=== PATIENT | female | born 1955 | race Caucasian/White ===

== ENCOUNTER → 2017-10-29 11:00 | Outpatient (CLI) | payer MEDICARE, SELFPAY ==
--- NOTE | 2017-10-29 11:03 | HPBI_ITS ---
MAMMOGRAPHY - BILATERAL SCREENING REASON FOR EXAM: Female, 61 years old. Routine annual screening examination. PERTINENT HISTORY: Non-contributory. Six-month history of left lateral breast tenderness. TECHNIQUE: Digital bilateral breast nury (3D mammographic acquisition) in the CC and MLO projections. 2-D mediolateral oblique (MLO) and craniocaudad (CC) views of both breasts were obtained. CAD: Full Field Digital Mammography with Computer Added Detection was performed. COMPARISON: None. Baseline examination. FINDINGS: Breast Composition: There are scattered areas of fibroglandular density. There are no dominant masses or suspicious calcifications. No other significant abnormalities are identified. HPBI/SCREENING MAMM (CAD), BILAT IMPRESSION: Negative screening mammogram. Yearly followup mammogram recommended. (A) ASSESSMENT CATEGORY: BIRADS Category 1: Negative. A letter regarding these results will be sent to the patient by the facility within 30 days. Approximately 10% of breast cancers are not detected by mammography. A normal mammogram should not delay biopsy of a clinically suspicious abnormality. [id number] Electronically Signed: Rory Wright MD at 13:39 EST Tel [phone], Service support ,
--- NOTE | 2017-10-29 11:04 | HPBD_ITS ---
STUDY: DUAL ENERGY X-RAY ABSORPTIOMETRY / DXA REASON FOR EXAM: Female, 61 years old. The patient is postmenopausal. Loss of height. TECHNIQUE: Bone Mineral Density (BMD) measurements of lumbar spine and bilateral hips were obtained. COMPARISON: None. FINDINGS: Lumbar Spine (L1-L4): g/cm2 (1.312) / T-score (1.2) / Z-score (2.4) Findings are suggestive of normal bone density with a low fracture risk. Left Femur Total: g/cm2 (0.998) / T-score (-0.1) / Z-score (0.8) Left Femoral Neck: g/cm2 (0.807) / T-score (-1.7) / Z-score (-0.4) Right Femur Total: g/cm2 (0.913) / T-score (-0.8) / Z-score (0.2) Right Femoral Neck: g/cm2 (0.728) / T-score (-2.2) / Z-score (-1.0) HPBD/Dexa Bone Density Study (HP) IMPRESSION: The patient is considered osteopenic as outlined below according to World Bjorn Organization (WHO) criteria with a moderate fracture risk. Reference Information: The T-score is the number of standard deviations above or below the standard which is normal for young adults at their peak bone mineral density. The World Health Organization (WHO) interprets the T-scores as follows: Above -1 Normal bone density Between -1 and -2.5 Osteopenia Equal to / or below -2.5 Osteoporosis As a practical clinical guideline, osteopenia may be graded as follows: Mild -1 through -1.5 Moderate -1.6 through -2.0 Severe -2.1 through -2.4 The Z-score is the number of standard deviations above or below age-matched controls. A Z-score of less than -1.5 would be considered abnormal. References: 1. NIH Osteoporosis and Related Bone Diseases http://www.osteo.org 2. International Society for Clinical Densitometry http://www.iscd.org 3. National Osteoporosis Foundation http://www.nof.org Electronically Signed: Rory Wright MD at 14:19 EST Tel [phone], Service support ,
== END ==
PROVIDERS: Family Provider Family Medicine; PCP Family Medicine; Visit Provider Nurse Practitioner Adult Health
DX: Z12.31 Encounter for screening mammogram for malignant neoplasm of breast (principal); Z78.0 Asymptomatic menopausal state; M85.80 Other specified disorders of bone density and structure, unspecified site
CPT/HCPCS: 77063; 77067; 77080

== ENCOUNTER → 2018-01-12 10:22 | Outpatient (CLI) | payer MEDICARE, SELFPAY ==
[2018-01-12 11:14] LABS: Amphetamine Urine VISTA NEGATIVE (<1000 ng/mL); Barbiturate Urine VISTA NEGATIVE (< 200 ng/mL); Benzodiazepine Urine VISTA NEGATIVE (< 200 ng/mL); Cocaine Urine VISTA NEGATIVE (< 300 ng/mL); Ecstacy Urine VISTA NEGATIVE (< 500 ng/mL); Methadone Urine VISTA NEGATIVE (< 300 ng/mL); PCP Urine VISTA NEGATIVE (< 25 ng/mL); THC Urine VISTA NEGATIVE (< 50 ng/mL); Vista UDS pH Range 6
== END ==
PROVIDERS: Family Provider Family Medicine; PCP Family Medicine; Visit Provider Anesthesiology Pain Medicine
DX: F11.20 Opioid dependence, uncomplicated (principal)
CPT/HCPCS: 80307

== ENCOUNTER → 2018-07-27 10:21 | Outpatient (CLI) | payer MEDICARE, SELFPAY ==
--- NOTE | 2018-07-27 10:25 | RAD_ITS ---
STUDY: X-RAY - RIGHT KNEE REASON FOR EXAM: Female, 62 years old. Knee pain. TECHNIQUE: 2 view(s) of the knee. COMPARISON: None. FINDINGS: Normal visualized distal femur. Normal visualized proximal tibia and fibula. Normal proximal tibiofibular articulation. There is mild degenerative arthrosis of the medial femorotibial compartment. Normal lateral femorotibial compartment. Normal patellofemoral articulation. The soft tissue structures are unremarkable. RAD/Knee 1 or 2 Views IMPRESSION: Degenerative arthrosis. Electronically Signed: Rory Wright MD at 8:56 EDT Tel [phone], Service support ,
--- NOTE | 2018-07-27 10:30 | RAD_ITS ---
STUDY: X-RAY - LEFT KNEE REASON FOR EXAM: Pain. TECHNIQUE: 2 view(s) of the knee. COMPARISON: None. FINDINGS: Normal visualized distal femur. Normal visualized proximal tibia and fibula. Normal proximal tibiofibular articulation. There is mild joint space narrowing of the medial femorotibial compartment. Normal lateral femorotibial compartment. Normal patellofemoral articulation. The soft tissue structures are unremarkable. RAD/Knee 1 or 2 Views IMPRESSION: Mild arthrosis of the medial femorotibial compartment. Electronically Signed: Nura Smalls MD at 11:45 EDT Tel , Service support ,
== END ==
PROVIDERS: Family Provider Family Medicine; PCP Family Medicine; Referring Provider Anesthesiology Pain Medicine; Visit Provider Anesthesiology Pain Medicine
DX: M25.561 Pain in right knee (principal); M25.562 Pain in left knee
CPT/HCPCS: 73560

== ENCOUNTER → 2018-08-24 09:04 | Outpatient (CLI) | payer MEDICARE, SELFPAY ==
--- NOTE | 2018-08-24 09:11 | RAD_ITS ---
HISTORY: back pain COMPARISON: Lumbar spine MRI 11/26/2016 FINDINGS: Lumbar spine with lateral flexion-extension views for total 4 views. Clothing artifact. Lumbar laminectomy with L3-4 and L4-5 posterior fusion utilizing pedicle screws and connecting rods. The surgical hardware appears intact. Lumbar vertebra are normal in height. No fracture or acute disease. Above the fusion, marked L2-3 disc space narrowing accompanied by endplate spurring and reactive endplate sclerosis. Grade 1 anterolisthesis of L2 on L3 and spondylolisthesis is stable with flexion and extension views. No instability seen. L5-S1 mild disc space narrowing. Bilateral tubal ligation clips. RAD/L/S Spine Min 4 Views IMPRESSION: 1. Lumbar laminectomy with L3-4-5 surgical fusion. 2. Above the fusion, L2-3 advanced degenerative disc disease and spondylosis together with grade 1 spondylolisthesis of this level. 3. With flexion-extension, no instability or abnormal motion. at 0501 Reported and signed by: Trevon Hernadez MD Electronically Signed: Trevon Hernadez, at 4:59 EST Tel , Service support ,
--- OUTSIDE RECORDS SUMMARY | 2018-10-05 22:15 | XMS RPT_ITS ---
:1955 Author Organization OHIP Care Team Providers Name Role Phone Jael Arreguin Attending Unavailable Chi Pulliam Primary Care Unavailable Wilfredo Burgos Attending Unavailable Wilfredo Burgos Referring Unavailable Chi Pulliam Primary Care Unavailable Wilfredo Burgos Attending Unavailable BasalWilfredo garcia Referring Unavailable Pulliam, Chi Primary Care Unavailable Sosa Cummins Attending Unavailable Heraclio Chi Referring Unavailable Sosa Cummins Attending Unavailable oSsa Cummins Referring Unavailable Pulliam, Chi Primary Care Unavailable Sosa Cummins Attending Unavailable Sosa Cummins Referring Unavailable Pulliam, Chi Primary Care Unavailable PROBLEMS PROBLEMS DATE TYPE CONDITION / CODE ATTENDING STATUS SOURCE 09/03/2018 Unknown M54.9 - Maria G Oswald Elizabeth Active [facility] unspecified / Community M54.9(ICD-10) Hospital Repository 09/03/2018 Unknown M76.31 - Sosa Cummins Active [facility] Iliotibial band Community syndrome, right Hospital leg / Repository M76.31(ICD-10) 09/03/2018 Unknown Z98.1 - Sosa Cummins Active Dheeraj Arthrodesis status Community / Z98.1(ICD-10) Hospital Repository 08/24/2018 Unknown M54.16 - Sosa Cummins Active Dheeraj Radiculopathy, [facility] lumbar region / Hospital M54.16(ICD-10) Repository 10/29/2017 Unknown Z12.31 - Encounter Kallie, Active [place] for screening [facility] mammogram for Hospital malignant neoplasm Repository of breast / Z12.31(ICD-10) 10/29/2017 Unknown Z78.0 - [place], Active [place] Asymptomatic [facility] menopausal state / Hospital Z78.0(ICD-10) Repository PROCEDURES PROCEDURES No Procedure Records FoundRESULTS RESULTS ORTHOPEDIC VISIT Observed: 09/03/2018 Status: F Source: DHEERAJ REPORT 11:43 PM [facility] REPOSITORY [facility] [address] [place] [address] OFFICE VISIT Date of Service: 08/24/18 MR#: [id number] Acct: [id number] Name: RONALDO ELLIOTT Rep #: [id number] : 1955 Provider: Sosa Cummins MD Age/Sex: 62/F Location: [facility] [place] Status: Signed Intake Intake Visit Reasons: LOW BACK PAIN Allergies No Known Allergies Allergy (Verified 12/02/15 17:48) [facility] Social History Smoking Status: Never smoker HPI LOW BACK PAIN: Details: RONALDO ELLIOTT is a 62 year old RHD F here today for lumbar pain 70% and 30% bilateral leg fatigue with standing and walking and improved with sitting as well as right buttock, lateral hip, lateral thigh and calf pain that is worse with sitting and improved with laying. She has had back pain since the 1980s. She complains of start up pain. She has history of lumbar surgery x3, one with Dr Buenrsotro that required a redo due to the disc breaking apart. She had a discectomy and states 6 weeks postop, she had a reherniation that required additional surgery. She denies complications or improvement. She had a fusion with Dr Odell Pulliam in 2009 of L3/4/5, that helped minimally her right leg pain. She denies postoperative complications. She did have pain relief with that surgery but it took months. She states she has chronic right leg numbness since her surgeries. She has had a right foot fracture in 07/2017 and developed left lateral leg paresthesias. She had physical therapy many years ago. She had no aqua therapy. She does swim. She was an [employer] for over twenty years and did a lot of heavy lifting. Her last injection was in june by Dr. Burgos, which was repeat of TFE SNRB right side L4-5 and L5-S1. The same injections were in 03/2018, 11/2017 and 06/2017. She states the injections helped her back, not her leg. She has had bilateral SI joint injecitons 09/2017 and right facet injections 10/2016 of the lumbar spine. Her pain is constant but she does get relief from the oxycontine 20 BID and anti inflammatory, celebrex and baclofen, and gabapentin. She trialed lyrica but her pain increased. She has been on opioids for about 10 years. She denies bowel or bladder issues. She denies gait aids. She has HTN and DM. She is unemployed. She denies nicotine use or alcohol use. Ortho Exam Spine Neuro: Yes Clonus (none bilaterally), De La Vega's (negative bilaterally), Babinski (withdrawal bilaterally), Straight Leg Raise (negative bilaterally) and Spurling's (negative bilaterally) General: alert, oriented x3 Skin: Yes healed (midline lumbar incision) Capillary Refill <2sec: Yes Palpable Pulses: 1+ dp/pt pulses bilaterally Gait: normal gait, other (able to heel and toe walk) Motor: strength 5/5 throughout DTR's: Rt Triceps: 2+, Lt Triceps: 2+, Rt Biceps: 2+, Lt Biceps: 2+, Rt Brachioradialis: 2+, Lt Brachioradialis: 2+, Rt Patellar: 2+, Lt Patellar: 2+, Rt Ankle: 2+, Lt Ankle: 2+ Plantar Reflexes: Withdrawal: bilateral Coordination: tandem gait normal, Romberg test normal SPINE TESTING CERVICAL THORACIC LUMBAR SLR: Negative, Right, Le Iliac Compression: Positive, Right, Le Musculoskeletal General: Yes normal gait Cervical Spine: cervical muscular tenderness, pain with cervical ROM, cervical spinal tenderness Thoracic/Lumbar Spine: thoraco-lumbar ROM limited, pain with thoraco-lumbar ROM (worse with lumbar extension than flexion), paraspinal tenderness, surgical scar(s) present, straight leg raise negative bilaterally Sacroiliac joints: bilateral (tenderness) Strength 0=absent - 5=normal Deltoid R (C5): 5, Deltoid L (C5): 5, R Bicep (C5-6): 5, L Bicep (C5-6): 5, R Wrist Extensor (C6): 5, L Wrist Extensor (C6): 5, R Tricep (C7): 5, L Tricep (C7): 5, R Finger Flexors (C8): 5, L Finger Flexors (C8): 5, R First Dorsal Interossei (C8): 5, L First Dorsal Interossei (C8): 5, R Hip Flexor (L1-3): 5, L Hip Flexor (L1-3): 5, R Quadriceps (L2-4): 5, L Quadriceps (L2-4): 5, R Anterior Tibialis (L4-5): 5, L Anterior Tibialis (L4- 5): 5, R Hamstrings (L5-S1): 5, L Hamstrings (L5-S1): 5, GS (S1): 5, L GS (S1): 5, R Peroneals (S1): 5, L Peroneals (S1): 5 Details: decreased sensation in the bialteral lateral thigh, calf and right dorsal foot. tenderness over the right greater trochanteric region. 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 Diffuse spondylosis. L2-3 anterolisthesis. no significant central stenosis MRI cervical spine 11/26/2016 reveals diffuse spondylosis without severe central stneosis DEXA 10/29/2017 reveals left hip T score -0.1, -1.7, right hip T score -0.8, -2.2 I/R/P: 1. back pain 2. right trochanteric bursitis 3. bilateral leg fatigue 4. chronic right leg paresthesias and pain 5. history of 3 prior lumbar surgeries, elsewhere 6. chronic right foot pain 7. chronic opioid use Ms. Elliott presents with back pain and bilateral leg pain. The natural history and course of the symptomatology of lumbar spondylosis with spondylolisthesis was discussed in detail with the patient. I answered all questions regarding the mode of onset, pathophysiology, symptoms, imaging findings, treatment options regarding her diagnosis. She has failed physical therapy, injections and medications. Recommend an updated MRI lumbar spine with and without contrast given her last MRI was over 1 year ago. Recommend reinitiation of physical therapy for right greater trochanteric bursitis. Follow up after MRi or sooner if issues arise. Plan of care discussed. All questions answered. The patient verbalized understanding of the disease process and agreed to the treatment plan formulated for this visit. 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 [place] [address] Fax REHABILITATION SERVICES INITIAL EVALUATION MR#: [id number] Acct: [id number] Name: RONALDO ELLIOTT Rep #: [id number] : 1955 62 From: Darryl Bass PT, Cert. MDT, OCS Referring DrAshok: Sosa Cummins MD Status: REG RCR Insurance: O MEDICARE SELF PAY INSURANCE Patient's Visit Information RONALDO ELLIOTT is a 62 year old F referred to Physical Therapy by Sosa Cummins with a diagnosis of BACK PAIN,L3-5 FUSION 2009,RIGHT IT TENDONIS. Date of Evaluation: 08/25/18 Physical Therapist: Darryl Bass, PT, - Visit Plan Frequency: 2x /Week Duration: 4 Weeks Plan: Aquatic PT for DLS,POSTURAL EX'S,LE STRENGTHENING,LE FLEAXABLITY - Subjective Findings: This 62 y/o female presents to physical therapy with lumbar pain . Patient has had 3 back surgery's most recent L3-5 FUSION 2009. The other surgery's where lumbar discectomies. Patient since surgery pain weakness right leg. patient symptoms affects ability to work and ability to perform job demands. Patient fx ankle from unable to feel foot. Symptoms located lumbar spine ,right leg and cervical spine. Symptoms worse with lifting, bending,sitting driving. Symptoms some better with walking.Pain affects sleeping. Coughing/sneezing -.Bowel/bladder good. Patient has had prior epidural injections prior PT.Patient has parathesia legs. Patient seees pain managenent. Patient seen Dr Behzad trinidad for [facility]. Patient had MRI oredered. Patient symptoms affects QOL and ability to work and ADLS'. SOCAIL: . VOCATION: unemployed - Pain Bilateral Back Pain Intensity (Out of 10): 4 Pain Intensity Range: 10 Right Lower Extremity Pain Intensity (Out of 10): 3 Pain Intensity Range: 10 - Objective POSTURE: mild foward posture. GAIT: normal spring. NEURO: c/o parathesia/tingling right leg,reflexes L3-4,L4-5,L5-S1,1/3. SYMMTRIES: align. PALAPTION: tender L-S region. MMT: quads/hams/hip 4-/5,ankle 4/5. LUMBAR ROM: flexion mod loss,extension mod loss,side glides mods. FLEXABLITY: hams - Special Tests L/S Slump test left side: Negative L/S Slump test right side: Negative L/S Left Straight Leg Raise: Negative L/S Right Straight Leg Raise: Negative - Goals Goal 1:: Independant with Aquatic PT Goal Time Frame: 4-6 Weeks Goal 2:: Patient decrease lumbar pain by 50 % to improve function with ADL'S Goal Time Frame: 4-6 Weeks Goal 3:: Patient to improve posture for ADL'S Goal Time Frame: 4-6 Weeks Goal 4:: Patient to increase strength BLE 4/5 to improve function with ADL'S Goal Time Frame: 4-6 Weeks Goal 5:: Patient to improbe JEFFREY back score by 5 points Goal Time Frame: 4-6 Weeks - Rehabilitation Potential Physical Therapy Diagnosis: This patient has h/o lumbar fusion 2010 with pain ,weakness ,decrease lumbar ROM ,thus impairs ADL'S and housework tasks thus benifit from skilled PT Rehabilitation Potential: Good - Anticipated Interventions Patient/Client Instruction: Educate patient on: Condition, Plan of Care For the Purpose of:: To decrease pain, To increase ROM, To improve muscle performance and motor function, To improve ability to perform ADL's, To increase tolerance to activity/condition/position, To improve ability of physical actions for home/community/work/leisure, To increase flexibility/ROM, To improve endurance, To improve ability to perform tasks related to life management Therapeutic Exercise to Include: Strength training, Postural training, Flexibilty training, In an aquatic setting, Dynamic Lumbar Stabilization Comment: BLE For the Purpose of:: To decrease pain, To increase ROM, To improve muscle performance and motor function, To increase tolerance to activity/condition/position, To improve performance and independence with ADL's, To improve ability of physical actions for home/community/work/leisure, To increase flexibility/ROM, To improve ability to perform tasks related to life management Thank you for the opportunity to evaluate your patient. For Medicare and Medicare HMO plans, please review the plan of care and approve it. It will need to be FAXED BACK to us at [phone] for Medicare purposes. For Medicare only, by signing this I certify the plan of care. Please let me know if there are questions or concerns regarding this plan of care. Physician Signature: Date: <Electronically signed by Darryl Bass PT, Cert. T, OCS> 08/25/18 1208 CC: Sosa Cummins MD; Chi Pulliam MD JLA Signed L/S SPINE MIN 4 Observed: 08/24/2018 Status: F Source: DHEERAJ VIEWS 9:09 AM [facility] REPOSITORY [facility] Imaging Services [address] [place] [address] L/S Spine Min 4 Views MR#: [id number] Acct: [id number] Name: RONALDO ELLIOTT Rep #: [id number] : 1955 F 62 From: Trevon Hernadez MD PCP: Chi Pulliam MD Status: REG CLI Study: L/S Spine Min 4 Views Date of Exam: 08/24/18 Exam# [id number] Ordering Dr: Sosa Cummins MD HISTORY: back pain COMPARISON: Lumbar spine MRI 11/26/2016 FINDINGS: Lumbar spine with lateral flexion-extension views for total 4 views. Clothing artifact. Lumbar laminectomy with L3-4 and L4-5 posterior fusion utilizing pedicle screws and connecting rods. The surgical hardware appears intact. Lumbar vertebra are normal in height. No fracture or acute disease. Above the fusion, marked L2-3 disc space narrowing accompanied by endplate spurring and reactive endplate sclerosis. Grade 1 anterolisthesis of L2 on L3 and spondylolisthesis is stable with flexion and extension views. No instability seen. L5-S1 mild disc space narrowing. Bilateral tubal ligation clips. RAD/L/S Spine Min 4 Views IMPRESSION: 1. Lumbar laminectomy with L3-4-5 surgical fusion. 2. Above the fusion, L2-3 advanced degenerative disc disease and spondylosis together with grade 1 spondylolisthesis of this level. 3. With flexion-extension, no instability or abnormal motion. at 0501 Reported and signed by: Trevon Hernadez MD Electronically Signed: Trevon Hernadez, at 4:59 EST Tel , Service support , CC: Sosa Cummins MD; Chi Pulliam MD Washer Engineer Helper: Signed KNEE 1 OR 2 VIEWS Observed: 07/27/2018 Status: F Source: DHEERAJ 10:25 AM [facility] REPOSITORY [facility] Imaging Services [address] [place] [address] Knee 1 or 2 Views MR#: [id number] Acct: [id number] Name: RONALDO ELLIOTT Rep #: [id number] : 1955 F 62 From: Rory Wright MD PCP: Chi Pulliam MD Status: REG CLI Study: Knee 1 or 2 Views Date of Exam: 07/27/18 Exam# [id number] Ordering Dr: Wilfredo Burgos MD STUDY: X-RAY - RIGHT KNEE REASON FOR EXAM: Female, 62 years old. Knee pain. TECHNIQUE: 2 view(s) of the knee. COMPARISON: None. FINDINGS: Normal visualized distal femur. Normal visualized proximal tibia and fibula. Normal proximal tibiofibular articulation. There is mild degenerative arthrosis of the medial femorotibial compartment. Normal lateral femorotibial compartment. Normal patellofemoral articulation. The soft tissue structures are unremarkable. RAD/Knee 1 or 2 Views IMPRESSION: Degenerative arthrosis. Electronically Signed: Rory Wright MD at 8:56 EDT Tel [phone], Service support , CC: Wilfredo Burgos MD; Chi Pulliam MD Washer Engineer Helper: Signed KNEE 1 OR 2 VIEWS Observed: 07/27/2018 Status: F Source: DHEERAJ 10:25 AM [facility] REPOSITORY [facility] Imaging Services [address] [place] [address] Knee 1 or 2 Views MR#: [id number] Acct: [id number] Name: RONALDO ELLIOTT Rep #: [id number] : 1955 F 62 From: Nura Smalls MD PCP: Chi Pulliam MD Status: REG CLI Study: Knee 1 or 2 Views Date of Exam: 07/27/18 Exam# [id number] Ordering Dr: Wilfredo Burgos MD STUDY: X-RAY - LEFT KNEE REASON FOR EXAM: Pain. TECHNIQUE: 2 view(s) of the knee. COMPARISON: None. FINDINGS: Normal visualized distal femur. Normal visualized proximal tibia and fibula. Normal proximal tibiofibular articulation. There is mild joint space narrowing of the medial femorotibial compartment. Normal lateral femorotibial compartment. Normal patellofemoral articulation. The soft tissue structures are unremarkable. RAD/Knee 1 or 2 Views IMPRESSION: Mild arthrosis of the medial femorotibial compartment. Electronically Signed: Nura Smalls MD at 11:45 EDT Tel , Service support , CC: Wilfredo Burgos MD; Chi Pulliam MD Washer Engineer Helper: Signed URINE DRUG SCREEN Collected: 01/12/2018 Status: F Source: DHEERAJ (VISTA) 10:32 AM [facility] REPOSITORY Order Comment: Comments: RUN LOWEST TEST List of Drugs Taken or Suspected? UNK TYPE CODE TESTS RESULT OUT OF RANGE REFERENCE UNITS LAB L505.0075 TO BE Normal CONFIRMED Result Comment: CONFIRMATORY TESTING FOR ALL POSITIVE URINE DRUG SCREEN RESULTS WILL ONLY BE SENT OUT UPON PHYSICIAN ORDER. VISTA Urine Drug Screen methods provide only preliminary analytical test results. A more specific alternate chemical method must be used in order to obtain a confirmed analytical result. Gas chromatography/mass spectrometery (GC/MS) is the preferred confirmatory method. Clinical consideration and professional judgement should be applied to any drug of abuse test result, particularly when preliminary positive results are used. URINE TCA TESTING MUST BE ORDERED SEPARATELY. USE TEST MNEMONIC: [facility] LAB L505.5005 VISTA UDS PH 6 Normal LAB L505.5015 <1000 ng/mL AMPHETAMINES Normal NEGATIVE LAB L505.5025 < 200 ng/mL BARBITIURATES Normal NEGATIVE LAB L505.5035 < 200 ng/mL BENZODIAZIPINE Normal NEGATIVE LAB L505.5045 < 300 ng/mL COCAINE Normal NEGATIVE LAB L505.5055 < 500 ng/mL ECSTACY Normal NEGATIVE LAB L505.5065 < 300 ng/mL METHADONE Normal NEGATIVE LAB L505.5075 < 300 High ng/mL OPIATES POSITIVE LAB L505.5085 < 25 ng/mL PCP Normal NEGATIVE LAB L505.5095 < 50 ng/mL THC Normal NEGATIVE Performed By: #### L505.5000 #### [facility] [address] [place], [address] MISCELLANEOUS LAB Collected: 01/12/2018 Status: F Source: DHEERAJ PROCEDURE 10:32 AM [facility] REPOSITORY Order Comment: Comments: RUN LOWEST TEST Test(s) Ordered: [id number] TYPE CODE TESTS RESULT OUT OF RANGE REFERENCE UNITS LAB L801.1541 Normal [facility] TEST Result Comment: TEST RESULT UNITS REF INTERVAL [id number] 6+Oxycodone-Bund Amphetamines, Urine Negative ng/mL Mriwjz=3654 Amphetamine test includes Amphetamine and Methamphetamine. Barbiturate Negative ng/mL Boamdj=189 Benzodiazepines Negative ng/mL Hripti=528 Cannabinoids Negative ng/mL Cutoff=20 Cocaine (Metabolite) Negative ng/mL Mrycct=039 Opiates Negative ng/mL Jsujfz=615 Opiate test includes Codeine, Morphine, Hydromorphone, Hydrocodone. Please Note: Confirmation performed by Mass Spectrometry Oxycodone/Oxymorph Positive Ekjktl=722 Test includes Oxycodone and Oxymorphone Oxycodone Positive Oxycodone (GC/MS) 1800 ng/mL Scjico=105 Oxymorphone Positive Oxymorphone (GC/MS) 984 ng/mL Ibhess=337 TESTING PERFORMED AT [facility]. ORIGINAL REPORT ON FILE IN LAB CONTAINS ADDITIONAL TEST SITE INFORMATION. Performed By: #### L801.1541 #### [facility] [address] [place], [address] DEXA BONE DENSITY Observed: 10/29/2017 Status: F Source: [place] STUDY () 11:06 AM [facility] REPOSITORY [facility] Imaging Services [address] [place] [address] Dexa Bone Density Study () MR#: [id number] Acct: [id number] Name: RONALDO ELLIOTT Rep #: [id number] : 1955 F 61 From: Rory Wirght MD PCP: Chi Pulliam MD Status: REG CLI Study: Dexa Bone Density Study () Date of Exam: 10/29/17 Exam# [id number] Ordering Dr: Jael Arreguin STUDY: DUAL ENERGY X-RAY ABSORPTIOMETRY / DXA REASON FOR EXAM: Female, 61 years old. The patient is postmenopausal. Loss of height. TECHNIQUE: Bone Mineral Density (BMD) measurements of lumbar spine and bilateral hips were obtained. COMPARISON: None. FINDINGS: Lumbar Spine (L1-L4): g/cm2 (1.312) / T-score (1.2) / Z-score (2.4) Findings are suggestive of normal bone density with a low fracture risk. Left Femur Total: g/cm2 (0.998) / T-score (-0.1) / Z- score (0.8) Left Femoral Neck: g/cm2 (0.807) / T-score (-1.7) / Z- score (-0.4) Right Femur Total: g/cm2 (0.913) / T-score (-0.8) / Z- score (0.2) Right Femoral Neck: g/cm2 (0.728) / T-score (-2.2) / Z-score (-1.0) HPBD/Dexa Bone Density Study (HP) IMPRESSION: The patient is considered osteopenic as outlined below according to World Bjorn Organization (WHO) criteria with a moderate fracture risk. Reference Information: The T-score is the number of standard deviations above or below the standard which is normal for young adults at their peak bone mineral density. The World Health Organization (WHO) interprets the T-scores as follows: Above -1 Normal bone density Between -1 and -2.5 Osteopenia Equal to / or below -2.5 Osteoporosis As a practical clinical guideline, osteopenia may be graded as follows: Mild -1 through -1.5 Moderate -1.6 through -2.0 Severe -2.1 through -2.4 The Z-score is the number of standard deviations above or below age-matched controls. A Z-score of less than -1.5 would be considered abnormal. References: 1. NIH Osteoporosis and Related Bone Diseases http://www.osteo.org 2. International Society for Clinical Densitometry http://www.iscd.org 3. National Osteoporosis Foundation http://www.nof.org Electronically Signed: Rory Wright MD at 14:19 EST Tel [phone], Service support , CC: Jael Arreguin; Chi Pulliam MD Washer Engineer Helper: Signed SCREENING MAMM (CAD), Observed: 10/29/2017 Status: F Source: DHEERAJ CYDNEY 11:04 AM [facility] REPOSITORY [facility] Imaging Services [address] [place] [address] SCREENING MAMM (CAD), BILHORACE MR#: [id number] Acct: [id number] Name: RONALDO ELLIOTT Rep #: [id number] : 1955 F 61 From: Rory Wright MD PCP: Chi Pulliam MD Status: REG CLI Study: SCREENING MAMM (CAD), BILAT Date of Exam: 10/29/17 Exam# [id number] Ordering Dr: Jael Arreguin MAMMOGRAPHY - BILATERAL SCREENING REASON FOR EXAM: Female, 61 years old. Routine annual screening examination. PERTINENT HISTORY: Non-contributory. Six-month history of left lateral breast tenderness. TECHNIQUE: Digital bilateral breast nury (3D mammographic acquisition) in the CC and MLO projections. 2-D mediolateral oblique (MLO) and craniocaudad (CC) views of both breasts were obtained. CAD: Full Field Digital Mammography with Computer Added Detection was performed. COMPARISON: None. Baseline examination. FINDINGS: Breast Composition: There are scattered areas of fibroglandular density. There are no dominant masses or suspicious calcifications. No other significant abnormalities are identified. HPBI/SCREENING MAMM (CAD), BILAT IMPRESSION: Negative screening mammogram. Yearly followup mammogram recommended. (A) ASSESSMENT CATEGORY: BIRADS Category 1: Negative. A letter regarding these results will be sent to the patient by the facility within 30 days. Approximately 10% of breast cancers are not detected by mammography. A normal mammogram should not delay biopsy of a clinically suspicious abnormality. [id number] Electronically Signed: Rory Wright MD at 13:39 EST Tel [phone], Service support , CC: Jael Arreguin; Chi Pulliam MD Washer Engineer Helper: Signed ALLERGIES ALLERGIES DATE TYPE / CODE NAME / CODE REACTION SEVERITY SOURCE 12/02/2015 Drug No Known Unknown [place] [facility] Allergy/4160 Allergies/F00 [facility] 99580(SNOMED [id number](RXNOR Repository CT) M) ENCOUNTERS ENCOUNTERS ADMIT/DISCHARGE ACCOUNT ADMITTING ENCOUNTER LOCATION SOURCE NUMBER CLASS 09/03/2018 [id number] Ambulatory [facility]aj [place] 2 [facility] ing:PT Repository 08/24/2018 [id number] Ambulatory [place] [facility] ing:HPRAD Repository 08/24/2018/ [id number] Ambulatory BMSBuilding:B [place] 8 1 [facility] Repository 07/27/2018 [id number] Ambulatory Dheeraj Dheeraj 1 [facility] ing:RAD Repository 01/12/2018 [id number] Ambulatory [place] Dheeraj 0 [facility] ing:LAB Repository 10/29/2017 [id number] Ambulatory [place] 0 [facility] ing:BD Repository PAYERS PAYERS ENCOUNTER GUARANTOR PAYER SUBSCRIBER SOURCE 09/03/2018 JOSE Watson Primary Insurance:MMO RONALDO J Dheeraj [id number] VINCENT MEDICAREPolicy RUDYDOB: [place], [place] Number: [id number] Hospital [address]Bkv: [id number] [id number] Repository [phone] () Date:4200-18-98EG [address] [address]IN: 09/03/2018 Secondary NOT GIVENUNK Dheeraj Insurance:SELF PAY [facility] Number: Effective Repository Date:2018-08-24 08/24/2018 JOSE Watson Primary Insurance:MMO RONALDO J [place] [id number] VINCENT MEDICAREPolicy RUDYDOB: [place], [place] Number: [id number] Hospital [address]Nxe: [phone] [id number] Repository [phone] () Date:[id number] [address]AE: 08/24/2018 Secondary NOT GIVENUNK Dheeraj Insurance:SELF PAY [facility] Number: Effective Repository Date:2018-08-24 08/24/2018 JOSE Watson Primary Insurance:MMO RONALDO J Dheeraj [id number] VINCENT MEDICAREPolicy RUDYDOB: [facility] [place] Number: [id number] Hospital [address]Lnc: [phone] [id number] Repository [phone] (HP) Date:3509-87-15RH [address] [place] [address]CC: 08/24/2018 Secondary NOT GIVENUNK Dheeraj Insurance:SELF [facility] Effective Repository Date:2018-08-24 07/27/2018 JOSE Watson Primary Insurance:MMO RONALDO J [place] [id number] VINCENT MEDICAREPolicy RUDYDOB: [facility] [place] Number: [id number] Hospital [address]Mrh: [phone] [id number] Repository [phone] (HP) Date:9975-21-46JG [address] [address]QN: 07/27/2018 Secondary NOT GIVENUNK Dheeraj Insurance:SELF PAY [facility] Number: Effective Repository Date:2018-07-27 01/12/2018 JOSE Watson Primary Insurance:MMO RONALDO J Dheeraj [id number] VINCENT MEDICAREPolicy RUDYDOB: [place], [place] Number: [id number] Hospital [address]Urk: [phone] [id number] Repository [phone] () Date:9725-24-80TA [address] [address]VS: 01/12/2018 Secondary NOT GIVENUNK [place] Insurance:SELF PAY [facility] Number: Effective Repository Date:2018-01-12 10/29/2017 JOSE Watson Primary Insurance:MMO RONALDO J [place] [id number] VINCENT MEDICAREPolicy RUDYDOB: [place] Number: [id number] Hospital [address]Jdf: [phone] [id number] Repository [phone] () Date:5527-97-02CI [address] [address]OT: 10/29/2017 Secondary NOT GIVENUNK Dheeraj Insurance:SELF PAY [facility] Number: Effective Repository Date:2017-09-01
== END ==
PROVIDERS: Family Provider Family Medicine; PCP Family Medicine; Referring Provider Orthopaedic Surgery; Visit Provider Orthopaedic Surgery
DX: M54.16 Radiculopathy, lumbar region (principal)
CPT/HCPCS: 72110

== ENCOUNTER 2018-09-03 15:30 | Outpatient (RCR) | payer MEDICARE, SELFPAY ==
--- NOTE | 2018-08-25 10:24 | HP.PTEVAL ---
Patient's Visit Information RONALDO SOLORIO is a 62 year old F referred to Physical Therapy by Sosa Cummins with a diagnosis of BACK PAIN,L3-5 FUSION 2009,RIGHT IT TENDONIS. Date of Evaluation: 08/25/18 Physical Therapist: Darryl Bass, PT, - Visit Plan Frequency: 2x /Week Duration: 4 Weeks Plan: Aquatic PT for DLS,POSTURAL EX'S,LE STRENGTHENING,LE FLEAXABLITY - Subjective Findings: This 62 y/o female presents to physical therapy with lumbar pain . Patient has had 3 back surgery's most recent L3-5 FUSION 2009. The other surgery's where lumbar discectomies. Patient since surgery pain weakness right leg. patient symptoms affects ability to work and ability to perform job demands. Patient fx ankle from unable to feel foot. Symptoms located lumbar spine ,right leg and cervical spine. Symptoms worse with lifting, bending,sitting driving. Symptoms some better with walking.Pain affects sleeping. Coughing/sneezing -.Bowel/bladder good. Patient has had prior epidural injections prior PT.Patient has parathesia legs. Patient seees pain managenent. Patient seen Dr Behzad trinidad for surgey. Patient had MRI oredered. Patient symptoms affects QOL and ability to work and ADLS'. SOCAIL: . VOCATION: unemployed - Pain Bilateral Back Pain Intensity (Out of 10): 4 Pain Intensity Range: 10 Right Lower Extremity Pain Intensity (Out of 10): 3 Pain Intensity Range: 10 - Objective POSTURE: mild foward posture. GAIT: normal spring. NEURO: c/o parathesia/tingling right leg,reflexes L3-4,L4-5,L5-S1,1/3. SYMMTRIES: align. PALAPTION: tender L-S region. MMT: quads/hams/hip 4-/5,ankle 4/5. LUMBAR ROM: flexion mod loss,extension mod loss,side glides mods. FLEXABLITY: hams - Special Tests L/S Slump test left side: Negative L/S Slump test right side: Negative L/S Left Straight Leg Raise: Negative L/S Right Straight Leg Raise: Negative - Goals Goal 1:: Independant with Aquatic PT Goal Time Frame: 4-6 Weeks Goal 2:: Patient decrease lumbar pain by 50 % to improve function with ADL'S Goal Time Frame: 4-6 Weeks Goal 3:: Patient to improve posture for ADL'S Goal Time Frame: 4-6 Weeks Goal 4:: Patient to increase strength BLE 4/5 to improve function with ADL'S Goal Time Frame: 4-6 Weeks Goal 5:: Patient to improbe JEFFREY back score by 5 points Goal Time Frame: 4-6 Weeks - Rehabilitation Potential Physical Therapy Diagnosis: This patient has h/o lumbar fusion 2010 with pain ,weakness ,decrease lumbar ROM ,thus impairs ADL'S and housework tasks thus benifit from skilled PT Rehabilitation Potential: Good - Anticipated Interventions Patient/Client Instruction: Educate patient on: Condition, Plan of Care For the Purpose of:: To decrease pain, To increase ROM, To improve muscle performance and motor function, To improve ability to perform ADL's, To increase tolerance to activity/condition/position, To improve ability of physical actions for home/community/work/leisure, To increase flexibility/ROM, To improve endurance, To improve ability to perform tasks related to life management Therapeutic Exercise to Include: Strength training, Postural training, Flexibilty training, In an aquatic setting, Dynamic Lumbar Stabilization Comment: BLE For the Purpose of:: To decrease pain, To increase ROM, To improve muscle performance and motor function, To increase tolerance to activity/condition/position, To improve performance and independence with ADL's, To improve ability of physical actions for home/community/work/leisure, To increase flexibility/ROM, To improve ability to perform tasks related to life management Thank you for the opportunity to evaluate your patient. For Medicare and Medicare HMO plans, please review the plan of care and approve it. It will need to be FAXED BACK to us at [phone] for Medicare purposes. For Medicare only, by signing this I certify the plan of care. Please let me know if there are questions or concerns regarding this plan of care. Physician Signature: Date:
--- NOTE | 2018-09-27 15:53 | HP.PTDCNRP_ITS ---
HP - Discharge Summary (1) - Patient Information RONALDO SOLORIO was seen in my office for initial evaluation on 08/25/18. The following Plan of Care was established for this patient: Initial Frequency: 2x /Week Initial Duration: 4 Weeks - Anticipated Interventions Patient/Client Instruction: Educate patient on: Condition, Plan of Care For the Purpose of:: To decrease pain, To increase ROM, To improve muscle perfor car[place] and motor function, To improve ability to perform ADL's, To increase tolerance to activity/condition/position, To improve ability of physical actions for home/community/work/leisure, To increase flexibility/ROM, To improve endurance, To improve ability to perform tasks related to life management Therapeutic Exercise to Include: Strength training, Postural training, F lexibilty training, In an aquatic setting, Dynamic Lumbar Stabilization For the Purpose of:: To decrease pain, To increase ROM, To improve muscle performance and motor function, To increase tolerance to activity/condition/position, To improve performance and independence with ADL's, To improve ability of physical actions for home/community/work/leisure, To increase flexibility/ROM, To improve ability to perform tasks related to life management This patient was last seen in our office 09/03/18. Pertinent comments regarding their Physical therapy will appear below: Patient seen for PT for lumbar fusion in Aquatic PT for 2 visits focusing on DLS,LE strengthening but is d/c from PT. At this point I will be discontinuing this patient from physical therapy. I would be happy to see this patient again in the future if found appropriate by the physician. Thank you! Darryl Bass, PT, Cert MDT, OCS
--- OUTSIDE RECORDS SUMMARY | 2018-10-20 14:52 | XMS RPT_ITS ---
[...] Chi Referring Unavailable Sosa Cummins Attending Unavailable Sosa Cummins Referring Unavailable Pulliam, Chi Primary Care Unavailable Sosa Cummins Attending Unavailable Sosa Cummins Referring Unavailable Pulliam, Chi Primary Care Unavailable PROBLEMS PROBLEMS DATE TYPE CONDITION / CODE ATTENDING STATUS SOURCE 09/03/2018 Unknown M54.9 - Maria G Oswald Elizabeth Active Dheeraj unspecified / Community M54.9(ICD-10) Hospital Repository 09/03/2018 Unknown M76.31 - Sosa Cummins Active Dheeraj Iliotibial band Community syndrome, right Hospital leg / Repository M76.31(ICD-10) 09/03/2018 Unknown Z98.1 - Sosa Cummins Active Dheeraj Arthrodesis status Community / Z98.1(ICD-10) Hospital Repository 08/24/2018 Unknown M54.16 - Sosa Cummins Active Dheeraj Radiculopathy, [facility] lumbar region / Hospital M54.16(ICD-10) Repository 10/29/2017 Unknown Z12.31 - Encounter Kallie, Active [place] for screening [facility] mammogram for Hospital malignant neoplasm Repository of breast / Z12.31(ICD-10) 10/29/2017 Unknown Z78.0 - [place], Active [place] Asymptomatic [facility] menopausal state / Hospital Z78.0(ICD-10) Repository PROCEDURES PROCEDURES No Procedure Records FoundRESULTS RESULTS ORTHOPEDIC VISIT Observed: 09/03/2018 Status: F Source: DHEERAJ REPORT 11:43 PM [facility] REPOSITORY [facility] [address] [place] [address] OFFICE VISIT Date of Service: 08/24/18 MR#: [id number] Acct: [id number] Name: RONALDO ELLIOTT Rep #: [id number] : 1955 Provider: Sosa Cummins MD Age/Sex: 62/F [place] [facility]: Signed Intake Intake Visit Reasons: LOW BACK PAIN Allergies No Known Allergies Allergy (Verified 12/02/15 17:48) [facility] Social History Smoking Status: Never smoker HPI [...] of lumbar surgery x3, one with Dr Buenrostro that required a redo due to the [...] therapy. She does swim. 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 [place] [address] Fax REHABILITATION SERVICES INITIAL EVALUATION MR#: [id number] Acct: [id number] Name: RONALDO ELLIOTT Rep #: [id number] : 1955 62 From: Darryl Bass PT, [...] managenent. [facility]. Patient had MRI oredered. Patient symptoms [...] 4-6 Weeks Goal 5:: Patient to improbe JEFFERY back score by 5 points Goal Time [...] to be FAXED BACK to us at [phone] for Medicare purposes. For Medicare only, by [...] Status: F Source: DHEERAJ VIEWS 9:09 AM [facility] REPOSITORY [facility] Imaging Services [address] [place] [address] L/S Spine Min 4 Views MR#: [id number] Acct: [id number] Name: RONALDO ELLIOTT Rep #: [id number] : 1955 F 62 From: Trevon Hernadez MD PCP: Chi Pulliam MD Status: REG CLI Study: L/S Spine Min 4 Views Date of Exam: 08/24/18 Exam# [id number] Ordering Dr: Sosa Cummins MD HISTORY: back [...] CC: Sosa Cummins MD; Chi Pulliam MD Audio Director: Signed KNEE 1 OR 2 VIEWS Observed: 07/27/2018 Status: F Source: DHEERAJ 10:25 AM [facility] REPOSITORY [facility] Imaging Services [address] [place] [address] Knee 1 or 2 Views MR#: [id number] Acct: [id number] Name: RONALDO ELLIOTT Rep #: [id number] : 1955 F 62 From: Rory Wright MD PCP: Chi Pulliam MD Status: REG CLI Study: Knee 1 or 2 Views Date of Exam: 07/27/18 Exam# [id number] Ordering Dr: Wilfredo Burgos MD STUDY: X-RAY [...] Rory Wright MD at 8:56 EDT Tel [phone], Service support , CC: Wilfredo Burgos MD; Chi Pulliam MD Audio Director: Signed KNEE 1 OR 2 VIEWS Observed: 07/27/2018 Status: F Source: DHEERAJ 10:25 AM [facility] REPOSITORY [facility] Imaging Services [address] [place] [address] Knee 1 or 2 Views MR#: [id number] Acct: [id number] Name: RONALDO ELLIOTT Rep #: [id number] : 1955 F 62 From: Nura Smalls MD PCP: Chi Pulliam MD Status: REG CLI Study: Knee 1 or 2 Views Date of Exam: 07/27/18 Exam# [id number] Ordering Dr: Wilfredo Burgos MD STUDY: X-RAY [...] CC: Wilfredo Burgos MD; Chi Pulliam MD Audio Director: Signed URINE DRUG SCREEN Collected: 01/12/2018 Status: F Source: DHEERAJ (VISTA) 10:32 AM [facility] REPOSITORY Order Comment: Comments: RUN LOWEST TEST [...] Normal NEGATIVE Performed By: #### L505.5000 #### [facility] [address] [place], [address] MISCELLANEOUS LAB Collected: 01/12/2018 Status: F Source: DHEERAJ PROCEDURE 10:32 AM [facility] REPOSITORY Order Comment: Comments: RUN LOWEST TEST Test(s) Ordered: [id number] TYPE CODE TESTS RESULT OUT OF RANGE REFERENCE UNITS LAB L801.1541 Normal [facility] LAB TEST Result Comment: TEST RESULT UNITS REF INTERVAL [id number] 6+Oxycodone-Bund Amphetamines, Urine Negative ng/mL Bnllwa=4635 Amphetamine test includes Amphetamine and Methamphetamine. Barbiturate Negative ng/mL Uunrxx=233 Benzodiazepines Negative ng/mL Jnebfr=307 Cannabinoids Negative ng/mL Cutoff=20 Cocaine (Metabolite) Negative ng/mL Flemtg=120 Opiates Negative ng/mL Xxsyms=905 Opiate test includes Codeine, Morphine, Hydromorphone, Hydrocodone. Please Note: Confirmation performed by Mass Spectrometry Oxycodone/Oxymorph Positive Gavvtx=124 Test includes Oxycodone and Oxymorphone Oxycodone Positive Oxycodone (GC/MS) 1800 ng/mL Amkuvk=453 Oxymorphone Positive Oxymorphone (GC/MS) 984 ng/mL Pghgrs=312 TESTING PERFORMED AT [facility]. ORIGINAL REPORT ON FILE IN LAB CONTAINS ADDITIONAL TEST SITE INFORMATION. Performed By: #### L801.1541 #### [facility] [address] [place], [address] DEXA BONE DENSITY Observed: 10/29/2017 Status: F Source: SULPHUR BLUFF STUDY () 11:06 AM [facility] REPOSITORY [facility] Imaging Services [address] [place] [address] Dexa Bone Density Study () MR#: [id number] Acct: [id number] Name: RONALDO ELLIOTT Rep #: [id number] : 1955 F 61 From: Rory Wright MD PCP: Chi Pulliam MD Status: REG CLI Study: Dexa Bone Density Study () Date of Exam: 10/29/17 Exam# [id number] Ordering Dr: Jael Arreguin STUDY: DUAL ENERGY [...] Rory Wright MD at 14:19 EST Tel [phone], Service support , CC: Jael Arreguin; Chi Pulliam MD Audio Director: Signed SCREENING MAMM (CAD), Observed: 10/29/2017 Status: F Source: DHEERAJ CYDNEY 11:04 AM [facility] REPOSITORY [facility] Imaging Services [address] [place] [address] SCREENING MAMM (CAD), BILHORACE MR#: [id number] Acct: [id number] Name: RONALDO ELLIOTT Rep #: [id number] : 1955 F 61 From: Rory Wright MD PCP: Chi Pulliam MD Status: REG CLI Study: SCREENING MAMM (CAD), BILAT Date of Exam: 10/29/17 Exam# [id number] Ordering Dr: Jael Arreguin MAMMOGRAPHY - BILATERAL [...] delay biopsy of a clinically suspicious abnormality. [id number] Electronically Signed: Rory Wright MD at 13:39 EST Tel [phone], Service support , CC: Jael Arreguin; Chi Pulliam MD Audio Director: Signed ALLERGIES ALLERGIES DATE TYPE / CODE NAME / CODE REACTION SEVERITY SOURCE 12/02/2015 Drug No Known Unknown [place] [facility] Allergy/4160 [facility] [address](SNOMED 2048414(RXNOR Repository CT) M) ENCOUNTERS ENCOUNTERS ADMIT/DISCHARGE ACCOUNT ADMITTING ENCOUNTER LOCATION SOURCE NUMBER CLASS 09/03/2018 [id number] Ambulatory Dheeraj [place] 2 [facility] ing:PT Repository 08/24/2018 [id number] Ambulatory [place] 8 [facility] ing:HPRAD Repository 08/24/2018/ [id number] Ambulatory BMSBuilding:B [place] 8 1 [facility] Repository 07/27/2018 [id number] Ambulatory Dheeraj Dheeraj 1 [facility] ing:RAD Repository 01/12/2018 [id number] Ambulatory [place] Dheeraj 0 [facility] ing:LAB Repository 10/29/2017 [id number] Ambulatory [place] 0 [facility] ing:BD Repository PAYERS PAYERS ENCOUNTER GUARANTOR PAYER SUBSCRIBER SOURCE 09/03/2018 JOSE Watson Primary Insurance:MMO RONALDO J Dhereaj [id number] VINCENT MEDICAREPolicy RUDYDOB: [place], [place] Number: [id number] Hospital [address]Rwc: [phone] [id number] Repository [phone] () Date:5750-40-72MM [address] [address]ZY: 09/03/2018 Secondary NOT GIVENUNK Dheeraj Insurance:SELF PAY [facility] Number: Effective Repository Date:2018-08-24 08/24/2018 JOSE [place] Primary Insurance:MMO RONALDO J [place] [id number] VINCENT MEDICAREPolicy RUDYDOB: [place], [place] Number: [id number] Hospital [address]Edd: ([phone]) [id number] Repository [phone] () Date:3120-41-35LA[address] [address]PT: 08/24/2018 Secondary NOT GIVENUNK Dheeraj Insurance:SELF PAY [facility] Number: Effective Repository Date:2018-08-24 08/24/2018 JOSE Watson Primary Insurance:MMO RONALDO J Dheeraj [id number] VINCENT MEDICAREPolicy RUDYDOB: [facility], [place] Number: [id number] Hospital [address]The: [phone] [id number] Repository [phone] (HP) Date:9424-62-79VD [address] [place] [address]VR: 08/24/2018 Secondary NOT GIVENUNK Dheeraj Insurance:SELF PAY [facility] Number: Effective Repository Date:2018-08-24 07/27/2018 JOSE Watson Primary Insurance:MMO RONALDO J [place] [id number] VINCENT MEDICAREPolicy RUDYDOB: [facility], [place] Number: [id number] Hospital [address]Qrs: [phone] [id number] Repository [phone] (HP) Date:3937-02-36BA [address] [address]QR: 07/27/2018 Secondary NOT GIVENUNK Dheeraj Insurance:SELF PAY [facility] Number: Effective Repository Date:2018-07-27 01/12/2018 JOSE Watson Primary Insurance:MMO RONALDO J Dheeraj [id number] VINCENT MEDICAREPolicy RUDYDOB: [place], [place] Number: [id number] Hospital [address]Acw: [phone] [id number] Repository [phone] () Date:0033-06-16IR [address] [address]IV: 01/12/2018 Secondary NOT GIVENUNK [place] Insurance:SELF PAY [facility] Number: Effective Repository Date:2018-01-12 10/29/2017 JOSE Watson Primary Insurance:MMO RONALDO J [place] [id number] VINCENT MEDICAREPolicy RUDYDOB: [place], [place] Number: [id number] Hospital [address]Wrk: [phone] [id number] Repository [phone] () Date:6706-90-29CF [address] [address]HJ: 10/29/2017 Secondary NOT GIVENUNK Dheeraj Insurance:SELF PAY [facility] Number: Effective Repository Date:2017-09-01
== END 2018-09-03 19:00 | disposition home or self-care (01) ==
LOC: PT 15:30
PROVIDERS: Family Provider Family Medicine; PCP Family Medicine; Referring Provider Orthopaedic Surgery; Visit Provider Orthopaedic Surgery
DX: M54.9 Dorsalgia, unspecified (principal); M76.31 Iliotibial band syndrome, right leg; Z98.1 Arthrodesis status
CPT/HCPCS: 97113; 97162

== ENCOUNTER → 2018-10-19 11:29 | Outpatient (CLI) | payer MEDICARE, SELFPAY ==
[2018-10-19 14:19] LABS: Anion Gap 6 (5-15); BUN 17 mg/dL (7-18); BUN/Creat Ratio 17.6 RATIO (10-20); Calcium,Total 9.1 mg/dL (8.5-10.1); Chloride 107 mmol/L (98-107); Cholesterol 180 mg/dL (200); Creatinine, Serum 0.96 mg/dL (0.55-1.02); EST Glomerular Filtration Rate 63 mL/min (>60); Est Glom Filt Rate - Afr Amer 76 mL/min (>60); Glucose 94 mg/dL (74-106); Hemoglobin A1c 6.1 % (4.2-6.3); High Density Lipoprotein 53 mg/dL; Potassium 3.9 mmol/L (3.5-5.1); Sodium Level 141 mmol/L (136-145); Triglycerides 99 mg/dL; Very Low Density Lipoprotein 20 mg/dL (5-40)
--- OUTSIDE RECORDS SUMMARY | 2018-12-21 15:19 | XMS RPT_ITS ---
:1955 Author Organization OHIP Care Team Providers Name Role Phone Chi Pulliam Attending Unavailable Chi Pulliam Referring Unavailable Chi Pulliam Primary Care Unavailable Jael Arreguin Attending Unavailable Chi Pulliam Primary Care Unavailable Wilfredo Burgos Attending Unavailable Wilfredo Burgos Referring Unavailable Chi Pulliam Primary Care Unavailable Wilfredo Burgos Attending Unavailable Wilfredo Burgos Referring Unavailable Chi Pulliam Primary Care Unavailable Sosa Cummins Attending Unavailable Chi Pulliam Referring Unavailable Sosa Cummins Attending Unavailable Sosa Cummins Referring Unavailable Chi Pulliam Primary Care Unavailable Sosa Cummins Attending Unavailable Sosa Cummins Referring Unavailable Chi Pulliam Primary Care Unavailable PROBLEMS PROBLEMS DATE TYPE CONDITION / CODE ATTENDING STATUS SOURCE 09/29/2018 Unknown M54.9 - Dorsalgia, Kalani CumminsSosa Active [facility] unspecified / Community M54.9(ICD-10) Hospital Repository 09/29/2018 Unknown M76.31 - Kalani CumminsSosa Active [facility] Iliotibial band Community syndrome, right Hospital leg / Repository M76.31(ICD-10) 09/29/2018 Unknown Z98.1 - Kalani CumminsSosa Active [facility] Arthrodesis status Community / Z98.1(ICD-10) Hospital Repository 08/24/2018 Unknown M54.16 - Kalani CumminsSosa Active [facility] Radiculopathy, [facility] lumbar region / Hospital M54.16(ICD-10) Repository 10/29/2017 Unknown Z12.31 - Encounter Ticktruman, Active Dheeraj for screening [facility] mammogram for Hospital malignant neoplasm Repository of breast / Z12.31(ICD-10) 10/29/2017 Unknown Z78.0 - [place], Active Dheeraj Asymptomatic [facility] menopausal state / Hospital Z78.0(ICD-10) Repository PROCEDURES PROCEDURES No Procedure Records FoundRESULTS RESULTS BASIC METABOLIC Collected: 10/19/2018 Status: F Source: [place] PROFILE (BMP) 11:34 AM [facility] HOSPITAL REPOSITORY TYPE CODE TESTS RESULT OUT OF RANGE REFERENCE UNITS LAB L501.0100 74-106 mg/dL Normal GLU 94 Result Comment: Please note revised GLUCOSE reference range effective 2017. LAB L501.1000 7-18 mg/dL Normal BUN 17 LAB L501.1100 0.55-1.02 mg/dL Normal CREAT,SERUM 0.96 Result Comment: The validity of the calculated GFR AND GFRAA in patients over 70 years has not been determined. Clinical correlation is essential. LAB L501.1110 >60 mL/min Normal EST GFR 63 Result Comment: Non- GFR Calc LAB L501.1115 >60 mL/min Normal EST GFR - AA 76 Result Comment: GFR Calc LAB L501.1300 10-20 RATIO Normal BUN/CRE 17.6 LAB L501.2200 8.5-10.1 mg/dL CA Normal 9.1 LAB L501.5300 136-145 mmol/L NA Normal 141 LAB L501.5600 3.5-5.1 mmol/L K Normal 3.9 LAB L501.5900 98-107 mmol/L CL Normal 107 LAB L501.6100 21.0-32.0 mmol/L Normal CO2 28.0 LAB L501.6200 5-15 Normal GAP 6 Performed By: #### L500.2500, L500.4100, L501.9985 #### [facility] [address] [place], [place], [address] LIPID PROFILE Collected: 10/19/2018 Status: F Source: [place] 11:34 AM [facility] REPOSITORY TYPE CODE TESTS RESULT OUT OF RANGE REFERENCE UNITS LAB L501.4900 200 mg/dL Normal CHOL 180 Result Comment: <200 mg/dL Desirable 200-240 mg/dL Borderline >240 mg/dL High Risk LAB L501.5000 mg/dL Normal TRIG 99 Result Comment: The drugs N-Acetylcysteine and Metamizole may falsely depress this assay. Serum Triglycerides Reference Interval Normal <150 mg/dL Borderline high 150 - 199 mg/dL High 200 - 499 mg/dL Very High > or = 500 mg/dL LAB L501.6400 mg/dL Normal HDL 53 Result Comment: The drugs N-Acetylcysteine and Metamizole may falsely depress this assay. Reference Range HDL <40 mg/dL Low HDL Cholesterol HDL >or= 60 mg/dL High HDL Cholesterol LAB L501.6500 0-130 mg/dL Normal LDL 107 LAB L501.6600 5-40 mg/dL Normal VLDL 20 Performed By: #### L500.2500, L500.4100, L501.9985 #### [facility] [address] [place], [place], [address] HEMOGLOBIN A1C Collected: 10/19/2018 Status: F Source: [place] 11:34 [facility] [place] [place] REPOSITORY TYPE CODE TESTS RESULT OUT OF RANGE REFERENCE UNITS LAB L501.9985 4.2-6.3 % Normal HGB A1C 6.1 Performed By: #### L500.2500, L500.4100, L501.9985 #### [facility] [place], [address] ORTHOPEDIC VISIT Observed: 09/03/2018 Status: F Source: [place] REPORT 11:43 PM [facility] REPOSITORY [facility] [address] [facility] [address] [place] [address] OFFICE VISIT Date of Service: 08/24/18 MR#: [id number] Acct: [id number] Name: RONALDO SOLORIO Rep #: [id number] : 1955 Provider: Sosa Cummins MD Age/Sex: 62/F Location: [facility] Status: Signed Intake Intake Visit Reasons: LOW BACK PAIN Allergies No Known Allergies Allergy (Verified 12/02/15 17:48) PFSH Social History Smoking Status: Never smoker HPI LOW BACK PAIN: Details: RONALDO SOLORIO is a 62 year old RHD F here today for lumbar pain 70% and 30% bilateral leg fatigue with standing and walking and improved with sitting as well as right buttock, lateral hip, lateral thigh and calf pain that is worse with sitting and improved with laying. She has had back pain since the . She complains of start up pain. She [...] therapy. She does swim. 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 chronic opioid use Ms. Solorio presents with back pain and bilateral leg [...] EVALUATION (1) Observed: 08/25/2018 Status: F Source: SAUGUS - PT 12:08 PM [facility] REPOSITORY [facility] [address] [place] [address]. [address] [place], [place] [id number] Fax REHABILITATION SERVICES INITIAL EVALUATION MR#: [id number] Acct: [id number] Name: RONALDO SOLORIO Rep #: [id number] : 1955 62 From: Darryl Bass PT, Cert. MDT, OCS Referring Dr.: Sosa Cummins MD Status: REG R Insurance[place] [facility] [place]F [place] INSUR[place] Patient's Visit Information RONALDO SOLORIO is a 62 year old F referred to Physical Therapy by Sosa Cummins with a diagnosis of BACK PAIN,L3-5 FUSION 2009,RIGHT IT TENDONIS. Date of Evaluation: 08/25/18 Physical Therapist: Darryl Bass PT, - Visit Plan Frequency: 2x /Week [...] managenent. Patient seen Dr Behzad trinidad for surgey. Patient had MRI oredered. Patient symptoms affects [...] to be FAXED BACK to us at [phone] for Medicare purposes. For Medicare only, by signing this I certify the plan of care. Please let me know if there are questions or concerns regarding this plan of care. Physician Signature: Date: <Electronically signed by Darryl Bass PT, Cert. T, OCS> 08/25/18 1200 CC: Sosa Cummins MD; Chi Pulliam MD JLA Signed L/S SPINE MIN 4 Observed: 08/24/2018 Status: F Source: [place] VIEWS 9:09 AM [facility] REPOSITORY [facility] Services [address] [place] [address] L/S Spine Min 4 Views MR#: [id number] Acct: [id number] Name: RONALDO SOLORIO Rep #: [id number] : 1955 F 62 From: Trevon Hernadez MD PCP: Chi Pulliam MD Status: REG CLI Study: L/S Spine Min 4 Views Date of Exam: 08/24/18 Exam# [id number] Ordering Dr: Sosa Cummins MD HISTORY: back [...] CC: Sosa Cummins MD; Chi Pulliam MD Legal Recruiter: Signed KNEE 1 OR 2 VIEWS Observed: 07/27/2018 Status: F Source: SAUGUS 10:25 AM [facility] REPOSITORY [facility] Imaging Services [address] [place] [address] Knee 1 or 2 Views MR#: [id number] Acct: [id number] Name: RONALDO SOLORIO Rep #: [id number] : 1955 F 62 From: Rory Wright MD PCP: Chi Pulliam MD Status: REG CLI Study: Knee 1 or 2 Views Date of Exam: 07/27/18 Exam# [id number] Ordering Dr: Wilfredo Burgos MD STUDY: X-RAY [...] Rory Wright MD at 8:56 EDT Tel [phone], Service support , CC: Wilfredo Burgos MD; Chi Pulliam MD Legal Recruiter: Signed KNEE 1 OR 2 VIEWS Observed: 07/27/2018 Status: F Source: [place] 10:25 AM [facility] REPOSITORY [facility] Imaging Services [address] [place] [address] Knee 1 or 2 Views MR#: [id number] Acct: [id number] Name: RONALDO SOLORIO Rep #: [id number] : 1955 F 62 From: Nura Smalls MD PCP: Chi Pulliam MD Status: REG CLI Study: Knee 1 or 2 Views Date of Exam: 07/27/18 Exam# [id number] Ordering Dr: Wilfredo Burgos MD STUDY: X-RAY [...] CC: Wilfredo Burgos MD; Chi Pulliam MD Legal Recruiter: Signed URINE DRUG SCREEN Collected: 01/12/2018 Status: F Source: [place]UGUS (VISTA) 10:32 AM [facility] REPOSITORY Order Comment: Comments: RUN LOWEST [...] Normal NEGATIVE Performed By: #### L505.5000 #### [facility] [address] [place], [address] MISCELLANEOUS LAB Collected: 01/12/2018 Status: F Source: [place] PROCEDURE 10:32 AM [facility] REPOSITORY Order Comment: Comments: RUN LOWEST TEST Test(s) Ordered: [id number] TYPE CODE TESTS RESULT OUT OF RANGE REFERENCE UNITS LAB L801.1541 Normal [facility] LAB TEST Result Comment: TEST RESULT UNITS REF INTERVAL [id number] 6+Oxycodone-Bund Amphetamines, Urine Negative ng/mL Lknhin=5104 Amphetamine test includes Amphetamine and Methamphetamine. Barbiturate Negative ng/mL Hzehki=873 Benzodiazepines Negative ng/mL Zahthk=163 Cannabinoids Negative ng/mL Cutoff=20 Cocaine (Metabolite) Negative ng/mL Yefllv=735 Opiates Negative ng/mL Bpkztu=994 Opiate test includes Codeine, Morphine, Hydromorphone, Hydrocodone. Please Note: Confirmation performed by Mass Spectrometry Oxycodone/Oxymorph Positive Heajnt=137 Test includes Oxycodone and Oxymorphone Oxycodone Positive Oxycodone (GC/MS) 1800 ng/mL Etmlph=840 Oxymorphone Positive Oxymorphone (GC/MS) 984 ng/mL Xwqorq=271 TESTING PERFORMED AT [facility]. ORIGINAL REPORT ON FILE IN LAB CONTAINS ADDITIONAL TEST SITE INFORMATION. Performed By: #### L801.1541 #### [facility] [address] [place], [address] DEXA BONE DENSITY Observed: 10/29/2017 Status: F Source: [place] STUDY () 11:06 AM [facility] REPOSITORY [facility] Imaging Services [address] [place] [address] Dexa Bone Density Study () MR#: [id number] Acct: [id number] Name: RONALDO SOLORIO Rep #: [id number] : 1955 F 61 From: Rory Wright MD PCP: Chi Pulliam MD Status: REG CLI Study: Dexa Bone Density Study (HP) Date of Exam: 10/29/17 Exam# [id number] Ordering Dr: Jael Arreguin STUDY: DUAL ENERGY [...] Rory Wright MD at 14:19 EST Tel [phone], Service support , CC: Jael Arreguin; Chi Pulliam MD Legal Recruiter: Signed SCREENING MAMM (CAD), Observed: 10/29/2017 Status: F Source: [place] BIL 11:04 AM [facility] REPOSITORY [facility] Imaging Services [address] [place] [address] SCREENING MAMM (CAD), BILAT MR#: [id number] Acct: [id number] Name: RONALDO SOLORIO Rep #: [id number] : 1955 F 61 From: Rroy Wright MD PCP: Chi Pulliam MD Status: REG CLI Study: SCREENING MAMM (CAD), BILAT Date of Exam: 10/29/17 Exam# [id number] Ordering Dr: Jael Arreguin MAMMOGRAPHY - BILATERAL SCREENING REASON FOR EXAM: Female, 61 years old. Routine annual screening examination. PERTINENT HISTORY: Non-contributory. Six-month history of left lateral breast tenderness. TECHNIQUE: Digital bilateral breast nruy (3D mammographic acquisition) in the CC and [...] delay biopsy of a clinically suspicious abnormality. [id number] Electronically Signed: Rory Wright MD at 13:39 EST Tel [phone], Service support , CC: Jael Arreguin; Chi Pulliam MD Legal Recruiter: Signed ALLERGIES ALLERGIES DATE TYPE / CODE NAME / CODE REACTION SEVERITY SOURCE 12/02/2015 Drug No Known Unknown Dheeraj [facility] Allergy/4160 Allergies/F00 Hospital 35034(SNOMED 3207579(RXNOR Repository CT) M) ENCOUNTERS ENCOUNTERS ADMIT/DISCHARGE ACCOUNT ADMITTING ENCOUNTER LOCATION SOURCE NUMBER CLASS 10/19/2018 [id number] Ambulatory [facility] Dheeraj 5 [facility] ing:MTLAB Repository 09/03/2018/ [id number] Ambulatory [facility] 8 2 [facility] ing:PT Repository 08/24/2018 [id number] Ambulatory [facility] Dheeraj 8 [facility] ing:HPRAD Repository 08/24/2018/ [id number] Ambulatory BMSBuilding:B Dheeraj 8 1 [facility] Repository 07/27/2018 [id number] Ambulatory Dheeraj Dheeraj 1 [facility] ing:RAD Repository 01/12/2018 [id number] Ambulatory Dheeraj [facility] 0 [facility] ing:LAB Repository 10/29/2017 [id number] Ambulatory [facility] 0 [facility] ing:BD Repository PAYERS PAYERS ENCOUNTER GUARANTOR PAYER SUBSCRIBER SOURCE 10/19/2018 JOSE Watson Primary Insurance:MMO RONALDO J Dheeraj [id number] VINCENT MEDICAREPolicy RUDYDOB: [place], [place] Number: [id number] Hospital 14[address]Hwv: [phone] [id number] Repository [phone] () Date:3073-40-26MC [address] [address]FJ: 10/19/2018 Secondary NOT GIVENUNK Dheeraj Insurance:SELF PAY [facility] Number: Effective Repository Date:2018-10-19 09/03/2018 JOSE Watson Primary Insurance:MMO RONALDO J [facility] [id number] VINCENT MEDICAREPolicy RUDYDOB: [place], [place] Number: [id number] Hospital [address]Efu: [phone] [id number] Repository [phone] () Date:6897-08-03IC [address] [place] [address]ZP: 09/03/2018 Secondary NOT GIVENUNK Dheeraj Insurance:SELF PAY [facility] Number: Effective Repository Date:2018-08-24 08/24/2018 JOSE Watson Primary Insurance:MMO RONALDO J [facility] [id number] VINCENT MEDICAREPolicy RUDYDOB: [place], [place] Number: [id number] Hospital [address]Kve: [phone] [id number] Repository [phone] () Date:7995-72-60NP [address] [place] [address]LI: 08/24/2018 Secondary NOT GIVENUNK Dheeraj Insurance:SELF PAY [facility] Number: Effective Repository Date:2018-08-24 08/24/2018 JOSE Watson Primary Insurance:MMO RONALDO J [facility] [id number] VINCENT MEDICAREPolicy RUDYDOB: [place], [place] Number: [id number] Hospital [address]Zxr: [phone] [id number] Repository [phone] (HP) Date:0283-47-80CE [address] [address]LK: 08/24/2018 Secondary NOT GIVENUNK [facility] Insurance:SELF PAY [facility] Effective Repository Date:2018-08-24 07/27/2018 JOSE Watson Primary Insurance:MMO RONALDO J [facility] [id number] VINCENT MEDICAREPolicy RUDYDOB: [place] Number: [id number] Hospital [address]Nhz: [phone] [id number] Repository [phone] (HP) Date:8434-94-19EN [address] [address]TM: 07/27/2018 Secondary NOT GIVENUNK Dheeraj Insurance:SELF PAY [facility] Number: Effective Repository Date:2018-07-27 01/12/2018 JOSE Watson Primary Insurance:MMO RONALDO J Dheeraj [id number] VINCENT MEDICAREPolicy RUDYDOB: [facility], [place] Number: [id number] Hospital [address]Nmz: [phone] [id number] Repository [phone] () Date:6186-11-38LY [address] [address]NG: 01/12/2018 Secondary NOT GIVENUNK [facility] Insurance:SELF PAY [facility] Hospital Number: Effective Repository Date:2018-01-12 10/29/2017 JOSE Watson Primary Insurance:MMO RONALDO J Dheeraj [id number] VINCENT MEDICAREPolicy RUDYDOB: [facility], [place] Number: [id number] Hospital [address]Bve: [phone] [id number] Repository [phone] (HP) Date:0650-18-51RC [address] [address]JP: 10/29/2017 Secondary NOT GIVENUNK Dheeraj Insurance:SELF PAY [facility] Number: Effective Repository Date:2017-09-01
== END ==
PROVIDERS: Family Provider Family Medicine; PCP Family Medicine; Referring Provider Family Medicine; Visit Provider Family Medicine
DX: I10 Essential (primary) hypertension (principal); E78.00 Pure hypercholesterolemia, unspecified; R73.03 Prediabetes
CPT/HCPCS: 36415; 80048; 80061; 83036

== ENCOUNTER 2019-02-17 14:36 | Observation (INO) | payer MEDICARE, SELFPAY ==
[2019-02-17] VITALS (12 sets, daily range): BP systolic 128–158; BP diastolic 72–85; PULSE 62–80; RESP 12–18; TEMP 36.6–36.7; O2SAT 95–100; BMI 28.5; BMI 28.6; BMI 32.2
--- NOTE | 2019-02-17 15:06 | RAD_ITS ---
STUDY: X-RAY CHEST REASON FOR EXAM: Female, 63 years old. Chest pain and tightness. TECHNIQUE: Single AP portable view of the chest. COMPARISON: Comparison is made with prior study dated December 02, 2015. FINDINGS: EKG electrodes are seen. The lungs are clear and expanded. Scattered calcified granulomas. There is no demonstrated pleural abnormality. Normal size heart. Stable calcified azygos lymph node. Normal visualized pulmonary arteries. Normal visualized aortic arch and descending thoracic aorta. There are diffuse degenerative changes of the visualized thoracic spine. Normal visualized ribs, clavicles, and shoulders. There is no demonstrated abnormality of the visualized soft tissue structures of the upper abdomen. RAD/Chest 1 View (Portable) IMPRESSION: No acute adenopathy is seen. Electronically Signed: Rory Wright, at 15:38 EDT , Service support ,
--- NOTE | 2019-02-17 15:06 | EKG12_ITS ---
Test Reason : PALPS Blood Pressure : / mmHG Vent. Rate : 075 BPM Atrial Rate : 075 BPM P-R Int : 136 ms QRS Dur : 084 ms QT Int : 398 ms P-R-T Axes : 019 016 048 degrees QTc Int : 444 ms Normal sinus rhythm Normal ECG Confirmed by PEG LOO ([id number]), photograph editor JOSSELYN VENEGAS ([id number]) on 02/24/2019 8:51:18 AM Referred By: Twila Rodriguez Confirmed By:PEG LOO
[2019-02-17 15:15] LABS: Absolute Lymphocyte Count 1.62 X10^3/ul (0.83-4.51); Absolute Neutrophil Count 5.8 X10^3/uL (2.0-7.7); Basophil# 0.03 X10^3/uL; Basophil% 0.4 % (0-1); Hemoglobin 12.5 g/dl (12.0-15.0); Lymphocyte # 1.62 X10^3/ul (4.0); Lymphocyte % 20.2 % (19-41); Mean Corp Hgb Conc 32.9 g/gl (32-36); Mean Corpuscular Hgb 30.4 pg (27.0-32.0); Mean Corpuscular Volume 92.5 fL (81-99); Mean Platelet Vol. 10.3 fl (6.2-12.0); Monocyte# 0.52 X10^3/uL; Monocyte% 6.5 % (0-10); Neutrophil # 5.82 X10^3/uL (2.7-7.7); Neutrophil % 72.7 % (47-70); Platelet Count 276 K/mm3 (150-450); RBC Distribution Width CV 13.4 % (11.6-14.6); RBC Distribution Width SD 44.4 fl (35.1-43.9); Red Blood Count 4.11 M/mm3 (4.2-5.4)
--- NOTE | 2019-02-17 15:16 | ED.VISSUMM ---
- ER Visit Summary Date of Service: 02/17/19 Chief Complaint: Palpitations, jaw pain History of Present Illness: The patient is a 63 F presenting with palpitations and left-sided jaw pain. Patient states she has had intermittent left-sided jaw pain today. She has mild midsternal chest pain as well. Pain occasionally radiates to her left arm. She took 2 aspirin at home. She denies shortness of breath, nausea, diaphoresis, lightheadedness. She has a history of hypertension and hypercholesterolemia. She denies PE/DVT risk factors. She is not a smoker. Physical Examination: Vitals are stable. Patient is afebrile. Alert no acute distress. HEENT exam is unremarkable. Neck is supple. Lungs are clear and equal bilaterally. Heart is regular rate and rhythm. Abdomen is soft nontender nondistended. Extremities are unremarkable. Skin is warm and dry. No focal neurologic deficit. Remainder of exam is unremarkable. Emergency Department Course and Treatment: Patient was given aspirin on arrival. EKG is sinus rate of 75 with no acute ischemic changes. CBC, chemistries unremarkable. Troponin is negative. Patient is resting comfortably on reevaluation. Discussed with the hospitalist for observation. Disposition: Observation Impression: Chest pain, jaw pain This note was generated with Employee Benefit Plans dictation software. It may contain incorrect words, spelling, and punctuation that were not noted in review of the chart prior to signing ED Disposition - Plan for ED Patient: Referrals: Chi Pulliam MD [Primary Care Provider] -
[2019-02-17 15:18] LABS: POSITIVE COUNT NO; POSITIVE DIFFERENTIAL NO; POSITIVE MORPHOLOGY NO
[2019-02-17 15:34] LABS: Anion Gap 4 (5-15); BUN 11 mg/dL (7-18); BUN/Creat Ratio 10.8 RATIO (10-20); Chloride 108 mmol/L (98-107); Creatinine, Serum 1.02 mg/dL (0.55-1.02); EST Glomerular Filtration Rate 59 mL/min (>60); Est Glom Filt Rate - Afr Amer 71 mL/min (>60); Estimated Creatinine Clearance 45.81 ml/min; Glucose 87 mg/dL (74-106); Potassium 3.7 mmol/L (3.5-5.1); Sodium Level 139 mmol/L (136-145)
--- NOTE | 2019-02-17 16:10 | PCM.HP.STD ---
History of Present Illness Date of Admission: 02/17/19 Chief Complaint: Chest pain The patient is a 63 year old F [] Past Medical History Allergies No Known Allergies Allergy (Verified 02/17/19 14:39) Home Medications: Ambulatory Orders Medication Instructions Recorded Aspirin E.C. [Ecotrin] 650 mg PO DAILY PRN PRN 02/17/19 Atorvastatin Calcium 20 mg PO DAILY 02/17/19 Baclofen 20 mg PO TID 02/17/19 Celecoxib 200 mg PO DAILY 02/17/19 Duloxetine HCl 30 mg PO DAILY 02/17/19 Gabapentin [Neurontin] 400 mg PO TID 02/17/19 Ibuprofen/Diphenhydramine Cit 2 tab PO QHS 02/17/19 [Advil Pm Caplet] Lactobacillus Acidophilus 1 cap PO DAILY 02/17/19 [Probiotic] Metformin HCl 500 mg PO DAILY 02/17/19 Multivit with Calcium,Iron,Min 1 tab PO DAILY 02/17/19 [Multiple Vitamins For Women] Oxycodone HCl [Oxycodone HCl ER] 20 mg PO BID 02/17/19 Oxycodone Myristate [Xtampza ER] 18 mg PO BID 02/17/19 Ramipril 5 mg PO DAILY 02/17/19 Senna [Senokot] 2 - 3 tablet PO QHS 02/17/19 Smoking Status: Never smoker Tobacco Use: Secondhand Review of Systems Constitutional: Denies: Chills, Fever, Weight Change HEENT: Denies: Head Aches, Sinus Congestion, Sinus Drainage Cardiovascular: Denies: Chest Pain, Palpitations Respiratory: Denies: Cough, Shortness of breath at rest, Sputum production Gastrointestinal: Denies: Abdominal Pain, Nausea, Vomiting Genitourinary: Denies: Dysuria Musculoskeletal: Denies: Joint Pain, Joint Tenderness Skin: Denies: Rash, Wounds Neurological: Denies: Numbness, Tingling, Focal weakness Psychiatric: Denies: Anxiety, Depression, Homicidal Ideations, Suicidal Ideations Hematologic/ Lymphatic: Denies: Easy Bruising, Easy Bleeding VTE Information - Inpt Only VTE Present on Admission: No VTE Pharm Prophylaxis ordered?: Yes - Physical Exam General: Alert, Oriented x3, Cooperative HEENT: Atraumatic, PERRLA, EOMI, Normocephalic Neck: Supple, No JVD, Negative Carotid Bruits Lungs: Clear to auscultation, Normal air movement Cardiovascular: Regular rate, No murmurs Abdomen: Bowel Sounds Present, Soft, Non Tender Extremities: No edema, Capillary Refill Less than 3 Seconds Skin: No rashes, No breakdown Musculoskeletal: No Tenderness to Palpation of Joints or Extremities Neurological: Cranial nerves II-XII grossly intact Psych/Mental Status: Normal Affect, Appropriate Vital Signs Temp Pulse Resp BP Pulse Ox 98 F 78 14 129/85 H 97 02/17/19 14:37 02/17/19 16:08 02/17/19 16:08 02/17/19 16:08 02/17/19 16:08 Oxygen Delivery Method Room Air Weight: 70.9 kg Body Mass Index (BMI) 28.5 Laboratory Tests Past 24 Hrs 02/17/19 02/17/19 15:04 15:04 WBC 8.0 RBC 4.11 L Hgb 12.5 Hct 38.0 MCV 92.5 MCH 30.4 MCHC 32.9 RDW 13.4 RDW Differential 44.4 H Plt Count 276 MPV 10.3 Immature Gran % (Auto) 0.200 Neut % (Auto) 72.7 H Lymph % (Auto) 20.2 Sanborn % (Auto) 6.5 Eos % (Auto) 0.0 Baso % (Auto) 0.4 Absolute Neuts (auto) 5.8 Absolute Lymphs (auto) 1.62 Total Counted Not Reportable Sodium 139 Potassium 3.7 Chloride 108 H Carbon Dioxide 27.0 Anion Gap 4 L BUN 11 Creatinine 1.02 Estim Creat Clear Calc 45.81 Est GFR (MDRD) Af Amer 71 Est GFR (MDRD) Non-Af 59 L BUN/Creatinine Ratio 10.8 Glucose 87 Calcium 9.0 Troponin I < 0.015 Code Visit OBSV E&M: 22435 Initial observation care L3
--- NOTE | 2019-02-17 16:16 | CASEMGMT ---
RN CM Assessment Introduced role of RN CM to patient and patient Vinay at bedside.? Patient is alert, oriented and able?to participate in RN CM Assessment. ?Care providers, pharmacy, and demographics verified. Presentation: Palpatations, Lt side jaw pain Admit Dx: CP Re-Admit: No Barriers/Issues: None PCP: Chi Pulliam Specialists: Pain- Dr Burgos, Derm- Dr Salgado Preferred Pharmacy: [facility] Insurance: [facility] Rx Benefit:?Yes LNOK: Vinay Elliott LW/HPOA: Yes both, aware not on file at [facility], OA- Vinay Elliott Living Arrangements:?Lives with in a SS home with 2 steps to enter ADL?s: Independent with ambulation and ADL's Transportation: Patient drives, to transport on DC DME: None HHC: None SNF: None Goal: Home, does not think will have any needs. DC PLAN: Home with no anticipated needs identified at this time. Momo Conde RNCM
--- NOTE | 2019-02-17 17:15 | HP.PCM_ITS ---
<Ny Alvarado - Last Filed: 02/17/19 17:24> Problem List (1) HLD (hyperlipidemia) Status: Chronic (2) HTN (hypertension) Status: Chronic (3) Depression Status: Chronic (4) Type 2 diabetes mellitus Status: Chronic History of Present Illness Date of Admission: 02/17/19 Chief Complaint: Jaw pain. The patient is a 63 year old F who presents the emergency room due to jaw pain which began around 930 this morning. She states she has had similar symptoms in the past however has not lasted as long as this episode. She reports her jaw pain initially began on the left side and is now bilaterally, sore in nature. Denies numbness, tingling. Denies vision changes. Denies unilateral weakness or focal deficits. She reports upon coming to the emergency room she had a brief episode of chest discomfort which she describes as dull in nature. She feels this may have been associated with anxiety. She also reports intermittent palpitations over the past 2 days. She has a past medical history of hypertension, hyperlipidemia, depression, type 2 diabetes mellitus, lumbar and cervical spine degenerative disc disease. Past Medical History Past Medical History (Chronic Problems): Chronic Problems HLD (hyperlipidemia) (Chronic) HTN (hypertension) (Chronic) Depression (Chronic) Type 2 diabetes mellitus (Chronic) Allergies No Known Allergies Allergy (Verified 02/17/19 14:39) Home Medications: Ambulatory Orders Medication Instructions Recorded Aspirin E.C. [Ecotrin] 650 mg PO DAILY PRN PRN 02/17/19 Atorvastatin Calcium 20 mg PO DAILY 02/17/19 Baclofen 20 mg PO TID 02/17/19 Celecoxib 200 mg PO DAILY 02/17/19 Duloxetine HCl 30 mg PO DAILY 02/17/19 Gabapentin [Neurontin] 400 mg PO TID 02/17/19 Ibuprofen/Diphenhydramine Cit 2 tab PO QHS 02/17/19 [Advil Pm Caplet] Lactobacillus Acidophilus 1 cap PO DAILY 02/17/19 [Probiotic] Metformin HCl 500 mg PO DAILY 02/17/19 Multivit with Calcium,Iron,Min 1 tab PO DAILY 02/17/19 [Multiple Vitamins For Women] Oxycodone HCl [Oxycodone HCl ER] 20 mg PO BID 02/17/19 Oxycodone Myristate [Xtampza ER] 18 mg PO BID 02/17/19 Ramipril 5 mg PO DAILY 02/17/19 Senna [Senokot] 2 - 3 tablet PO QHS 02/17/19 Surgical History: - - Lumbar back surgery x2, hysterectomy. Psychiatric History: Anxiety, Depression [employer] History: No pertinent [employer] history Lives: Spouse/ Significant Other Smoking Status: Never smoker Tobacco Use: Secondhand Alcohol: None Drugs: None - *Family History Maternal History Items: - - Rheumatoid arthritis, denies known maternal cardiac history. Paternal History Items: - - secondary to alcohol poisoning. Review of Systems Constitutional: Denies: Chills, Fever, Weight Change HEENT: Denies: Head Aches, Sinus Congestion, Sinus Drainage Cardiovascular: Denies: Chest Pain, Edema, Palpitations Respiratory: Denies: Cough, Shortness of breath at rest, Sputum production Gastrointestinal: Denies: Abdominal Pain, Nausea, Vomiting Genitourinary: Denies: Dysuria Musculoskeletal: Reports: - - Left jaw pain, chronic neck and back pain.. Denies: Joint Pain, Joint Tenderness Skin: Denies: Rash, Wounds Neurological: Denies: Numbness, Tingling, Focal weakness Psychiatric: Denies: Anxiety, Depression, Homicidal Ideations, Suicidal Ideations Hematologic/ Lymphatic: Denies: Easy Bruising, Easy Bleeding VTE Information - Inpt Only VTE Present on Admission: No VTE Mechan Device Prophylaxis: None VTE Pharm Prophylaxis ordered?: Yes - Physical Exam General: Alert, Oriented x3, Cooperative HEENT: Atraumatic, PERRLA, EOMI, Normocephalic Neck: Supple, No JVD, Negative Carotid Bruits Lungs: Clear to auscultation, Normal air movement Cardiovascular: Regular rate, Regular Rhythm, Normal S1, Normal S2, No murmurs Abdomen: Bowel Sounds Present, Soft, Non Tender, Non-Distended Extremities: No clubbing, No cyanosis, No edema, Capillary Refill Less than 3 Seconds Skin: No rashes, No breakdown Musculoskeletal: No Tenderness to Palpation of Joints or Extremities Neurological: Cranial nerves II-XII grossly intact, Neuro grossly intact Psych/Mental Status: Normal Affect, Appropriate Vital Signs Temp Pulse Resp BP Pulse Ox 98 F 69 16 139/72 H 100 02/17/19 14:37 02/17/19 17:00 02/17/19 17:00 02/17/19 17:00 02/17/19 17:00 Oxygen Delivery Method Room Air Weight: 156 lb 4.924 oz Body Mass Index (BMI) 28.5 Laboratory Tests Past 24 Hrs 02/17/19 02/17/19 15:04 15:04 WBC 8.0 RBC 4.11 L Hgb 12.5 Hct 38.0 MCV 92.5 MCH 30.4 MCHC 32.9 RDW 13.4 RDW Differential 44.4 H Plt Count 276 MPV 10.3 Immature Gran % (Auto) 0.200 Neut % (Auto) 72.7 H Lymph % (Auto) 20.2 [place] % (Auto) 6.5 Eos % (Auto) 0.0 Baso % (Auto) 0.4 Absolute Neuts (auto) 5.8 Absolute Lymphs (auto) 1.62 Total Counted Not Reportable Sodium 139 Potassium 3.7 Chloride 108 H Carbon Dioxide 27.0 Anion Gap 4 L BUN 11 Creatinine 1.02 Estim Creat Clear Calc 45.81 Est GFR (MDRD) Af Amer 71 Est GFR (MDRD) Non-Af 59 L BUN/Creatinine Ratio 10.8 Glucose 87 Calcium 9.0 Troponin I < 0.015 Assessment/Plan 1. Left jaw pain, atypical for cardiac etiology-rule out ACS. Trend enzymes. Repeat EKG in a.m. Monitor telemetry. Stress test in a.m. 2. Hypertension-stable, continue home ramipril regimen. 3. Hyperlipidemia-continue statin. 4. Type 2 diabetes mellitus-hold metformin regimen. Accu-Cheks ACHS with sliding scale insulin. 5. Depression/Anxiety-continue home fluoxetine regimen. 6. Lumbar and cervical spine degenerative disc disease-prior lumbar surgery x2. Following with pain management, Dr. Mcintyre. Continue gabapentin, Celebrex, scheduled oxycodone regimen. Previously evaluated by Dr. Lea for surgical intervention and patient opted for medical management at this time. DVT prophylaxis- Lovenox sc This patient was seen by LEAH Lopez under the supervision of Dr. Rodriguez. <Twila Rodriguez - Last Filed: 02/17/19 18:14> History of Present Illness The patient is a 63 year old F [] Past Medical History Allergies No Known Allergies Allergy (Verified 02/17/19 14:39) - Physical Exam Vital Signs Temp Pulse Resp BP Pulse Ox 98.1 F 62 16 145/76 H 96 02/17/19 17:22 02/17/19 17:24 02/17/19 17:22 02/17/19 17:22 02/17/19 17:22 Oxygen Delivery Method Room Air Weight: 79.379 kg Body Mass Index (BMI) 32.2 Intake and Output for Last 24 Hours 02/15/19 02/16/19 02/17/19 23:59 23:59 23:59 Intake Total 240 / 240 Balance 240 / 240 Laboratory Tests Past 24 Hrs 02/17/19 02/17/19 15:04 15:04 WBC 8.0 RBC 4.11 L Hgb 12.5 Hct 38.0 MCV 92.5 MCH 30.4 MCHC 32.9 RDW 13.4 RDW Differential 44.4 H Plt Count 276 MPV 10.3 Immature Gran % (Auto) 0.200 Neut % (Auto) 72.7 H Lymph % (Auto) 20.2 [place] % (Auto) 6.5 Eos % (Auto) 0.0 Baso % (Auto) 0.4 Absolute Neuts (auto) 5.8 Absolute Lymphs (auto) 1.62 Total Counted Not Reportable Sodium 139 Potassium 3.7 Chloride 108 H Carbon Dioxide 27.0 Anion Gap 4 L BUN 11 Creatinine 1.02 Estim Creat Clear Calc 45.81 Est GFR (MDRD) Af Amer 71 Est GFR (MDRD) Non-Af 59 L BUN/Creatinine Ratio 10.8 Glucose 87 Calcium 9.0 Troponin I < 0.015 Assessment/Plan This patient was seen in conjunction with Ny Alvarado NP. I have independently interviewed and examined the patient and reviewed pertinent historical, laboratory, and other data. Please refer to her note for patient's presentation, findings, and recommendations. CC: Chest pain HPI: 63 y/o female with PMHx of Type 2 DM, hypertension, Hyperlipidemia, history of multilevel degenerative disc disease in the cervical and lumbar regions who comes in with complaints of left jaw pain that radiates to the right side of the jaw, involved both jaws since 9 AM today. Patient denies any weakness in any of her extremities, had a very brief dull chest discomfort that lasted for a few seconds with palpitations. Denied any nausea or vomiting or dizziness or orthopnea or PND. She denies any history of heart disease PMHx: As stated above in the HPI PSHx: status post lumbar back surgery x2, status post hysterectomy FHX: Positive for rheumatoid arthritis in the mother, father at 37yrs from alcohol poisoning SHX: Denies any smoking or use of alcohol ROS: 10 point review of systems was negative Physical Exam: Vitals were reviewed -stable Gen: Appears comfortable, not ill, not pale, not jaundiced, alert oriented x3 CVS:HS I +II, regular, no murmurs RESP: Clinically clear to auscultation GI: BS present and normal, nontender, no palpable organs EXT:No edema PERSONNEL RECORDS CLERK:CN II-XII intact, power is 5/5 in all extremities, normal tone, Labs reviewed ASSESSMENT: 1. Chest pain, atypical 2. Bilateral jaw pain, likely secondary to cervical degenerative disc disease 3. Type II DM 4. Hypertension 5. Hyperlipidemia 6. Degenerative disc disease Plan: Admit to PCU, trend troponins, stress test in a.m. Hold metformin, continue with Accu-Chek with insulin sliding scale Hold celecoxib, ibuprofen/diphenhydramine Continue with pain control Code Visit OBSV E&M: [id number] Initial observation care L3
--- NOTE | 2019-02-17 17:25 | ECHOD_ITS ---
Reason For Study: CHEST PAIN Procedure This was a 2D Doppler, Color Flow transthoracic echocardiogram. Exam performed portable in patient room. Left Ventricle Normal LV size. Left ventricular systolic function is normal. The estimated ejection fraction is 55 %. Stage 1 diastolic dysfunction. No regional wall motion abnormalities noted. Right Ventricle Normal RV size. Normal systolic function. Atria Normal left atrium. Normal right atrium. Mitral Valve Normal mitral valve. Tricuspid Valve Normal tricuspid valve. Aortic Valve Trisinus/trileaflet aortic valve. Pulmonic Valve Normal pulmonic valve. Great Vessels Normal aortic root. The pulmonary artery is normal size. Normal inferior vena cava. Pericardium/Pleural No pericardial effusion. MMode/2D Measurements & Calculations LVIDd: 3.3 cm IVSd: 0.99 cm Ao root diam: 3.0 cm LVIDs: 2.2 cm LVPWd: 1.0 cm RVDd: 3.0 cm FS: 31.5 % LAV(MOD-bp): 27.7 ml LVAd ap4: 23.6 cm2 SV(MOD-sp4): 36.7 ml LAV(MOD-bp) Indexed: 15.5 ml/m2 EDV(MOD-sp4): 64.7 ml LAV(MOD-sp2): 32.1 ml EDV(sp4-el): 67.6 ml LAV(MOD-sp4): 23.6 ml LVAs ap4: 14.5 cm2 ESV(MOD-sp4): 28.0 ml ESV(sp4-el): 28.1 ml EF(MOD-sp4): 56.7 % EF(sp4-el): 58.5 % SV(sp4-el): 39.6 ml LA A4 area: 11.3 cm2 LA dimension(2D): 3.4 cm RA A4 area: 10.1 cm2 Time Measurements MV dec time: 0.29 sec Doppler Measurements & Calculations MV E max sunday: 76.7 cm/sec Lat Peak E' Sunday: 10.3 cm/sec Med Peak E' Sunday: 8.8 cm/sec MV A max sunday: 82.1 cm/sec E/E' lat: 7.4 E/E' med: 8.7 MV E/A: 0.93 Ao V2 max: 141.0 cm/sec LV V1 max: 126.1 cm/sec PA V2 max: 81.9 cm/sec Ao max P.0 mmHg LV V1 max P.4 mmHg Interpretation Summary Normal LV size. Left ventricular systolic function is normal. The estimated ejection fraction is 55 %. Stage 1 diastolic dysfunction. Structurally normal valves. Ordering Physician: Twila Rodriguez Referring Physician: RUBY RAMIREZ Performed By: Brittney, Lizz, RDCS
--- NOTE | 2019-02-17 17:25 | EKG12_ITS ---
Test Reason : Blood Pressure : / mmHG Vent. Rate : 063 BPM Atrial Rate : 063 BPM P-R Int : 146 ms QRS Dur : 090 ms QT Int : 438 ms P-R-T Axes : 029 021 053 degrees QTc Int : 448 ms Normal sinus rhythm Normal ECG When compared with ECG of 02-DEC-2015 17:47, No significant change was found Confirmed by JENNIFER MEADOWS, WILLIE ([id number]), editor farm journal JESSICA RAMIREZ ([id number]) on 02/23/2019 12:09:04 PM Referred By: Twila Rodriguez Confirmed By:WILLIE RODRIGUEZ MD
[2019-02-17] MEDS: Gabapentin 400 MG Capsule PO (22:05)
[2019-02-17] MEDS: Zolpidem Tartrate 5 MG Tablet PO (22:05)
[2019-02-17] MEDS: Atorvastatin Calcium 20 MG Tablet PO (22:05)
[2019-02-17] MEDS: Baclofen 10 MG Tablet 20 MG PO (22:05)
[2019-02-17] MEDS: Senna Tablet 2 TABLET PO (22:05)
[2019-02-17 22:26] LABS: Bedside Glucose 93 mg/dL (70-110)
[2019-02-18 02:58] VITALS: PULSE 66
[2019-02-18 04:00] VITALS: BP 100/57; PULSE 83; RESP 16; TEMP 36.9; O2SAT 93
--- NOTE | 2019-02-18 05:55 | EKG12_ITS ---
Test Reason : AM EKG Blood Pressure : / mmHG Vent. Rate : 072 BPM Atrial Rate : 072 BPM P-R Int : 146 ms QRS Dur : 086 ms QT Int : 418 ms P-R-T Axes : 031 026 063 degrees QTc Int : 457 ms Normal sinus rhythm Normal ECG When compared with ECG of 17-FEB-2019 17:25, MANUAL COMPARISON REQUIRED, DATA IS UNCONFIRMED Confirmed by JENNIFER MEADOWS, WILLIE ([id number]), videotape editor JESSICA RAMIREZ ([id number]) on 02/23/2019 12:06:45 PM Referred By: Twila Rodriguez Confirmed By:WILLIE RODRIGUEZ MD
[2019-02-18 06:01] VITALS: BP 140/79; PULSE 78; RESP 18; TEMP 36.7; O2SAT 94
[2019-02-18] MEDS: Aspirin 81 MG TAB.CHEW PO (06:05)
[2019-02-18 06:11] LABS: Bedside Glucose 91 mg/dL (70-110)
[2019-02-18 06:19] LABS: International Normalized Ratio 1.1; Prothrombin Time (Protime)PT. 13.6 SECONDS (11.7-14.9)
[2019-02-18 06:20] LABS: Hematocrit 37.7 % (37-47); Hemoglobin 12.4 g/dl (12.0-15.0); Mean Corp Hgb Conc 32.9 g/gl (32-36); Mean Corpuscular Hgb 30.5 pg (27.0-32.0); Mean Corpuscular Volume 92.6 fL (81-99); Mean Platelet Vol. 10.5 fl (6.2-12.0); Partial Thromboplast Time 30.9 Seconds (24.1-36.2); Platelet Count 273 K/mm3 (150-450); RBC Distribution Width CV 13.5 % (11.6-14.6); RBC Distribution Width SD 44.8 fl (35.1-43.9); Red Blood Count 4.07 M/mm3 (4.2-5.4); Scan Indicated on CBC? Y/N NO; White Blood Count 6.3 K/mm3 (4.4-11.0)
[2019-02-18 06:41] LABS: ALB/GLOB Ratio 0.9 RATIO (0.9-2.4); AST(SGOT) 21 U/L (15-37); Alanine Aminotransfer ALT/SGPT 24 U/L (13-56); Albumin, Serum 3.2 g/dL (3.2-5.0); Alkaline Phosphatase 86 U/L (45-117); Anion Gap 8 (5-15); BUN 15 mg/dL (7-18); BUN/Creat Ratio 15.7 RATIO (10-20); Calcium,Total 8.6 mg/dL (8.5-10.1); Chloride 109 mmol/L (98-107); Creatinine, Serum 0.96 mg/dL (0.55-1.02); EST Glomerular Filtration Rate 63 mL/min (>60); Est Glom Filt Rate - Afr Amer 76 mL/min (>60); Estimated Creatinine Clearance 46.44 ml/min; Globulin 3.6 g/dL (2.2-4.2); Glucose 81 mg/dL (74-106); Potassium 3.7 mmol/L (3.5-5.1); Protein, Total 6.8 g/dL (6.4-8.2); Sodium Level 140 mmol/L (136-145)
[2019-02-18] MEDS: Baclofen 10 MG Tablet 20 MG PO ×2 (08:28→12:05)
[2019-02-18] MEDS: Gabapentin 400 MG Capsule PO ×2 (08:28→12:05)
[2019-02-18 08:30] VITALS: PULSE 85
--- NOTE | 2019-02-18 08:51 | STRESSREP ---
Stress Test Report Date: 02-18-19 Procedure: Exercise tolerance test/imaging study Indications: Chest pain Consent: Per the patient Procedure: The patient exercised on a Tahir protocol for 5 minutes completing Stage I and 2 minutes of Stage II achieving a peak heart rate of 153 bpm (96 % predicted maximal heart rate) with a peak blood pressure 162/62 mmHg and a peak MET capacity of 7 METs. The baseline ECG demonstrated normal sinus rhythm. The peak exercise ECG demonstrated no obvious ECG changes. There were no cardiac dysrhythmias pretest, during exercise, or recovery. The functional capacity was considered average. There was no complaint of chest discomfort during exercise or recovery. The examination was discontinued secondary to shortness of breath and leg discomfort. Impression: 1. Technically adequate (percent predicted maximal heart rate greater than 85%) exercise tolerance test 2. Peak exercise ECG with no obvious ECG changes 3. There were no cardiac dysrhythmias pretest, during exercise, or recovery 4. Nuclear images pending Myocardial perfusion imaging study: Technique: The patient was injected with 11.9 mCi of technetium 99m Cardiolite and subsequently rest SPECT Cardiolite nuclear imaging was obtained in the horizontal long, vertical long, and short axis views. The patient exercised on a Tahir protocol for 5 minutes completing Stage I and 2 minutes of Stage II achieving a peak heart rate of 153 bpm (96 % predicted maximal heart rate) with a peak blood pressure 162/62 mmHg and a peak MET capacity of 7 METs. The patient was injected with 33.5 mCi of technetium 99m Cardiolite and subsequently stress SPECT Cardiolite nuclear imaging was obtained in the horizontal long, vertical long, and short axis views. A gated Cardiolite study at peak stress was obtained. Interpretation: Rest and stress SPECT Cardiolite nuclear imaging status post realignment, normalization, and attenuation correction, demonstrates the appearance of relative uniform tracer uptake and myocardial perfusion appearing within normal limits. There is end systolic thickening and brightening. The gated Cardiolite study demonstrates myocardial thickening and inward wall motion. The reported LVEF is 94 %. Impression: 1. Rest and stress SPECT Cardiolite nuclear imaging demonstrate relative uniform tracer uptake and myocardial perfusion appearing within normal limits. 2. The gated Cardiolite study reports an LVEF of 94 %. This note was generated with Glaxstar[employer] software. It may contain incorrect words, spelling, and punctuation that were not noted in checking the note before signing.
[2019-02-18] MEDS: Ramipril 5 MG Capsule PO (09:07)
[2019-02-18] MEDS: Multivitamins,Ther W-Minerals Tablet 1 TABLET PO (09:07)
[2019-02-18] MEDS: DULoxetine Hcl 30 MG Capsule PO (09:08)
[2019-02-18] MEDS: Celecoxib 200 MG Capsule PO (09:08)
--- NOTE | 2019-02-18 10:01 | CASEMGMT ---
Patient has a Healthcare Power of Computerized [employer] and a Healthcare Living Will. She is aware they are not on file at [facility]. Tamara JOHN
--- NOTE | 2019-02-18 10:32 | DCINST_ITS ---
- Discharge Diagnoses Current Active Problems: Current Active and Chronic Problems HLD (hyperlipidemia) (Chronic) HTN (hypertension) (Chronic) Depression (Chronic) Type 2 diabetes mellitus (Chronic) You will use the following diet at home:: Calorie/Carbohydrate Controlled (specify 1200, 1400, etc) Discharge Activity: Return to Normal Activity Call your doctor if you observe: Shortness of breath, Dizziness, Fainting spells, Chest pain Allergies/Adverse Reactions: Allergies No Known Allergies Allergy (Verified 02/17/19 14:39) Medications to take at Discharge Aspirin E.C. [Ecotrin] 650 mg PO DAILY PRN PRN 02/17/19 Atorvastatin Calcium 20 mg PO DAILY 02/17/19 Baclofen 20 mg PO TID 02/17/19 Celecoxib 200 mg PO DAILY 02/17/19 Duloxetine HCl 30 mg PO DAILY 02/17/19 Gabapentin [Neurontin] 400 mg PO 4X/DAY 02/17/19 Ibuprofen/Diphenhydramine Cit [Advil Pm Caplet] 2 tab PO QHS 02/17/19 Lactobacillus Acidophilus [Probiotic] 1 cap PO DAILY 02/17/19 Metformin HCl 500 mg PO DAILY 02/17/19 Multivit with Calcium,Iron,Min [Multiple Vitamins For Women] 1 tab PO DAILY 02/17/19 Oxycodone HCl [Oxycodone HCl ER] 20 mg PO BID 02/17/19 Oxycodone Myristate [Xtampza ER] 18 mg PO BID 02/17/19 Ramipril 5 mg PO DAILY 02/17/19 Senna [Senokot] 2 - 3 tablet PO QHS 02/17/19 Primary Care Physician: Chi Pulliam MD [Primary Care Provider] - Please follow up with your Primary Care Physician in: 1 Week Test Results: Test results from this visit will be discussed in further detail at your follow- up appointment, if applicable. Please Follow Up With: Sosa Cummins MD When: 1 Week Please Follow Up With: Wilfredo Burgos MD When: As scheduled Proposed Discharge Date: 02/18/19
--- NOTE | 2019-02-18 10:37 | DS.PCM_ITS ---
<Ny Alvarado - Last Filed: 02/18/19 10:38> Discharge Date and Diagnosis Date of Admission: 02/17/19 Date of Discharge: 02/18/19 - Primary Discharge Diagnosis 1. Atypical chest pain, ACS ruled out 2. Hypertension 3. Hyperlipidemia 4. Type 2 diabetes mellitus 5. Depression/Anxiety 6. Lumbar and cervical spine degenerative disc disease 7. Jaw pain, secondary to #7 - Secondary Discharge Diagnosis Chronic Problems HLD (hyperlipidemia) (Chronic) HTN (hypertension) (Chronic) Depression (Chronic) Type 2 diabetes mellitus (Chronic) Hospital Course and Treatment Imaging Results: Diagnostic Data Chest X-Ray 02/17/19 15:06 IMPRESSION: No acute adenopathy is seen. Electronically Signed: Rory Amandabarron, at 15:38 EDT , Service support , Operations: None Procedures: 2-D Echocardiogram, Stress test Summary of Care Provided: The patient is a 63 year old F admitted 02/17/2019 due to jaw pain. 1. Left jaw pain, atypical for cardiac etiology-ACS ruled out. Enzymes negative. EKG without ST-T changes. Patient underwent stress test which was negative for ischemia. Suspect jaw pain secondary to cervical spine degenerative disc disease. Recommend follow-up with Dr. Cummins who patient has fo rmerly established with. Follow-up with primary care provider in 1 week. 2. Hypertension-stable, continue home ramipril regimen. 3. Hyperlipidemia-continue statin. 4. Type 2 diabetes mellitus-continue home metformin regimen. 5. Depression/Anxiety-continue home fluoxetine regimen. 6. Lumbar and cervical spine degenerative disc disease-prior lumbar surgery x2. Following with pain management, Dr. Mcintyre. Continue gabapentin, Celebrex, scheduled oxycodone regimen. Previously evaluated by Dr. Cummins for surgical intervention and patient opted for medical management at this time. Recommend further outpatient follow-up. General: Alert, Oriented x3, Cooperative HEENT: Atraumatic, PERRLA, EOMI, Normocephalic Neck: Supple, No JVD, Negative Carotid Bruits Lungs: Clear to auscultation, Normal air movement Cardiovascular: Regular rate, Regular Rhythm, Normal S1, Normal S2, No murmurs Abdomen: Bowel Sounds Present, Soft, Non Tender, Non-Distended Extremities: No clubbing, No cyanosis, No edema, Capillary Refill Less than 3 Seconds Skin: No rashes, No breakdown Musculoskeletal: No Tenderness to Palpation of Joints or Extremities Neurological: Cranial nerves II-XII grossly intact, Neuro grossly intact Psych/Mental Status: Normal Affect, Appropriate Patient seen and examined prior to discharge. Physical assessment as noted above. Patient is stable for discharge with follow up recommendations as noted above. This patient was seen by LEAH Lopez under the supervision of Dr. Sanders. - Physical Exam Vital Signs Temp Pulse Resp BP Pulse Ox 98.1 F 85 18 140/79 H 94 02/18/19 06:01 02/18/19 08:30 02/18/19 06:01 02/18/19 06:01 02/18/19 06:01 Oxygen Delivery Method Room Air Weight: 175 lb Body Mass Index (BMI) 32.2 Intake and Output for Last 24 Hours 02/16/19 02/17/19 02/18/19 23:59 23:59 23:59 Intake Total 240 / 240 360 / 360 Balance 240 / 240 360 / 360 Laboratory Tests Past 24 Hrs 02/17/19 02/17/19 02/17/19 15:04 15:04 18:12 WBC 8.0 RBC 4.11 L Hgb 12.5 Hct 38.0 MCV 92.5 MCH 30.4 MCHC 32.9 RDW 13.4 RDW Differential 44.4 H Plt Count 276 MPV 10.3 Immature Gran % (Auto) 0.200 Neut % (Auto) 72.7 H Lymph % (Auto) 20.2 Throckmorton % (Auto) 6.5 Eos % (Auto) 0.0 Baso % (Auto) 0.4 Absolute Neuts (auto) 5.8 Absolute Lymphs (auto) 1.62 Total Counted Not Reportable PT INR APTT Sodium 139 Potassium 3.7 Chloride 108 H Carbon Dioxide 27.0 Anion Gap 4 L BUN 11 Creatinine 1.02 Estim Creat Clear Calc 45.81 Est GFR (MDRD) Af Amer 71 Est GFR (MDRD) Non-Af 59 L BUN/Creatinine Ratio 10.8 Glucose 87 Calcium 9.0 Total Bilirubin AST ALT Alkaline Phosphatase Troponin I < 0.015 < 0.015 Total Protein Albumin Globulin Albumin/Globulin Ratio 02/17/19 02/18/1902/18/19 21:00 05:44 05:44 WBC 6.3 RBC 4.07 L Hgb 12.4 Hct 37.7 MCV 92.6 MCH 30.5 MCHC 32.9 RDW 13.5 RDW Differential 44.8 H Plt Count 273 MPV 10.5 Immature Gran % (Auto) Neut % (Auto) Lymph % (Auto) Throckmorton % (Auto) Eos % (Auto) Baso % (Auto) Absolute Neuts (auto) Absolute Lymphs (auto) Total Counted PT INR APTT Sodium 140 Potassium 3.7 Chloride 109 H Carbon Dioxide 23.0 Anion Gap 8 BUN 15 Creatinine 0.96 Estim Creat Clear Calc 46.44 Est GFR (MDRD) Af Amer 76 Est GFR (MDRD) Non-Af 63 BUN/Creatinine Ratio 15.7 Glucose 81 Calcium 8.6 Total Bilirubin 0.40 AST 21 ALT 24 Alkaline Phosphatase 86 Troponin I < 0.015 Total Protein 6.8 Albumin 3.2 Globulin 3.6 Albumin/Globulin Ratio 0.9 02/18/19 05:44 WBC RBC Hgb Hct MCV MCH MCHC RDW RDW Differential Plt Count MPV Immature Gran % (Auto) Neut % (Auto) Lymph % (Auto) Throckmorton % (Auto) Eos % (Auto) Baso % (Auto) Absolute Neuts (auto) Absolute Lymphs (auto) Total Counted PT 13.6 INR 1.1 APTT 30.9 Sodium Potassium Chloride Carbon Dioxide Anion Gap BUN Creatinine Estim Creat Clear Calc Est GFR (MDRD) Af Amer Est GFR (MDRD) Non-Af BUN/Creatinine Ratio Glucose Calcium Total Bilirubin AST ALT Alkaline Phosphatase Troponin I Total Protein Albumin Globulin Albumin/Globulin Ratio POC Glucose 02/18/19 02/17/19 06:04 22:04 POC Glucose 91 93 Discharge Diet: Low fat/ Low Cholesterol, Carb Control Diet Discharge Activity: Return to Normal Activity Call your doctor if you observe: Shortness of breath, Dizziness, Fainting spells, Chest pain Home Medications: Medications to take at Discharge Aspirin E.C. [Ecotrin] 650 mg PO DAILY PRN PRN 02/17/19 Atorvastatin Calcium 20 mg PO DAILY 02/17/19 Baclofen 20 mg PO TID 02/17/19 Celecoxib 200 mg PO DAILY 02/17/19 Duloxetine HCl 30 mg PO DAILY 02/17/19 Gabapentin [Neurontin] 400 mg PO 4X/DAY 02/17/19 Ibuprofen/Diphenhydramine Cit [Advil Pm Caplet] 2 tab PO QHS 02/17/19 Lactobacillus Acidophilus [Probiotic] 1 cap PO DAILY 02/17/19 Metformin HCl 500 mg PO DAILY 02/17/19 Multivit with Calcium,Iron,Min [Multiple Vitamins For Women] 1 tab PO DAILY 02/17/19 Oxycodone HCl [Oxycodone HCl ER] 20 mg PO BID 02/17/19 Oxycodone Myristate [Xtampza ER] 18 mg PO BID 02/17/19 Ramipril 5 mg PO DAILY 02/17/19 Senna [Senokot] 2 - 3 tablet PO QHS 02/17/19 Primary Care Physician: Chi Pulliam MD [Primary Care Provider] - Please follow up with your Primary Care Physician in: 1 Week Please Follow Up With: Sosa Cummins MD When: 1 Week Please Follow Up With: Wilfredo Burgos MD When: As scheduled Disposition: Home Minutes spent on discharge:: 35 Patient Condition:: Stable Medical Necessity - Tobacco Use Smoking Status: Never smoker Tobacco Use: Secondhand Meaningful Use Info Meaningful Use Diagnoses (Choose all that apply): None applicable <Tayla Sanders - Last Filed: 02/18/19 14:47> Discharge Date and Diagnosis - Secondary Discharge Diagnosis Chronic Problems HLD (hyperlipidemia) (Chronic) HTN (hypertension) (Chronic) Depression (Chronic) Type 2 diabetes mellitus (Chronic) Hospital Course and Treatment Imaging Results: 02/18/19 05:55 Nuclear Stress Test - Treadmil [NM] Routine Summary of Care Provided: Patient seen by Ny LYNN under my supervision. The patient is a 63 year old F admitted with a complaint of left jaw pain. She had a stress test which was negative. Jaw pain is suspected be due to cervical spine degenerative disc disease which she has had for a while but I deferred surgery for it on account of having had previous back surgeries. Patient seen and examined prior to discharge. Jaw pain had resolved and she didnt have any chest pain. Review of systems was otherwise negative. Labs and vitals reviewed. Home medications reviewed and reconciled. o/e: Vital Signs Height 5 ft 1.81 in Weight: 175 lb Weight in Pounds 175.0 lbs Pulse Ox 94 Temperature 98.5 F Pulse Rate 77 Respiratory Rate 18 Blood Pressure 96/45 Blood Pressure Position Semi-Fowlers [] General: Alert, Oriented x3, Cooperative HEENT: Atraumatic, PERRLA, EOMI, Normocephalic Neck: Supple, No JVD, Negative Carotid Bruits Lungs: Clear to auscultation, Normal air movement Cardiovascular: Regular rate, Regular Rhythm, Normal S1, Normal S2, No murmurs Abdomen: Bowel Sounds Present, Soft, Non Tender, Non-Distended Extremities: No clubbing, No cyanosis, No edema, Capillary Refill Less than 3 Seconds Skin: No rashes, No breakdown Musculoskeletal: No Tenderness to Palpation of Joints or Extremities Neurological: Cranial nerves II-XII grossly intact, Neuro grossly intact Psych/Mental Status: Normal Affect, Appropriate Patient to follow-up with her spine surgeon Dr. Cummins upon discharge. Rest of management as per LEAH Lopez's note which I reviewed and endorsed. - Physical Exam Vital Signs Temp Pulse Resp BP Pulse Ox 98.5 F 77 18 96/45 L 94 02/18/19 10:45 02/18/19 10:59 02/18/19 10:45 02/18/19 10:45 02/18/19 10:45 Oxygen Delivery Method Room Air Weight: 175 lb Body Mass Index (BMI) 32.2 Intake and Output for Last 24 Hours 02/16/19 02/17/19 02/18/19 23:59 23:59 23:59 Intake Total 240 / 240 560 / 560 Balance 240 / 240 560 / 560 Laboratory Tests Past 24 Hrs 02/17/19 02/17/19 02/17/19 15:04 15:04 18:12 WBC 8.0 RBC 4.11 L Hgb 12.5 Hct 38.0 MCV 92.5 MCH 30.4 MCHC 32.9 RDW 13.4 RDW Differential 44.4 H Plt Count 276 MPV 10.3 Immature Gran % (Auto) 0.200 Neut % (Auto) 72.7 H Lymph % (Auto) 20.2 Throckmorton % (Auto) 6.5 Eos % (Auto) 0.0 Baso % (Auto) 0.4 Absolute Neuts (auto) 5.8 Absolute Lymphs (auto) 1.62 Total Counted Not Reportable PT INR APTT Sodium 139 Potassium 3.7 Chloride 108 H Carbon Dioxide 27.0 Anion Gap 4 L BUN 11 Creatinine 1.02 Estim Creat Clear Calc 45.81 Est GFR (MDRD) Af Amer 71 Est GFR (MDRD) Non-Af 59 L BUN/Creatinine Ratio 10.8 Glucose 87 Calcium 9.0 Total Bilirubin AST ALT Alkaline Phosphatase Troponin I < 0.015 < 0.015 Total Protein Albumin Globulin Albumin/Globulin Ratio 02/17/19 02/18/19 02/18/19 21:00 05:44 05:44 WBC 6.3 RBC 4.07 L Hgb 12.4 Hct 37.7 MCV 92.6 MCH 30.5 MCHC 32.9 RDW 13.5 RDW Differential 44.8 H Plt Count 273 MPV 10.5 Immature Gran % (Auto) Neut % (Auto) Lymph % (Auto) Throckmorton % (Auto) Eos % (Auto) Baso % (Auto) Absolute Neuts (auto) Absolute Lymphs (auto) Total Counted PT INR APTT Sodium 140 Potassium 3.7 Chloride 109 H Carbon Dioxide 23.0 Anion Gap 8 BUN 15 Creatinine 0.96 Estim Creat Clear Calc 46.44 Est GFR (MDRD) Af Amer 76 Est GFR (MDRD) Non-Af 63 BUN/Creatinine Ratio 15.7 Glucose 81 Calcium 8.6 Total Bilirubin 0.40 AST 21 ALT 24 Alkaline Phosphatase 86 Troponin I < 0.015 Total Protein 6.8 Albumin 3.2 Globulin 3.6 Albumin/Globulin Ratio 0.9 02/18/19 05:44 WBC RBC Hgb Hct MCV MCH MCHC RDW RDW Differential Plt Count MPV Immature Gran % (Auto) Neut % (Auto) Lymph % (Auto) Throckmorton % (Auto) Eos % (Auto) Baso % (Auto) Absolute Neuts (auto) Absolute Lymphs (auto) Total Counted PT 13.6 INR 1.1 APTT 30.9 Sodium Potassium Chloride Carbon Dioxide Anion Gap BUN Creatinine Estim Creat Clear Calc Est GFR (MDRD) Af Amer Est GFR (MDRD) Non-Af BUN/Creatinine Ratio Glucose Calcium Total Bilirubin AST ALT Alkaline Phosphatase Troponin I Total Protein Albumin Globulin Albumin/Globulin Ratio POC Glucose 02/18/19 02/18/19 02/17/19 12:03 06:04 22:04 POC Glucose 99 91 93 Code Visit Inpatient E&M: 22802 Disch Hosp
[2019-02-18 10:45] VITALS: BP 96/45; PULSE 78; RESP 18; TEMP 36.9; O2SAT 94
[2019-02-18 10:59] VITALS: PULSE 77
[2019-02-18 12:10] LABS: Bedside Glucose 99 mg/dL (70-110)
== END 2019-02-18 10:31 | disposition home or self-care (01) ==
LOC: ED 15:23 → PCU 16:28
PROVIDERS: Admitting Provider Internal Medicine; Emergency Provider Emergency Medicine; Family Provider Family Medicine; PCP Family Medicine; Referring Provider Internal Medicine; Visit Provider Student in an Organized Health Care Education/Training Program
DX: R07.89 Other chest pain (principal); I10 Essential (primary) hypertension; E78.5 Hyperlipidemia, unspecified; E11.9 Type 2 diabetes mellitus without complications; F41.9 Anxiety disorder, unspecified; F32.9 Major depressive disorder, single episode, unspecified; M51.36 Other intervertebral disc degeneration, lumbar region; M50.30 Other cervical disc degeneration, unspecified cervical region; R68.84 Jaw pain; Z79.899 Other long term (current) drug therapy; Z79.84 Long term (current) use of oral hypoglycemic drugs; Z79.82 Long term (current) use of aspirin
CPT/HCPCS: 36415; 71045; 78452; 80048; 80053; 82962; 84484; 85025; 85027; 85610; 85730; 93005; 93017; 93306; 99218; 99285; A9500; A4216; G0378; J2785

== ENCOUNTER → 2019-03-16 10:48 | Outpatient (CLI) | payer MEDICARE, SELFPAY ==
[2019-02-17 17:20] VITALS: BMI 32.2
--- NOTE | 2019-03-16 10:51 | RAD_ITS ---
STUDY: X-RAY - RIGHT KNEE REASON FOR EXAM: Female, 63 years old. Chronic pain TECHNIQUE: 2 view(s) of the knee. COMPARISON: 07/27/2018 FINDINGS: Normal visualized distal femur. Normal visualized proximal tibia and fibula. Normal proximal tibiofibular articulation. Progressing medial compartment osteoarthritis. Normal lateral femorotibial compartment. Normal patellofemoral articulation. The soft tissue structures are unremarkable. RAD/Knee 1 or 2 Views IMPRESSION: Progressing medial compartment osteoarthritis. Electronically Signed: Sanchez Arellano MD at 8:23 EDT Tel , Service support ,
== END ==
PROVIDERS: Family Provider Family Medicine; PCP Family Medicine; Referring Provider Anesthesiology Pain Medicine; Visit Provider Anesthesiology Pain Medicine
DX: M25.561 Pain in right knee (principal); G89.29 Other chronic pain
CPT/HCPCS: 73560

== ENCOUNTER → 2020-02-17 12:38 | Outpatient (CLI) | payer MEDICARE, SELFPAY ==
[2019-02-17 17:20] VITALS: BMI 32.2
[2020-02-17 15:57] LABS: ALB/GLOB Ratio 0.9 RATIO (0.9-2.4); AST(SGOT) 20 U/L (15-37); Alanine Aminotransfer ALT/SGPT 31 U/L (13-56); Albumin, Serum 3.7 g/dL (3.2-5.0); Alkaline Phosphatase 106 U/L (45-117); Anion Gap 6 (5-15); BUN 16 mg/dL (7-18); BUN/Creat Ratio 18.8 RATIO (10-20); Calcium,Total 9.3 mg/dL (8.5-10.1); Chloride 104 mmol/L (98-107); Cholesterol 193 mg/dL (200); Creatinine, Serum 0.85 mg/dL (0.55-1.02); EST Glomerular Filtration Rate 72 mL/min (>60); Est Glom Filt Rate - Afr Amer 87 mL/min (>60); Glucose 91 mg/dL (74-106); High Density Lipoprotein 48 mg/dL; Potassium 4.1 mmol/L (3.5-5.1); Protein, Total 7.7 g/dL (6.4-8.2); Sodium Level 139 mmol/L (136-145); Triglycerides 117 mg/dL; Very Low Density Lipoprotein 23 mg/dL (5-40)
== END ==
PROVIDERS: PCP Family Medicine; Referring Provider Family Medicine; Visit Provider Family Medicine
DX: I10 Essential (primary) hypertension (principal); R73.03 Prediabetes
CPT/HCPCS: 36415; 80053; 80061; 83036

== ENCOUNTER → 2020-03-05 | Outpatient (CLI) | payer MEDICARE, SELFPAY ==
[2019-02-17 17:20] VITALS: BMI 32.2
--- NOTE | 2020-03-05 10:04 | VDUE_ITS ---
Reason For Study: Swelling Right Proximal Right jugular vein is spontaneous, widely patent, phasic, with no intraluminal echogenicity noted. Right subclavian vein is spontaneous, widely patent, phasic, with no intraluminal echogenicity noted. Right Lower Arm Right radial vein is compressible. Right ulnar vein is compressible. Right Arm Right axillary vein is spontaneous, patent, phasic, competent, compressible and demonstrates augmentation. Right brachial vein is compressible. Right cephalic vein is compressible. Right basilic vein is compressible. Patient Safety Prelim to Gabriela. Interpretation Summary Deep veins of the right upper extremity are patent and compressible segmentally. There is no evidence of deep vein thrombosis. The superficial veins of the right upper extremity, the basilic and cephalic veins, are patent and compressible. There is no evidence of right upper extremity superficial thrombophlebitis involving the veins imaged. Ordering Physician: Chi Ochoa Referring Physician: Chi Ochoa Performed By: Winsome Ernandez RVT ?
== END | disposition home or self-care (01) ==
LOC: CVS 09:59
PROVIDERS: PCP Family Medicine; Referring Provider Family Medicine; Visit Provider Family Medicine
DX: M79.89 Other specified soft tissue disorders (principal)
CPT/HCPCS: 93971

== ENCOUNTER → 2020-04-13 12:58 | Outpatient (CLI) | payer MEDICARE, SELFPAY ==
[2019-02-17 17:20] VITALS: BMI 32.2
[2020-04-13 15:21] LABS: Albumin, Serum 3.7 g/dL (3.2-5.0)
== END ==
PROVIDERS: PCP Family Medicine; Referring Provider Specialist; Visit Provider Specialist
DX: Z01.812 Encounter for preprocedural laboratory examination (principal)
CPT/HCPCS: 36415; 82040

== ENCOUNTER → 2020-07-27 14:19 | Outpatient (CLI) | payer MEDICARE, SELFPAY ==
[2019-02-17 17:20] VITALS: BMI 32.2
--- NOTE | 2020-07-27 14:25 | RAD_ITS ---
STUDY: X-RAY - LEFT FOOT CLINICAL: Female, 64 years old. SWELLING TO ANTERIOR FOOT AT SITE OF OLD FRACTURE (1977) OVER LAST FEW MONTHS, NO RECENT INJURY TECHNIQUE: 3 view(s) of the foot. COMPARISON: None. FINDINGS: There is a plantar calcaneal spur. Normal visualized subtalar, talonavicular, calcaneocuboid, tarsal and tarsometatarsal articulations. Normal metatarsi. Normal metatarsophalangeal joint of the great toe. Normal tibial and fibular sesamoid bones. Normal interphalangeal joint of the great toe. Normal phalanges of the great toe. Normal second through fifth metatarsophalangeal joints. Normal interphalangeal joints and phalanges of the lesser toes. Mild soft tissue swelling of the forefoot. RAD/Foot min 3 Views IMPRESSION: No acute, unhealed fracture or erosive process. Mild forefoot soft tissue swelling. Electronically Signed: Varghese Sims MD (Brooks) at 12:55 EDT , Service support ,
== END ==
PROVIDERS: PCP Family Medicine; Referring Provider Family Medicine; Visit Provider Family Medicine
DX: M79.89 Other specified soft tissue disorders (principal)
CPT/HCPCS: 73630

== ENCOUNTER → 2020-11-07 12:56 | Outpatient (CLI) | payer MEDICARE, SELFPAY ==
[2019-02-17 17:20] VITALS: BMI 32.2
--- NOTE | 2020-11-07 13:03 | MRI_ITS ---
STUDY: MRI BRAIN WITH AND WITHOUT CONTRAST REASON FOR EXAM: Female, 64 years old. ricardo''s, forgetfulness TECHNIQUE: Standardized multiplanar fat and water weighted pulse sequences were obtained. dotarem 13ml iv was administered for the contrast portion of the examination. COMPARISON: MRI brain 07/21/2012 FINDINGS: Normal size of the ventricles and extra-axial spaces for the patient''s age. There are a limited number of small white matter hyperintensities, distributed throughout the deep white matter tracts of the cerebral hemispheres, consistent with mild chronic white matter ischemic changes. Normal bilateral basal ganglia. Normal thalami. There is no extra-axial fluid accumulation. Normal flow voids within the major intracranial circulation suggesting patency by spin echo criteria. Normal venous enhancement. There is no enhancing intra-axial or extra-axial abnormality. Normal sella turcica, pituitary gland, infundibular stalk, optic chiasm and hypothalamus. Normal tectal plate and pineal gland. Normal midbrain, gael and medulla. Normal cerebellum. Normal basal cisterns. Normal bilateral temporal bones. Normal bilateral internal auditory canals. No demonstrated orbital abnormality, within the constraints of a routine brain study. Normal visualized paranasal sinuses. Normal calvarium and skull base. Normal visualized soft tissue structures. Normal visualized upper cervical spine. MRI/Brain W/WO Contrast IMPRESSION: Mild nonspecific white matter disease. No acute disease. Electronically Signed: Adam Dawn MD at 16:13 EST , Service support ,
[2020-11-07 13:26] LABS: EGFR FINGERSTICK > 60.0000 mL/min (>60)
== END ==
PROVIDERS: PCP Family Medicine; Referring Provider Family Medicine; Visit Provider Family Medicine
DX: Z01.812 Encounter for preprocedural laboratory examination (principal); R51.9 Headache, unspecified
CPT/HCPCS: 70553; A9575

== ENCOUNTER → 2020-12-12 08:01 | Outpatient (CLI) | payer MEDICARE, SELFPAY ==
[2020-12-05 14:57] VITALS: BMI 33.8
--- NOTE | 2020-12-12 08:03 | BI_ITS ---
MAMMOGRAPHY - BILATERAL SCREENING REASON FOR EXAM: Female, 65 years old. Routine annual screening examination. PERTINENT HISTORY: Non-contributory. TECHNIQUE: Digital bilateral breast dimitrios (3D mammographic acquisition) in the CC and MLO projections. 2-D mediolateral oblique (MLO) and craniocaudad (CC) views of both breasts were obtained. CAD: Full Field Digital Mammography with Computer Added Detection was performed. COMPARISON: Comparison is made with prior examination dated 10/29/2017. FINDINGS: Breast Composition: There are scattered areas of fibroglandular density. There are no dominant masses or suspicious calcifications. Stable benign-appearing bilateral axillary lymph nodes. No other significant abnormalities are identified. There has been no significant change since the prior study. BI/SCRN MAMM (CAD)W/DIMITRIOS BILAT IMPRESSION: Stable bilateral screening mammogram. Yearly follow-up mammogram recommended. (A) ASSESSMENT CATEGORY: BIRADS Category 2: Benign. A letter regarding these results will be sent to the patient by the facility within 30 days. Approximately 10% of breast cancers are not detected by mammography. A normal mammogram should not delay biopsy of a clinically suspicious abnormality. [id number] Electronically Signed: Rory Wright MD at 9:04 EDT , Service support ,
== END ==
PROVIDERS: PCP Family Medicine; Referring Provider Obstetrics & Gynecology; Visit Provider Obstetrics & Gynecology
DX: Z12.31 Encounter for screening mammogram for malignant neoplasm of breast (principal)
CPT/HCPCS: 77063; 77067

== ENCOUNTER 2021-12-04 13:17 | Outpatient (CLI) | payer MEDICARE, SELFPAY ==
--- NOTE | 2021-12-04 13:22 | BI_ITS ---
MAMMOGRAPHY - BILATERAL SCREENING REASON FOR EXAM: Female, 66 years old. Routine annual screening examination. PERTINENT HISTORY: Non-contributory. TECHNIQUE: Digital bilateral breast dimitrios (3D mammographic acquisition) in the CC and MLO projections. 2-D mediolateral oblique (MLO) and craniocaudad (CC) views of both breasts were obtained. CAD: Full Field Digital Mammography with Computer Added Detection was performed. COMPARISON: Comparison is made with prior study dated 12/12/2020 and 10/29/2017. FINDINGS: Breast Composition: There are scattered areas of fibroglandular density. There are no dominant masses or suspicious calcifications. Stable small benign-appearing bilateral axillary lymph nodes. No other significant abnormalities are identified. There has been no significant change since the prior study. BI/SCRN MAMM (CAD)W/DIMITRIOS BILAT IMPRESSION: Stable bilateral screening mammogram. Yearly follow-up mammogram recommended. (A) ASSESSMENT CATEGORY: BIRADS Category 2: Benign. A letter regarding these results will be sent to the patient by the facility within 30 days. Approximately 10% of breast cancers are not detected by mammography. A normal mammogram should not delay biopsy of a clinically suspicious abnormality. [id number] Electronically Signed: Rory Wright MD at 14:22 EST ,
--- NOTE | 2021-12-04 13:25 | BD_ITS ---
STUDY: DUAL ENERGY X-RAY ABSORPTIOMETRY / DXA REASON FOR EXAM: Female, 66 years old. [id number]. The patient is postmenopausal. TECHNIQUE: Bone Mineral Density (BMD) measurements of lumbar spine and bilateral hips were obtained. COMPARISON: Comparison is made with prior examination dated 10/29/2017. FINDINGS: Lumbar Spine (L1-L4): g/cm2 (1.093) / T-score (1.0) / Z-score (2.6) Findings are suggestive of normal bone density with a low fracture risk. Left Femur Total: g/cm2 (0.876) / T-score (-0.5) / Z-score (0.6) Left Femoral Neck: g/cm2 (0.576) / T-score (-2.5) / Z-score (-1.0) Right Femur Total: g/cm2 (0.824) / T-score (-1.0) / Z-score (0.2) Right Femoral Neck: g/cm2 (0.540) / T-score (-2.8) / Z-score (-1.3) The T-Scores on the most recent prior examination were: Lumbar Spine (L1-L4): There has been improvement of bone density since the previous examination. Left Femur Total: which represents a worsening of 6.1. Right Femur Total: which represents a worsening of 3%. BD/Dexa Bone Density Study IMPRESSION: The patient is considered osteoporotic as outlined below according to World Bjorn Organization (WHO) criteria with a high fracture risk. There has been worsening of bone density since the previous examination. Reference Information: The T-score is the number of standard deviations above or below the standard which is normal for young adults at their peak bone mineral density. The World Health Organization (WHO) interprets the T-scores as follows: Above -1 Normal bone density Between -1 and -2.5 Osteopenia Equal to / or below -2.5 Osteoporosis As a practical clinical guideline, osteopenia may be graded as follows: Mild -1 through -1.5 Moderate -1.6 through -2.0 Severe -2.1 through -2.4 The Z-score is the number of standard deviations above or below age-matched controls. A Z-score of less than -1.5 would be considered abnormal. References: 1. NIH Osteoporosis and Related Bone Diseases www osteo.org 2. International Society for Clinical Densitometry www iscd.org 3. National Osteoporosis Foundation www nof.org Electronically Signed: Rory Wright MD at 13:34 EST ,
== END 2021-12-04 23:59 | disposition home or self-care (01) ==
PROVIDERS: PCP Family Medicine; Referring Provider Family Medicine; Visit Provider Family Medicine
DX: Z00.00 Encounter for general adult medical examination without abnormal findings (principal); Z12.31 Encounter for screening mammogram for malignant neoplasm of breast; Z78.0 Asymptomatic menopausal state
CPT/HCPCS: 77063; 77067; 77080

== ENCOUNTER → 2022-06-16 | Outpatient (CLI) | payer MEDICARE, SELFPAY ==
--- NOTE | 2022-06-16 09:33 | BI_ITS ---
MAMMOGRAPHY - UNILATERAL DIAGNOSTIC: LEFT BREAST REASON FOR EXAM: Female, 66 years old. LUMP LT BREAST PERTINENT HISTORY: Non-contributory. TECHNIQUE: Digital examination. Mediolateral oblique (MLO) and craniocaudad (CC) views of the breast were obtained. CAD: CAD was performed on this study. COMPARISON: 12/04/2021 FINDINGS: Breast Composition: There are scattered areas of fibroglandular density. There are no dominant masses or suspicious calcifications. No other significant abnormalities are identified. BI/DIAG MAMM W/CAD, UNILAT IMPRESSION: Stable unilateral diagnostic mammogram. Ultrasound of the palpable abnormality in the upper outer quadrant of the left breast will be obtained. ASSESSMENT CATEGORY: BIRADS Category 0: Incomplete. Need additional imaging evaluation. A letter regarding these results will be sent to the patient by the facility within 30 days. FOLLOW-UP RECOMMENDATION: Ultrasound recommended. (I) Approximately 10% of breast cancers are not detected by mammography. A normal mammogram should not delay biopsy of a clinically suspicious abnormality. Electronically Signed: Joaquim Mullen MD at 10:26 EDT ,
--- NOTE | 2022-06-16 09:33 | US_ITS ---
STUDY: ULTRASOUND BREAST - LEFT REASON FOR EXAM: Female, 66 years old. Palpable mass TECHNIQUE: Axial and longitudinal images of the LEFT breast were performed with a high resolution ultrasound transducer. # OF IMAGES: 22 COMPARISON: Diagnostic mammogram earlier today FINDINGS: LEFT Breast: Homogeneous fatty background architecture. Multiple longitudinal and transverse ultrasound images of the upper outer quadrant of the left breast failed to demonstrate a discrete solid or cystic mass.: US/Breast Limited Unilateral IMPRESSION: Normal diagnostic mammogram and left breast ultrasound. However, biopsy of any palpable abnormality should be performed if clinically indicated. ASSESSMENT CATEGORY: BIRADS Category 1: Negative. A letter regarding these results will be sent to the patient by the facility within 30 days. Electronically Signed: Joaquim Mullen MD at 11:07 EDT ,
== END | disposition home or self-care (01) ==
PROVIDERS: PCP Family Medicine; Referring Provider Obstetrics & Gynecology; Visit Provider Obstetrics & Gynecology
DX: N63.21 Unspecified lump in the left breast, upper outer quadrant (principal)
CPT/HCPCS: 76642; 77061; 77065; G0279

== ENCOUNTER → 2022-10-29 | Outpatient (CLI) | payer MEDICARE, SELFPAY ==
[2022-10-29 10:50] LABS: Anion Gap 5 (5-15); BUN 20 mg/dL (7-18); BUN/Creat Ratio 22.9 RATIO (10-20); Calcium,Total 9.2 mg/dL (8.5-10.1); Chloride 105 mmol/L (98-107); Cholesterol 186 mg/dL (200); Creatinine, Serum 0.87 mg/dL (0.55-1.02); EST Glomerular Filtration Rate 69 mL/min (>60); Est Glom Filt Rate - Afr Amer 84 mL/min (>60); Glucose 100 mg/dL (74-106); High Density Lipoprotein 47 mg/dL; Potassium 4.2 mmol/L (3.5-5.1); Sodium Level 141 mmol/L (136-145); Triglycerides 157 mg/dL; Very Low Density Lipoprotein 31 mg/dL (5-40)
[2022-10-29 10:51] LABS: Vitamin D,25 Hydroxy 27.6 ng/mL
== END | disposition home or self-care (01) ==
PROVIDERS: PCP Family Medicine; Referring Provider Family Medicine; Visit Provider Family Medicine
DX: Z00.00 Encounter for general adult medical examination without abnormal findings (principal); E78.00 Pure hypercholesterolemia, unspecified; E55.9 Vitamin D deficiency, unspecified
CPT/HCPCS: 36415; 80048; 80061; 82306

== ENCOUNTER → 2022-12-05 | Outpatient (CLI) | payer MEDICARE, SELFPAY ==
--- NOTE | 2022-12-05 12:29 | BI_ITS ---
MAMMOGRAPHY - BILATERAL SCREENING REASON FOR EXAM: Female, 67 years old. Routine annual screening examination. PERTINENT HISTORY: Non-contributory. TECHNIQUE: Digital bilateral breast dimitrios (3D mammographic acquisition) in the CC and MLO projections. 2-D mediolateral oblique (MLO) and craniocaudad (CC) views of both breasts were obtained. CAD: Full Field Digital Mammography with Computer Added Detection was performed. COMPARISON: Comparison is made with prior study dated December 12, 2020 and December 04, 2021. FINDINGS: Breast Composition: There are scattered areas of fibroglandular density. There are no dominant masses or suspicious calcifications. Stable small benign appearing bilateral axillary lymph nodes. No other significant abnormalities are identified. There has been no significant change since the prior study. BI/SCRN MAMM (CAD)W/DIMITRIOS BILAT IMPRESSION: Stable bilateral screening mammogram. Yearly follow-up mammogram recommended. (A) ASSESSMENT CATEGORY: BIRADS Category 2: Benign. A letter regarding these results will be sent to the patient by the facility within 30 days. Approximately 10% of breast cancers are not detected by mammography. A normal mammogram should not delay biopsy of a clinically suspicious abnormality. [id number] Electronically Signed: Rory Wright MD at 13:32 EST ,
== END | disposition home or self-care (01) ==
PROVIDERS: PCP Family Medicine; Referring Provider Obstetrics & Gynecology; Visit Provider Obstetrics & Gynecology
DX: Z12.31 Encounter for screening mammogram for malignant neoplasm of breast (principal)
CPT/HCPCS: 77063; 77067

== ENCOUNTER → 2023-06-09 | Outpatient (CLI) | payer MEDICARE, SELFPAY ==
--- NOTE | 2023-06-09 14:51 | RAD_ITS ---
STUDY: X-RAY - LUMBAR SPINE REASON FOR EXAM: Female, 67 years old. PAIN TECHNIQUE: 5 view(s) of the lumbar spine were obtained. COMPARISON: 08/24/2018 FINDINGS: Stable appearance of bilateral pedicular screws and posterior rods between L3-L5, with fusions of the intervertebral discs. Lucency surrounding the screws of L3 suggests loosening, but are stable since prior exam. Stable 8 mm anterolisthesis of L2 on L3, otherwise normal alignment. Stable multilevel degenerative changes. RAD/L/S Spine Min 4 Views IMPRESSION: No definite or significant change since 2018. Electronically Signed: Ruperto Salas MD at 17:00 EDT ,
--- NOTE | 2023-06-09 14:51 | RAD_ITS ---
STUDY: X-RAY - CERVICAL SPINE REASON FOR EXAM: Female, 67 years old. PAIN TECHNIQUE: 5 view(s) of the cervical spine were obtained. COMPARISON: None FINDINGS: Normal anterior atlantoaxial articulation. Normal odontoid process. There is straightening of the normal cervical lordosis. There is multi-level endplate spondylosis. There is multi-level degenerative disc disease with multilevel disc space narrowing. There is multi-level osseous foraminal stenosis, worse on the left. The soft tissue structures are unremarkable. There is no demonstrated fracture of the cervical spine. RAD/Cerv Spine 4 or 5 Views IMPRESSION: No acute abnormality. Extensive degenerative changes. Electronically Signed: Ruperto Salas MD at 16:37 EDT ,
== END | disposition home or self-care (01) ==
LOC: MTRAD 14:50
PROVIDERS: PCP Family Medicine; Visit Provider Anesthesiology Pain Medicine
DX: M51.37 Other intervertebral disc degeneration, lumbosacral region (principal); M50.30 Other cervical disc degeneration, unspecified cervical region
CPT/HCPCS: 72050; 72110

== ENCOUNTER → 2023-11-11 | Outpatient (CLI) | payer MEDICARE, SELFPAY ==
--- NOTE | 2023-11-11 08:19 | MRI_ITS ---
STUDY: MRI CERVICAL SPINE WITHOUT CONTRAST REASON FOR EXAM: Female, 67 years old. neck pain,shoulder pain, numbness/tingling in hands and fingers TECHNIQUE: Standardized fat and water weighted pulse sequences were obtained in the sagittal and axial planes. Motion artifact on the axial sequences limits evaluation COMPARISON: MRI of the cervical spine dated November 26, 2016 FINDINGS: Normal foramen magnum and brainstem-cervical cord junction. Normal craniovertebral junction. Normal anterior atlantoaxial articulation. Normal odontoid process. There is reversal of the normal cervical lordosis. C2-3: Normal endplates. Diffuse disc desiccation. Normal disc height and morphology. Normal central canal and intervertebral neural foramina. C3-4: Moderate disc space narrowing with a diffuse disc bulge contributing to mild mass effect on anterior aspect of the cord and mild central canal stenosis. Moderate right foraminal stenosis with nerve root compression. Normal left neural foramen.. C4-5: Severe disc space narrowing with a diffuse disc bulge causing mild compression anterior aspect of the cord and mild central canal stenosis. Moderate left foraminal stenosis with nerve root compression due to uncovertebral hypertrophy. Unremarkable right neural foramen. C5-6: Severe disc space narrowing with a diffuse disc bulge/spur complex causing compression anterior aspect of the cord and mild to moderate central canal stenosis. Moderate to severe bilateral foraminal stenosis with nerve root compression due to uncovertebral hypertrophy. C6-7: Severe disc space narrowing with a diffuse disc bulge/spur complex causing mild mass effect on the anterior aspect of the cord and mild central canal stenosis. Moderate left foraminal stenosis with nerve root compression due to uncovertebral hypertrophy. Unremarkable right neural foramen. C7-T1: Normal endplates. Mild disc desiccation. Normal disc height and morphology. Normal central canal and intervertebral neural foramina. Normal cervical cord. There is no demonstrated cervical cord syrinx cavity. Normal visualized soft tissue structures. MRI/Spine Cervical (Routine) IMPRESSION: 1. Multilevel degenerative changes, as described above. 2. Mild to moderate central canal stenosis with mild mass effect or compression on anterior aspect of the cord due to disc bulges/disc spur complexes from C3-C4 down to C6-C7 3. Multilevel foraminal stenosis with nerve root compression Electronically Signed: Reagan Jimenez MD at 11:54 EST ,
--- OUTSIDE RECORDS SUMMARY | 2023-11-11 08:48 | XMS RPT_ITS | CCD ---
Author Name Unknown Address [id number] [place] [address] Organization [facility] Care Team Providers Care Sales Marketing Coordinator Name Role Phone LEYDA MEADOWS, DR LEANNE [place] Primary Care Physician DANIEL PATRICK, DR JANI Adame Consulting Pete Reaves MD, DR LEANNE [place] Primary Care Jamilah SOLO, MILA Attending Pete Reaves MD, DR LEANNE [place] Primary Care Ayde HALLMAN DO, DR JANI Adame Consulting Pete Loera, NENA Bal Attending Salbador CRABTREE MD, DR LEANNE [place] Primary Care Lois RESENDIZ, NENA Bal Attending Salbador HALLMAN DO, DR JANI Adame Attending Pete Reaves MD, DR LEANNE [place] Primary Care Jamilah SOLO, MILA Attending Pete Reaves MD, DR LEANNE [place] Primary Care Ayde CRABTREE MD, DR LEANNE oMntenegro Primary Care Lois RESENDIZ, NENA Bal Attending Salbador CRABTREE MD, DR LEANNE [place] Primary Care Lois RESENDIZ, NENA Bal Attending Salbador HALLMAN DO, DR JANI Adame Consulting Pete Reaves MD, DR LEANNE [place] Primary Care Lois RESENDIZ, NENA Bal Attending Salbador SOLO, MILA Attending Pete Ortiz DO, DR JANI Adame Consulting Pete Reaves MD, DR LEANNE [place] Primary Care Ayde dumont Medications Current Medications Medication Drug Class(es) Dates Sig (Normalized) Sig (Original) Advil PM Liqui-Gels 25 mg-200 mg oral capsule (4 sources) Start: 08-27-2022 take 2 capsules by mouth once daily at bedtime as needed Advil PM Liqui-Gels 25 mg-200 mg oral capsule See Instructions, PRN for insomnia, 2 cap(s) Oral qHS, 0 Refill(s) Start Date: 08/27/22 Status: Ordered alendronic acid 70 mg oral tablet (2 sources) Bisphosphonate Start: 01-05-2023 take 1 tablet by mouth every week alendronate 70 mg oral tablet Take 1 tablet by mouth weekly Start Date: 01/05/23 Status: Ordered atorvastatin 20 mg oral tablet (11 sources) HMG-CoA Reductase Inhibitor Start: 07-06-2014 atorvastatin 20 mg oral tablet Dose : 20 mg = 1 tab(s), Oral, Daily, 0 Refill(s) Start Date: 07/06/14 Status: Ordered baclofen 20 mg oral tablet (11 sources) gamma-Aminobutyric Acid-ergic Agonist Start: 07-07-2019 baclofen 20 mg oral tablet Dose : 20 mg = 1 tab(s), Oral, TID, # 270 tab(s), 0 Refill(s) Start Date: 07/07/19 Status: Ordered celecoxib 200 mg oral capsule (11 sources) Nonsteroidal Anti-inflammatory Drug Start: 07-06-2014 CeleBREX 200 mg oral capsule Dose : 200 mg = 1 cap(s), Oral, Daily, 0 Refill(s) Start Date: 07/06/14 Status: Ordered Cholecalciferol (11 sources) Vitamin D Start: 03-29-2020 Vitamin D (3) 45 units oral capsule qDay, 0 Refill(s) Start Date: 03/29/20 Status: Ordered diphenhydrAMINE hydrochloride 25 mg oral tablet (2 sources) Histamine-1 Receptor Antagonist Start: 01-22-2023 Unisom 25mg oral tablet Dose : 25 mg = 1 tab(s), Oral, qHS, PRN PRN as needed for insomnia, # 30 tab(s), 0 Refill(s) Start Date: 01/22/23 Status: Ordered DULoxetine 30 mg delayed release oral capsule (6 sources) Serotonin and Norepinephrine Reuptake Inhibitor Start: 04-09-2022 DULoxetine 30 mg oral delayed release capsule See Instructions, 2 cap(s) Oral, 0 Refill(s) Start Date: 04/09/22 Status: Ordered Completed/Discontinued Medications Medication Drug Class(es) Dates Sig (Normalized) Sig (Original) doxycycline monohydrate 100 mg oral capsule (11 sources) Tetracycline-clas s Drug Start: 02-23-2020 doxycycline monohydrate 100 mg oral capsule Dose : 100 mg = 1 cap(s), Oral, qDay, PRN Allergic reaction, 0 Refill(s), 80.1 Start Date: 02/23/20 Status: Ordered Problems Active Problems Problem Classification Problem Date Documented Date Episodic/Chronic Diabetes mellitus without complication (9 sources) Diabetes mellitus 04-17-2020 Chronic Disorders of lipid metabolism (11 sources) Hypercholesterolemia 07-27-2014 Chronic Essential hypertension (11 sources) Hypertensive disorder 04-17-2020 Chronic Osteoarthritis (20 sources) Osteoarthritis; Translations: [Osteoarthritis of right knee joint] 04-26-2015 Chronic Other connective tissue disease (5 sources) Muscle pain; Translations: [Myalgia, other site] Onset: 1 Episodic Other inflammatory condition of skin (11 sources) Rosacea 06-21-2015 Chronic Other nervous system disorders (20 sources) 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 Other nervous system disorders (1 source) Disorder of nerve root and/or plexus; Translations: [Nerve root and plexus disorder, unspecified] Onset: 2 Chronic Other non-traumatic joint disorders (11 sources) Knee pain 04-17-2020 Episodic Spondylosis; intervertebral disc disorders; other back problems (17 sources) Degeneration of cervical intervertebral disc; Translations: [Other cervical disc degeneration, unspecified cervical region] Onset: 1 08-01-2020 Chronic Spondylosis; intervertebral disc disorders; other back problems (20 sources) Myofascial pain syndrome of neck; Translations: [Neck pain] Onset: 1 08-06-2021 Episodic Past or Other Problems Problem Classification Problem Date Documented Da te Episodic/Chronic Nonmalignant breast conditions (5 sources) Breast lump Onset: 04-29-2022 06-23-2022 Episodic Vital Signs Date Time Vital Sign Value Performing Clinician Facility 03-30-2023 09:01-0400 Blood Pressure Cuff Size NENA RESENDIZ [facility] 03-30-2023 09:01-0400 Blood Pressure Location NENA RESENDIZ [facility] 03-30-2023 09:01-0400 Blood Pressure Method NENA PERDOMO APRN-COMPUTER INSTALLATION ENGINEER [facility] 03-30-2023 09:01-0400 Diastolic Blood Pressure Non-Invasive 60 1 NENA PERDOMO APRN-COMPUTER INSTALLATION ENGINEER [facility] 03-30-2023 09:01-0400 Heart rate 82 /min NENA PERDOMO CRIME LABORATORY ANALYST-COMPUTER INSTALLATION ENGINEER [facility] 03-30-2023 09:01-0400 Respiratory rate 9 /min NENA PERDOMO CRIME LABORATORY ANALYST-COMPUTER INSTALLATION ENGINEER [facility] 03-30-2023 09:01-0400 Systolic Blood Pressure Non-Invasive 117 1 NENA PERDOMO APRN-COMPUTER INSTALLATION ENGINEER [facility] 03-30-2023 08:53-0400 Blood Pressure Cuff Size NENA PERDOMO APRN-COMPUTER INSTALLATION ENGINEER [facility] 03-30-2023 08:53-0400 Blood Pressure Location NENA PERDOMO APRN-COMPUTER INSTALLATION ENGINEER [facility] 03-30-2023 08:53-0400 Blood Pressure Method NENA PERDOMO APRN-COMPUTER INSTALLATION ENGINEER [facility] 03-30-2023 08:53-0400 Diastolic Blood Pressure Non-Invasive 69 1 NENA PERDOMO APRN-COMPUTER INSTALLATION ENGINEER [facility] 03-30-2023 08:53-0400 Heart rate 81 /min NENA PERDOMO CRIME LABORATORY ANALYST-COMPUTER INSTALLATION ENGINEER [facility] 03-30-2023 08:53-0400 Respiratory rate 10 /min NENA PERDOMO CRIME LABORATORY ANALYST-COMPUTER INSTALLATION ENGINEER [facility] 03-30-2023 08:53-0400 Systolic Blood Pressure Non-Invasive 121 1 NENA PERDOMO APRN-COMPUTER INSTALLATION ENGINEER [facility] 03-30-2023 08:45-0400 Diastolic Blood Pressure Non-Invasive 70 1 NENA PERDOMO APRN-COMPUTER INSTALLATION ENGINEER [facility] 03-30-2023 08:45-0400 Heart rate 85 /min NENA PERDOMO APRN-COMPUTER INSTALLATION ENGINEER [facility] 03-30-2023 08:45-0400 Respiratory rate 11 /min NENA PERDOMO APRN-COMPUTER INSTALLATION ENGINEER [facility] 03-30-2023 08:45-0400 Systolic Blood Pressure Non-Invasive 110 1 NENA PERDOMO APRN-COMPUTER INSTALLATION ENGINEER [facility] 03-30-2023 08:39-0400 Blood Pressure Cuff Size NENA PERDOMO APRN-COMPUTER INSTALLATION ENGINEER [facility] 03-30-2023 08:39-0400 Blood Pressure Location NENA PERDOMO APRN-COMPUTER INSTALLATION ENGINEER [facility] 03-30-2023 08:39-0400 Blood Pressure Method NENA PERDOMO APRN-COMPUTER INSTALLATION ENGINEER [facility] 03-30-2023 08:39-0400 Heart rate 88 /min NENA PERDOMO APRN-COMPUTER INSTALLATION ENGINEER [facility] 03-30-2023 08:03-0400 Body height 157 cm NENA PERDOMO APRN-COMPUTER INSTALLATION ENGINEER [facility] 03-30-2023 08:03-0400 Body weight 85 kg NENA PERDOMO APRN-COMPUTER INSTALLATION ENGINEER [facility] 03-30-2023 08:03-0400 Body weight 34.48 kg/m2 NENA PERDOMO APRN-COMPUTER INSTALLATION ENGINEER [facility] 01-22-2023 08:01-0400 Diastolic Blood Pressure Non-Invasive 74 1 NENA PERDOMO CRIME LABORATORY ANALYST-COMPUTER INSTALLATION ENGINEER [facility] 01-22-2023 08:01-0400 Heart rate 81 /min NENA PERDOMO CRIME LABORATORY ANALYST-COMPUTER INSTALLATION ENGINEER [facility] 01-22-2023 08:01-0400 Respiratory rate 12 /min NENA PERDOMO CRIME LABORATORY ANALYST-COMPUTER INSTALLATION ENGINEER [facility] 01-22-2023 08:01-0400 Systolic Blood Pressure Non-Invasive 106 1 NENA PERDOMO CRIME LABORATORY ANALYST-COMPUTER INSTALLATION ENGINEER [facility] 01-22-2023 07:44-0400 Diastolic Blood Pressure Non-Invasive 70 1 NENA PERDOMO CRIME LABORATORY ANALYST-COMPUTER INSTALLATION ENGINEER [facility] 01-22-2023 07:44-0400 Heart rate 74 /min NENA PERDOMO CRIME LABORATORY ANALYST-COMPUTER INSTALLATION ENGINEER [facility] 01-22-2023 07:44-0400 Respiratory rate 11 /min NENA PERDOMO CRIME LABORATORY ANALYST-COMPUTER INSTALLATION ENGINEER [facility] 01-22-2023 07:44-0400 Systolic Blood Pressure Non-Invasive 136 1 NENA PERDOMO CRIME LABORATORY ANALYST-COMPUTER INSTALLATION ENGINEER [facility] 01-22-2023 07:37-0400 Diastolic Blood Pressure Non-Invasive 78 1 NENA PERDOMO CRIME LABORATORY ANALYST-COMPUTER INSTALLATION ENGINEER [facility] 01-22-2023 07:37-0400 Heart rate 76 /min NENA PERDOMO CRIME LABORATORY ANALYST-COMPUTER INSTALLATION ENGINEER [facility] 01-22-2023 07:37-0400 Respiratory rate 12 /min NENA PERDOMO CRIME LABORATORY ANALYST-COMPUTER INSTALLATION ENGINEER [facility] 01-22-2023 07:37-0400 Systolic Blood Pressure Non-Invasive 120 1 NENA PERDOMO CRIME LABORATORY ANALYST-COMPUTER INSTALLATION ENGINEER [facility] 01-22-2023 [id number] Body height 157.5 cm NENA PERDOMO CRIME LABORATORY ANALYST-COMPUTER INSTALLATION ENGINEER [facility] 01-22-2023 [id number] Body weight 85.6 kg NENA PERDOMO CRIME LABORATORY ANALYST-COMPUTER INSTALLATION ENGINEER [facility] 01-22-2023 [id number]:[id number] Body weight 34.51 kg/m2 NENA PERDOMO CRIME LABORATORY ANALYST-COMPUTER INSTALLATION ENGINEER [facility] 01-22-2023 07:11-0400 Heart rate 80 /min NENA PERDOMO CRIME LABORATORY ANALYST-COMPUTER INSTALLATION ENGINEER [facility] 08-27-2022 13:15-0500 Blood Pressure Cuff Size MILA KING CRIME LABORATORY ANALYST-FOOD SALES CLERK [facility] 08-27-2022 13:15-0500 Blood Pressure Location MILA KING CRIME LABORATORY ANALYST-FOOD SALES CLERK [facility] 08-27-2022 13:15-0500 Blood Pressure Method MILA KING CRIME LABORATORY ANALYST-FOOD SALES CLERK [facility] 08-27-2022 13:15-0500 Diastolic Blood Pressure Non-Invasive 72 1 MILA KING CRIME LABORATORY ANALYST-FOOD SALES CLERK [facility] 08-27-2022 13:15-0500 Heart rate 80 /min MILA KING CRIME LABORATORY ANALYST-FOOD SALES CLERK [facility] 08-27-2022 13:15-0500 Respiratory rate 13 /min MILA KING CRIME LABORATORY ANALYST-FOOD SALES CLERK [facility] 08-27-2022 13:15-0500 Systolic Blood Pressure Non-Invasive 143 1 MILA KING CRIME LABORATORY ANALYST-FOOD SALES CLERK [facility] 08-27-2022 13:02-0500 Blood Pressure Cuff Size MILA KING APRN-FOOD SALES CLERK [facility] 08-27-2022 13:02-0500 Blood Pressure Location MILA KING CRIME LABORATORY ANALYST-FOOD SALES CLERK [facility] 08-27-2022 13:02-0500 Blood Pressure Method MILA KING CRIME LABORATORY ANALYST-FOOD SALES CLERK [facility] 08-27-2022 13:02-0500 Diastolic Blood Pressure Non-Invasive 53 1 MILA KING CRIME LABORATORY ANALYST-FOOD SALES CLERK [facility] 08-27-2022 13:02-0500 Heart rate 71 /min MILA KING CRIME LABORATORY ANALYST-FOOD SALES CLERK [facility] 08-27-2022 13:02-0500 Reason For Taking VItal Signs MILA KING CRIME LABORATORY ANALYST-FOOD SALES CLERK [facility] 08-27-2022 13:02-0500 Respiratory rate 13 /min MILA KING CRIME LABORATORY ANALYST-FOOD SALES CLERK [facility] 08-27-2022 13:02-0500 Systolic Blood Pressure Non-Invasive 146 1 MILA KING CRIME LABORATORY ANALYST-FOOD SALES CLERK [facility] 08-27-2022 12:51-0500 Diastolic Blood Pressure Non-Invasive 74 1 MILA KING CRIME LABORATORY ANALYST-FOOD SALES CLERK [facility] 08-27-2022 12:51-0500 Heart rate 78 /min MILA KING CRIME LABORATORY ANALYST-FOOD SALES CLERK [facility] 08-27-2022 12:51-0500 Respiratory rate 12 /min MILA KING CRIME LABORATORY ANALYST-FOOD SALES CLERK [facility] 08-27-2022 12:51-0500 Systolic Blood Pressure Non-Invasive 134 1 MLIA KING CRIME LABORATORY ANALYST-FOOD SALES CLERK [facility] 08-27-2022 12:46-0500 Heart rate 78 /min MILA KING CRIME LABORATORY ANALYST-FOOD SALES CLERK [facility] 08-27-2022 12:09-0500 Blood Pressure Location MILA KING CRIME LABORATORY ANALYST-FOOD SALES CLERK [facility] 08-27-2022 12:09-0500 Blood Pressure Method MILA KING CRIME LABORATORY ANALYST-FOOD SALES CLERK [facility] 08-27-2022 12:09-0500 Body height 157.5 cm MILA KING CRIME LABORATORY ANALYST-FOOD SALES CLERK [facility] 08-27-2022 12:09-0500 Body weight 83.4 kg MILA KING CRIME LABORATORY ANALYST-FOOD SALES CLERK [facility] 08-27-2022 12:09-0500 Body weight 33.62 kg/m2 MILA KING CRIME LABORATORY ANALYST-FOOD SALES CLERK [facility] 08-27-2022 12:09-0500 Heart rate 88 /min MILA KING CRIME LABORATORY ANALYST-FOOD SALES CLERK [facility] 04-09-2022 09:39-0400 Diastolic blood pressure 75 mm[Hg] MILA KING CRIME LABORATORY ANALYST-FOOD SALES CLERK [facility] 04-09-2022 09:39-0400 Heart rate 76 /min MILA KING CRIME LABORATORY ANALYST-FOOD SALES CLERK [facility] 04-09-2022 09:39-0400 Respiratory rate 10 /min MILA KING CRIME LABORATORY ANALYST-FOOD SALES CLERK [facility] 04-09-2022 09:39-0400 Systolic blood pressure 122 mm[Hg] MILA KING CRIME LABORATORY ANALYST-FOOD SALES CLERK [facility] 04-09-2022 09:19-0400 Diastolic blood pressure 77 mm[Hg] MILA KING CRIME LABORATORY ANALYST-FOOD SALES CLERK [facility] 04-09-2022 09:19-0400 Heart rate 73 /min MILA KING CRIME LABORATORY ANALYST-FOOD SALES CLERK [facility] 04-09-2022 09:19-0400 Mean blood pressure 92 mm[Hg] MILA KING CRIME LABORATORY ANALYST-FOOD SALES CLERK [facility] 04-09-2022 09:19-0400 Respiratory rate 12 /min MILA KING CRIME LABORATORY ANALYST-FOOD SALES CLERK [facility] 04-09-2022 09:19-0400 Systolic blood pressure 121 mm[Hg] MILA KING CRIME LABORATORY ANALYST-FOOD SALES CLERK [facility] 04-09-2022 09:11-0400 Diastolic Blood Pressure NBP 72 1 MILA KING CRIME LABORATORY ANALYST-FOOD SALES CLERK [facility] 04-09-2022 09:11-0400 Heart rate 77 /min MILA KING CRIME LABORATORY ANALYST-FOOD SALES CLERK [facility] 04-09-2022 09:11-0400 Respiratory rate 10 /min MILA KING CRIME LABORATORY ANALYST-FOOD SALES CLERK [facility] 04-09-2022 09:11-0400 Systolic Blood Pressure NBP 118 1 MILA KING CRIME LABORATORY ANALYST-FOOD SALES CLERK [facility] 04-09-2022 09:06-0400 Diastolic Blood Pressure NBP 67 1 MILA KING CRIME LABORATORY ANALYST-FOOD SALES CLERK [facility] 04-09-2022 09:06-0400 Heart rate 79 /min MILA KING CRIME LABORATORY ANALYST-FOOD SALES CLERK [facility] 04-09-2022 09:06-0400 Systolic Blood Pressure NBP 123 1 MILA KING CRIME LABORATORY ANALYST-FOOD SALES CLERK [facility] 04-09-2022 08:45-0400 Body height 157 cm MILA KING CRIME LABORATORY ANALYST-FOOD SALES CLERK [facility] 04-09-2022 08:45-0400 Body weight 82.5 kg MILA KING CRIME LABORATORY ANALYST-FOOD SALES CLERK [facility] 04-09-2022 08:45-0400 Body weight 33.47 kg/m2 MILA FERNANDO CRIME LABORATORY ANALYST-FOOD SALES CLERK [facility] 04-09-2022 08:45-0400 diastolic 72 mm[Hg] MILA KING CRIME LABORATORY ANALYST-FOOD SALES CLERK [facility] 04-09-2022 08:45-0400 Heart rate 75 /min MILA FERNANDO CRIME LABORATORY ANALYST-FOOD SALES CLERK [facility] 04-09-2022 08:45-0400 systolic 151 mm[Hg] MILA FERNANDO CRIME LABORATORY ANALYST-FOOD SALES CLERK [facility] 08-30-2021 08:36-0500 Diastolic Blood Pressure NBP [address] JANI HALLMAN DO [facility] 08-30-2021 08:36-0500 Heart rate 91 /min DR JANI HALLMAN DO [facility] 08-30-2021 08:36-0500 Respiratory rate 16 /min DR JANI HALLMAN DO [facility] 08-30-2021 08:36-0500 Systolic Blood Pressure NBP [address] JANI HALLMAN DO [facility] 08-30-2021 08:21-0500 Diastolic Blood Pressure NBP [address] JANI HALLMAN DO [facility] 08-30-2021 08:21-0500 Heart rate 96 /min DR JANI HALLMAN DO [facility] 08-30-2021 08:21-0500 Respiratory rate 11 /min DR JANI HALLMAN DO [facility] 08-30-2021 08:21-0500 Systolic Blood Pressure NBP [address] JANI HALLMAN DO [facility] 08-30-2021 08:01-0500 Body height 157.[address] JANI HALLMAN DO [facility] 08-30-2021 08:01-0500 Body weight 83.[address] JANI HALLMAN DO [facility] 08-30-2021 08:01-0500 Body weight 33.5 kg/m2 DR JANI HALLMAN DO [facility] 08-30-2021 08:01-0500 diastolic 95 mm[Hg] DR JANI HALLMAN DO [facility] 08-30-2021 08:01-0500 Heart rate 99 /min DR JANI HALLMAN DO [facility] 08-30-2021 08:01-0500 Respiratory rate 16 /min DR JANI HALLMAN DO [facility] 08-30-2021 08:01-0500 systolic 133 mm[Hg] DR JANI HALLMAN DO [facility] Encounters Encounter Date Encounter Type Care Provider Facility Start: 03-30-2023 End: 03-30-[address] JANI HALLMAN DO Facility:A Start: 03-30-2023 End: 03-30-2023 Minor Procedure NENA Mally CONOR CRIME LABORATORY ANALYST-COMPUTER INSTALLATION ENGINEER [facility] Start: 03-20-2023 End: 03-21-[address] LEANNE CRABTREE MD Facility:A Start: 01-22-2023 End: 01-22-[address] LEANNE CRABTREE MD Facility:A Start: 01-22-2023 End: 01-22-2023 Minor Procedure NENA Mally CONOR CRIME LABORATORY ANALYST-COMPUTER INSTALLATION ENGINEER [facility] Start: 01-05-2023 End: 01-06-[address] LEANNE CRABTREE MD Facility:A Start: 11-05-2022 End: 11-06-[address] LEANNE CRABTREE MD Facility:A Start: 11-05-2022 End: 11-05-2022 Patient encounter procedure NENA Mally CONOR CRIME LABORATORY ANALYST-COMPUTER INSTALLATION ENGINEER [facility] Start: 08-27-2022 End: 08-27-[address] JANI HALLMAN DO Facility:A Start: 08-27-2022 End: 08-27-2022 Minor Procedure MILA KING CRIME LABORATORY ANALYST-FOOD SALES CLERK [facility] Start: 08-19-2022 End: 08-20-2022 ambulatory MILA KING CRIME LABORATORY ANALYST-FOOD SALES CLERK Facility:A Start: 08-19-2022 End: 08-19-2022 Patient encounter procedure MILA KING CRIME LABORATORY ANALYST-FOOD SALES CLERK [facility] Start: 06-23-2022 End: 06-24-[address] JANI HALLMAN DO Facility:A Start: 04-09-2022 End: 04-09-2022 ambulatory MILA KING CRIME LABORATORY ANALYST-FOOD SALES CLERK Facility:A Start: 04-09-2022 End: 04-09-2022 Minor Procedure MILA KING CRIME LABORATORY ANALYST-FOOD SALES CLERK [facility] Start: 03-25-2022 End: 03-25-2022 Patient encounter procedure MILA KING CRIME LABORATORY ANALYST-FOOD SALES CLERK [facility] Start: 01-07-2022 End: 01-07-[address] JANI HALLMAN DO [facility] Start: 10-29-2021 End: 10-29-[address] JANI HALLMAN DO [facility] Start: 08-30-2021 End: 08-30-[address] JANI HALLMAN DO [facility] Start: 08-06-2021 End: 08-06-[address] JANI HALLMAN DO [facility] Procedures Date Procedure Procedure Detail Performing Clinician Start: 03-30-2023 PM Inj Spine C/T [facility] SN 1 NENA PERDOMO CRIME LABORATORY ANALYST-COMPUTER INSTALLATION ENGINEER Payers Date Payer Category Payer Unknown [id number] 1955 Unknown [id number] [id number] [id number] 1955 Unknown [id number] 2.16.8 [id number] 1957 Unknown [id number] 2.16.8 [id number] 1957 Unknown [id number] 2.16.8 [id number] 1957 Unknown [id number] 2.16.8 [id number] 1957 Unknown [id number] 2.16.8 [id number] 1957 Unknown [id number] 2.16.8 [id number] 1957 Unknown [id number] 2.16.8 [id number] 1957 Unknown [id number] 2.16.8 [id number] Social History Date Type Detail Facility Start: 07-07-2019 Never smoked t chris (finding) [facility] Sex Assigned At Female [facility] Functional Status Date Assessment Result Facility 03-30-2023 Functional Status Maintained, Less than 8 hours [facility] 01-22-2023 Functional Status Maintained [facility] 08-27-2022 Functional Status ID band on, Bed in low position, Wheels locked, Upper/Half-Length side-rails up, Safety level maintained [facility] 04-09-2022 Functional Status Maintained, More than 8 hours [facility] Mental Status Date Assessment Result Facility 03-30-2023 Mental Status Orientation Oriented x 4 [facility] 01-22-2023 Mental Status Oriented x 4 [facility] 08-27-2022 Mental Status Oriented x 4 [facility] 04-09-2022 Mental Status Oriented x 4 [facility] Clinical Notes 08-30-2021 to 03-30-2023 Note Date & Type Note Facility 03-30-2023 Hospital Discharge instructions Patient Education 03/30/2023 08:21:26 PM Discharge Instructions no lines- post-procedure ([id number]) [facility] Discharge Instructions POST PROCEDURE INSTRUCTIONS - Please follow all of the below: There are no general limitations to your activities. May resume driving a car in ___6____ hours. Resume regular activity. Resume your regular diet. Keep bandaid dry and remove in 24 hours. Call in 2 weeks to report progress on today's injection Continue ice 20 minutes on 20 minutes off for 2 hours to reduce any bruising sensation Remain active. Avoid bedrest. Continue healthy eating habits Continue range of motion exercises for neck and shoulder 5-6 times a day, every day Continue Xtampza ER 18 mg twice daily, sent to preferred pharmacy fill date 04/20/2023 Continue gabapentin 800 mg 3 times daily 3-month supply was already sent to preferred pharmacy Follow-up with Dr. Crawford at [facility] pain management for continuity of care after Dr Hallman's care home April 01, 2023 [facility] 03-30-2023 Summary of episode note Discharge Instructions Thank you for allowing [facility] to assist you with your healthcare needs. The following is important discharge information regarding your hospital visit. Your Care Team LEANNE CRABTREE MD Your Diagnosis Radiculopathy affecting upper extremity Degenerative disc disease, cervical, Degeneration of intervertebral disc of cervical region Myofascial pain syndrome, cervical Radiculopathy Allergies NKA Medications Please ask your primary doctor or pharmacist before taking any other medication not listed, including over the counter drugs, herbal medications, vitamins and or supplements as they may interact with your home medications. What How Much When Why Instructions Last Dose Changed oxyCODONE (Xtampza ER 18 mg oral capsule, extended release) 1 cap by mouth Every 12 hours Degeneration of intervertebral disc of cervical region Radiculopathy Duration: 30 Days Fill date 2022 Pickup at [email or web address] Unchanged alendronate (alendronate 70 mg oral tablet) Take 1 tablet by mouth weekly Unchanged atorvastatin (atorvastatin 20 mg oral tablet) 1 tab(s) by mouth Every day Unchanged baclofen (baclofen 20 mg oral tablet) 1 tab(s) by mouth Three (3) times a day Unchanged celecoxib (CeleBREX 200 mg oral capsule) 1 cap by mouth Every day Unchanged cholecalciferol (Vitamin D (3) 45 units oral capsule) Once a day Unchanged diphenhydrAMINE (Unisom 25mg oral tablet) 1 tab(s) by mouth Daily at bedtime as needed for as needed for insomnia Unchanged diphenhydramine-ibuprofen (Advil PM Liqui-Gels 25 mg-200 mg oral capsule) See instructions 2 cap(s) Oral qHS Unchanged doxycycline (doxycycline monohydrate 100 mg oral capsule) 1 cap by mouth Once a day as needed for Allergic reaction Unchanged DULoxetine (DULoxetine 30 mg oral delayed release capsule) See instructions 2 cap(s) Oral Unchanged gabapentin (gabapentin 800 mg oral tablet) 1 tab(s) by mouth Three (3) times a day Radiculopathy Degenerative disc disease, cervical Duration: 90 Days fill 2022. Unchanged multivitamin (Multivitamin) 1 tab(s) by mouth Every day Unchanged ramipril (ramipril 5 mg oral capsule) 1 cap by mouth Once a day Unchanged senna (senna 8.6 mg oral tablet) 2 tab(s) by mouth Daily at bedtime Pharmacy Information [email or web address]: [address], [place] [phone] Please take this list to your next doctor s visit. Bring all medications you take, including over the counter medications, herbals and other supplements with you to your doctor s visit. Patients and families are reminded to discard old lists and to update any records with all medication providers or retail pharmacies. [facility] Discharge Instructions POST PROCEDURE INSTRUCTIONS - Please follow all of the below: There are no general limitations to your activities. May resume driving a car in ___6____ hours. Resume regular activity. Resume your regular diet. Keep bandaid dry and remove in 24 hours. Call in 2 weeks to report progress on today's injection Continue ice 20 minutes on 20 minutes off for 2 hours to reduce any bruising sensation Remain active. Avoid bedrest. Continue healthy eating habits Continue range of motion exercises for neck and shoulder 5-6 times a day, every day Continue Xtampza ER 18 mg twice daily, sent to preferred pharmacy fill date 04/20/2023 Continue gabapentin 800 mg 3 times daily 3-month supply was already sent to [facility] pharmacy Follow-up with Dr. Crawford at [facility] for pain management for continuity of care after Dr Hallman's care home April 01, 2023 Additional Information VACCINATE! IT SAVES LIVES! Members of the community who have not yet received the COVID-19 vaccine and would like to receive it can visit one of [facility] vaccine clinics. There are many vaccine clinic locations within the [facility]. For locations and available times, please visit [email or web address] It is important to note that some COVID mobile vaccine clinics are held outdoors and may be canceled in rainy or stormy conditions. To learn more about pediatric vaccinations (ages 5-11), we invite you to visit the [facility] webpage. [email or web address]/p [email or web address] To learn more about the COVID-19 vaccine, we invite you to visit the CDC website for a list of frequently asked questions.https://www.cdc.gov/co ronavirus/2019-ncov/vaccines/faq .html [facility] Patient Portal Access Instructions: Stay connected with your healthcare team and access your personal medical information anytime with the [facility] Patient Portal. Please follow the directions below to create your [facility] account: 1.Access the email account you provided upon registration to the hospital/physician office.2.Look for an invitation email from [facility].3.Open the email and access the invitation link: Accept Invitation to [facility].4.Fill in the required erickson to create your account. To access your account, visit [email or web address]. Click the blue button labeled Access Patient Portal and then log in with the username and password that you created in the steps above. You will be able to view your test results, lab results, a summary of your visits, upcoming appointments and more. There is also a convenient messaging option where you can send secure messages to your provider. In addition, you will have the ability to download any documents or summaries to your computer and/or send the information securely to a physician. Remember that your healthcare information is confidential, so carefully consider who you will allow to register on the [facility] Patient Portal for access to your information. You can also access the [facility] Patient Portal on the [facility] rosa. Simply click on Patient Portal and then log into your account. If you would like to receive a full copy of your medical records, please contact the [facility] Medical Records Department by calling [phone], Thursday through Thursday between 8 a.m. and 4:30 p.m. HOW TO SAFELY DISPOSE OF PRESCRIPTION MEDICATIONS Please use one of the following methods to safely dispose of your unused medications. 1.Use a drug disposal kit: the drug disposal pouch allows you to safely discard your old and unused drugs. Ask your nurse to give you one when you are discharged.2.Visit a local take-back location: Many local pharmacies and police departments have programs that collect old and unwanted prescription drugs. Call your local pharmacy or go to [email or web address]/[email or web address] to find one close to you.3.Make use of household items: Use cat litter or old coffee grounds to dispose medications if other options are not available. Mix your drugs with these household products, seal them in an airtight container and throw it into the garbage. Call [facility]: [phone] to be sure your drugs can be disposed of in this way. Some medicines may require a different approach.4.Never flush your medications down the toilet. IF YOU HAVE BEEN PRESCRIBED AN OPIOID FOR PAIN If you have been prescribed an opioid (such as hydrocodone, oxycodone or morphine), it is critical to understand the possible side effects and risks of opioid pain medications. Even when taken as directed, opioids can have several side effects including: Tolerance, meaning you might need to take more of a medication for the same pain relief. Nausea, vomiting and/or constipation. Sleepiness, dizziness, dry mouth, confusion, depression or itching. Physical dependence, meaning you have withdrawal symptoms when a medication is stopped, can develop within a few days. KNOW YOUR RESPONSIBILITIES It is important to know exactly how much and how often to take the opioid pain medications you are prescribed. Never take opioids in higher amounts or more often than prescribed. Do not combine opioids with alcohol or other drugs that cause drowsiness, such as benzodiazepines, also known as benzos, including diazepam and alprazolam, muscle relaxants or sleep aids. Never sell or share prescription opioids. This is illegal. Store opioids in a secure place and out of reach of others (including children, family, friends and visitors). The last page of this document has been signed and retained as a CHART COPY. Signatures Patient Education Materials PM Discharge Instructions no lines- post-procedure (31321) Medication Leaflets My discharge plan and instructions have been reviewed and explained to me and IOSMIN PATRICIA J understand my current condition and have read and understand these discharge instructions. I have received a written copy of the plan/instructions. If I have questions, I am aware that I should contact my doctor. 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 Deep tendon reflexes in the upper extremities are 1/4. Heart Nurse strength is equal bilaterally. There is decreased range of motion to extension and rotation of the cervical spine. There is paracervical and suprascapular trapezius muscle spasm. Patient rates her pain as a 6-7 out of 10 moderate in nature with a diagram showing pain radiating to the bilateral upper extremities and into the hands. History and Physical Chief Complaint c/o generalized aching pain and numbness in hands Primary Pain Pain Symptoms : Yes Pain Scale Type Adult : 0-10 Pain scale Primary Pain Intensity : 6 Primary Pain Quality : Aching Primary Pain Location : Generalized [1] History of Present Illness This is a 67-year-old female a patient of Dr. Hallman who is being followed up by [facility] for chronic pain issues related to radiculopathy affecting upper extremity, degenerative disc disease cervical region and myofascial pain syndrome cervical. Today's pain is 6-7/10. Described as aching and numbness in her hands that comes and goes. She states looking up and down turning her head side to side, driving, standing too long, walking the dog and having the leash pulled, laying down too much walking and steps aggravates her pain. She does use topical cream, heat and ice. 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 Medications are, Xtampza extended release 18 mg every 12 hours and gabapentin 800 mg every 8 hours. She states these medications are helpful, she does have some constipation occasionally and uses [id number] stool softener. History of injections, January 22, 2023 cervical epidural steroid injection. Today the patient reports 50% relief lasting 2 months. She states today she would like to schedule another cervical epidural steroid injection with Dr. Hallman. No recent hospitalization, infections, medication changes or falls. EXERCISE: Physical therapy. Review of Systems I have reviewed and agree with any documentation taken by the ancillary staff. General Review of Systems Grid Fever : No Weight Gain : Yes Weight Loss : No Shiela Cao RN - 03/20/2023 13:02 EDT Skeletal Review of Systems Grid Joints Swelling/Stiffness : Yes Pain in Joint(s) : Yes Shiela Cao RN - 03/20/2023 13:02 EDT Neuro Review of Systems Grid Difficulty w/Balance : Yes Difficulty Walking : Yes Sensory Disturbance Lower Extremity (L) : Yes Sensory Disturbance Lower Extremity (R) : Yes Sensory Disturbance Upper Extremity (L) : Yes Sensory Disturbance Upper Extremity (R) : Yes Weakness Lower Extremity (L) : Yes Weakness Lower Extremity (R) : Yes Weakness Upper Extremity (L) : Yes Weakness Upper Extremity (R) : Yes Shiela Cao Shirley [facility] 03/20/2023 13:02 EDT Stomach/Bowel Review of Systems Grid Constipation : Yes Diarrhea : No Nausea : No Vomiting : No Shiela Cao [facility] 03/20/2023 13:02 EDT Skin Review of Systems Grid Itching : No Rash : No Sores : No Nash Shiela E [facility] 03/20/2023 13:02 EDT Hematology Review of Systems Grid Bleeds Easily : No Blood Clots : No Low Blood Count : No Nash Shiela Shirley [facility] 03/20/2023 13:02 EDT Sleep Review of Systems Grid Daytime Sleepiness : Yes Fatigue : Yes Insomnia : Yes Nash Shiela Shirley [facility] 03/20/2023 13:02 EDT Endocrine Review of Systems Grid High Blood Sugar : No Low Blood Sugar : No Shiela Cao [facility] 03/20/2023 13:02 EDT Psychiatric Review of Systems Grid Anxious : Yes [2] Physical Exam Vitals and Measurements HR: 96 RR: 16 BP: 148/86 SpO2: 99% HT: 157 cm WT: 86 kg BMI: 34.89 Oxygen Therapy: Room air Primary Pain Intensity: 6 (03/20/23 13:02:00) GENERAL: She is alert and oriented x 3 follow simple commands, appears to be in no acute distress. Memory, intact. Answers questions appropriately. Good historian. HEENT: Pupils equal, round, reactive. Facial expression is symmetric. Hearing is intact. CARDIOVASCULAR: Regular rate and rhythm. RESPIRATORY: Clear to auscultation bilaterally. ABDOMEN: Soft, round, nontender, bowel sounds present. MUSCULOSKELETAL: Hand grasp equal bilateral. Strength 5/5 upper/lower extremities. Dorsiflexion/plantarflexion intact. Discomfort palpating the cervical paraspinal region, fair range of motion of upper extremities and neck. Sitting straight leg raises negative for low back pain. Minimal tenderness palpating the lumbar paraspinal region. She requires some pushoff to stand and ambulates with no assistive device. I have reviewed the [place] automated Rx reporting system reported for this patient for refill and other prescriber involvement as a part of the appropriate surveillance for the provision of acute and chronic controlled medications the report was requested reviewed and was considered appropriate in the prescribing process. DIAGNOSTIC DATA: Last random urine drug screen was done in December 2022, was appropriate for the medication she is prescribed. This document was created using voice recognition software. Spelling, grammar and syntax errors are possible. Social History Smoking Status - 07/12/2015 Former smoker Alcohol Use: Never., 07/07/2019 Home/Environment Domestic Concerns: Denies. Living situation: Home/Independent. 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 Lives In: Single level home. Current Home Treatments None. Professional Skilled Services or Special Community Resources None. Financial concerns: No. Spouse Name: JOSE. Marital Status: ., 04/17/2020 Nutrition/Health Type of diet: Regular. Appetite Good. Eating Difficulties Swallowing. Enteral Feedings No. TPN Feedings No. Skin Breakdown No. Caffeine intake amount: 1 serving., 04/17/2020 Substance Abuse Use: Never., 07/07/2019 Tobacco Tobacco Use: Never (less than 100 in lifetime)., 07/07/2019 Family History COPD - Chronic obstructive pulmonary disease: Sister. Coronary artery disease: Sister. Heart attack: Father. Assessment/Plan 1. Radiculopathy affecting upper extremity Continue with Xtampza and gabapentin, E scribed this to her pharmacy today. 2. Degenerative disc disease, cervical We will schedule her for a cervical epidural steroid injection with Dr. Hallman. Reviewed preprocedure instructions and requirements, patient states understanding. 3. Myofascial pain syndrome, cervical Continue with her prior physical therapy exercises for her neck as tolerated. Problem List/Past Medical History Ongoing Degenerative disc disease, cervical Diabetes Hypercholesteremia Hypertension Lump in female breast Myofascial pain syndrome, cervical Neck pain Osteoarthritis Osteoarthritis of right knee Radiculopathy Radiculopathy affecting upper extremity Right knee pain Rosacea Spinal stenosis Historical Degenerative disc disease, cervical DM (diabetes mellitus), type 2 Hypercholesteremia Procedure/Surgical History Cervical epidural steroid injection: 01/21/22 Cervical epidural steroid injection: 01/02/21 Revision of total knee arthroplasty, all components: 04/17/20 History of arthroplasty of right knee: 04/17/20 Cervical epidural steroid injection Discectomy and total lumbar disc arthroplasty using anterior approach Abdominal hysterectomy Tonsillectomy and adenoidectomy Lumbar spinal fusion Allergies NKA Medications What How Much When Why Instructions Last Dose Unchanged alendronate (alendronate 70 mg oral tablet) Take 1 tablet by mouth weekly Contact prescriber if questions or concerns Unchanged atorvastatin (atorvastatin 20 mg oral tablet) 1 tab(s) by mouth Every day Contact prescriber if questions or concerns Unchanged baclofen (baclofen 20 mg oral tablet) 1 tab(s) by mouth Three (3) times a day Contact prescriber if questions or concerns Unchanged celecoxib (CeleBREX 200 mg oral capsule) 1 cap by mouth Every day Contact prescriber if questions or concerns Unchanged cholecalciferol (Vitamin D (3) 45 units oral capsule) Once a day Contact prescriber if questions or concerns Unchanged diphenhydrAMINE (Unisom 25mg oral tablet) 1 tab(s) by mouth Daily at bedtime as needed for as needed for insomnia Contact prescriber if questions or concerns Unchanged diphenhydramine-ibuprofen (Advil PM Liqui-Gels 25 mg-200 mg oral capsule) See instructions 2 cap(s) Oral qHS Contact prescriber if questions or concerns Unchanged doxycycline (doxycycline monohydrate 100 mg oral capsule) 1 cap by mouth Once a day as needed for Allergic reaction Contact prescriber if questions or concerns Unchanged DULoxetine (DULoxetine 30 mg oral delayed release capsule) See instructions 2 cap(s) Oral Contact prescriber if questions or concerns Unchanged gabapentin (gabapentin 800 mg oral tablet) 1 tab(s) by mouth Three (3) times a day Radiculopathy Degenerative disc disease, cervical Duration: 90 Days fill 2022. Contact prescriber if questions or concerns Unchanged multivitamin (Multivitamin) 1 tab(s) by mouth Every day Contact prescriber if questions or concerns Unchanged oxyCODONE (Xtampza ER 18 mg oral capsule, extended release) 1 cap by mouth Every 12 hours Degeneration of intervertebral disc of cervical region Radiculopathy Duration: 30 Days fill . Contact prescriber if questions or concerns Unchanged ramipril (ramipril 5 mg oral capsule) 1 cap by mouth Once a day Contact prescriber if questions or concerns Unchanged senna (senna 8.6 mg oral tablet) 2 tab(s) by mouth Daily at bedtime Contact prescriber if questions or concerns [1] Ambulatory Comprehensive Intake - Pain Management; Shiela Cao RN 03/20/2023 13:02 EDT [2] Ambulatory Comprehensive Intake - Pain Management; Shiela Cao RN 03/20/2023 13:02 EDT Signature Line Digitally Signed by NENA PERDOMO on 03/20/2023 01:23 PM [1] [1] Specialty Office Visit Note; NENA PERDOMO 03/20/2023 13:23 EDT Digitally Signed by JANI HALLMAN DO on 03/30/2023 08:22 AM [facility] 01-22-2023 Hospital Discharge instructions Patient Education 01/22/2023 07:29:33 PM Discharge Instructions no lines- post-procedure (98504) [facility] Discharge Instructions POST PROCEDURE INSTRUCTIONS - Please follow all of the below: There are no general limitations to your activities. May resume driving a car in ___6____ hours. Resume regular activity. Resume your regular diet. Keep bandaid dry and remove in 24 hours. Call in 2 weeks to report progress on today's injection Continue ice 20 minutes on 20 minutes off for 2 hours to reduce any bruising sensation Remain active. Avoid bedrest. Continue range of motion exercises neck and shoulder 5-6 times a day every day [facility] 01-22-2023 Summary of episode note Discharge Instructions Thank you for allowing [facility] to assist you with your healthcare needs. The following is important discharge information regarding your hospital visit. Your Care Team LEANNE CRABTREE MD Your Diagnosis Radiculopathy affecting upper extremity Degenerative disc disease, cervical Myofascial pain syndrome, cervical Allergies NKA Medications Please ask your primary doctor or pharmacist before taking any other medication not listed, including over the counter drugs, herbal medications, vitamins and or supplements as they may interact with your home medications. What How Much When Why Instructions Last Dose Unchanged alendronate (alendronate 70 mg oral tablet) Take 1 tablet by mouth weekly Unchanged atorvastatin (atorvastatin 20 mg oral tablet) 1 tab(s) by mouth Every day Unchanged baclofen (baclofen 20 mg oral tablet) 1 tab(s) by mouth Three (3) times a day Unchanged celecoxib (CeleBREX 200 mg oral capsule) 1 cap by mouth Every day Unchanged cholecalciferol (Vitamin D (3) 45 units oral capsule) Once a day Unchanged diphenhydrAMINE (Unisom 25mg oral tablet) 1 tab(s) by mouth Daily at bedtime as needed for as needed for insomnia Unchanged diphenhydramine-ibuprofen (Advil PM Liqui-Gels 25 mg-200 mg oral capsule) See instructions 2 cap(s) Oral qHS Unchanged doxycycline (doxycycline monohydrate 100 mg oral capsule) 1 cap by mouth Once a day as needed for Allergic reaction Unchanged DULoxetine (DULoxetine 30 mg oral delayed release capsule) See instructions 2 cap(s) Oral Unchanged gabapentin (gabapentin 800 mg oral tablet) 1 tab(s) by mouth Three (3) times a day Radiculopathy Degenerative disc disease, cervical Duration: 90 Days fill 2022. Unchanged multivitamin (Multivitamin) 1 tab(s) by mouth Every day Unchanged oxyCODONE (Xtampza ER 18 mg oral capsule, extended release) 1 cap by mouth Every 12 hours Degeneration of intervertebral disc of cervical region Radiculopathy Duration: 30 Days fill 2022. Unchanged ramipril (ramipril 5 mg oral capsule) 1 cap by mouth Once a day Unchanged senna (senna 8.6 mg oral tablet) 2 tab(s) by mouth Daily at bedtime Please take this list to your next doctor s visit. Bring all medications you take, including over the counter medications, herbals and other supplements with you to your doctor s visit. Patients and families are reminded to discard old lists and to update any records with all medication providers or retail pharmacies. [facility] Discharge Instructions POST PROCEDURE INSTRUCTIONS - Please follow all of the below: There are no general limitations to your activities. May resume driving a car in ___6____ hours. Resume regular activity. Resume your regular diet. Keep bandaid dry and remove in 24 hours. Call in 2 weeks to report progress on today's injection Continue ice 20 minutes on 20 minutes off for 2 hours to reduce any bruising sensation Remain active. Avoid bedrest. Continue range of motion exercises neck and shoulder 5-6 times a day every day Additional Information VACCINATE! IT SAVES LIVES! Members of the community who have not yet received the COVID-19 vaccine and would like to receive it can visit one of [facility] vaccine clinics. There are many vaccine clinic locations within the [facility]. For locations and available times, please visit [email or web address] It is important to note that some COVID mobile vaccine clinics are held outdoors and may be canceled in rainy or stormy conditions. To learn more about pediatric vaccinations (ages 5-11), we invite you to visit the [facility] webpage. [email or web address] To learn more about the COVID-19 vaccine, we invite you to visit the CDC website for a list of frequently asked questions. https://www.cdc.gov/coronavirus/ 2019-ncov/vaccines/faq.html [facility] Patient Portal Access Instructions: Stay connected with your healthcare team and access your personal medical information anytime with the [facility] Patient Portal.If you would like a full copy of your medical records, please contact the [facility] Medical Records Department, Thursday through Thursday between 8a.m. and 4:30p.m. Please follow the directions below to access the portal: 1.Access the email account you provided upon registration to the hospital.2.Look for an invitation email from [facility].3.Open the email and access the invitation link: Accept Invitation to [facility].Fill in the required erickson to create your account. Sign into [email or web address] with your username and password that you created in the above steps to stay up to date. You can then view a summary of results, a summary of your visits, and the ability to download your summaries to your computer or send the information securely to a physician. Remember that your healthcare information is confidential, so carefully consider who you will allow to register on the [facility] Patient Portal for access to your information. You can also access the [facility] Patient Portal on the [employer]. Simply click on Health Records under Health Data and then click on the [employer] logo. HOW TO SAFELY DISPOSE OF PRESCRIPTION MEDICATIONS Please use one of the following methods to safely dispose of your unused medications. 1.Use a drug disposal kit: the drug disposal pouch allows you to safely discard your old and unused drugs. Ask your nurse to give you one when you are discharged.2.Visit a local take-back location: Many local pharmacies and police departments have programs that collect old and unwanted prescription drugs. Call your local pharmacy or go to http://[email or web address]/[email or web address] to find one close to you.3.Make use of household items: Use cat litter or old coffee grounds to dispose medications if other options are not available. Mix your drugs with these household products, seal them in an airtight container and throw it into the garbage. Call [facility]: [phone] to be sure your drugs can be disposed of in this way. Some medicines may require a different approach.4.Never flush your medications down the toilet. IF YOU HAVE BEEN PRESCRIBED AN OPIOID FOR PAIN If you have been prescribed an opioid (such as hydrocodone, oxycodone or morphine), it is critical to understand the possible side effects and risks of opioid pain medications. Even when taken as directed, opioids can have several side effects including: Tolerance, meaning you might need to take more of a medication for the same pain relief. Nausea, vomiting and/or constipation. Sleepiness, dizziness, dry mouth, confusion, depression or itching. Physical dependence, meaning you have withdrawal symptoms when a medication is stopped, can develop within a few days. KNOW YOUR RESPONSIBILITIES It is important to know exactly how much and how often to take the opioid pain medications you are prescribed. Never take opioids in higher amounts or more often than prescribed. Do not combine opioids with alcohol or other drugs that cause drowsiness, such as benzodiazepines, also known as benzos, including diazepam and alprazolam, muscle relaxants or sleep aids. Never sell or share prescription opioids. This is illegal. Store opioids in a secure place and out of reach of others (including children, family, friends and visitors). The last page of this document has been signed and retained as a CHART COPY. Signatures Patient Education Materials PM Discharge Instructions no lines- post-procedure (92089) Medication Leaflets My discharge plan and instructions have been reviewed and explained to me and I,OSMIN, RONALDO J understand my current condition and have read and understand these discharge instructions. I have received a written copy of the plan/instructions. If I have questions, I am aware that I should contact my doctor. Patient/Learning And Development Consultant Signature: Date/Time: Relationship to Patient: Witness Name/Signature: Date/Time: [facility] 01-22-2023 History and physical note Date of Service January 22, 2023 7:30 AM History and Physical Update I have examined the patient; reviewed the History and Physical and there are no changes to the History and Physical unless noted below. Deep tendon reflexes in the upper extremities are graded at 1/4. There is marked reduction in range of motion of the cervical complex to flexion extension rotation and sidebending. Paracervical muscle pain and spasm is appreciated throughout the entire cervical complex 7 out of 10 is the patient's rating of pain with a diagram showing pain radiating into the bilateral upper extremities. History and Physical Chief Complaint Pt c/o neck, b/l shoulder, whole back, hands and feet. Primary Pain Pain Symptoms : Yes Pain Scale Type Adult : 0-10 Pain scale Primary Pain Intensity : 89 Primary Pain Laterality : Bilateral Primary Pain Quality : Burning Primary Pain Location : Neck [1] History of Present Illness This is a 67-year-old female a patient of Dr. Hallman who is being followed up by [facility] for chronic pain issues related to cervical myofascial pain syndrome, cervical degenerative disc disease and radiculopathy affecting upper extremity. Today's pain is 7-8/10. Described as burning and numbness. She states the burning and numbness comes and goes, she states its not new. She has pain in the cervical and bilateral shoulder area, low back, bilateral hands and bilateral feet. She states raising her arms above her head aggravates her neck and shoulder pain it hurts when she sleeps on her right side turning her head side to side and looking up and down. She also states walking, standing bending forward and twisting aggravates her low back pain.. Medications are, Xtampza extended release 18 mg every 12 hours and gabapentin 800 mg every 8 hours. She states these medications are helpful, she denies any side effects such as sedation or drowsiness she does have occasional constipation, she does use senna. History of injections, August 27, 2022 cervical epidural steroid injection, at the follow-up appointment she reported 60% relief lasting 3 months. She states today she is ready to schedule another cervical epidural steroid injection with Dr. Hallman. No recent hospitalization, infections, medication changes or falls. EXERCISE: Prior physical therapy. Review of Systems I have reviewed and agree with any documentation taken by the ancillary staff. Skeletal Review of Systems Grid Joints Swelling/Stiffness : Yes Pain in Joint(s) : Yes Art Patel LPN 01/05/2023 12:05 EDT Neuro Review of Systems Grid Difficulty w/Balance : Yes Difficulty Walking : Yes Loss of Consciousness : No Memory Loss : No Paralysis Lower Extremity (L) : No Paralysis Lower Extremity (R) : No Paralysis Upper Extremity (L) : No Paralysis Upper Extremity (R) : No Sensory Disturbance Lower Extremity (L) : Yes Sensory Disturbance Lower Extremity (R) : Yes Sensory Disturbance Upper Extremity (L) : Yes Sensory Disturbance Upper Extremity (R) : Yes Weakness Lower Extremity (L) : No Weakness Lower Extremity (R) : No Weakness Upper Extremity (L) : Yes Weakness Upper Extremity (R) : Yes Trouble with speech : No Art Patel LPN - 01/05/2023 12:05 EDT Stomach/Bowel Review of Systems Grid Constipation : Yes Diarrhea : No Nausea : No Vomiting : No Art Patel LPN 01/05/2023 12:05 EDT Hematology Review of Systems Grid Bleeds Easily : No Blood Clots : No Low Blood Count : No Art Patel LPN 01/05/2023 12:05 EDT Sleep Review of Systems Grid Daytime Sleepiness : No Fatigue : Yes Insomnia : No Snoring : No [2] Physical Exam Vitals and Measurements HR: 81 RR: 16 BP: 131/76 SpO2: 97% HT: 157.5 cm WT: 86.5 kg BMI: 34.87 Oxygen Therapy: Room air Primary Pain Intensity: 89 (01/05/23 12:05:00) GENERAL: She is alert and oriented x 3 follow simple commands, appears to be in no acute distress. Memory, intact. Answers questions appropriately. Good historian. HEENT: Pupils equal, round, reactive. Facial expression is symmetric. Hearing is intact. CARDIOVASCULAR: Regular rate and rhythm. RESPIRATORY: Clear to auscultation bilaterally. ABDOMEN: Soft, round, nontender, bowel sounds present. MUSCULOSKELETAL: Hand grasp equal bilateral. Strength 5/5 upper/lower extremities. Dorsiflexion/plantarflexion intact. Moderate discomfort palpating the cervical and bilateral shoulder area, good range of motion of upper extremities, some discomfort with range of motion of neck. Sitting straight leg raises negative for low back pain. Mild discomfort palpating the lumbar paraspinal region. She requires some pushoff to stand up and ambulates with no assistive device. I have reviewed the [place] automated Rx reporting system reported for this patient for refill and other prescriber involvement as a part of the appropriate surveillance for the provision of acute and chronic controlled medications the report was requested reviewed and was considered appropriate in the prescribing process. DIAGNOSTIC DATA: This document was created using voice recognition software. Spelling, grammar and syntax errors are possible. Social History Smoking Status - 07/12/2015 Former smoker Alcohol Use: Never., 07/07/2019 Home/Environment Domestic Concerns: Denies. Living situation: Home/Independent. 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 Lives In: Single level home. Current Home Treatments None. Professional Skilled Services or Special Community Resources None. Financial concerns: No. Spouse Name: JOSE. Marital Status: ., 04/17/2020 Nutrition/Health Type of diet: Regular. Appetite Good. Eating Difficulties Swallowing. Enteral Feedings No. TPN Feedings No. Skin Breakdown No. Caffeine intake amount: 1 serving., 04/17/2020 Substance Abuse Use: Never., 07/07/2019 Tobacco Tobacco Use: Never (less than 100 in lifetime)., 07/07/2019 Family History COPD - Chronic obstructive pulmonary disease: Sister. Coronary artery disease: Sister. Heart attack: Father. Assessment/Plan 1. Radiculopathy affecting upper extremity We will continue with Xtampza, E scribed this to her pharmacy today. Ordered: PM Inj Spine C/T With Imaging 24903 Urine Drug Screen (Lab Send Out - Office) 2. Degenerative disc disease, cervical We will schedule her for a cervical epidural steroid injection with Dr. Hallman. Reviewed preprocedure instructions and requirements, patient states understanding. Ordered: oxyCODONE, Dose : 18 mg = 1 cap(s), Oral, q12h, fill 01/20/2023., # 60 cap(s), 0 Refill(s), Pharmacy: [id number], Degeneration of intervertebral disc of cervical region Radiculopathy, 01/20/23, 157.5, cm, 01/05/23 12:05:00 EDT, Height, 86.5, kg,... PM Inj Spine C/T With Imaging 78784 Urine Drug Screen (Lab Send Out - Office) 3. Myofascial pain syndrome, cervical We will continue with gabapentin, patient does not need a prescription refill today. Ordered: PM Inj Spine C/T With Imaging [id number] Urine Drug Screen (Lab Send Out - Office) We will obtain a random urine drug screen today, last dose of Xtampza was at 8 AM today. Problem List/Past Medical History Ongoing Degenerative disc disease, cervical Diabetes Hypercholesteremia Hypertension Lump in female breast Myofascial pain syndrome, cervical Neck pain Osteoarthritis Osteoarthritis of right knee Radiculopathy Radiculopathy affecting upper extremity Right knee pain Rosacea Spinal stenosis Historical Degenerative disc disease, cervical DM (diabetes mellitus), type 2 Hypercholesteremia Procedure/Surgical History Cervical epidural steroid injection: 01/21/22 Cervical epidural steroid injection: 01/02/21 Revision of total knee arthroplasty, all components: 04/17/20 History of arthroplasty of right knee: 04/17/20 Cervical epidural steroid injection Discectomy and total lumbar disc arthroplasty using anterior approach Abdominal hysterectomy Tonsillectomy and adenoidectomy Lumbar spinal fusion Allergies NKA Medications What How Much When Why Instructions Last Dose Changed oxyCODONE (Xtampza ER 18 mg oral capsule, extended release) 1 cap by mouth Every 12 hours Degeneration of intervertebral disc of cervical region Radiculopathy Duration: 30 Days fill 2022. Pickup at [email or web address] Unchanged alendronate (alendronate 70 mg oral tablet) Take 1 tablet by mouth weekly Contact prescriber if questions or concerns Unchanged atorvastatin (atorvastatin 20 mg oral tablet) 1 tab(s) by mouth Every day Contact prescriber if questions or concerns Unchanged baclofen (baclofen 20 mg oral tablet) 1 tab(s) by mouth Three (3) times a day Contact prescriber if questions or concerns Unchanged celecoxib (CeleBREX 200 mg oral capsule) 1 cap by mouth Every day Contact prescriber if questions or concerns Unchanged cholecalciferol (Vitamin D (3) 45 units oral capsule) Once a day Contact prescriber if questions or concerns Unchanged diphenhydramine-ibuprofen (Advil PM Liqui-Gels 25 mg-200 mg oral capsule) See instructions 2 cap(s) Oral qHS Contact prescriber if questions or concerns Unchanged doxycycline (doxycycline monohydrate 100 mg oral capsule) 1 cap by mouth Once a day as needed for Allergic reaction Contact prescriber if questions or concerns Unchanged DULoxetine (DULoxetine 30 mg oral delayed release capsule) 1 cap by mouth Once a day Contact prescriber if questions or concerns Unchanged gabapentin (gabapentin 800 mg oral tablet) 1 tab(s) by mouth Three (3) times a day Radiculopathy Degenerative disc disease, cervical Duration: 90 Days fill 2022. Contact prescriber if questions or concerns Unchanged multivitamin (Multivitamin) 1 tab(s) by mouth Every day Contact prescriber if questions or concerns Unchanged ramipril (ramipril 5 mg oral capsule) 1 cap by mouth Once a day Contact prescriber if questions or concerns Unchanged senna (senna 8.6 mg oral tablet) 2 tab(s) by mouth Daily at bedtime Contact prescriber if questions or concerns Pharmacy Information [id number]: [address], [place] [id number] [phone] [1] Ambulatory Comprehensive Intake - Pain Management; Art Patel LPN 01/05/2023 12:05 EDT [2] Ambulatory Comprehensive Intake - Pain Management; Art Patel LPN 01/05/2023 12:05 EDT Signature Line Digitally Signed by NENA PERDOMO on 01/05/2023 12:32 PM [1] [1] Specialty Office Visit Note; NENA PERDOMO 01/05/2023 12:31 EDT Digitally Signed by JANI HALLMAN DO on 01/22/2023 07:30 AM [facility] 08-27-2022 Hospital Discharge instructions Patient Education 08/27/2022 12:28:25 PM Discharge Instructions no lines- post-procedure (26257) [facility] Discharge Instructions POST PROCEDURE INSTRUCTIONS - Please follow all of the below: There are no general limitations to your activities. May resume driving a car in ___6____ hours. Resume regular activity. Resume your regular diet. Keep bandaid dry and remove in 24 hours. Call in 2 weeks to report progress on today's injection Continue ice 20 minutes on 20 minutes off for 2 hours to reduce any bruising sensation Remain active. Avoid bedrest. Continue range of motion exercises neck and shoulder 5-6 times a day, every day Enjoy your holiday season! [facility] 08-27-2022 Summary of episode note Discharge Instructions Thank you for allowing [facility] to assist you with your healthcare needs. The following is important discharge information regarding your hospital visit. Your Care Team LEANNE CRABTREE MD, DR. Your Diagnosis Degenerative disc disease, cervical Myofascial pain syndrome, cervical Radiculopathy affecting upper extremity Medications Please ask your primary doctor or pharmacist before taking any other medication not listed, including over the counter drugs, herbal medications, vitamins and or supplements as they may interact with your home medications. What How Much When Why Instructions Last Dose Unchanged atorvastatin (atorvastatin 20 mg oral tablet) 1 tab(s) by mouth Every day Unchanged baclofen (baclofen 20 mg oral tablet) 1 tab(s) by mouth Three (3) times a day Unchanged celecoxib (CeleBREX 200 mg oral capsule) 1 cap by mouth Every day Unchanged cholecalciferol (Vitamin D (3) 45 units oral capsule) Once a day Unchanged diphenhydramine-ibuprofen (Advil PM Liqui-Gels 25 mg-200 mg oral capsule) See instructions 2 cap(s) Oral qHS Unchanged doxycycline (doxycycline monohydrate 100 mg oral capsule) 1 cap by mouth Once a day as needed for Allergic reaction Unchanged DULoxetine (DULoxetine 30 mg oral delayed release capsule) 1 cap by mouth Once a day Unchanged gabapentin (gabapentin 800 mg oral tablet) 1 tab(s) by mouth Three (3) times a day Radiculopathy Degenerative disc disease, cervical Duration: 90 Days fill date 2021 Unchanged multivitamin (Multivitamin) 1 tab(s) by mouth Every day Unchanged oxyCODONE (Xtampza ER 18 mg oral capsule, extended release) 1 cap by mouth Every 12 hours Degeneration of intervertebral disc of cervical region Radiculopathy Duration: 30 Days fill date 2021 Unchanged ramipril (ramipril 5 mg oral capsule) 1 cap by mouth Once a day Unchanged senna (senna 8.6 mg oral tablet) 2 tab(s) by mouth Daily at bedtime Please take this list to your next doctor s visit. Bring all medications you take, including over the counter medications, herbals and other supplements with you to your doctor s visit. Patients and families are reminded to discard old lists and to update any records with all medication providers or retail pharmacies. Education Materials [facility] Discharge Instructions POST PROCEDURE INSTRUCTIONS - Please follow all of the below: There are no general limitations to your activities. May resume driving a car in ___6____ hours. Resume regular activity. Resume your regular diet. Keep bandaid dry and remove in 24 hours. Call in 2 weeks to report progress on today's injection Continue ice 20 minutes on 20 minutes off for 2 hours to reduce any bruising sensation Remain active. Avoid bedrest. Continue range of motion exercises neck and shoulder 5-6 times a day, every day Enjoy your holiday season! Signatures Patient Education Materials PM Discharge Instructions no lines- post-procedure (09805) Medication Leaflets My discharge plan and instructions have been reviewed and explained to me and IOSMIN PATRICIA J understand my current condition and have read and understand these discharge instructions. I have received a written copy of the plan/instructions. If I have questions, I am aware that I should contact my doctor. Patient/Learning And Development Consultant Signature: Date/Time: Relationship to Patient: Witness Name/Signature: Date[facility] History and physical note Date of Service August 27, 2022 12:35 PM History and Physical Update I have examined the patient; reviewed the History and Physical and there are no changes to the History and Physical unless noted below. Deep tendon reflexes in the upper extremities are 1/4. Heart Nurse strength is equal bilaterally. There is paraspinous muscle tightness through the cervical region and extreme tightness in the bilateral suprascapular muscles.. There is crepitance to range of motion of the cervical complex. Pain level today is 7 out of 10 which she describes as continuous, aching, [id number], stabbing, shooting, and gnawing, numbness, burning, miserable, tiring, unbearable at times with a diagram showing radiation into the bilateral upper extremities. History and Physical Chief Complaint C/o aching, stabbing generalized joint and muscle pain. Pt also has generalized pins & needles and numbness. History of Present Illness This 66-year-old white female is a patient of Dr. Hallman. She returns for routine pain visit. Current pain rating is a 6 out of 10. She describes it as a continuous, aching, stabbing, shooting and burning sensation mostly radiating from the neck into the bilateral upper extremities. States hand paresthesias increasing. She responds well to cervical epidural steroid injections. The last procedure was in March and it offered 70% reduction in pain for 2 to 3 months. Symptoms gradually returned thereafter. She is hoping to schedule another injection. She also responds to lumbar epidural steroid injections and right greater trochanteric bursa injections. It has been a few years since she has had this done. Wants to revisit after the next EVANS. Patient states it is difficult to get comfortable at night. Sleep quality poor. Unable to tolerate sleeping on the right side due to bursitis pain. Patient denies any falls, infections or hospital visits since last office visit. No focal areas of weakness, loss sensation or bowel or bladder dysfunction. Medications/treatments: Xtampza ER 18 mg every 12 hours and gabapentin 800 mg every 8 hours. This regimen is effective. Offers moderate pain relief. Denies sedation or confusion. Takes senna for constipation. Primary Pain Pain Symptoms : Yes Pain Scale Type Adult : 0-10 Pain scale Primary Pain Intensity : 7 Primary Pain Quality : Aching, Other: stabbing, pins & needles, numbness Primary Pain Location : Generalized [1] Review of Systems Treatment Response : Wants to scheduled another EVANS injection. Wants refills of Gabapentin and Xtampza. Pt would like to know if she can be prescribed a 90-day supply of Gabapentin. Anais Walker [facility] 08/19/2022 12:44 EST Skeletal Review of Systems Grid Joints Swelling/Stiffness : No Anais Walker [facility] 08/19/2022 12:44 EST Pain in Joint(s) : Yes Neuro Review of Systems Grid Difficulty w/Balance : No Anais Walker [facility] 08/19/2022 12:44 EST Difficulty Walking : No Weakness Lower Extremity (L) : Yes Weakness Lower Extremity (R) : Yes Weakness Upper Extremity (L) : Yes Weakness Upper Extremity (R) : Yes Stomach/Bowel Review of Systems Grid Constipation : No Diarrhea : No Nausea : No Vomiting : No Anais Walker [facility] 08/19/2022 12:41 EST Hematology Review of Systems Grid Bleeds Easily : No Blood Clots : No Low Blood Count : No Anais Walker [facility] 08/19/2022 12:41 EST Sleep Review of Systems Grid Daytime Sleepiness : No Anais Walker [facility] 08/19/2022 12:44 EST Fatigue : No Insomnia : Yes Snoring : No [2] I have reviewed and assessed the [place] Automated Rx Reporting System ([place]AR[place]) report for this patient for refill pattern and other prescriber involvement as part of the appropriate surveillance for the provision of acute and chronic controlled medications. The report was requested and reviewed on the date of this entry, and was considered in the prescribing process. Patient shows no signs of abuse, misuse or diversion of the pain medications. Patient was re-educated on safe use and storage of controlled substances. They are to only take medication as directed, keep opioids locked and away from sight, and to never share medications with others. I have reviewed and agree with any documentation taken by the ancillary staff. The last urine drug screen on file for the patient was in 2020. Is appropriate for the medication she receives. Physical Exam Vitals and Measurements HR: 83 RR: 18 BP: 127/82 SpO2: 97% HT: 157.5 cm WT: 84.8 kg BMI: 34.18 Oxygen Therapy: Room air Primary Pain Intensity: 7 (08/19/22 12:41:00) GENERAL: Well nourished ; no acute distress, follows simple commands. Good hygiene. Answers questions appropriately. ASSISTIVE DEVICES: None . PSYCHIATRIC: Alert and oriented x 3 , cooperative EXTREMITIES: No_ lower extremity pitting edema. Pedal pulses palpable. NEURO: negativeseated straight leg raising. Sensation grossly intact. Dorsiflexion and plantarflexion are intact. MUSCULOSKELETAL: Gait normal . Heart Nurse strength equal Strengths 5/5 in upper and 5/5 in lower extremities. Lumbar spine range of motion intact. Some discomfort noted with cervical spine range of motion. Muscle tension without trigger points noted in the bilateral trapezii. Good muscle tone. No focal areas of weakness noted. She is ambulatory with no assist devices. Social History Smoking Status - 07/12/2015 Former smoker Alcohol Use: Never., 07/07/2019 Home/Environment Domestic Concerns: Denies. Living situation: Home/Independent. 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 Lives In: Single level home. Current Home Treatments None. Professional Skilled Services or Special Community Resources None. Financial concerns: No. Spouse Name: JOSE. Marital Status: ., 04/17/2020 Nutrition/Health Type of diet: Regular. Appetite Good. Eating Difficulties Swallowing. Enteral Feedings No. TPN Feedings No. Skin Breakdown No. Caffeine intake amount: 1 serving., 04/17/2020 Substance Abuse Use: Never., 07/07/2019 Tobacco Tobacco Use: Never (less than 100 in lifetime)., 07/07/2019 Family History COPD - Chronic obstructive pulmonary disease: Sister. Coronary artery disease: Sister. Heart attack: Father. Assessment/Plan 1. Degenerative disc disease, cervical We will proceed forward with scheduling another cervical epidural steroid injection with Dr. Hallman. She was given the preprocedure instructions and requirements. Verbalizes understanding. Continue gabapentin and Xtampza ER. Refills provided. Continue neck and shoulder range of motion exercises. Ordered: gabapentin, Dose : 800 mg = 1 tab(s), Oral, TID, fill date 08/23/2022, # 270 tab(s), 0 Refill(s), Pharmacy: [email or web address], Radiculopathy Degenerative disc disease, cervical, 157.5, cm, 08/19/22 12:44:00 EST, Height, 84.8, kg, 08/19/22 12:44:00 EST,... oxyCODONE, Dose : 18 mg = 1 cap(s), Oral, q12h, fill date 08/23/2022, # 60 cap(s), 0 Refill(s), Pharmacy: [email or web address], Degeneration of intervertebral disc of cervical region Radiculopathy, 157.5, cm, 08/19/22 12:44:00 EST, Height, 84.8, kg, 07/30... PM Inj Spine C/T With Imaging 84194 2. Radiculopathy affecting upper extremity Bilateral upper extremities Ordered: PM Inj Spine C/T With Imaging 65847 3. Myofascial pain syndrome, cervical Ordered: PM Inj Spine C/T With Imaging 19395 Problem List/Past Medical History Ongoing Degenerative disc disease, cervical Diabetes Hypercholesteremia Hypertension Lump in female breast Myofascial pain syndrome, cervical Neck pain Osteoarthritis Osteoarthritis of right knee Radiculopathy Radiculopathy affecting upper extremity Right knee pain Rosacea Spinal stenosis Historical Degenerative disc disease, cervical DM (diabetes mellitus), type 2 Hypercholesteremia Procedure/Surgical History Cervical epidural steroid injection: 01/21/22 Cervical epidural steroid injection: 01/02/21 Revision of total knee arthroplasty, all components: 04/17/20 History of arthroplasty of right knee: 04/17/20 Cervical epidural steroid injection Discectomy and total lumbar disc arthroplasty using anterior approach Abdominal hysterectomy Tonsillectomy and adenoidectomy Lumbar spinal fusion Allergies NKA Medications What How Much When Why Instructions Last Dose Changed gabapentin (gabapentin 800 mg oral tablet) 1 tab(s) by mouth Three (3) times a day Radiculopathy Degenerative disc disease, cervical Duration: 90 Days fill date 2021 Pickup at [email or web address] Changed oxyCODONE (Xtampza ER 18 mg oral capsule, extended release) 1 cap by mouth Every 12 hours Degeneration of intervertebral disc of cervical region Radiculopathy Duration: 30 Days fill date 2021 Pickup at [email or web address] Unchanged atorvastatin (atorvastatin 20 mg oral tablet) 1 tab(s) by mouth Every day Contact prescriber if questions or concerns Unchanged baclofen (baclofen 20 mg oral tablet) 1 tab(s) by mouth Three (3) times a day Contact prescriber if questions or concerns Unchanged celecoxib (CeleBREX 200 mg oral capsule) 1 cap by mouth Every day Contact prescriber if questions or concerns Unchanged cholecalciferol (Vitamin D (3) 45 units oral capsule) Once a day Contact prescriber if questions or concerns Unchanged doxycycline (doxycycline monohydrate 100 mg oral capsule) 1 cap by mouth Once a day as needed for Allergic reaction Contact prescriber if questions or concerns Unchanged DULoxetine (DULoxetine 30 mg oral delayed release capsule) 1 cap by mouth Once a day Contact prescriber if questions or concerns Unchanged multivitamin (Multivitamin) 1 tab(s) by mouth Every day Contact prescriber if questions or concerns Unchanged ramipril (ramipril 5 mg oral capsule) 1 cap by mouth Once a day Contact prescriber if questions or concerns Unchanged senna (senna 8.6 mg oral tablet) 2 tab(s) by mouth Daily at bedtime Contact prescriber if questions or concerns Pharmacy Information [email or web address]: [address] [place], [place] [id number] [phone] [1] Ambulatory Comprehensive Intake - Pain Management; Anais Walker MA 08/19/2022 12:41 EST [2] Ambulatory Comprehensive Intake - Pain Management; Anais Walker MA 08/19/2022 12:41 EST Signature Line Digitally Signed by MILA KING on 08/19/2022 01:07 PM [1] [1] Specialty Office Visit Note; MILA KING 08/19/2022 13:07 EST Digitally Signed by JANI HALLMAN DO on 08/27/2022 12:35 PM [facility] 04-09-2022 Hospital Discharge instructions Patient Education 04/09/2022 09:06:05 PM Discharge Instructions no lines- post-procedure (90840) [facility] Discharge Instructions POST PROCEDURE INSTRUCTIONS - Please follow all of the below: There are no general limitations to your activities. May resume driving a car in ___6____ hours. Resume regular activity. Resume your regular diet. Keep bandaid dry and remove in 24 hours. Call in 2 weeks to report progress on today's injection Continue ice 20 minutes on 20 minutes off for 2 hours to reduce any bruising sensation Remain active. Avoid bedrest. Continue range of motion exercises neck and shoulder 5-6 times a day, every day Continue Xtampza ER 18 mg twice daily, sent to preferred pharmacy fill date 04/25/2022 Continue Lyrica 100 mg 3 times daily till finished and then switch to 150 mg 3 times daily on 04/25/2022 which was sent to preferred pharmacy with a fill date of 04/25/2022 [facility] 04-09-2022 Summary of episode note Discharge Instructions Thank you for allowing [facility] to assist you with your healthcare needs. The following is important discharge information regarding your hospital visit. Your Care Team LEANNE CRABTREE MD Your Diagnosis Degenerative disc disease, cervical, Degeneration of intervertebral disc of cervical region Radiculopathy affecting upper extremity Myofascial pain syndrome, cervical Radiculopathy Medications Please ask your primary doctor or pharmacist before taking any other medication not listed, including over the counter drugs, herbal medications, vitamins and or supplements as they may interact with your home medications. What How Much When Why Instructions Last Dose Changed oxyCODONE (Xtampza ER 18 mg oral capsule, extended release) 1 cap by mouth Every 12 hours Degeneration of intervertebral disc of cervical region Radiculopathy Duration: 30 Days fill date Pickup at [email or web address] Changed pregabalin (Lyrica 150 mg oral capsule) 1 cap by mouth Three (3) times a day Radiculopathy affecting upper extremity Degenerative disc disease, cervical Duration: 30 Days Note dosage increase Fill date 2021 Pickup at [email or web address] Unchanged atorvastatin (atorvastatin 20 mg oral tablet) 1 tab(s) by mouth Every day Unchanged baclofen (baclofen 20 mg oral tablet) 1 tab(s) by mouth Three (3) times a day Unchanged celecoxib (CeleBREX 200 mg oral capsule) 1 cap by mouth Every day Unchanged cholecalciferol (Vitamin D (3) 45 units oral capsule) Once a day Unchanged doxycycline (doxycycline monohydrate 100 mg oral capsule) 1 cap by mouth Once a day as needed for Allergic reaction Unchanged DULoxetine (DULoxetine 30 mg oral delayed release capsule) 1 cap by mouth Once a day Unchanged multivitamin (Multivitamin) 1 tab(s) by mouth Every day Unchanged ramipril (ramipril 5 mg oral capsule) 1 cap by mouth Once a day Unchanged senna (senna 8.6 mg oral tablet) 2 tab(s) by mouth Daily at bedtime Pharmacy Information [email or web address]: [address] [place], [place] [phone] Please take this list to your next doctor s visit. Bring all medications you take, including over the counter medications, herbals and other supplements with you to your doctor s visit. Patients and families are reminded to discard old lists and to update any records with all medication providers or retail pharmacies. Education Materials [facility] Discharge Instructions POST PROCEDURE INSTRUCTIONS - Please follow all of the below: There are no general limitations to your activities. May resume driving a car in ___6____ hours. Resume regular activity. Resume your regular diet. Keep bandaid dry and remove in 24 hours. Call in 2 weeks to report progress on today's injection Continue ice 20 minutes on 20 minutes off for 2 hours to reduce any bruising sensation Remain active. Avoid bedrest. Continue range of motion exercises neck and shoulder 5-6 times a day, every day Continue Xtampza ER 18 mg twice daily, sent to preferred pharmacy fill date 04/25/2022 Continue Lyrica 100 mg 3 times daily till finished and then switch to 150 mg 3 times daily on 04/25/2022 which was sent to preferred pharmacy with a fill date of 04/25/2022 Additional Information VACCINATE! IT SAVES LIVES! Members of the community who have not yet received the COVID-19 vaccine and would like to receive it can visit one of [facility] vaccine clinics. There are many vaccine clinic locations within the [facility]. For locations and available times, please visit [email or web address] It is important to note that some COVID mobile vaccine clinics are held outdoors and may be canceled in rainy or stormy conditions. To learn more about pediatric vaccinations (ages 5-11), we invite you to visit the [facility] webpage. [email or web address] To learn more about the COVID-19 vaccine, we invite you to visit the [facility] website for a list of frequently asked questions. [email or web address] [facility] Patient Portal Access Instructions: Stay connected with your healthcare team and access your personal medical information anytime with the [facility] Patient Portal.If you would like a full copy of your medical records, please contact the [facility] Medical Records Department, Thursday through Thursday between 8a.m. and 4:30p.m. Please follow the directions below to access the portal: 1.Access the email account you provided upon registration to the [facility].2.Look for an invitation email from [facility].3.Open the email and access the invitation link: Accept Invitation to [facility]4.Fill in the required erickson to create your account. Sign into [email or web address] with your username and password that you created in the above steps to stay up to date. You can then view a summary of results, a summary of your visits, and the ability to download your summaries to your computer or send the information securely to a physician. Remember that your healthcare information is confidential, so carefully consider who you will allow to register on the [facility] Patient Portal for access to your information. You can also access the [facility] Patient Portal on the Mobile [employer] rosa. Simply click on Health Records under Health Data and then click on the [facility] logo. HOW TO SAFELY DISPOSE OF PRESCRIPTION MEDICATIONS Please use one of the following methods to safely dispose of your unused medications. 1.Use a drug disposal kit: the drug disposal pouch allows you to safely discard your old and unused drugs. Ask your nurse to give you one when you are discharged.2.Visit a local take-back location: Many local pharmacies and police departments have programs that collect old and unwanted prescription drugs. Call your local pharmacy or go to [email or web address]/2M0Zb5n to find one close to you.3.Make use of household items: Use cat litter or old coffee grounds to dispose medications if other options are not available. Mix your drugs with these household products, seal them in an airtight container and throw it into the garbage. Call [facility]: [phone] to be sure your drugs can be disposed of in this way. Some medicines may require a different approach.4.Never flush your medications down the toilet. IF YOU HAVE BEEN PRESCRIBED AN OPIOID FOR PAIN If you have been prescribed an opioid (such as hydrocodone, oxycodone or morphine), it is critical to understand the possible side effects and risks of opioid pain medications. Even when taken as directed, opioids can have several side effects including: Tolerance, meaning you might need to take more of a medication for the same pain relief. Nausea, vomiting and/or constipation. Sleepiness, dizziness, dry mouth, confusion, depression or itching. Physical dependence, meaning you have withdrawal symptoms when a medication is stopped, can develop within a few days. KNOW YOUR RESPONSIBILITIES It is important to know exactly how much and how often to take the opioid pain medications you are prescribed. Never take opioids in higher amounts or more often than prescribed. Do not combine opioids with alcohol or other drugs that cause drowsiness, such as benzodiazepines, also known as benzos, including diazepam and alprazolam, muscle relaxants or sleep aids. Never sell or share prescription opioids. This is illegal. Store opioids in a secure place and out of reach of others (including children, family, friends and visitors). The last page of this document has been signed and retained as a CHART COPY. Signatures Patient Education Materials PM Discharge Instructions no lines- post-procedure (56807) Medication Leaflets My discharge plan and instructions have been reviewed and explained to me and IOSMIN PATRICIA J understand my current condition and have read and understand these discharge instructions. I have received a written copy of the plan/instructions. If I have questions, I am aware that I should contact my doctor. 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 Deep tendon reflexes upper extremities are 1/4. Heart Nurse strength is equal bilaterally but diminished will be expected. There is decreased range of motion to extension and sidebending cervical spine. 6-7 out of 10 continues aching pins and needle stabbing shooting gnawing numbness burning miserable and tiring away the patient describes the pain with radiation from the neck into the upper extremities bilaterally. Last cervical epidural January 21, 2022 gave her excellent relief of 60% or greater for several months. History and Physical Chief Complaint C/o generalized joint and muscle stabbing, shooting and aching pain from her neck to her toes History of Present Illness This 66-year-old white female is a patient of Dr. Hallman who returns for follow-up pain visit. Current pain rating is a 6 out of 10. She describes as a continuous, aching, stabbing, shooting and burning sensation affecting the neck, cervical paraspinous and radiating through the bilateral upper extremities into the hands. She received a C4-C5 epidural steroid injection in December. It offered greater than 60% reduction in pain for 2 months. Symptoms are now returning to full severity, specifically numbness, tingling and burning radiating to the bilateral upper extremities. Requesting to schedule another injection. She also has chronic low back pain with radiculopathy status post multiple lumbar spine surgeries. Denies focal areas of weakness or loss of sensation. Patient denies any falls, infections or hospital visits since last office visit. Medications/treatments: Gabapentin 800 mg every 6 hours and Xtampza ER 18 mg every 12 hours. She has been on this regimen for several years. States gabapentin is no longer offering her much relief. Is also difficult to fit in all 4 doses in a day. She often takes it only 3 times per day. Primary Pain Pain Symptoms : Yes Pain Scale Type Adult : 0-10 Pain scale Primary Pain Intensity : 6 Primary Pain Quality : Aching, Burning, Other: stabbing, shooting, pins & needles, numbness, gnawing Primary Pain Location : Generalized [1] Review of Systems Treatment Response : Last EVANS injection gave 60% relief for 2 months wth slow pain increase. Pt states she is starting to have increased aching and tingling of her fingers. Pt states she would like another injection. Jordan Walkerophelia Adame [facility] 03/25/2022 13:16 EDT Skeletal Review of Systems Grid Joints Swelling/Stiffness : Yes Pain in Joint(s) : Yes Aaron Anais Adame [facility] 03/25/2022 13:16 EDT Neuro Review of Systems Grid Difficulty w/Balance : Yes Difficulty Walking : Yes Weakness Lower Extremity (L) : Yes Weakness Lower Extremity (R) : Yes Weakness Upper Extremity (L) : No Weakness Upper Extremity (R) : No Aaron Anais Adame [facility] 03/25/2022 13:16 EDT Stomach/Bowel Review of Systems Grid Constipation : Yes Diarrhea : No Nausea : No Vomiting : No AaronAnais [facility] 03/25/2022 13:16 EDT Stomach/Bowel ROS Comments : takes Jordan Spainophelia Adame [facility] 03/25/2022 13:16 EDT Hematology Review of Systems Grid Bleeds Easily : No Blood Clots : No Low Blood Count : No Anais Walker [facility] 03/25/2022 13:16 EDT Sleep Review of Systems Grid Daytime Sleepiness : No Fatigue : Yes Insomnia : Yes Snoring : No [2] I have reviewed and assessed the [place] Automated Rx Reporting System (OARRS) report for this patient for refill pattern and other prescriber involvement as part of the appropriate surveillance for the provision of acute and chronic controlled medications. The report was requested and reviewed on the date of this entry, and was considered in the prescribing process. Patient shows no signs of abuse, misuse or diversion of the pain medications. Patient was re-educated on safe use and storage of controlled substances. They are to only take medication as directed, keep opioids locked and away from sight, and to never share medications with others. I have reviewed and agree with any documentation taken by the ancillary staff. Physical Exam Vitals and Measurements HR: 88 RR: 16 BP: 118/81(Right Arm) SpO2: 98% HT: 157.5 cm WT: 82.4 kg BMI: 33.22 Oxygen Therapy: Room air Primary Pain Intensity: 6 (03/25/22 13:16:00) GENERAL: Well nourished ; no acute distress, follows simple commands. Good hygiene. Answers questions appropriately. ASSISTIVE DEVICES: None . PSYCHIATRIC: Alert and oriented x 3 , cooperative EXTREMITIES: No_ lower extremity pitting edema. Pedal pulses palpable. NEURO: negativeseated straight leg raising. Sensation grossly intact. Dorsiflexion and plantarflexion are intact. MUSCULOSKELETAL: Gait normal . Heart Nurse strength equal Strengths 5/5 in upper and 5/5 in lower extremities. Lumbar spine range of motion limited. Cervical spine range of motion limited and painful with lateral rotation and side bending. Muscle tension noted in the bilateral trapezii. Slight kyphotic posture. No deficits to light touch or focal areas of weakness. She is ambulatory with no assist devices. Steady gait pattern. Social History Smoking Status - 07/12/2015 Former smoker Alcohol Use: Never., 07/07/2019 Home/Environment Domestic Concerns: Denies. Living situation: Home/Independent. 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 Lives In: Single level home. Current Home Treatments None. Professional Skilled Services or Special Community Resources None. Financial concerns: No. Spouse Name: JOSE. Marital Status: ., 04/17/2020 Nutrition/Health Type of diet: Regular. Appetite Good. Eating Difficulties Swallowing. Enteral Feedings No. TPN Feedings No. Skin Breakdown No. Caffeine intake amount: 1 serving., 04/17/2020 Substance Abuse Use: Never., 07/07/2019 Tobacco Tobacco Use: Never (less than 100 in lifetime)., 07/07/2019 Family History COPD - Chronic obstructive pulmonary disease: Sister. Coronary artery disease: Sister. Heart attack: Father. Assessment/Plan 1. Degenerative disc disease, cervical Transition from gabapentin to pregabalin. Stop gabapentin today tomorrow, start pregabalin 100 mg every 8 hours. Continue Xtampza ER. I will order another cervical epidural steroid injection with Dr. Hallman. She was given the preprocedure instructions and requirements. Verbalizes understanding. Ordered: pregabalin, Dose : 100 mg = 1 cap(s), Oral, TID, fill date 03/26/2022 D/C gabapentin., # 90 cap(s), 0 Refill(s), Pharmacy: [email or web address], Degenerative disc disease, cervical, 157.5, cm, 03/25/22 13:16:00 EDT, Height, 82.4 PM Inj Spine C/T With Imaging 57106 2. Radiculopathy affecting upper extremity Bilateral upper extremities. Ordered: PM Inj Spine C/T With Imaging 06257 3. Myofascial pain syndrome, cervical Continue baclofen prescribed elsewhere. Ordered: PM Inj Spine C/T With Imaging 75671 Problem List/Past Medical History Ongoing Degenerative disc disease, cervical Diabetes Hypercholesteremia Hypertension Myofascial pain syndrome, cervical Neck pain Osteoarthritis Osteoarthritis of right knee Radiculopathy Radiculopathy affecting upper extremity Right knee pain Rosacea Spinal stenosis Historical Degenerative disc disease, cervical DM (diabetes mellitus), type 2 Hypercholesteremia Procedure/Surgical History Cervical epidural steroid injection: 01/21/22 Cervical epidural steroid injection: 01/02/21 Revision of total knee arthroplasty, all components: 04/17/20 History of arthroplasty of right knee: 04/17/20 Cervical epidural steroid injection Discectomy and total lumbar disc arthroplasty using anterior approach Abdominal hysterectomy Tonsillectomy and adenoidectomy Lumbar spinal fusion Allergies NKA Medications What How Much When Why Instructions Last Dose New pregabalin (pregabalin 100 mg oral capsule) 1 cap by mouth Three (3) times a day Degenerative disc disease, cervical Duration: 30 Days fill date 2021 D/ C gabapentin. Pickup at [email or web address] Unchanged atorvastatin (atorvastatin 20 mg oral tablet) 1 tab(s) by mouth Every day Contact prescriber if questions or concerns Unchanged baclofen (baclofen 20 mg oral tablet) 1 tab(s) by mouth Three (3) times a day Contact prescriber if questions or concerns Unchanged celecoxib (CeleBREX 200 mg oral capsule) 1 cap by mouth Every day Contact prescriber if questions or concerns Unchanged cholecalciferol (Vitamin D (3) 45 units oral capsule) Once a day Contact prescriber if questions or concerns Unchanged doxycycline (doxycycline monohydrate 100 mg oral capsule) 1 cap by mouth Once a day as needed for Allergic reaction Contact prescriber if questions or concerns Unchanged multivitamin (Multivitamin) 1 tab(s) by mouth Every day Contact prescriber if questions or concerns Unchanged oxyCODONE (Xtampza ER 18 mg oral capsule, extended release) 1 cap by mouth Every 12 hours Degeneration of intervertebral disc of cervical region Radiculopathy Duration: 30 Days fill date Contact prescriber if questions or concerns Unchanged ramipril (ramipril 5 mg oral capsule) 1 cap by mouth Once a day Contact prescriber if questions or concerns Unchanged senna (senna 8.6 mg oral tablet) 2 tab(s) by mouth Daily at bedtime Contact prescriber if questions or concerns Pharmacy Information [email or web address]: [address] [place], [place] [id number] [phone] What How Much When Why Comments Stop Taking gabapentin (Neurontin 800 mg oral tablet) 1 tab(s) by mouth Every 6 hours Radiculopathy Degeneration of intervertebral disc of cervical region Duration: 30 Days Fill date [1] Ambulatory Comprehensive Intake - Pain Management; Anais Walker MA 03/25/2022 13:16 EDT [2] Ambulatory Comprehensive Intake - Pain Management; Anais Walker MA 03/25/2022 13:16 EDT Signature Line Digitally Signed by MILA KING on 03/25/2022 01:51 PM [1] [1] Specialty Office Visit Note; MILA KING 03/25/2022 13:51 EDT Digitally Signed by JANI HALLMAN DO on 04/09/2022 09:07 AM [facility] 08-30-2021 Hospital Discharge instructions Patient Education 08/30/2021 08:10:33 PM Discharge Instructions no lines- post-procedure ([id number]) [facility] Discharge Instructions POST PROCEDURE INSTRUCTIONS - Please follow all of the below: There are no general limitations to your activities. May resume driving a car in ___6____ hours. Resume regular activity. Resume your regular diet. Keep bandaid dry and remove in 24 hours. Call in 2 weeks to report progress on today's injection Continue ice 20 minutes on 20 minutes off for 2 hours to reduce any bruising sensation Remain active. Avoid bedrest. Continue range of motion exercises neck and shoulder area 5-6 times a day, every day Continue Xtampza ER 18 mg twice daily Continue gabapentin 800 mg 4 times daily Jackie Jimenez. Happy new year! [facility] Evaluation + Plan note Future Appointments Appointment Date:08/30/2021 07:45:00 AM Scheduled Provider: Location:[facility] [place] Appointment Type:PM TPI 1- 2 Muscles [facility] Evaluation + Plan note Future Appointments Appointment Date:03/25/2022 01:00:00 PM Scheduled Provider:MILA KING Location:PM Office Appointment Type:PM OV [facility] Evaluation + Plan note Future Appointments Appointment Date:04/09/2022 08:45:00 AM Scheduled Provider: Location:[facility] [place] Appointment Type:PM Inj Spine C/T With Imaging [facility] Evaluation + Plan note Future Appointments Appointment Date:06/17/2022 12:30:00 PM Scheduled Provider:JANI HALLMAN DO Location:PM Office Appointment Type:PM OV [facility] Evaluation + Plan note Future Appointments Appointment Date:09/11/2022 12:30:00 PM Scheduled Provider: Location:[facility] [place] Appointment Type:PM Inj Spine C/T With Imaging [facility] Evaluation + Plan note Future Appointments Appointment Date:01/05/2023 12:00:00 PM Scheduled Provider:NENA PERDOMO APRN-RANCHO Location:PM Office Appointment Type:PM OV [facility] Evaluation + Plan note Future Appointments Appointment Date:03/20/2023 01:00:00 PM Scheduled Provider:NENA PERDOMO APRN-RANCHO Location:PM Office Appointment Type:PM OV [facility] RF [facility] Hospital course Narrative No data available for this section [facility] Hospital Discharge instructions No data available for this section [facility] Progress note No data available for this section [facility] Summary Purpose Family History No Family History Records Found Advance Directives No Advanced Directives Records Found Additional Source Comments Care Team (unrecognized sect ion and content) Personnel Name: LEANNE CRABTREE MD Address: [address] [place] [address] [place] Care Team Personnel Name: LEANNE CRABTREE MD Member Role: Primary Care Physician Address: Address: [address] [place] [address] [place] Care Team Related Persons Name: JOSE SOLORIO Name: OSMIN, ROBERT Care Team Personnel Name: LEANNE CRABTREE MD Member Role: Primary Care Physician Address: Address: [address] [place] [address] [place] Care Team Related Persons Name: JOSE SOLORIO Name: ROBERT SOLORIO Care Team (unrecognized sect ion and content) Care Team Personnel Name: LEANNE CRABTREE MD Member Role: Primary Care Physician Address: Address: [address] [place] [address] [place] Care Team Related Persons Name: JOSE SOLORIO Name: OSMIN, ROBERT Care Team Personnel Name: LEANNE CRABTREE MD Member Role: Primary Care Physician Address: Address: [address] [place] [address] [place] Care Team Related Persons Name: JOSE SOLORIO Name: OSMIN, ROBERT Care Team Personnel Name: LEANNE CRABTREE MD Member Role: Primary Care Physician Address: Address: [address] [place] [address] [place] Care Team Related Persons Name: JOSE SOLORIO Name: OSMIN, ROBERT Care Team Personnel Name: LEANNE CRABTREE MD Member Role: Primary Care Physician Address: Address: [address] [place] [address] Care Team Related Persons Name: JOSE SOLORIO Name: OSMINROBERT Wil[place] Care Team Personnel Name: LEANNE CRABTREE MD Member Role: Primary Care Physician Address: Address: [address] [place] [address] Care Team Related Persons Name: JOSE SOLORIO Name: ROBERT SOLORIO INFORMATION SOURCE (unrecogn ized section and content) FOR RECORDS PERTAINING TO PATIENTS WHO ARE OR HAVE BEEN ENROLLED IN A CHEMICAL DEPENDENCY/SUBSTANCEABUSE PROGRAM, SOME INFORMATION MAY BE OMITTED. This clinical summary was aggregated from multiple sources. Caution should be exercised in using it in the provision of clinical care. This summary normalizes information from multiple sources, and as a consequence, information in this document may materially change the coding, format and clinical context of patient data. In addition, data may be omitted in some cases. CLINICAL DECISIONS SHOULD BE BASED ON THE PRIMARY CLINICAL RECORDS. [facility] [address] [facility]. provides no warranty or guarantee of the accuracy or completeness of information in this document.
== END | disposition home or self-care (01) ==
LOC: MRI 08:09
PROVIDERS: PCP Family Medicine; Referring Provider Family Medicine; Visit Provider Family Medicine
DX: M54.12 Radiculopathy, cervical region (principal)
CPT/HCPCS: 72141

== ENCOUNTER → 2023-12-14 | Outpatient (CLI) | payer MEDICARE, SELFPAY ==
--- NOTE | 2023-12-14 12:03 | BI_ITS ---
MAMMOGRAPHY - BILATERAL SCREENING REASON FOR EXAM: Female, 68 years old. Routine annual screening examination. PERTINENT HISTORY: Non-contributory. TECHNIQUE: Digital bilateral breast dimitrios (3D mammographic acquisition) in the CC and MLO projections. 2-D mediolateral oblique (MLO) and craniocaudad (CC) views of both breasts were obtained. CAD: Full Field Digital Mammography with Computer Added Detection was performed. COMPARISON: Comparison is made with prior study December 05, 2022 and June 16, 2022. FINDINGS: Breast Composition: There are scattered areas of fibroglandular density. There are no dominant masses or suspicious calcifications. Stable asymmetry of breast tissue with more breast tissue is seen in the retroareolar region of the left breast as compared to the right side. Stable small benign-appearing bilateral axillary lymph nodes. No other significant abnormalities are identified. There has been no significant change since the prior study. BI/SCRN MAMM (CAD)W/DIMITRIOS BILAT IMPRESSION: Stable bilateral screening mammogram. Yearly follow-up mammogram recommended. (A) ASSESSMENT CATEGORY: BIRADS Category 2: Benign. A letter regarding these results will be sent to the patient by the facility within 30 days. Approximately 10% of breast cancers are not detected by mammography. A normal mammogram should not delay biopsy of a clinically suspicious abnormality. [id number] Electronically Signed: Rory Wright MD at 13:09 EDT ,
== END | disposition home or self-care (01) ==
LOC: OPBI 12:03
PROVIDERS: PCP Family Medicine; Referring Provider Obstetrics & Gynecology; Visit Provider Obstetrics & Gynecology
DX: Z12.31 Encounter for screening mammogram for malignant neoplasm of breast (principal)
CPT/HCPCS: 77063; 77067

== ENCOUNTER → 2024-11-01 | Outpatient (CLI) | payer MEDICARE, SELFPAY ==
--- NOTE | 2024-11-01 13:36 | SP.MBSS_ITS ---
Modified Barium Swallow Patient Information Study Date: 11/01/24 Study Time: 13:00 Direct Billable Minutes: 67 Total Minutes procedure & reportin Diagnosis: Dysphagia R13.10 Referring Physician: Roberth Capone Reason for Referral: Objectively assess swallow function, assess risk for aspiration, and determine recommendations for least restrictive diet textures and compensatory strategies to improve safety of swallow. Medical History: PMH: DM type 2, HTN, HLD, Osteoporosis, Chronic lower back pain, Radiculopathy - See EMR for full PMH. The patient was referred for MBSS by PCP after pt reported sensation of medication becoming caught in her throat after she swallowed. She has 1 pill in particular (Fosamax) that gives her difficulty because it can't be taken w/ food. She denies difficulty swallowing food or drink with the exception of foods such as popcorn, seeds, and nuts. Pt reports hx of small hiatal hernia ~20 years ago. Current Diet Ordered: Regular textures / Thin liquids Dentition: WNL and Natural Teeth Mental Status: WNL Respiratory Status: Oxygenating on Room Air Penetration-Aspiration Scale Penetration-Aspiration Scale: OBJECTIVE ASSESSMENT OF SWALLOW FUNCTION (QUANTITATIVE ? PER TRIAL): PENETRATION / ASPIRATION SCALE (KEITA): 1 = does not enter airway 2 = enters airway/above vocal folds/ejected 3 = enters airway/above vocal folds/not ejected 4 = enters airway/contacts vocal folds/ejected 5 = enters airway/contacts vocal folds/not ejected 6 = enters airway/below vocal folds/ejected 7 = enters airway/below vocal folds/not ejected despite effort 8 = enters airway/below vocal folds/no effort VIDEOFLOROSCOPIC SCALE SCORE (KEITA): Grade I = aspiration of material that has penetrated into the laryngeal vestibule, intact cough reflex Grade II = aspiration < 10 % of the bolus, intact cough reflex Grade III = aspiration of < 10 % of the bolus, reduced cough reflex or aspiration of > 10 % of the bolus, intact cough reflex Grade IV = aspiration of > 10 % of the bolus, reduced cough reflex Penetration-Aspiration Scale Score Thin Liquid via teaspoon: Result: 1= does not enter airway Thin Liquid via teaspoon Trial 2: Result: 1= does not enter airway Thin Liquid via large single sip: cup: Result: 2= enter airway/above vocal folds/ejected [place] Thick Liquid via large single sip: cup: Result: 1= does not enter airway Pudding via teaspoon: Result: 1= does not enter airway Comment: Esophageal screen - Minimal retention in the lower esophagus. 1/2 Cookie: Result: 1= does not enter airway Comment: Esophageal screen - Complete clearance. Thin Liquid via single sip: straw: Result: 2= enter airway/above vocal folds/ejected Thin Liquid via sequential sips:straw: Result: 2= enter airway/above vocal folds/ejected Barium tablet w/ water: Result: 1= does not enter airway Comment: Esophageal screen - Complete clearance. Barium tablet w/ water Trial 2: Result: 1= does not enter airway Comment: Esophageal screen - Complete clearance. Oral Phase Labial Seal: Interlabial escape, no progression to anterior lip Tongue Control During Bolus Hold: Posterior escape of greater than half of bolus Bolus Preparation/Mastication: Timely and efficient chewing and mashing Bolus Transport/Lingual Motion: Delayed initiation of tongue motion Oral Residue: Trace residue lining oral structures Pharyngeal Phase Initiation of Pharyngeal Swallow: Bolus head in pyriforms Soft Palate Elevation: Trace column of contrast/air between soft palate and pharyngeal wall Laryngeal Elevation: Comp. Superior move thyroid cart w/comp. apprx arytenoid cart-epig pet Anterior Hyoid Excursion: Partial anterior movement Epiglottic Movement: Complete inversion Laryngeal Vestibule Closure at Height of Swallow: Incomplete; narrow column of air/contrast in laryngeal vestibule (trace laryngeal penetration w/ complete ejection after the swallow) Pharyngeal Stripping Wave: Present - complete Pharyngoesophageal Segment Opening: Complete distension and complete duration; no obstruction of flow Tongue Base Retraction: Trace column of contrast between tongue base & post. pharyngeal wall Pharyngeal Residue: Trace residue within or on pharyngeal structures Esophageal Phase Esophageal Clearance: Esophageal retention (Mild retention of pudding) Diagnosis/Impression Diagnosis: Oropharyngeal swallow function grossly WNL Impression: Trace laryngeal penetration w/ complete ejection. No aspiration. Good pharyngeal clearance of all consistencies despite pt sensing something caught in her throat at the end of the study. Recommendations Diet: Regular Textures and Thin Liquids Compensatory Strategies: Small Bites, Small Sips, Slow Rate, Alternate bites/solids and sips/liquids, Sitting upright and Remain sitting upright for 30 minutes after PO intake Recommend Repeat Modified Barium Swallow: No Need for Skilled Speech Therapy Services: No Recommended Referrals: GI Consult (Continue to follow w/ OP GI. Pt reports having upcoming colonoscopy. PATIENT FINANCIAL SERVICES SPECIALIST recommends discussing globus sensation w/ Dr. Guaman.) Education Completed: 1. Described result of evaluation. Status Active ST Patient: Active Contact Information [facility] Speech Therapy:: Leydi Lr M.A. [facility]-PATIENT FINANCIAL SERVICES SPECIALIST? Speech-Language Pathologist?? [facility] [address] [place] [address]? [email or web address]?? [phone]
== END | disposition home or self-care (01) ==
LOC: RAD 12:56
PROVIDERS: PCP Family Medicine; Referring Provider Family Medicine; Visit Provider Family Medicine
DX: R13.10 Dysphagia, unspecified (principal)
CPT/HCPCS: 74230; 92611

== ENCOUNTER → 2024-12-14 | Outpatient (CLI) | payer MEDICARE, SELFPAY ==
--- NOTE | 2024-12-14 11:57 | BI_ITS ---
EXAM: SCRN MAMM (CAD)W/DIMITRIOS BILAT DATE: 12/14/2024 CLINICAL HISTORY: F, Age 69 y/o , SCREENING FOR BREAST CANCER. No family history. BREAST CANCER RISK ASSESSMENT: Not assessed. TECHNIQUE: Bilateral screening digital breast tomosynthesis with 2D and 3D images. Computer aided detection. COMPARISON: Prior exam(s) dating back to December 14, 2023.. FINDINGS: Bilateral Breast Mammographic Findings: No significant masses, calcifications or other abnormalities are identified. TISSUE DENSITY: The breast tissue is composed of scattered area of fibroglandular density. No suspicious masses, areas of developing architectural distortion, or suspicious calcifications. There has been no significant interval change. Stable small benign-appearing bilateral axillary lymph nodes. BI/SCRN MAMM (CAD)W/DIMITRIOS BILAT IMPRESSION: Right Breast: BIRADS 2 BENIGN FINDING. Left Breast: BIRADS 2 BENIGN FINDING. OVERALL FINAL ASSESSMENT: BIRADS 2 BENIGN FINDING RECOMMENDATION: ROUTINE ANNUAL FOLLOW-UP Bilateral in 1 Year Normal interval followup mammograms are recommended in 12 months. A letter with findings and recommendations will be mailed to the patient. Reading Location: [place] [address]
== END | disposition home or self-care (01) ==
LOC: OPBI 11:56
PROVIDERS: PCP Family Medicine; Referring Provider Obstetrics & Gynecology; Visit Provider Obstetrics & Gynecology
DX: Z12.31 Encounter for screening mammogram for malignant neoplasm of breast (principal)
CPT/HCPCS: 77063; 77067

== ENCOUNTER → 2025-03-29 | Outpatient (CLI) | payer MEDICARE, SELFPAY ==
[2025-03-29 13:17] LABS: AST(SGOT) 28 U/L (<=31); Alanine Aminotransfer ALT/SGPT 33 U/L (<=34); Albumin, Serum 4.3 g/dL (3.4-4.8); Alkaline Phosphatase 100 U/L (35-104); Anion Gap 10 (5-15); BUN 15 mg/dL (4-19); BUN/Creat Ratio 16.6 RATIO (10-20); Calcium,Total 9.4 mg/dL (7.6-11.0); Carbon Dioxide 26.8 mmol/L (21.0-32.0); Chloride 105 mmol/L (98-108); Cholesterol 178 mg/dL (<=200); Globulin 3.1 g/dL (2.2-4.2); Glucose 110 mg/dL (70-99); Low Density Lipoprotein Calc. 110 mg/dL; Potassium 4.6 mmol/L (3.3-5.1); Triglycerides 91 mg/dL; Very Low Density Lipoprotein 18 mg/dL (5-40); cholesterol:hdl ratio screen 3.55
--- OUTSIDE RECORDS SUMMARY | 2025-03-29 18:53 | XMS RPT_ITS | CCD ---
Author Organization [facility] Inform ion Partnership [facility] Care Team Providers Care Director Of Casino Marketing Name Role Phone LEYDA MEADOWS, DR ROBERTH [place] Primary Care Physician [phone] Leyad, Dr. Lepe Primary Care Provider Leyda, Dr. Lepe Referring Provider Dr. Sonya Barker Attending Provider [phone] LEYDA MEADOWS, DR ROBERTH [place] Primary Care Physician [phone] DANIEL PATRICK, DR JANI Adame Consulting Pete Reaves MD, DR ROBERTH [place] Primary Care UnavailJack SOLO, MILA Attending Pete Reaves MD, DR ROBERTH [place] Primary Care Ayde HALLMAN DO, DR JANI Adame Consulting Pete Loera, NENA A Attending Salbador CRABTREE MD, DR ROBERTH [place] Primary Care UnavailRukhsana RESENDIZ, NENA A Attending Salbador HALLMAN DO, DR JANI Adame Attending Pete Reaves MD, DR ROBERTH [place] Primary Care Jamilah SOLO, MILA Attending Pete Reaves MD, DR ROBERTH [place] Primary Care Ayde CRABTREE MD, DR ROBERTH [place] Primary Care UnavailRukhsana RESENDIZ, NENA A Attending Salbador CRABTREE MD, DR ROBERTH [place] Primary Care Lois RESENDIZ, NENA A Attending Salbador HALLMAN DO, DR JANI Adame Consulting Pete Reaves MD, DR ROBERTH [place] Primary Care UnavailRukhsana RESENDIZ, NENA A Attending Salbador SOLO, MILA Attending Pete Ortiz DO, DR JANI Adame Consulting Pete Reaves MD, DR ROBERTH R Primary Care Dr. Roberth Rodriguez MD Primary Care Provider Leyda MEADOWS, Dr. Lepe Attending Provider Leyda MEADOWS, Dr. Lepe Referring Provider Dr. Sonya Barker DO Attending Provider Dr. Sonya Barker DO Referring Provider Sonya Barker Attending Roberth Rodriguez Primary Care Unavailable Roberth Crabtree Referring Unavailable Roberth Crabtree Primary Care Unavailable Roberth Crbatree Attending Unavailable Leyda, Roberth Referring Unavailable Sonya Barker Attending Sonya Dela Cruz Referring Roberth Rodriguez Primary Care Unavailable Medications Current Medications Medication Drug Class(es) Dates [...] Status: Ordered atorvastatin 20 mg oral tablet (17 sources) HMG-CoA Reductase Inhibitor Start: 07-06-2014 take 1 tablet by mouth once daily Atorvastatin 20 MG tablet Active 20 mg PO DAILY February 17, 2019 12:00am baclofen 20 mg oral tablet (17 sources) gamma-Aminobutyric Acid-ergic Agonist Start: 02-17-2019 take 1 tablet by mouth three times daily Baclofen 20 MG tablet Active 20 mg PO THREE TIMES A DAY February 17, 2019 12:00am celecoxib 200 mg oral capsule (17 sources) Nonsteroidal Anti-inflammatory Drug Start: 07-06-2014 take 1 capsule by mouth once daily Celecoxib 200 MG capsule Active 200 mg PO DAILY February 17, 2019 12:00am cholecalciferol 0.025 mg oral capsule (17 sources) Vitamin D Start: 12-05-2020 take 1 capsule by mouth once daily Cholecalciferol (Vitamin D3) 25 mcg (1,000 unit) capsule Active 25 ug PO DAILY December 05, 2020 1:00am Start: 03-29-2020 Vitamin D (3) 45 units oral capsule qDay, 0 Refill(s) Start Date: 03/29/20 Status: Ordered diphenhydrAMINE hydrochloride 25 mg oral tablet (2 sources) Histamine-1 Receptor Antagonist Start: 01-22-2023 Unisom 25mg oral tablet Dose : 25 mg = 1 tab(s), Oral, qHS, PRN PRN as needed for insomnia, # 30 tab(s), 0 Refill(s) Start Date: 01/22/23 Status: Ordered doxycycline hyclate 100 mg oral capsule (20 sources) Tetracycline-clas s Drug Start: 12-23-2021 End: 12-25-2022 take 1 capsule by mouth once daily as needed Doxycycline Hyclate 100 mg capsule Active 100 mg PO DAILY as needed December 25, 2022 11:35am Start: 02-23-2020 doxycycline mo nohydrate 100 mg oral capsule Dose : 100 mg = 1 cap(s), Oral, qDay, PRN Allergic reaction, 0 Refill(s), 80.1 Start Date: 02/23/20 Status: Ordered Start: 02-23-2020 doxycycline mo nohydrate 100 mg oral capsule Dose : 100 mg = 1 cap(s), Oral, qDay, PRN Allergic reaction, 0 Refill(s), 80.1 Start Date: 02/23/20 Status: Ordered DULoxetine 30 mg delayed release oral capsule (18 sources) Serotonin and Norepinephrine Reuptake Inhibitor Start: 04-09-2022 DULoxetine 30 mg ora l delayed release capsule See Instructions, 2 cap(s) Oral, 0 Refill(s) Start Date: 04/09/22 Status: Ordered Start: 04-09-2022 DULoxetine 30 mg oral delayed release capsule Dose : 30 mg = 1 cap(s), Oral, qDay, 0 Refill(s) Start Date: 04/09/22 Status: Ordered Start: 12-05-2020 End: 12-23-2021 take 1 capsule by mouth twice daily Duloxetine 30 mg capsule,delayed release(DR/EC) Discontinued 30 mg PO TWICE A DAY December 05, 2020 4:00pm December 23, 2021 11:03am Start: 02-17-2019 End: 12-05-2020 take 1 capsule by mouth once daily Duloxetine 30 MG capsule,delayed release(DR/EC) Discontinued 30 mg PO DAILY February 17, 2019 12:00am December 05, 2020 4:03pm gabapentin 800 mg oral tablet (20 sources) Anti-epileptic Agent Start: 03-20-2023 End: 06-18-2023 gabapentin 800 mg oral tablet Dose : 800 mg = 1 tab(s), Oral, TID, fill 03/21/2023., # 270 tab(s), 0 Refill(s), Pharmacy: [facility], Radiculopathy Degenerative disc disease, cervical, 03/21/23, 157, cm, 03/20/23 13:02:00 EDT, Height, 86, kg, 03/20/23 13:02:00 EDT... Start Date: 03/20/23 Stop Date: 06/18/23 Status: Ordered Start: 12-25-2022 take 2 capsules by m outh three times daily Gabapentin 400 mg capsule Active 800 mg PO THREE TIMES A DAY December 25, 2022 11:35am Start: 12-25-2022 take 800 mg by mouth three times daily Gabapentin Active 800 MG PO THREE TIMES A DAY December 25, 2022 11:35am Start: 08-19-2022 End: 02-03-2023 gabapentin 800 mg oral table t Dose : 800 mg = 1 tab(s), Oral, TID, fill 11/17/2022., # 270 tab(s), 0 Refill(s), Pharmacy: [facility], Radiculopathy Degenerative disc disease, cervical, 11/17/22, 157, cm, 11/05/22 12:12:00 EST, Height, 85.5, kg, 11/05/22 12:12:00 E... Start Date: 11/05/22 Stop Date: 02/03/23 Status: Ordered Start: 01-07-2022 End: 02-06-2022 Neurontin 800 mg oral tablet Dose : 800 mg = 1 tab(s), Oral, q6hr, Fill date January 26, 2022, # 120 tab(s), 0 Refill(s), Pharmacy: [facility], Radiculopathy Degeneration of intervertebral disc of cervical region, 01/26/22, 157.5, cm, 01/07/22 13:51:00 EDT, Height, 8... Start Date: 01/07/22 Stop Date: 02/06/22 Status: Ordered Start: 10-16-2021 End: 11-15-2021 Neurontin 800 mg oral tablet Dose : 800 mg = 1 tab(s), Oral, q6hr, fill date was 1 day early last month, ok to fill 10/29/21, # 120 tab(s), 0 Refill(s), Pharmacy: [facility], Radiculopathy Degeneration of intervertebral disc of cervical region, 10/29/21, 157.5,... Start Date: 10/16/21 Stop Date: 11/15/21 Status: Ordered Start: 08-06-2021 End: 09-05-2021 Neurontin 800 mg oral tablet Dose : 800 mg = 1 tab(s), Oral, q6hr, Fill date August 28, 2021, # 120 tab(s), 0 Refill(s), Pharmacy: [facility], Radiculopathy Degeneration of intervertebral disc of cervical region, 08/28/21, 157.5, cm, 08/06/21 9:53:00 EST, Heigh... Start Date: 08/06/21 Stop Date: 09/05/21 Status: Ordered Start: 12-05-2020 End: 12-25-2022 take 2 capsules by mouth four times daily Gabapentin 400 mg capsule Discontinued 800 mg PO 4 TIMES DAILY December 05, 2020 3:59pm December 25, 2022 11:40am Start: 12-05-2020 End: 12-25-2022 take 800 mg by mouth four times daily Gabapentin Discontinued 800 MG PO 4 TIMES DAILY December 05, 2020 3:59pm December 25, 2022 11:40am Start: 02-17-2019 End: 12-05-2020 take 1 capsule by mouth four times daily Gabapentin 400 MG capsule Discontinued 400 mg PO 4 TIMES DAILY February 17, 2019 12:00am December 05, 2020 4:03pm Multivitamin preparation (11 sources) Start: 07-07-2019 take 1 tablet by mouth once daily Multivitamin Dose = 1 tab(s), Oral, Daily, 0 Refill(s) Start Date: 07/07/19 Status: Ordered Ztjbezpbwejr-Mb-Fwfb-Min erals (5 sources) Start: 02-17-2019 take 1 tablet by mouth once daily Jtzixunxybbe-Er-Rvsy-Mi nerals Active 1 TABLET PO DAILY February 16, 2019 11:00pm Start: 02-17-2019 take 1 tablet by pancho th once daily Clothqkdiqzx-Ai-Cgpr-Minerals Active 1 T ABLET PO DAILY February 17, 2019 12:00am Lfhqedgzcwjy-Fv-Cvtv-Mineral s 1 EACH tablet (1 source) Start: 02-17-2019 take 1 tablet by mouth once daily Rgcpnzekuerp-Dc-Bakf-Minerals 1 EACH tablet Active 1 {tbl} PO DAILY February 17, 2019 12:00am oxyCODONE 18 mg 12 hr extend ed release oral capsule, abuse-deterrent (20 sources) Opioid Agonist Start: 03-30-2023 End: 04-29-2023 Xtampza ER 18 mg oral capsul e, extended release Dose : 18 mg = 1 cap(s), Oral, q12h, Fill date 04/20/2023, # 60 cap(s), 0 Refill(s), Pharmacy: [facility], Degeneration of intervertebral disc of cervical region Radiculopathy, 04/20/23, 157, cm, 03/30/23 8:03:00 EDT, Height, 85, kg,... Start Date: 03/30/23 Stop Date: 04/29/23 Status: Ordered Start: 01-07-2022 End: 02-06-2022 OxyContin 20 mg oral tablet, extended release Dose : 20 mg = 1 tab(s), Oral, q12h, Fill date January 26, 2022, # 60 tab(s), 0 Refill(s), Pharmacy: [facility], Myofascial pain syndrome, cervical Spinal stenosis, 01/26/22, 157.5, cm, 01/07/22 13:51:00 EDT, Height, 83.7 Start Date: 01/07/22 Stop Date: 02/06/22 Status: Ordered Start: 02-17-2019 End: 02-04-2023 Xtampza ER 18 mg oral capsul e, extended release Dose : 18 mg = 1 cap(s), Oral, q12h, fill 01/20/2023., # 60 cap(s), 0 Refill(s), Pharmacy: [facility], Degeneration of intervertebral disc of cervical region Radiculopathy, 01/20/23, 157.5, cm, 01/05/23 12:05:00 EDT, Height, 86.5, kg,... Start Date: 01/05/23 Stop Date: 02/04/23 Status: Ordered Start: 02-17-2019 End: 12-05-2020 take 1 tablet by mouth twice daily Oxycodone 20 MG tablet,oral only,ext.rel.12 hr Discontinued 20 mg PO TWICE A DAY February 17, 2019 12:00am December 05, 2020 4:03pm pregabalin 150 mg oral capsu le (2 sources) Start: 04-09-2022 End: 05-09-2022 Lyrica 150 mg oral capsule D ose : 150 mg = 1 cap(s), Oral, TID, Note dosage increase Fill date 04/25/2022, # 90 cap(s), 0 Refill(s), Pharmacy: [facility], Radiculopathy affecting upper extremity Degenerative disc disease, cervical, 04/25/22, 157, cm, ... Start Date: 04/09/22 Stop Date: 05/09/22 Status: Ordered Start: 03-25-2022 End: 04-24-2022 pregabalin 100 mg oral capsu le Dose : 100 mg = 1 cap(s), Oral, TID, fill date 03/26/2022 D/C gabapentin., # 90 cap(s), 0 Refill(s), Pharmacy: [facility], Degenerative disc disease, cervical, 157.5, cm, 03/25/22 13:16:00 EDT, Height, 82.4 Start Date: 03/25/22 Stop Date: 04/24/22 Status: Ordered ramipril 5 mg oral capsule (17 sources) Angiotensin Converting Enzyme Inhibitor Start: 02-17-2019 take 1 capsule by mouth once daily Ramipril 5 MG capsule Active 5 mg PO DAILY February 17, 2019 12:00am Senna Leaves (3 sources) Start: 07-07-2019 senna 8.6 mg oral tablet Dose : 17.2 mg = 2 tab(s), Oral, qHS, 0 Refill(s) Start Date: 07/07/19 Status: Ordered sennosides, prison 8.6 mg oral tablet (14 sources) Start: 07-07-2019 senna 8.6 mg oral tablet Dose : 17.2 mg = 2 tab(s), Oral, qHS, 0 Refill(s) Start Date: 07/07/19 Status: Ordered Start: 02-17-2019 Sennosides 1 T ABLET tablet Active 2 - 3 {tbl} PO AT BEDTIME February 17, 2019 12:00am Start: 02-17-2019 take 1 tablet by panhco th at bedtime Sennosides Active 2 - 3 TABLET PO AT BEDTIME February 17, 2019 12:00am Completed/Discontinued Medications Medication Drug Class(es) Dates Sig (Normalized) Sig (Original) acetaminophen 325 mg / diphenhydrAMINE hydrochloride 12.5 mg oral tablet (6 sources) Histamine-1 Receptor Antagonist Start: 12-05-2020 End: 12-23-2021 Diphenhydramine-Ac etaminophen 12.5-325 mg tablet Discontinued {tbl} PO December 05, 2020 1:00am December 23, 2021 11:03am Start: 12-05-2020 End: 12-23-2021 Diphenhydramine-Acetaminophe n Discontinued TABLET PO December 05, 2020 1:00am December 23, 2021 11:03am aspirin 325 mg delayed release oral tablet (6 sources) Platelet Aggregation Inhibitor, Nonsteroidal Anti-inflammatory Drug Start: 02-17-2019 End: 12-23-2021 take 2 tablets by mouth once daily as needed for pain Aspirin 325 MG tablet Discontinued 650 mg PO DAILY NEEDED as needed for Pain February 17, 2019 12:00am December 23, 2021 11:02am Start: 02-17-2019 End: 12-23-2021 take 650 mg by mouth once daily as needed Aspirin Discontinued 650 MG PO DAILY NEEDED February 17, 2019 12:00am December 23, 2021 11:02am diphenhydrAMINE citrate 38 mg / ibuprofen 200 mg oral tablet (6 sources) Histamine-1 Receptor Antagonist, Nonsteroidal Anti-inflammatory Drug Start: 02-17-2019 End: 12-05-2020 take 1 tablet by mouth at bedtime Ibuprofen-Diphenhydramine Cit 1 EACH tablet Discontinued 2 {tbl} PO AT BEDTIME February 17, 2019 12:00am December 05, 2020 4:02pm Start: 02-17-2019 End: 12-05-2020 take 2 tablets by mouth at bedtime Ibuprofen-Diphenhydramine Cit Discontinu ed 2 TABLET PO AT BEDTIME February 17, 2019 12:00am December 05, 2020 4:02pm estradiol 0.1 mg/ml vaginal cream (6 sources) Estrogen Start: 12-05-2020 End: 12-23-2021 Estradiol (Estrace) 0.01 % (0.1 mg/gram) cream Discontinued 1 g VAGINAL TWICE A WEEK 42.5 December 05, 2020 1:00am December 23, 2021 11:03am use nightly for 2 weeks then decrease to 2x/week. lactobacillus acidophilus [id number] unt oral capsule (6 sources) Start: 02-17-2019 End: 12-05-2020 Lactobacillus Acidophilus 1 EACH capsule Discontinued 1 NMA PO DAILY February 17, 2019 12:00am December 05, 2020 4:03pm Start: 02-17-2019 End: 12-05-2020 take 1 capsule by mouth once daily Lactobacillus Acidophilus Discontinued 1 CAP PO DAILY February 17, 2019 12:00am December 05, 2020 4:03pm metFORMIN hydrochloride 500 mg oral tablet (6 sources) Biguanide Start: 02-17-2019 End: 12-05-2020 take 1 tablet by mouth once daily Metformin 500 MG tablet Discontinued 500 mg PO DAILY February 17, 2019 12:00am December 05, 2020 4:03pm Problems Problem Classification Problem Date Documented Da te Episodic/Chronic Diabetes mellitus without complication (15 sources) Diabetes mellitus; Translations: [Type 2 diabetes mellitus] 04-17-2020 Chronic Disorders of lipid metabolism (17 sources) Hypercholesterolemia ; Translations: [Hyperlipidemia] 07-27-2014 Chronic Essential hypertension (17 sources) Hypertensive disorder; Translations: [Essential (primary) hypertension] 04-17-2020 Chronic Mood disorders (6 sources) Depressive disorder; Translations: [Depression] 12-05-2020 Chronic Nonmalignant breast conditions (12 sources) Breast lump; Translations: [Unspecified lump in unspecified breast] Onset: 04-29-2022 Episodic Comment on above: mammogram,,still be evaluation 06/17 US & Mammogram nl Osteoarthritis (20 sources) Osteoarthritis; Translations: [Osteoarthritis of right knee joint] 04-26-2015 Chronic Osteoporosis (6 sources) Osteoporosis; Translations: [Age-related osteoporosis without current pathological fracture] 12-23-2021 Chronic Comment on above: Dr. Crabtree managing , did not tolerate Fosamax. 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 Other nervous system disorders (1 source) Disorder of nerve root and/or plexus; Translations: [Nerve root and plexus disorder, unspecified] Onset: 04-09-2022 Chronic Other non-traumatic joint disorders (11 sources) Knee pain 04-17-2020 Episodic Other screening for suspected conditions (not mental disorders or infectious disease) (1 source) Encounter for screening mammogram for malignant neoplasm of breast; Translations: [Encounter for screening mammogram for malignant neoplasm of breast] Onset: 12-21-2024 Episodic Prolapse of female genital organs (1 source) Cystocele; Translations: [Cystocele, unspecified] 12-31-2023 Chronic Comment on above: Stage 2 Spondylosis; intervertebral disc disorders; other back problems (17 sources) Degeneration of cervical intervertebral disc; Translations: [Other cervical disc degeneration, unspecified cervical region] Onset: 08-30-2021 08-01-2020 Chronic Spondylosis; intervertebral disc disorders; other back problems (20 sources) Myofascial pain syndrome of neck; Translations: [Neck pain] Onset: 08-30-2021 08-06-2021 Episodic Results Test Name Value Interpretation Reference Range Facility Telephone Directory Deliverer Office Visit Reporton 01-02-2025 Telephone Directory Deliverer Office Visit Report [facility] [address], [address] [place] [address] OFFICE VISIT Date of Service: 01/02/25 MR#: [id number] Acct: [id number] Name: RONALDO SOLORIO Rep #: [id number] : 1955 Provider: Dr. 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) Bench Lay Out Technician Required: No Is patient in pain?: No Allergies No Known Allergies Allergy (Verified 12/31/23 11:42) Medications ???Medication ???Instructions ???Recorded ???Confirmed ???Type atorvastatin 20 mg tablet 20 mg PO DAILY cholesterol 9 01/02/25 History baclofen 20 mg tablet 20 mg PO TID muscle spasms 9 01/02/25 History celecoxib 200 mg capsule 200 mg PO DAILY imflammation 02/1701/02/25 History lxlzxcljmkjh-Qw-rcpg -minerals 1 tab PO DAILY supplement 02/17/19 01/02/25 History oxycodone myristate 18 mg capsule 18 mg PO BID pain 02/17/19 History sprinkle extended release 12hr(DON'T CRUSH) ramipril 5 mg capsule 5 mg PO DAILY bp 02/17/19 01/02/25 History sennosides 8.6 mg tablet 2 - 3 tab PO QHS constipation 01/2701/02/25 History cholecalciferol (vitamin D3) 25 25 mcg PO DAILY 12/05/20 01/02/25 History mcg (1,000 unit) capsule doxycycline hyclate 100 mg capsule 100 mg PO DAILY PRN 12/25/2204/21 History gabapentin 400 mg capsule 800 mg PO TID nerve 12/25/2201/02 History Is last menstrual period known: No Post menopausal: Yes Patient : No : No PFSH Medical History (Updated 01/02/25 @ 13:42 by Yina Carreon) Melanoma Bulging of cervical intervertebral disc Bulging lumbar disc Radiculopathy Chronic low back pain Type 2 diabetes mellitus Depression HTN (hypertension) HLD (hyperlipidemia) Surgical History (Updated 01/02/25 @ 13:41 by Yina Carreon) S/P cataract extraction History of bilateral salpingectomy History of back surgery History of carpal tunnel surgery of right wrist Status post right knee replacement S/P tonsillectomy S/P hysterectomy Family History Father Myocardial infarction Mother Rheumatoid arthritis Mother Hypertension Sister Hypertension Other Heart disease Lung cancer Prostate cancer Social History Smoking Status: Never smoker alcohol intake: never substance use type: does not use caffeine: Yes seatbelt use: always do you feel safe at home: Yes additional social history: -Vinay 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 Date Name GA/Weeks Outcome Route Bth Weight Gen Labor Lgth Anesthesia Del Locatn Provider FOB Unknown Robert Unknown Justino HPI Encounter for routine gynecological examination Details: RONALDO SOLORIO is a 69 year old who presents for annual exam. Last PAP: prior to hyst History of abnormal PAP: no Last mammogram: 12/14/24 History of abnormal mammogram: no Colon cancer screening: up to date - found out has diverticulitis Other preventative health care screenings: followed by pcp and up to date Female Reproductive History Questions: metorrhagia: No, sexually active: Yes, dyspareunia: No and PCB: No Menopausal Symptoms: No hot flashes, No night sweats, No weight change, No mood changes, No difficulty concentrating, No sleep problems and No change in libido ROS Const Constitutional: Reports as per HPI; Denies fatigue, increased appetite, poor appetite, night sweats, weight gain or weight loss Cardio Card: Denies chest pain Resp Resp: Denies cough or dyspnea GI GI: Reports as per HPI; Denies abdominal pain, bloating, constipation, nausea or vomiting : Reports as per HPI and other; Denies difficulty voiding, dysuria, hematuria, hot flashes, nipple discharge, pelvic pain, prolapse symptoms, urinary frequency, urinary incontinence, urinary urgency, vaginal discharge, vaginal dryness, vaginal odor or vaginal pruritus Skin Skin/Breast: Denies changing lesions, breast mass, breast pain, breast skin changes or nipple discharge Psych Psych: Denies anxiety, change in libido, depression or difficulty concentrating Exam Const General: cooperative, healthy appearing, comfortable, no acute distress, well developed and well groomed HENRI Head: normal to inspection and normocephalic Ears: hearing grossly normal b (more content not included)... Normal [facility] Breast imaging reportOrdered By: Rory Wright on 12-14-2024 Study report [facility] [address] [place] [address] SCRN MAMM (CAD)W/DIMITRIOS BILAT MR#: [id number] Acct: [id number] Name: RONALDO SOLORIO CHASE Rep #: [id number] : 1955 F 69 From: Silvestre Wright MD PCP: Dr. Roberth Crabtree MD Status: REG C RAÚL Study:SCRN MAMM (CAD)W/DIMITRIOS BILAT Date of Exa m: 12/14/24 Exam# [id number] Ordering Dr: Sonya Fu DO EXAM: SCRN MAMM (CAD)W/DIMITRIOS BILAT DATE: 12/14/2024 CLINICAL HISTORY: F, Age 69 y/o , SCREENING FOR BREAST CANCER. No family history. BREAST CANCER RISK ASSESSMENT: Not assessed. TECHNIQUE: Bilateral screening digital breast tomosynthesis with 2D and 3D images. Computeraided detection. COMPARISON: Prior exam(s) dating back to December 14, 2023.. FINDINGS: Bilateral Breast Mammographic Findings: No significant masses, calcifications or other abnormalities are identified. TISSUE DENSITY: The breast tissue is composed of scattered area of fibroglandular density. No suspicious masses, areas of developing architectural distortion, or suspicious calcifications. There has been no significant interval change. Stable small benign-appearing bilateral axillary lymph nodes. BI/SCRN MAMM (CAD)W/DIMITRIOS BILAT IMPRESSION: Right Breast: BIRADS 2 BENIGN FINDING. Left Breast: BIRADS 2 BENIGN FINDING. OVERALL FINAL ASSESSMENT: BIRADS 2 BENIGN FINDING RECOMMENDATION: ROUTINE ANNUAL FOLLOW-UP Bilateral in 1 Year Normal interval followup mammograms are recommended in 12 months. A letter with findings and recommendations will be mailed to the patient. Reading Location: [place] [address] CC: Dr. Sonya Barker DO; Dr. Roberth Crabtree MD ~ Marketing Specialist: Signed [facility] SCRN MAMM (CAD)W/DIMITRIOS BILATo n 12-14-2024 SCRN MAMM (CAD)W/DIMITRIOS BILAT [facility] [address] [place] [address] SCRN MAMM (CAD)W/DIMITRIOS BILAT MR#: [id number] Acct: [id number] Name: RONALDO SOLORIO Rep #: [id number] : 1955 F 69 From: Rory grace MD PCP: Dr. Roberth Crabtree MD Status: REG CL Study: SCRN MAMM (CAD)W/DIMITRIOS BILAT Date of Exam: 11/26 06/22 Exam# [id number] Ordering Dr: Sonya Barker DO EXAM: SCRN MAMM (CAD)W/DIMITRIOS BILAT DATE: 12/14/2024 CLINICAL HISTORY: F, Age 69 y/o , SCREENING FOR BREAST CANCER. No family history. BREAST CANCER RISK ASSESSMENT: Not assessed. TECHNIQUE: Bilateral screening digital breast tomosynthesis with 2D and 3D images. Computer aided detection. COMPARISON: Prior exam(s) dating back to December 14, 2023.. FINDINGS: Bilateral Breast Mammographic Findings: No significant masses, calcifications or other abnormalities are identified. TISSUE DENSITY: The breast tissue is composed of scattered area of fibroglandular density. No suspicious masses, areas of developing architectural distortion, or suspicious calcifications. There has been no significant interval change. Stable small benign-appearing bilateral axillary lymph nodes. BI/SCRN MAMM (CAD)W/DIMITRIOS BILAT IMPRESSION: Right Breast: BIRADS 2 BENIGN FINDING. Left Breast: BIRADS 2 BENIGN FINDING. OVERALL FINAL ASSESSMENT: BIRADS 2 BENIGN FINDING RECOMMENDATION: ROUTINE ANNUAL FOLLOW-UP Bilateral in 1 Year Normal interval followup mammograms are recommended in 12 months. A letter with findings and recommendations will be mailed to the patient. Reading Location: [place] [address] CC: Dr. Sonya Barker DO; Dr. Roberth Crabtree MD Marketing Specialist: Signed Normal [facility] Modified Barium Swallow Stud yon 11-01-2024 Modified Barium Swallow Study [facility] Speech Pathology [address] [place] [address] Modified Barium Swallow Study MR#: [id number] Acct: [id number] Name: RONALDO SOLORIO Rep #: [id number] : 1955 68 From: Leydi Lr M.A. [facility] [employer] Modified Barium Swallow Patient Information Study Date: 11/01/24 Study Time: 13:00 Direct Billable Minutes: 67 Total Minutes procedure reportin Diagnosis: Dysphagia R13.10 Referring Physician: Roberth Crabtree Reason for Referral: Objectively assess swallow function, assess risk for aspiration, and determine recommendations for least restrictive diet textures and compensatory strategies to improve safety of swallow. Medical History: PMH: DM type 2, HTN, HLD, Osteoporosis, Chronic lower back pain, Radiculopathy - See EMR for full PMH. The patient was referred for MBSS by PCP after pt reported sensation of medication becoming caught in her throat after she swallowed. She has 1 pill in particular (Fosamax) that gives her difficulty because it can't be taken w/ food. She denies difficulty swallowing food or drink with the exception of foods such as popcorn, seeds, and nuts. Pt reports hx of small hiatal hernia 20 years ago. Current Diet Ordered: Regular textures / Thin liquids Dentition: WNL and Natural Teeth Mental Status: WNL Respiratory Status: Oxygenating on Room Air Penetration-Aspirati on Scale Penetration-Aspirati on Scale: OBJECTIVE ASSESSMENT OF SWALLOW FUNCTION (QUANTITATIVE ??? PER TRIAL): PENETRATION / ASPIRATION SCALE (KEITA): 1 = does not enter airway 2 = enters airway/above vocal folds/ejected 3 = enters airway/above vocal folds/not ejected 4 = enters airway/contacts vocal folds/ejected 5 = enters airway/contacts vocal folds/not ejected 6 = enters airway/below vocal folds/ejected 7 = enters airway/below vocal folds/not ejected despite effort 8 = enters airway/below vocal folds/no effort VIDEOFLOROSCOPIC SCALE SCORE (KEITA): Grade I = aspiration of material that has penetrated into the laryngeal vestibule, intact cough reflex Grade II = aspiration < 10 % of the bolus, intact cough reflex Grade III = aspiration of < 10 % of the bolus, reduced cough reflex or aspiration of > 10 % of the bolus, intact cough reflex Grade IV = aspiration of > 10 % of the bolus, reduced cough reflex Penetration-Aspirati on Scale Score Thin Liquid via teaspoon: Result: 1= does not enter airway Thin Liquid via teaspoon Trial 2: Result: 1= does not enter airway Thin Liquid via large single sip: cup: Result: 2= enter airway/above vocal folds/ejected [place] Thick Liquid via large single sip: cup: Result: 1= does not enter airway Pudding via teaspoon: Result: 1= does not enter airway Comment: Esophageal screen - Minimal retention in the lower esophagus. 1/2 Cookie: Result: 1= does not enter airway Comment: Esophageal screen - Complete clearance. Thin Liquid via single sip: straw: Result: 2= enter airway/above vocal folds/ejected Thin Liquid via sequential sips:straw: Result: 2= enter airway/above vocal folds/ejected Barium tablet w/ water: Result: 1= does not enter airway Comment: Esophageal screen - Complete clearance. Barium tablet w/ water Trial 2: Result: 1= does not enter airway Comment: Esophageal screen - Complete clearance. Oral Phase Labial Seal: Interlabial escape, no progression to anterior lip Tongue Control During Bolus Hold: Posterior escape of greater than half of bolus Bolus Preparation/Masticat ion: Timely and efficient chewing and mashing Bolus Transport/Lingual Motion: Delayed initiation of tongue motion Oral Residue: Trace residue lining oral structures Pharyngeal Phase Initiation of Pharyngeal Swallow: Bolus head in pyriforms Soft Palate Elevation: Trace column of contrast/air between soft palate and pharyngeal wall Laryngeal Elevation: Comp. Superior move thyroid cart w/comp. apprx arytenoid cart-epig pet Anterior Hyoid Excursion: Partial anterior movement Epiglottic Movement: Complete inversion Laryngeal Vestibule Closure at Height of Swallow: Incomplete; narrow column of air/contrast in laryngeal vestibule (trace laryngeal penetration w/ complete ejection after the swallow) Pharyngeal Stripping Wave: Present - complete Pharyngoesophageal Segment Opening: Complete distension and complete duration; no obstruction of flow Tongue Base Retraction: Trace column of contrast between tongue base post. pharyngeal wall Pharyngeal Residue: Trace residue within or on pharyngeal structures Esophageal Phase Esophageal Clearance: Esophageal retention (Mild retention of pudding) Diagnosis/Impression Diagnosis: Oropharyngeal swallow function grossly WNL Impression: Trace laryngeal penetration w/ complete ejection. No aspiration. Good pharyngeal clearance of all consistencies despite pt sensing something caught in her throat at the end of the study. Recommendations Diet: Reg (more content not included)... Normal [facility] Basophil percentageOrdered B y: Dr. Crabtree on 10-29-2022 Chloride [Moles/Vol] 105 mmol/L 98-107 [facility] Cholesterol [Mass/Vol] 186 mg/dL <200 [facility] Comment on above: <200 mg/dL Desirable 200-240 mg/dL Borderline >240 mg/dL High Risk Glucose [Mass/Vol] 100 mg/dL 74-106 [facility] Comment on above: Fasting Glucose resu lt from 100 to 125 mg/dL suggests IMPAIRED HOMEOSTASIS per A.D.A. criteria. Potassium [Moles/Vol] 4.2 mmol/L 3.5-5.1 [facility] Sodium [Moles/Vol] 141 mmol/L 136-145 [facility] Triglyceride [Mass/Vol] 157 mg/dL <199 [facility] Comment on above: The drugs N-Acetylcy steine and Metamizole may falsely depress this assay.Serum Triglycerides Reference Interval Normal <150 mg/dL Borderline high 150 - 199 mg/dL High 200 - 499 mg/dL Very High > or = 500 mg/dL Laboratory - Chemistry and C hemistry - challengeOrdered By: Dr. Crabtree on 10-29-2022 CO2 [Moles/Vol] 31.0 mmol/L 21.0-32.0 [facility] Urea nitrogen/Creatinine [Mass ratio] 22.9 mg/mg 10-20 [facility] No Panel InformationOrdered By: Dr. Crabtree on 10-29-2022 Estimated GFR (MDRD) Amer 84 mL/min >60 [facility] Comment on above: GFR Calc Estimated GFR (MDRD) Non-Af Amer 69 mL/min >60 [facility] Comment on above: Non- GFR Calc Vitamin D 25-Hydroxy 27.6 ng/mL [facility] Comment on above: Vitamin D 25(OH) Sta tus Range Deficiency <20 ng/mL (50nmol/L) Insufficiency 20 - 30 ng/mL (50 - 75 nmol/L) Sufficiency 30 - 100 ng/mL (75 - 250 nmol/L) Toxicity >100 ng/mL (>250 nmol/L) Serum or plasma calcium janet urement (mass/volume)Ordered By: Dr. Crabtree on 10-29-2022 Calcium [Mass/Vol] 9.2 mg/dL 8.5-10.1 [facility] Serum or plasma cholesterol in HDL measurement (mass/volume)Ordered By: Dr. Crabtree on 10-29-2022 Cholesterol in HDL [Mass/Vol] 47 mg/dL >40 [facility] Comment on above: The drugs N-Acetylcy steine and Metamizole may falsely depress this assay. Reference Range HDL <40 mg/dL Low HDL Cholesterol HDL >or= 60 mg/dL High HDL Cholesterol Serum or plasma cholesterol in VLDL measurement (mass/volume)Ordered By: Dr. Crabtree on 10-29-2022 Cholesterol in VLDL [Mass/Vol] 31 mg/dL 5-40 [facility] Serum or plasma creatinine m easurement (mass/volume)Ordered By: Dr. Crabtree on 10-29-2022 Creatinine [Mass/Vol] 0.87 mg/dL 0.55-1.02 [facility] Comment on above: The validity of the calculated GFR & GFRAA in patients over 70 years has not been determined. Clinical correlation is essential. Serum or plasma low density lipoprotein (LDL) cholesterol measurement (mass/volume)Ordered By: Dr. Crabtree on 10-29-2022 Cholesterol in LDL [Mass/Vol] 108 mg/dL 0-130 [facility] Serum or plasma urea nitroge n measurement (mass/volume)Ordered By: Dr. Crabtree on 10-29-2022 Urea nitrogen [Mass/Vol] 20 mg/dL 7-18 [facility] Thin prep Papanicolaou smear with manual screeningOrdered By: Dr. Crabtree on 10-29-2022 Thin prep Papanicolaou smear with manual screening 5 5-15 [facility] Vital Signs Date Time Vital Sign Value Performing Clinician Facility 03-30-2023 09:01-0400 Blood Pressure Cuff Size NENA PERDOMO APRN-LANDCARE FACILITATOR [facility] 03-30-2023 09:01-0400 Blood Pressure Location NENA PERDOMO APRN-LANDCARE FACILITATOR [facility] 03-30-2023 09:01-0400 Blood Pressure Method NENA PERDOMO APRN-LANDCARE FACILITATOR [facility] 03-30-2023 09:01-0400 Diastolic Blood Pressure Non-Invasive 60 1 NENA PERDOMO APRN-LANDC[employer] FACILITATOR [facility] 03-30-2023 09:01-0400 Heart rate 82 /min NENA PERDOMO APRN-LANDCARE FACILITATOR [facility] 03-30-2023 09:01-0400 Respiratory rate 9 /min NENA PERDOMO APRN-LANDCARE FACILITATOR [facility] 03-30-2023 09:01-0400 Systolic Blood Pressure Non-Invasive 117 1 NENA PERDOMO APRN-LANDCARE FACILITATOR [facility] 03-30-2023 08:53-0400 Blood Pressure Cuff Size NENA PERDOMO APRN-LANDCARE FACILITATOR [facility] 03-30-2023 08:53-0400 Blood Pressure Location NENA PERDOMO APRN-LANDCARE FACILITATOR [facility] 03-30-2023 08:53-0400 Blood Pressure Method NENA PERDOMO APRN-LANDCARE FACILITATOR [facility] 03-30-2023 08:53-0400 Diastolic Blood Pressure Non-Invasive 69 1 NENA PERDOMO APRN-LANDCARE FACILITATOR [facility] 03-30-2023 08:53-0400 Heart rate 81 /min NENA PERDOMO APRN-LANDCARE FACILITATOR [facility] 03-30-2023 08:53-0400 Respiratory rate 10 /min NENA PERDOMO VICE PRESIDENT SAFETY-LANDCARE FACILITATOR [facility] 03-30-2023 08:53-0400 Systolic Blood Pressure Non-Invasive 121 1 NENA PERDOMO APRN-LANDCARE FACILITATOR [facility] 03-30-2023 08:45-0400 Diastolic Blood Pressure Non-Invasive 70 1 NENA PERDOMO APRN-LANDCARE FACILITATOR [facility] 03-30-2023 08:45-0400 Heart rate 85 /min NENA PERDOMO APRN-LANDCARE FACILITATOR [facility] 03-30-2023 08:45-0400 Respiratory rate 11 /min NENA PERDOMO APRN-LANDCARE FACILITATOR [facility] 03-30-2023 08:45-0400 Systolic Blood Pressure Non-Invasive 110 1 NENA PERDOMO APRN-LANDCARE FACILITATOR [facility] 03-30-2023 08:39-0400 Blood Pressure Cuff Size NENA PERDOMO APRN-LANDCARE FACILITATOR [facility] 03-30-2023 08:39-0400 Blood Pressure Location NENA PERDOMO APRN-[employer]CARE FACILITATOR [facility] 03-30-2023 08:39-0400 Blood Pressure Method NENA PERDOMO VICE PRESIDENT SAFETY-[employer]CARE FACILITATOR [facility] 03-30-2023 08:39-0400 Heart rate 88 /min NENA PERDOMO VICE PRESIDENT SAFETY-LANDCARE FACILITATOR [facility] 03-30-2023 08:03-0400 Body height 157 cm NENA PERDOMO APRN-LANDCARE FACILITATOR [facility] 03-30-2023 08:03-0400 Body weight 85 kg NENA PERDOMO APRN-LANDCARE FACILITATOR [facility] 03-30-2023 08:03-0400 Body weight 34.48 kg/m2 NENA PERDOMO APRN-LANDCARE FACILITATOR [facility] 01-22-2023 08:01-0400 Diastolic Blood Pressure Non-Invasive 74 1 NENA PERDOMO VICE PRESIDENT SAFETY-LANDCARE FACILITATOR [facility] 01-22-2023 08:01-0400 Heart rate 81 /min NENA PERDOMO VICE PRESIDENT SAFETY-LANDCARE FACILITATOR [facility] 01-22-2023 08:01-0400 Respiratory rate 12 /min NENA PERDOMO VICE PRESIDENT SAFETY-LANDCARE FACILITATOR [facility] 01-22-2023 08:01-0400 Systolic Blood Pressure Non-Invasive 106 1 NENA PERDOMO APRN-LANDCARE FACILITATOR [facility] 01-22-2023 07:44-0400 Diastolic Blood Pressure Non-Invasive 70 1 NENA PERDOMO APRN-LANDCARE FACILITATOR [facility] 01-22-2023 07:44-0400 Heart rate 74 /min NENA PERDOMO APRN-LANDCARE FACILITATOR [facility] 01-22-2023 07:44-0400 Respiratory rate 11 /min NENA PERDOMO VICE PRESIDENT SAFETY-LANDCARE FACILITATOR [facility] 01-22-2023 07:44-0400 Systolic Blood Pressure Non-Invasive 136 1 NENA PERDOMO APRN-LANDCARE FACILITATOR [facility] 01-22-2023 07:37-0400 Diastolic Blood Pressure Non-Invasive 78 1 NENA PERDOMO VICE PRESIDENT SAFETY-LANDCARE FACILITATOR [facility] 01-22-2023 07:37-0400 Heart rate 76 /min NENA PERDOMO APRN-LANDCARE FACILITATOR [facility] 01-22-2023 07:37-0400 Respiratory rate 12 /min NENA PERDOMO APRN-LANDCARE FACILITATOR [facility] 01-22-2023 07:37-0400 Systolic Blood Pressure Non-Invasive 120 1 NENA PERDOMO APRN-LANDCARE FACILITATOR [facility] 01-22-2023 07:11-0400 Body height 157.5 cm NENA PERDOMO APRN-LANDCARE FACILITATOR [facility] 01-22-2023 07:11-0400 Body weight 85.6 kg NENA PERDOMO APRN-LANDCARE FACILITATOR [facility] 01-22-2023 07:11-0400 Body weight 34.51 kg/m2 NENA PERDOMO APRN-LANDCARE FACILITATOR [facility] 01-22-2023 07:11-0400 Heart rate 80 /min NENA PERDOMO APRN-LANDCARE FACILITATOR [facility] 08-27-2022 13:15-0500 Blood Pressure Cuff Size MILA KING VICE PRESIDENT SAFETY-CORRUGATOR HELPER [facility] 08-27-2022 13:15-0500 Blood Pressure Location MILA KING VICE PRESIDENT SAFETY-CORRUGATOR HELPER [facility] 08-27-2022 13:15-0500 Blood Pressure Method MILA MCCLURETT VICE PRESIDENT SAFETY-CORRUGATOR HELPER [facility] 08-27-2022 13:15-0500 Diastolic Blood Pressure Non-Invasive 72 1 MILA RIVERAWITT VICE PRESIDENT SAFETY-CORRUGATOR HELPER [facility] 08-27-2022 13:15-0500 Heart rate 80 /min MILA KING VICE PRESIDENT SAFETY-CORRUGATOR HELPER [facility] 08-27-2022 13:15-0500 Respiratory rate 13 /min MILA KING VICE PRESIDENT SAFETY-CORRUGATOR HELPER [facility] 08-27-2022 13:15-0500 Systolic Blood Pressure Non-Invasive 143 1 MILA KING VICE PRESIDENT SAFETY-CORRUGATOR HELPER [facility] 08-27-2022 13:02-0500 Blood Pressure Cuff Size MILA KING APRN-CORRUGATOR HELPER [facility] 08-27-2022 13:02-0500 Blood Pressure Location MILA KING VICE PRESIDENT SAFETY-CORRUGATOR HELPER [facility] 08-27-2022 13:02-0500 Blood Pressure Method MILA KING VICE PRESIDENT SAFETY-CORRUGATOR HELPER [facility] 08-27-2022 13:02-0500 Diastolic Blood Pressure Non-Invasive 53 1 MILA KING VICE PRESIDENT SAFETY-CORRUGATOR HELPER [facility] 08-27-2022 13:02-0500 Heart rate 71 /min MILA KING VICE PRESIDENT SAFETY-CORRUGATOR HELPER [facility] 08-27-2022 13:02-0500 Reason For Taking VItal Signs MILA KING VICE PRESIDENT SAFETY-CORRUGATOR HELPER [facility] 08-27-2022 13:02-0500 Respiratory rate 13 /min MILA KING VICE PRESIDENT SAFETY-CORRUGATOR HELPER [facility] 08-27-2022 13:02-0500 Systolic Blood Pressure Non-Invasive 146 1 MILA KING VICE PRESIDENT SAFETY-CORRUGATOR HELPER [facility] 08-27-2022 12:51-0500 Diastolic Blood Pressure Non-Invasive 74 1 MILA MCCLURETT VICE PRESIDENT SAFETY-CORRUGATOR HELPER [facility] 08-27-2022 12:51-0500 Heart rate 78 /min MILA KING VICE PRESIDENT SAFETY-CORRUGATOR HELPER [facility] 08-27-2022 12:51-0500 Respiratory rate 12 /min MILA KING VICE PRESIDENT SAFETY-CORRUGATOR HELPER [facility] 08-27-2022 12:51-0500 Systolic Blood Pressure Non-Invasive 134 1 MILA MCCLURETT VICE PRESIDENT SAFETY-CORRUGATOR HELPER [facility] 08-27-2022 12:46-0500 Heart rate 78 /min MILA KING VICE PRESIDENT SAFETY-CORRUGATOR HELPER [facility] 08-27-2022 12:09-0500 Blood Pressure Location MILA MCCLURETT VICE PRESIDENT SAFETY-CORRUGATOR HELPER [facility] 08-27-2022 12:09-0500 Blood Pressure Method MILA MCCLURETT VICE PRESIDENT SAFETY-CORRUGATOR HELPER [facility] 08-27-2022 12:09-0500 Body height 157.5 cm MILA KING VICE PRESIDENT SAFETY-CORRUGATOR HELPER [facility] 08-27-2022 12:09-0500 Body weight 83.4 kg MILA FERNANDO VICE PRESIDENT SAFETY-CORRUGATOR HELPER [facility] 08-27-2022 12:09-0500 Body weight 33.62 kg/m2 MILA KING VICE PRESIDENT SAFETY-CORRUGATOR HELPER [facility] 08-27-2022 12:09-0500 Heart rate 88 /min MILA KING VICE PRESIDENT SAFETY-CORRUGATOR HELPER [facility] 06-04-2022 14:31-0400 Body height 157.[address] Roberth Crabtree Work Phone: [facility] Work Phone: 06-04-2022 14:29-0400 Body mass index (BMI) [Ratio] 33.5 kg/m2 Dr. Roberth Crabtree Work Phone: [facility] Work Phone: 06-04-2022 14:29-0400 Body weight 83.[address] Roberth Crabtree Work Phone: [facility] Work Phone: 06-04-2022 14:29-0400 Diastolic blood pressure 87 mm[Hg] Dr. Roberth Crabtree Work Phone: [facility] Work Phone: 06-04-2022 14:29-0400 Systolic blood pressure 132 mm[Hg] Dr. Roberth Crabtree Work Phone: [facility] Work Phone: 04-09-2022 09:39-0400 Diastolic blood pressure 75 mm[Hg] MILA KING VICE PRESIDENT SAFETY-CORRUGATOR HELPER [facility] 04-09-2022 09:39-0400 Heart rate 76 /min MILA KING VICE PRESIDENT SAFETY-CORRUGATOR HELPER [facility] 04-09-2022 09:39-0400 Respiratory rate 10 /min MILA KING VICE PRESIDENT SAFETY-CORRUGATOR HELPER [facility] 04-09-2022 09:39-0400 Systolic blood pressure 122 mm[Hg] MILA KING VICE PRESIDENT SAFETY-CORRUGATOR HELPER [facility] 04-09-2022 09:19-0400 Diastolic blood pressure 77 mm[Hg] MILA KING VICE PRESIDENT SAFETY-CORRUGATOR HELPER [facility] 04-09-2022 09:19-0400 Heart rate 73 /min MILA KING VICE PRESIDENT SAFETY-CORRUGATOR HELPER [facility] 04-09-2022 09:19-0400 Mean blood pressure 92 mm[Hg] MILA KING VICE PRESIDENT SAFETY-CORRUGATOR HELPER [facility] 04-09-2022 09:19-0400 Respiratory rate 12 /min MILA KING VICE PRESIDENT SAFETY-CORRUGATOR HELPER [facility] 04-09-2022 09:19-0400 Systolic blood pressure 121 mm[Hg] MILA MCCLURETT VICE PRESIDENT SAFETY-CORRUGATOR HELPER [facility] 04-09-2022 09:11-0400 Diastolic Blood Pressure NBP 72 1 MILA KING VICE PRESIDENT SAFETY-CORRUGATOR HELPER [facility] 04-09-2022 09:11-0400 Heart rate 77 /min MILA KING VICE PRESIDENT SAFETY-CORRUGATOR HELPER [facility] 04-09-2022 09:11-0400 Respiratory rate 10 /min MILA MCCLURETT VICE PRESIDENT SAFETY-CORRUGATOR HELPER [facility] 04-09-2022 09:11-0400 Systolic Blood Pressure NBP 118 1 MILA KING VICE PRESIDENT SAFETY-CORRUGATOR HELPER [facility] 04-09-2022 09:06-0400 Diastolic Blood Pressure NBP 67 1 MILA MCCLURETT VICE PRESIDENT SAFETY-CORRUGATOR HELPER [facility] 04-09-2022 09:06-0400 Heart rate 79 /min MILA MCCLURETT VICE PRESIDENT SAFETY-CORRUGATOR HELPER [facility] 04-09-2022 09:06-0400 Systolic Blood Pressure NBP 123 1 MILA KING VICE PRESIDENT SAFETY-CORRUGATOR HELPER [facility] 04-09-2022 08:45-0400 Body height 157 cm MILA KING VICE PRESIDENT SAFETY-CORRUGATOR HELPER [facility] 04-09-2022 08:45-0400 Body weight 82.5 kg MILA KING VICE PRESIDENT SAFETY-CORRUGATOR HELPER [facility] 04-09-2022 08:45-0400 Body weight 33.47 kg/m2 MILA KING VICE PRESIDENT SAFETY-CORRUGATOR HELPER [facility] 04-09-2022 08:45-0400 diastolic 72 mm[Hg] MILA KING VICE PRESIDENT SAFETY-CORRUGATOR HELPER [facility] 04-09-2022 08:45-0400 Heart rate 75 /min MILA KING VICE PRESIDENT SAFETY-CORRUGATOR HELPER [facility] 04-09-2022 08:45-0400 systolic 151 mm[Hg] MILA KING VICE PRESIDENT SAFETY-CORRUGATOR HELPER [facility] 08-30-2021 08:36-0500 Diastolic Blood Pressure NBP [address] JANI HALLMAN DO [facility] 08-30-2021 08:36-0500 Heart rate 91 /min DR JANI HALLMAN DO [facility] 08-30-2021 08:36-0500 Respiratory rate 16 /min DR JANI HALLMAN DO [facility] 08-30-2021 08:36-0500 Systolic Blood Pressure NBP [address] JANI HALLMAN DO [facility] 08-30-2021 08:21-0500 Diastolic Blood Pressure NBP [address] JANI HALLMAN DO [facility] 08-30-2021 08:21-0500 Heart rate 96 /min DR JANI HALLMAN DO [facility] 08-30-2021 08:21-0500 Respiratory rate 11 /min DR JANI HALLMAN DO [facility] 08-30-2021 08:21-0500 Systolic Blood Pressure NBP [address] HALLMAN DO [facility] 08-30-2021 08:01-0500 Body height 157.[address] JANI HALLMAN DO [facility] 08-30-2021 08:01-0500 Body weight 83.[address] JANI HALLMAN DO [facility] 08-30-2021 08:01-0500 Body weight 33.5 kg/m2 DR JANI HALLMAN DO [facility] 08-30-2021 08:01-0500 diastolic 95 mm[Hg] DR JANI HALLMAN DO [facility] 08-30-2021 08:01-0500 Heart rate 99 /min DR JANI HALLMAN DO [facility] 08-30-2021 08:01-0500 Respiratory rate 16 /min DR JANI HALLMAN DO [facility] 08-30-2021 08:01-0500 systolic 133 mm[Hg] DR JANI HALLMAN DO [facility] Encounters Encounter Date Encounter Type Care Provider Facility Start: 01-02-2025 Encounter for gynecological examination (general) (routine) without abnormal findings Sonya Hernandeztim Burroughs [facility] Start: 01-02-2025 End: 01-02-2025 ambulatory Sonya Hernandeztim Burroughs Facility:[facility] Start: 12-14-2024 End: 12-14-[address] Roberth Crabtree MD Work Phone: [facility] Work Phone: Start: 12-14-2024 End: 12-14-[address] Sonya Barker DO -Outpatient Breast Imaging Work Phone: Start: 12-14-2024 End: 12-14-[facility] Start: 11-01-2024 End: 11-01-[address] Roberth Crabtree MD -Radiology, [facility] Work Phone: Start: 11-01-2024 End: 11-01-2024 ambulatory Roberth Crabtree Facility:[facility] Start: 12-14-2023 End: 12-14-2023 ambulatory [facility] Work Phone: Start: 12-14-2023 End: 12-14-2023 Patient encounter procedure [facility]-Outpatient Breast Imaging Work Phone: Start: 11-11-2023 End: 11-11-2023 ambulatory [facility] Work Phone: Start: 11-11-2023 End: 11-11-2023 Patient encounter procedure [facility]-MRI - [facility] Work Phone: Start: 06-09-2023 End: 06-09-2023 ambulatory [facility] Work Phone: Start: 06-09-2023 End: 06-09-2023 Patient encounter procedure [facility]-Radiology, [place] Work Phone: Start: 03-30-2023 End: 03-30-[address] JANI HALLMAN DO Facility:A Start: 03-30-2023 End: 03-30-2023 Minor Procedure NENA Mally CONOR VICE PRESIDENT SAFETY-LANDCARE FACILITATOR [facility] Start: 03-20-2023 End: 03-21-[address] ROBERTH CRABTREE MD Facility:A Start: 01-22-2023 End: 01-22-[address] ROBERTH CRABTREE MD Facility:A Start: 01-22-2023 End: 01-22-2023 Minor Procedure NENA Mally CONOR VICE PRESIDENT SAFETY-LANDCARE FACILITATOR [facility] Start: 01-05-2023 End: 01-06-[address] ROBERTH CRABTREE MD Facility:A Start: 11-05-2022 End: 11-06-[address] ROBERTH CRABTREE MD Facility:A Start: 11-05-2022 End: 11-05-2022 Patient encounter procedure NENA PERDOMO VICE PRESIDENT SAFETY-LANDCARE FACILITATOR [facility] Start: 10-29-2022 End: 10-29-2022 ambulatory [facility] Work Phone: Start: 10-29-2022 End: 10-29-2022 Patient encounter procedure [facility] Start: 08-27-2022 End: 08-27-[address] JANI HALLMAN DO Facility:A Start: 08-27-2022 End: 08-27-2022 Minor Procedure MILA FERNANDO VICE PRESIDENT SAFETY-CORRUGATOR HELPER [facility] Start: 08-19-2022 End: 08-20-2022 ambulatory MILA KING VICE PRESIDENT SAFETY-CORRUGATOR HELPER Facility:A Start: 08-19-2022 End: 08-19-2022 Patient encounter procedure MILA KING VICE PRESIDENT SAFETY-CORRUGATOR HELPER [facility] Start: 06-23-2022 End: 06-24-[address] JANI HALLMAN DO Facility:A Start: 06-16-2022 End: 06-16-[address] Roberth Crabtree Work Phone: [facility] Work Phone: Start: 06-16-2022 End: 06-16-[address] Roberth Crabtree Work Phone: [facility]-Outpatient Breast Imaging Start: 06-04-2022 End: 06-04-[address] Roberth Crabtree Work Phone: [facility] Start: 04-09-2022 End: 04-09-2022 ambulatory MILA KING VICE PRESIDENT SAFETY-CORRUGATOR HELPER Facility:A Start: 04-09-2022 End: 04-09-2022 Minor Procedure MLIA KING APRN-CORRUGATOR HELPER [facility] Start: 03-25-2022 End: 03-25-2022 Patient encounter procedure MILA KING VICE PRESIDENT SAFETY-CORRUGATOR HELPER [facility] Start: 01-07-2022 End: 01-07-[address] JANI HALLMAN DO [facility] Start: 10-29-2021 End: 10-29-[address] JANI HALLMAN DO [facility] Start: 08-30-2021 End: 08-30-[address] JANI HALLMAN DO [facility] Start: 08-06-2021 End: 08-06-[address] JANI HALLMAN DO [facility] Procedures Date Procedure Procedure Detail Performing Clinician Start: 12-14-2024 Screening mammography Lincoln Crabtree MD Work Phone: Start: 11-01-[address] Roberth reich MD Work Phone: Start: 12-14-2023 Screening mammography Start: 11-11-2023 MRI of cervical spine Start: 06-09-2023 X-ray of cervical spine Start: 06-09-2023 X-ray of lumbosacral spine Start: 03-30-2023 PM Inj Spine C/T [facility] Imaging SN 1 NENA PERDOMO VICE PRESIDENT SAFETY-LANDCARE FACILITATOR Comment on above: auto-populated from documented surgical case Start: 01-22-2023 PM Inj Spine C/T Wit h Imaging SN 1 NENA PERDOMO VICE PRESIDENT SAFETY-LANDCARE FACILITATOR Comment on above: auto-populated from documented surgical case Start: 01-22-2023 PM Inj Spine C/T Wit h Imaging SN 2 NENA PERDOMO VICE PRESIDENT SAFETY-LANDCARE FACILITATOR Comment on above: auto-populated from documented surgical case Start: 08-27-2022 PM Inj Spine C/T Wit h Imaging SN 1 MILA KING VICE PRESIDENT SAFETY-CORRUGATOR HELPER Comment on above: auto-populated from documented surgical case Start: 08-27-2022 PM Inj Spine C/T Wit h Imaging SN 2 NENA PERDOMO VICE PRESIDENT SAFETY-LANDCARE FACILITATOR Comment on above: auto-populated from documented surgical case Start: 08-27-2022 PM Inj Spine C/T Wit h Imaging SN 3 NENA PERDOMO VICE PRESIDENT SAFETY-LANDCARE FACILITATOR Comment on above: auto-populated from documented surgical case Start: 06-16-[address] Roberth reich Work Phone: Start: 06-16-[address] Roberth Crabtree Work Phone: Start: 04-09-2022 PM Inj Spine C/T Wit h Imaging SN 1 MILA KING VICE PRESIDENT SAFETY-CORRUGATOR HELPER Comment on above: auto-populated from documented surgical case Start: 04-09-2022 PM Inj Spine C/T Wit h Imaging SN 2 MILA KING VICE PRESIDENT SAFETY-CORRUGATOR HELPER Comment on above: auto-populated from documented surgical case Start: 04-09-2022 PM Inj Spine C/T Wit h Imaging SN 3 NENA PERDOMO VICE PRESIDENT SAFETY-LANDCARE FACILITATOR Comment on above: auto-populated from documented surgical case Start: 04-09-2022 PM Inj Spine C/T Wit h Imaging SN 4 NENASandee PERDOMO VICE PRESIDENT SAFETY-LANDCARE FACILITATOR Comment on above: auto-populated from documented surgical case Start: 01-21-[address] eroid injection MILA KING VICE PRESIDENT SAFETY-CORRUGATOR HELPER Comment on above: gave 60% relief for 2 months wth slow pain increase Start: 01-02-[address] eroid injection DR JANI HALLMAN DO Comment on above: 50% relief for 9 wee ks and ongoing with slow pain increase Start: 04-17-2020 History of arthropla sty of right knee DR JANI HALLMAN DO Start: 04-17-2020 Revision of total kn ee arthroplasty, all components DR JANI HALLMAN DO 2019-nCoV vaccination DR ARI HALLMAN DO Comment on above: moderna Abdominal hysterectomy DR SEYMOUR HALLMAN DO Cervical epidural st eroid injection DR JANI HALLMAN DO Comment on above: 03/2020 75% relief of pain lasting 3months 16 EVANS 45% RELIEF LASTING 4-5 WEEKS Discectomy and total lumbar disc arthroplasty using anterior approach DR JANI HALLMAN DO Lumbar spinal fusion DR CHEMA HALLMAN DO Tonsillectomy and adenoidectomy DR JANI HALLMAN DO Plan of Treatment Date Care Activity Detail Author MG Breast Diagnostic [facility] Work Phone: Payers Date Payer Category Payer Self-pay [id number] 2015 Medicare [id number] 1957 Unknown [id number] 2.16.8 [id number] 1957 Unknown [id number] 2.16.8 [id number] 1957 Unknown [id number] 2.16.8 [id number] 1957 Unknown [id number] 2.16.8 [id number] 1957 Unknown [id number] 2.16.8 [id number] 1957 Unknown [id number] 2.16.8 [id number] 1957 Unknown [id number] 2.16.8 [id number] 1957 Unknown [id number] 2.16.8 [id number] 1957 Unknown [id number] 2.16.8 [id number] Private Health Insurance [place] [id number] Unknown [id number] 2.16.8 [id number] Unknown [id number] 2.16.8 [id number] Unknown [id number] 2.16.8 [id number] Social History Date Type Detail Facility Start: 07-07-2019 End: 12-31-2023 Never smoked tobacco (finding) [facility] Start: 1955 Sex Assigned At Female [facility] Start: 06-04-2022 End: 12-25-2022 Tobacco smoking status NHIS Unknown if ever smoked [facility] Start: 02-17-2019 None [facility] Start: 02-17-2019 Spouse/ Signif icant Other [facility] Start: 02-18-2019 Secondhand [facility] Start: 12-21-2024 Sex Female (finding) [facility] Functional Status Date Assessment Result Facility 03-30-2023 Functional Status Maintained, Less than 8 hours [facility] 01-22-2023 Functional Status Maintained [facility] 08-27-2022 Functional Status ID band on, Bed in low position, Wheels locked, Upper/Half-Length side-rails up, Safety level maintained [facility] 04-09-2022 Functional Status Maintained, More than 8 hours [facility] Mental Status Date Assessment Result Facility 03-30-2023 Mental Status Orientation Oriented x 4 [facility] 01-22-2023 Mental Status Oriented x 4 [facility] 08-27-2022 Mental Status Oriented x 4 [facility] 04-09-2022 Mental Status Oriented x 4 [facility] Clinical Notes 08-30-2021 to 03-30-2023 Note Date & Type Note Facility 03-30-2023 Hospital Discharge instructions Patient Education 03/30/2023 08:21:26 PM Discharge Instructions no lines- post-procedure (69491) [facility] Discharge Instructions POST PROCEDURE INSTRUCTIONS [...] preferred pharmacy Follow-up with Dr. Crawford at [facility] for pain management for continuity of care after Dr Hallman's longterm April 01, 2023 [facility] 03-30-2023 Summary of episode note Discharge Instructions Thank you for allowing [facility] to assist you with your healthcare needs. The following is important discharge information regarding your hospital visit. Your Care Team ROBERTH CRABTREE MD Your Diagnosis Radiculopathy affecting upper [...] 30 Days Fill date 2022 Pickup at [facility] Unchanged alendronate (alendronate 70 mg oral [...] by mouth Daily at bedtime Pharmacy Information [facility]: [address] [place], [place] [id number] [phone] Please take this list to your next doctor s visit. Bring all medications you take, including over the counter medications, herbals and other supplements with you to your doctor s visit. Patients and families are reminded to discard old lists and to update any records with all medication providers or retail pharmacies. Education Materials [facility] Discharge Instructions POST PROCEDURE INSTRUCTIONS [...] preferred pharmacy Follow-up with Dr. Crawford at [facility] for pain management for continuity of care after Dr Hallman's longterm April 01, 2023 Additional Information VACCINATE! IT SAVES LIVES! Members of the community who have not yet received the COVID-19 vaccine and would like to receive it can visit one of [facility] vaccine clinics. There are many vaccine clinic locations within the [facility]. For locations and available times, please visit [email or web address] hio.gov/. It is important to note that some COVID mobile vaccine clinics are held outdoors and may be canceled in rainy or stormy conditions. To learn more about pediatric vaccinations (ages 5-11), we invite you to visit the [facility] webpage. https://www.akTacit Innovationss.org/p ages/4186-Gjrou-Fvsorlgdjkl-Freq vyatyq-Wqbzw-Wxkwiemcl.html To learn more about the COVID-19 vaccine, we invite you to visit the CDC website for a list of frequently asked questions.https://www.cdc.gov/co ronavirus/2019-ncov/vaccines/faq .html [facility] Patient Portal Access Instructions: Stay connected with your healthcare team and access your personal medical information anytime with the [facility] Patient Portal. Please follow the directions below to create your [facility] account: 1.Access the email account you provided upon registration to the hospital/physician office.2.Look for an invitation email from [facility].3.Open the email and access the invitation link: Accept Invitation to [facility].4.Fill in the required erickson to create your account. To access your account, visit [employer]/Vanilla BreezeOneChart. Click the blue button labeled Access Patient [...] you will allow to register on the [facility] Patient Portal for access to your information. You can also access the [facility] Patient Portal on the [employer] rosa. Simply click on Patient Portal and then log into your account. If you would like to receive a full copy of your medical records, please contact the [facility] Medical Records Department by calling [phone], Thursday through Thursday between 8 a.m. and [...] Call your local pharmacy or go to [email or web address] Shopping/[email or web address] to find one close to you.3.Make use of household items: Use cat litter or old coffee grounds to dispose medications if other options are not available. Mix your drugs with these household products, seal them in an airtight container and throw it into the garbage. Call [facility]: [phone] to be sure your drugs can be [...] Materials PM Discharge Instructions no lines- post-procedure (76754) Medication Leaflets My discharge plan and instructions have been reviewed and explained to me and I,RONALDO SOLORIO understand my current condition and have read and understand these discharge instructions. I have received a written copy of the plan/instructions. If I have questions, I am aware that I should contact my doctor. Patient/Premium Note Interest Calculator Clerk Signature: Date/Time: Relationship to Patient: Witness Name/Signature: Date/Time: [facility] 03-30-2023 History and physical note Date of Service March 30, 2023 8:25 AM History and Physical Update I have examined the patient; reviewed the History and Physical and there are no changes to the History and Physical unless noted below. Deep tendon reflexes in the upper extremities are 1/4. Agricultural Service Worker strength is equal bilaterally. There is decreased [...] Hallman who is being followed up by [facility] for chronic pain issues related [...] does have some constipation occasionally and uses [id number] stool softener. History of injections, January 22, [...] Upper Extremity (R) : Yes Shiela Cao RN - 03/20/2023 13:02 EDT Stomach/Bowel Review of Systems Grid Constipation : Yes Diarrhea : No Nausea : No Vomiting : No Shiela Cao RN 03/20/2023 13:02 EDT Skin Review of Systems Grid Itching : No Rash : No Sores : No Shiela Cao RN 03/20/2023 13:02 EDT Hematology Review of Systems Grid Bleeds Easily : No Blood Clots : No Low Blood Count : No Shiela Cao RN 03/20/2023 13:02 EDT Sleep Review of Systems Grid Daytime Sleepiness : Yes Fatigue : Yes Insomnia : Yes Shiela Cao RN - 03/20/2023 13:02 EDT Endocrine Review of Systems Grid High Blood Sugar : No Low Blood Sugar : No Shiela Cao RN - 03/20/2023 13:02 EDT Psychiatric Review of Systems [...] no assistive device. I have reviewed the [place] automated Rx reporting system reported for this [...] Domestic Concerns: Denies. Living situation: Home/Independent. Primary Avionics Repair Technician: DR MCGREGOR. Lives In: Single level home. Current Home Treatments None. Professional Skilled Services or Special Community Resources None. Financial concerns: No. Spouse Name: VINAY. Marital Status: ., 04/17/2020 Nutrition/Health Type of [...] JANI HALLMAN DO on 03/30/2023 08:22 AM [facility] 01-22-2023 Hospital Discharge instructions Patient Education 01/22/2023 07:29:33 PM Discharge Instructions no lines- post-procedure (20442) [facility] Discharge Instructions POST PROCEDURE INSTRUCTIONS [...] shoulder 5-6 times a day every day [facility] 01-22-2023 Summary of episode note Discharge Instructions Thank you for allowing [facility] to assist you with your healthcare needs. The following is important discharge information regarding your hospital visit. Your Care Team ROBERTH CRABTREE MD Your Diagnosis Radiculopathy affecting upper [...] medication providers or retail pharmacies. Education Materials [facility] Discharge Instructions POST PROCEDURE INSTRUCTIONS [...] to receive it can visit one of [facility] vaccine clinics. There are many vaccine clinic locations within the [facility]. For locations and available times, please visit [email or web address].o iao.gov/. It is important to note that some COVID mobile vaccine clinics are held outdoors and may be canceled in rainy or stormy conditions. To learn more about pediatric vaccinations (ages 5-11), we invite you to visit the [facility] webpage. https://www.[facility].org/p ages/6808-Oeohs-Yfmumkoqgnb-Freq ksphga-Elcpi-Ikaousxsd.html To learn more about the COVID-19 vaccine, we invite you to visit the CDC website for a list of frequently asked questions. https://www.cdc.gov/coronavirus/ 2019-ncov/vaccines/faq.html [facility] Patient Portal Access Instructions: Stay connected with your healthcare team and access your personal medical information anytime with the [facility] Patient Portal.If you would like a full copy of your medical records, please contact the [facility] Medical Records Department, Thursday through Thursday between 8a.m. and 4:30p.m. Please follow the directions below to access the portal: 1.Access the email account you provided upon registration to the [facility].2.Look for an invitation email from [facility].3.Open the email and access the invitation link: Accept Invitation to [facility].Fill in the required erickson to create your account. Sign into www.[employer] with your username and password that you [...] you will allow to register on the [facility] Patient Portal for access to your information. You can also access the [facility] Patient Portal on the [employer] rosa. Simply click on Health Records under [...] Call your local pharmacy or go to http://[email or web address] [email or web address] to find one close to you.3.Make use of household items: Use cat litter or old coffee grounds to dispose medications if other options are not available. Mix your drugs with these household products, seal them in an airtight container and throw it into the garbage. Call [facility]: [phone] to be sure your drugs can be [...] Materials PM Discharge Instructions no lines- post-procedure (52598) Medication Leaflets My discharge plan and instructions have been reviewed and explained to me and IOSMIN PATRICIA J understand my current condition and have read and understand these discharge instructions. I have received a written copy of the plan/instructions. If I have questions, I am aware that I should contact my doctor. Patient/Premium Note Interest Calculator Clerk Signature: Date/Time: Relationship to Patient: Witness Name/Signature: Date/Time: [facility] 01-22-2023 History and physical [...] Hallman who is being followed up by [facility] for chronic pain issues related [...] in Joint(s) : Yes Art Patel LPN - 01/05/2023 12:05 EDT Neuro Review of Systems [...] with speech : No Art Patel LPN 01/05/2023 12:05 EDT Stomach/Bowel Review of Systems [...] no assistive device. I have reviewed the [place] automated Rx reporting system reported for this [...] Domestic Concerns: Denies. Living situation: Home/Independent. Primary Avionics Repair Technician: DR MCGREGOR. Lives In: Single level home. Current Home Treatments None. Professional Skilled Services or Special Community Resources None. Financial concerns: No. Spouse Name: VINAY. Marital Status: ., 04/17/2020 Nutrition/Health Type of [...] affecting upper extremity We will continue with Tim Davila scribed this to her pharmacy today. Ordered: PM Inj Spine C/T With Imaging 76159 Urine Drug Screen (Lab Send Out - Office) 2. Degenerative disc disease, cervical We will schedule her for a cervical epidural steroid injection with Dr. Hallman. Reviewed preprocedure instructions and requirements, patient states understanding. Ordered: oxyCODONE, Dose : 18 mg = 1 cap(s), Oral, q12h, fill 01/20/2023., # 60 cap(s), 0 Refill(s), Pharmacy: [facility], Degeneration of intervertebral disc of cervical region Radiculopathy, 01/20/23, 157.5, cm, 01/05/23 12:05:00 EDT, Height, 86.5, kg,... PM Inj Spine C/T With Imaging 60239 Urine Drug Screen (Lab Send Out - Office) 3. Myofascial pain syndrome, cervical We will continue with gabapentin, patient does not need a prescription refill today. Ordered: PM Inj Spine C/T With Imaging 91443 Urine Drug Screen (Lab Send Out - [...] Duration: 30 Days fill 2022. Pickup at [facility] Unchanged alendronate (alendronate 70 mg oral [...] prescriber if questions or concerns Pharmacy Information [facility]: [address] [place] [id number] [phone] [1] Ambulatory Comprehensive Intake - Pain Management; Art Patel LPN 01/05/2023 12:05 EDT [2] Ambulatory Comprehensive Intake - Pain Management; Art Patel LPN 01/05/2023 12:05 EDT Signature Line Digitally Signed by NENA PERDOMO on 01/05/2023 12:32 PM [1] [1] Specialty Office Visit Note; NENA PERDOMO 01/05/2023 12:31 EDT Digitally Signed by JANI HALLMAN DO on 01/22/2023 07:[address] [facility] 08-27-2022 Hospital Discharge instructions Patient Education 08/27/2022 12:28:25 PM Discharge Instructions no lines- post-procedure (52624) [facility] Discharge Instructions POST PROCEDURE INSTRUCTIONS [...] day, every day Enjoy your holiday season! [facility] 08-27-2022 Summary of episode note Discharge Instructions Thank you for allowing [facility] to assist you with your healthcare needs. The following is important discharge information regarding your hospital visit. Your Care Team ROBERTH CRABTREE MD, DR. Your Diagnosis Degenerative disc [...] medication providers or retail pharmacies. Education Materials [facility] Discharge Instructions POST PROCEDURE [...] Materials PM Discharge Instructions no lines- post-procedure (85900) Medication Leaflets My discharge plan and instructions have been reviewed and explained to me and I,RONALDO SOLORIO understand my current condition and have read and understand these discharge instructions. I have received a written copy of the plan/instructions. If I have questions, I am aware that I should contact my doctor. Patient/Premium Note Interest Calculator Clerk Signature: Date/Time: Relationship to Patient: Witness Name/Signature: Date/Time: [facility] 08-27-2022 History and physical note Date of Service August 27, 2022 12:35 PM History and Physical Update I have examined the patient; reviewed the History and Physical and there are no changes to the History and Physical unless noted below. Deep tendon reflexes in the upper extremities are 1/4. Agricultural Service Worker strength is equal bilaterally. There is paraspinous muscle tightness through the cervical region and extreme tightness in the bilateral suprascapular muscles.. There is crepitance to range of motion of the cervical complex. Pain level today is 7 out of 10 which she describes as continuous, aching, avem-yes-nfjpnbl, stabbing, shooting, and gnawing, numbness, burning, miserable, [...] a 90-day supply of Gabapentin. Anais Walker MA - 08/19/2022 12:44 EST Skeletal Review of Systems Grid Joints Swelling/Stiffness : No Anais Walker MA 08/19/2022 12:44 EST Pain in Joint(s) : Yes Neuro Review of Systems Grid Difficulty w/Balance : No Anais Walker MA 08/19/2022 12:44 EST Difficulty Walking : No Weakness Lower Extremity (L) : Yes Weakness Lower Extremity (R) : Yes Weakness Upper Extremity (L) : Yes Weakness Upper Extremity (R) : Yes Stomach/Bowel Review of Systems Grid Constipation : No Diarrhea : No Nausea : No Vomiting : No Anais Walker [place] - 08/19/2022 12:41 EST Hematology Review of Systems Grid Bleeds Easily : No Blood Clots : No Low Blood Count : No Anais Walker [place] - 08/19/2022 12:41 EST Sleep Review of Systems Grid Daytime Sleepiness : No Anais Walker [place] - 08/19/2022 12:44 EST Fatigue : No Insomnia : Yes Snoring : No [2] I have reviewed and assessed the [place] Automated Rx Reporting System (OARRS) report for [...] plantarflexion are intact. MUSCULOSKELETAL: Gait normal . 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 Living situation: Home/Independent. Primary Avionics Repair Technician: DR MCGREGOR. Lives In: Single level home. Current Home Treatments None. Professional Skilled Services or Special Community Resources None. Financial concerns: No. Spouse Name: VINAY. Marital Status: ., 04/17/2020 Nutrition/Health Type of [...] 08/23/2022, # 270 tab(s), 0 Refill(s), Pharmacy: [facility], Radiculopathy Degenerative disc disease, cervical, 157.5, cm, 08/19/22 12:44:00 EST, Height, 84.8, kg, 08/19/22 12:44:00 EST,... oxyCODONE, Dose : 18 mg = 1 cap(s), Oral, q12h, fill date 08/23/2022, # 60 cap(s), 0 Refill(s), Pharmacy: [facility], Degeneration of intervertebral disc of cervical region Radiculopathy, 157.5, cm, 08/19/22 12:44:00 EST, Height, 84.8, kg, 07/30... PM Inj Spine C/T With Imaging 72331 2. Radiculopathy affecting upper extremity Bilateral upper extremities Ordered: PM Inj Spine C/T With Imaging 31927 3. Myofascial pain syndrome, cervical Ordered: PM Inj Spine C/T With Imaging 59495 Problem List/Past Medical History Ongoing Degenerative disc [...] 90 Days fill date 2021 Pickup at [facility] Changed oxyCODONE (Xtampza ER 18 mg oral capsule, extended release) 1 cap by mouth Every 12 hours Degeneration of intervertebral disc of cervical region Radiculopathy Duration: 30 Days fill date 2021 Pickup at [facility] Unchanged atorvastatin (atorvastatin 20 mg oral [...] prescriber if questions or concerns Pharmacy Information [facility]: [address] [place] [id number] [phone] [1] Ambulatory Comprehensive Intake - Pain Management; Anais Walker MA 08/19/2022 12:41 EST [2] Ambulatory Comprehensive Intake - Pain Management; Anais Walker MA 08/19/2022 12:41 EST Signature Line Digitally Signed by MILA KING on 08/19/2022 01:07 PM [1] [1] Specialty Office Visit Note; MILA KING 08/19/2022 13:07 EST Digitally Signed by JANI HALLMAN DO on 08/27/2022 12:35 PM [facility] 04-09-2022 Hospital Discharge instructions Patient Education 04/09/2022 09:06:05 PM Discharge Instructions no lines- post-procedure (17785) [facility] Discharge Instructions POST PROCEDURE INSTRUCTIONS [...] pharmacy with a fill date of 04/25/2022 [facility] 04-09-2022 Summary of episode note Discharge Instructions Thank you for allowing [facility] to assist you with your healthcare needs. The following is important discharge information regarding your hospital visit. Your Care Team ROBERTH CRABTREE MD Your Diagnosis Degenerative disc disease, [...] Duration: 30 Days fill date Pickup at [facility] Changed pregabalin (Lyrica 150 mg oral capsule) 1 cap by mouth Three (3) times a day Radiculopathy affecting upper extremity Degenerative disc disease, cervical Duration: 30 Days Note dosage increase Fill date 2021 Pickup at [facility] Unchanged atorvastatin (atorvastatin 20 mg oral [...] by mouth Daily at bedtime Pharmacy Information [facility]: [address] [place], [place] [id number] [phone] Please take this list to your next doctor s visit. Bring all medications you take, including over the counter medications, herbals and other supplements with you to your doctor s visit. Patients and families are reminded to discard old lists and to update any records with all medication providers or retail pharmacies. Education Materials [facility] Discharge Instructions POST PROCEDURE [...] to receive it can visit one of [facility] vaccine clinics. There are many vaccine clinic locations within the [facility]. For locations and available times, please visit [email or web address] It is important to note that some COVID mobile vaccine clinics are held outdoors and may be canceled in rainy or stormy conditions. To learn more about pediatric vaccinations (ages 5-11), we invite you to visit the [facility] webpage. [email or web address] To learn more about the COVID-19 vaccine, we invite you to visit the [facility] website for a list of frequently asked questions. [email or web address] [email or web address] [facility] Access Instructions: Stay connected with your healthcare team and access your personal medical information anytime with the [facility] Patient Portal.If you would like a full copy of your medical records, please contact the [facility] Medical Records Department, Thursday through Thursday between 8a.m. and 4:30p.m. Please follow the directions below to access the portal: 1.Access the email account you provided upon registration to the [facility].2.Look for an invitation email from [facility].3.Open the email and access the invitation link: Accept Invitation to [facility]4.Fill in the required erickson to create your account. Sign into [email or web address] with your username and password that you [...] you will allow to register on the [facility] Patient Portal for access to your information. You can also access the [facility] Patient Portal on the Tagstr. Simply click on Health Records under Health Data and then click on the [employer] logo. HOW TO SAFELY DISPOSE OF PRESCRIPTION [...] Call your local pharmacy or go to [email or web address] [email or web address] to find one close to you.3.Make use of household items: Use cat litter or old coffee grounds to dispose medications if other options are not available. Mix your drugs with these household products, seal them in an airtight container and throw it into the garbage. Call [facility]: [phone] to be sure your drugs can be [...] Materials PM Discharge Instructions no lines- post-procedure (61377) Medication Leaflets My discharge plan and instructions have been reviewed and explained to me and IOSMIN PATRICIA J understand my current condition and have read and understand these discharge instructions. I have received a written copy of the plan/instructions. If I have questions, I am aware that I should contact my doctor. Patient/Premium Note Interest Calculator Clerk Signature: Date/Time: Relationship to Patient: Witness Name/Signature: Date/Time: [facility] 04-09-2022 History and physical note Date of Service April 09, 2022 9:05 AM History and Physical Update I have examined the patient; reviewed the History and Physical and there are no changes to the History and Physical unless noted below. Deep tendon reflexes upper extremities are 1/4. 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 Anais Walker MA - 03/25/2022 13:16 EDT Skeletal Review of Systems Grid Joints Swelling/Stiffness : Yes Pain in Joint(s) : Yes Anais Walker MA 03/25/2022 13:16 EDT Neuro Review of Systems Grid Difficulty w/Balance : Yes Difficulty Walking : Yes Weakness Lower Extremity (L) : Yes Weakness Lower Extremity (R) : Yes Weakness Upper Extremity (L) : No Weakness Upper Extremity (R) : No Anais Walker [facility] 03/25/2022 13:16 EDT Stomach/Bowel Review of Systems Grid Constipation : Yes Diarrhea : No Nausea : No Vomiting : No Anais Walker [facility] 03/25/2022 13:16 EDT Stomach/Bowel ROS Comments : takes Anais Spain [facility] 03/25/2022 13:16 EDT Hematology Review of Systems Grid Bleeds Easily : No Blood Clots : No Low Blood Count : No Anais Walker [facility] 03/25/2022 13:16 EDT Sleep Review of Systems Grid Daytime Sleepiness : No Fatigue : Yes Insomnia : Yes Snoring : No [2] I have reviewed and assessed the [place] Automated Rx Reporting System (OARRS) report for [...] plantarflexion are intact. MUSCULOSKELETAL: Gait normal . 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 Living situation: Home/Independent. Primary Avionics Repair Technician: DR MCGREGOR. Lives In: Single level home. Current Home Treatments None. Professional Skilled Services or Special Community Resources None. Financial concerns: No. Spouse Name: VINAY. Marital Status: ., 04/17/2020 Nutrition/Health Type of [...] gabapentin., # 90 cap(s), 0 Refill(s), Pharmacy: [facility], Degenerative disc disease, cervical, 157.5, cm, 03/25/22 13:16:00 EDT, Height, 82.4 PM Inj Spine C/T With Imaging 87500 2. Radiculopathy affecting upper extremity Bilateral upper extremities. Ordered: PM Inj Spine C/T With Imaging 99156 3. Myofascial pain syndrome, cervical Continue baclofen prescribed elsewhere. Ordered: PM Inj Spine C/T With Imaging 29263 Problem List/Past Medical History Ongoing Degenerative disc [...] date 2021 D/ C gabapentin. Pickup at [facility] Unchanged atorvastatin (atorvastatin 20 mg oral [...] prescriber if questions or concerns Pharmacy Information [facility]: [address] [place], [place] [phone] What How Much When Why Comments Stop Taking gabapentin (Neurontin 800 mg oral tablet) 1 tab(s) by mouth Every 6 hours Radiculopathy Degeneration of intervertebral disc of cervical region Duration: 30 Days Fill date [1] Ambulatory Comprehensive Intake - Pain Management; Anais Walker ANNEL 03/25/2022 13:16 EDT [2] Ambulatory Comprehensive Intake - Pain Management; Anais Walker [place] 03/25/2022 13:16 EDT Signature Line Digitally Signed by MILA KING on 03/25/2022 01:51 PM [1] [1] Specialty Office Visit Note; MILA KING 03/25/2022 13:51 EDT Digitally Signed by JANI HALLMAN DO on 04/09/2022 09:[address] [facility] 08-30-2021 Hospital Discharge instructions Patient Education 08/30/2021 08:10:33 PM Discharge Instructions no lines- post-procedure (37935) [facility] Discharge Instructions POST PROCEDURE INSTRUCTIONS [...] times daily Jackie Jimenez. Happy new year! [facility] Evaluation + Plan note Future Appointments Appointment Date:08/30/2021 07:45:00 AM Scheduled Provider: Location:[facility]- [facility] Appointment Type:PM TPI 1- [address] [facility] Evaluation + Plan note Future Appointments Appointment Date:03/25/2022 01:00:00 PM Scheduled Provider:MILA KING Location:PM Office Appointment Type:PM OV FERNANDO BARKLEY [facility] Evaluation + Plan note Future Appointments Appointment Date:04/09/2022 08:45:00 AM Scheduled Provider: Location:Pain Management- [facility] Appointment Type:PM Inj Spine C/T With Imaging [facility] Evaluation + Plan note Future Appointments Appointment Date:06/17/2022 12:30:00 PM Scheduled Provider:JANI HALLMAN DO Location:PM Office Appointment Type:PM OV [facility] Evaluation + Plan note Future Appointments Appointment Date:09/11/2022 12:30:00 PM Scheduled Provider: Location:Pain Management- [facility] Appointment Type:PM Inj Spine C/T With Imaging [facility] Evaluation + Plan note Future Appointments Appointment Date:01/05/2023 12:00:00 PM Scheduled Provider:NENA PERDOMO Location:PM Office Appointment Type:PM OV [facility] Evaluation + Plan note Future Appointments Appointment Date:03/20/2023 01:00:00 PM Scheduled Provider:NENA PERDOMO Location:PM Office Appointment Type:PM [facility] Evaluation note Diagnosis Onset Date Breast lump acute [facility] Work Phone: Evaluation noteNo assessment information available [facility] Work Phone: Hospital course Narrative No data available for this section [facility] Hospital Discharge instructions No data available for this section [facility] progress note No data available for this section [facility] reason for referral (narrative)No reason for referral information [facility] Work Phone: Chief Complaint and Reason for Visit Chief Complaint left breast lump LEFT BREAST LUMP Reason for Visit Breast lump Chief Complaint E ORDER Chief Complaint CERVICAL/LUMBAR Chief Complaint CERVICAL RADICULOPAT HY Chief Complaint CERVICAL RADICULOPAT HY SCREENING Chief Complaint Admit Date DYSPHAGIA November 01, 2024 1 2:54pm SCREENING December 14, 2024 11: 43am Family History No Family History Records Found Relationship Condition Age at Onset Recorded Date/T georgina Not Specified Malignant neoplasm of prostate Unknown Cardiac disease Unknown Malignant neoplasm of lung Unknown father Myocardial infarction Unknown mother Rheumatoid arthritis Unknown mother Hypertension Unknown sister Hypertension Unknown Advance Directives No Advanced Directives Records Found Advance Directive Response Recorded Date/ Time Living Will Yes February 17, 2019 3 :59pm Power of Hand Grinder Yes February 17, 2019 3:59pm Advance Directive Response Recorded Date/ Time Living Will Yes February 17, 2019 2 :59pm Power of Hand Grinder Yes February 17, 2019 2:59pm Summary Purpose Additional Source Comments Care Team (unrecognized sect ion and content) Team Status: Active Member Role Status Dates Dr. Chi Pulliam MD Family Provider Active Dr. Roberth Crabtree MD Primary Care Provider Active Team Status: Inactive Member Role Status Dates Dr. Roberth Crabtree MD Primary Care Provi mateo, Attending Provider, Referring Provider Active Team Status: Inactive Member Role Status Dates Dr. Roberth Crabtree MD Primary Care Provider Active Dr. Mayank Avila MD Attending Provider Active Team Status: Inactive Member Role Status Dates Dr. Roberth Crabtree MD Primary Care Provider Active Dr. Janel Correa MD Attending Provider, Referr ing Provider Active Team Status: Active Member Role Status Dates Dr. Roberth Crabtree MD Primary Care Provider Active Team Status: Inactive Member Role Status Dates Dr. Roberth Crabtree MD Primary Care Provider Active Start: November 01, 2024 End: November 01, 2024 Dr. Roberth Crabtree MD Attending Provider Active Start: November 01, 2024 End: November 01, 2024 Dr. Roberth Crabtree MD Referring Provider Active Start: November 01, 2024 End: November 01, 2024 Team Status: Inactive Member Role Status Dates Dr. Roberth Crabtree MD Primary Care Provider Active Start: December 14, 2024 End: December 14, 2024 Dr. Sonya Barker DO Attending Provider Activ e Start: December 14, 2024 End: December 14, 2024 Dr. Sonya Barker DO Referring Provider Activ e Start: December 14, 2024 End: December 14, 2024 Care Team (unrecognized sect ion and content) Care Team Personnel Name: ROBERTH CRABTREE MD Member Role: Primary Care Physician Address: Address: [address] Care Team Related Persons Name: VINAY SOLORIO Name: ROBERT SOLORIO Care Team Personnel Name: ROBERTH CRABTREE MD Member Role: Primary Care Physician Address: Address: [address] [place] [address] [address] Care Team Related Persons Name: VINAY SOLORIO Name: ROBERT SOLORIO Care Team Personnel Name: ROBERTH CRABTREE MD Member Role: Primary Care Physician Address: Address: [address] [place] [address] [address] Care Team Related Persons Name: VINAY SOLORIO Name: ROBERT SOLORIO Care Team Personnel Name: ROBERTH CRABTREE MD Member Role: Primary Care Physician Address: Address: [address] [place] [address] [address] Care Team Related Persons Name: VINAY SOLORIO Name: ROBERT SOLORIO Care Team Personnel Name: ROBERTH CRABTREE MD Member Role: Primary Care Physician Address: Address: [address] [place] [address] [address] Care Team Related Persons Name: VINAY SOLORIO Name: ROBERT SOLORIO Goals (unrecognized section and content) Goals may be documented in a n alternate section INFORMATION SOURCE (unrecogn ized section and content) DATE CREATED AUTHOR 04/01/2023 [facility] ([place]) DATE CREATED AUTHOR AUTHOR'S ORGANIZ ATION 01/03/2025 [facility] FOR RECORDS PERTAINING TO PATIENTS WHO ARE [...] BE BASED ON THE PRIMARY CLINICAL RECORDS. [employer] [facility]. provides no warranty or guarantee of the accuracy or completeness of information in this document.
--- OUTSIDE RECORDS SUMMARY | 2025-03-29 18:53 | XMS RPT_ITS | CCD ---
Author Organization [facility] Inform ion Partnership [facility] Care Team Providers Care Line Technician Name Role Phone LEYDA MEADOWS, DR ROBERTH Montenegro Primary Care Physician Leyda, Dr. Lepe Primary Care Provider Leyda, Dr. Lepe Referring Provider Dr. Sonya Barker Attending Provider LEYDA MEADOWS, DR ROBERTH Montenegro Primary Care Physician DANIEL PATRICK, DR [...] A Attending Salbador CRABTREE MD, DR ROBERTH Montenegor Primary Care Lois RESENDIZ, NENA A Attending [...] Unavailable Roberth Crabtree Primary Care Unavailable Roberth Crabtree Attending Unavailable Leyda, Roberth Referring Unavailable Sonya [...] 03/21/2023., # 270 tab(s), 0 Refill(s), Pharmacy: [facility], Radiculopathy Degenerative disc disease, cervical, 03/21/23, [...] 11/17/2022., # 270 tab(s), 0 Refill(s), Pharmacy: [facility], Radiculopathy Degenerative disc disease, cervical, 11/17/22, 157, cm, 11/05/22 12:12:00 EST, Height, 85.5, kg, 11/05/22 12:12:00 E... Start Date: 11/05/22 Stop Date: 02/03/23 Status: Ordered Start: 01-07-2022 End: 02-06-2022 Neurontin 800 mg oral tablet Dose : 800 mg = 1 tab(s), Oral, q6hr, Fill date January 26, 2022, # 120 tab(s), 0 Refill(s), Pharmacy: [facility], Radiculopathy Degeneration of intervertebral disc of cervical region, 01/26/22, 157.5, cm, 01/07/22 13:51:00 EDT, Height, 8... Start Date: 01/07/22 Stop Date: 02/06/22 Status: Ordered Start: 10-16-2021 End: 11-15-2021 Neurontin 800 mg oral tablet Dose : 800 mg = 1 tab(s), Oral, q6hr, fill date was 1 day early last month, ok to fill 10/29/21, # 120 tab(s), 0 Refill(s), Pharmacy: [facility], Radiculopathy Degeneration of intervertebral disc of cervical region, 10/29/21, 157.5,... Start Date: 10/16/21 Stop Date: 11/15/21 Status: Ordered Start: 08-06-2021 End: 09-05-2021 Neurontin 800 mg oral tablet Dose : 800 mg = 1 tab(s), Oral, q6hr, Fill date August 28, 2021, # 120 tab(s), 0 Refill(s), Pharmacy: [facility], Radiculopathy Degeneration of intervertebral disc [...] 0 Refill(s) Start Date: 07/07/19 Status: Ordered Shocwqkrhxqf-Yi-Ktle-Min erals (5 sources) Start: 02-17-2019 take 1 tablet by mouth once daily Oucskuqvwxbw-Wc-Qukv-Mi nerals Active 1 TABLET PO DAILY February 16, 2019 11:00pm Start: 02-17-2019 take 1 tablet by pancho th once daily Brubzpcnelvp-Rs-Fyyn-Minerals Active 1 T ABLET PO DAILY February 17, 2019 12:00am Qcopkhuvuxbx-Fs-Nwhm-Mineral s 1 EACH tablet (1 source) Start: 02-17-2019 take 1 tablet by mouth once daily Bjaenohgoybm-Ec-Nmzq-Minerals 1 EACH tablet Active 1 {tbl} PO DAILY February 17, 2019 12:00am oxyCODONE 18 mg 12 hr extend ed release oral capsule, abuse-deterrent (20 sources) Opioid Agonist Start: 03-30-2023 End: 04-29-2023 Xtampza ER 18 mg oral capsul e, extended release Dose : 18 mg = 1 cap(s), Oral, q12h, Fill date 04/20/2023, # 60 cap(s), 0 Refill(s), Pharmacy: [facility], Degeneration of intervertebral disc of cervical region Radiculopathy, 04/20/23, 157, cm, 03/30/23 8:03:00 EDT, Height, 85, kg,... Start Date: 03/30/23 Stop Date: 04/29/23 Status: Ordered Start: 01-07-2022 End: 02-06-2022 OxyContin 20 mg oral tablet, extended release Dose : 20 mg = 1 tab(s), Oral, q12h, Fill date January 26, 2022, # 60 tab(s), 0 Refill(s), Pharmacy: [facility], Myofascial pain syndrome, cervical Spinal stenosis, 01/26/22, 157.5, cm, 01/07/22 13:51:00 EDT, Height, 83.7 Start Date: 01/07/22 Stop Date: 02/06/22 Status: Ordered Start: 02-17-2019 End: 02-04-2023 Xtampza ER 18 mg oral capsul e, extended release Dose : 18 mg = 1 cap(s), Oral, q12h, fill 01/20/2023., # 60 cap(s), 0 Refill(s), Pharmacy: [facility], Degeneration of intervertebral disc of cervical [...] 04/25/2022, # 90 cap(s), 0 Refill(s), Pharmacy: [facility], Radiculopathy affecting upper extremity Degenerative disc disease, cervical, 04/25/22, 157, cm, ... Start Date: 04/09/22 Stop Date: 05/09/22 Status: Ordered Start: 03-25-2022 End: 04-24-2022 pregabalin 100 mg oral capsu le Dose : 100 mg = 1 cap(s), Oral, TID, fill date 03/26/2022 D/C gabapentin., # 90 cap(s), 0 Refill(s), Pharmacy: [facility], Degenerative disc disease, cervical, 157.5, cm, [...] Refill(s) Start Date: 07/07/19 Status: Ordered sennosides, fdc 8.6 mg oral tablet (14 sources) Start: 07-07-2019 senna 8.6 mg oral tablet Dose : 17.2 mg = 2 tab(s), Oral, qHS, 0 Refill(s) Start Date: 07/07/19 Status: Ordered Start: 02-17-2019 Sennosides 1 T ABLET tablet Active 2 - 3 {tbl} PO AT BEDTIME February 17, 2019 12:00am Start: 02-17-2019 take 1 tablet by pancho th at bedtime Sennosides Active 2 - [...] weeks then decrease to 2x/week. lactobacillus acidophilus [id number] unt oral capsule (6 sources) Start: 02-17-2019 [...] Test Name Value Interpretation Reference Range Facility [employer]ing [employer] Specialist Office Visit Reporton 01-02-2025 Streaming Media Specialist Office Visit Report [facility] [address], [address] [place] [address] OFFICE VISIT Date of Service: 01/02/25 MR#: [id number] Acct: [id number] Name: RONALDO SOLORIO Rep #: [id number] : 1955 Provider: Dr. 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) Restrooms Or Lounges Maid Required: No Is patient in pain?: No Allergies No Known Allergies Allergy (Verified 12/31/23 11:42) Medications ???Medication ???Instructions ???Recorded ???Confirmed ???Type atorvastatin 20 mg tablet 20 mg PO DAILY cholesterol 9 01/02/25 History baclofen 20 mg tablet 20 mg PO TID muscle spasms 9 01/02/25 History celecoxib 200 mg capsule 200 mg PO DAILY imflammation 02/1701/02/25 History yzyezjwhgkfq-Hi-xqdb -minerals 1 tab PO DAILY supplement 02/17/19 [...] acute distress, well developed and well groomed HENLA Head: normal to inspection and normocephalic Ears: hearing grossly normal b (more content not included)... Normal Breast imaging reportOrdered By: Rory Wright on 12-14-2024 Study report [facility] Imaging Services [address] [place] [address] SCRN MAMM (CAD)W/DIMITRIOS BILAT MR#: [id number] Acct: [id number] Name: RONALDO SOLORIO CHASE Rep #: [id number] : 1955 F 69 From: Silvestre Wright MD PCP: Dr. Roberth Crabtree MD Status: REG C RAÚL Study:SCRN MAMM (CAD)W/DIMITRIOS BILAT Date of Exa m: 12/14/24 Exam# [id number] Ordering Dr: Sonya Fu DO EXAM: SCRN [...] be mailed to the patient. Reading Location: [place] [address] CC: Dr. Sonya Barker DO; Dr. Roberth Crabtree MD ~ Tissue Technician: Signed SCRN MAMM (CAD)W/DIMITRIOS BILATo n 12-14-2024 SCRN MAMM (CAD)W/DIMITRIOS BILAT [facility] Imaging Services [address] [place] [address] SCRN MAMM (CAD)W/DIMITRIOS BILAT MR#: [id number] Acct: [id number] Name: RONALDO SOLORIO Rep #: [id number] : 1955 F 69 From: Rory grace MD PCP: Dr. Roberth Crabtree MD Status: REG CL Study: SCRN MAMM (CAD)W/DIMITRIOS BILAT Date of Exam: 11/26 06/22 Exam# [id number] Ordering Dr: Sonya Barker DO EXAM: SCRN [...] be mailed to the patient. Reading Location: [place] [address] CC: Dr. Sonya Barker DO; Dr. Roberth Crabtree MD Tissue Technician: Signed Normal Modified Barium Swallow Stud yon 11-01-2024 Modified Barium Swallow Study [facility] Speech Pathology [address] [place] [address] Modified Barium Swallow Study MR#: [id number] Acct: [id number] Name: RONALDO SOLORIO Rep #: [id number] : 1955 68 From: Leydi Lr M.A. [facility]-DENTIST/OWNER Modified Barium Swallow Patient Information Study Date: [...] cup: Result: 2= enter airway/above vocal folds/ejected [place] Thick Liquid via large single sip: cup: [...] Diet: Reg (more content not included)... Normal Basophil percentageOrdered B y: Dr. Cratbree on 10-29-2022 Chloride [Moles/Vol] 105 mmol/L 98-107 [facility] Cholesterol [Mass/Vol] 186 mg/dL <200 [facility] Comment on above: <200 mg/dL Desirable 200-240 mg/dL Borderline >240 mg/dL High Risk Glucose [Mass/Vol] 100 mg/dL 74-106 [facility] Comment on above: Fasting Glucose resu lt from 100 to 125 mg/dL suggests IMPAIRED HOMEOSTASIS per A.D.A. criteria. Potassium [Moles/Vol] 4.2 mmol/L 3.5-5.1 [facility] Sodium [Moles/Vol] 141 mmol/L 136-145 [facility] Triglyceride [Mass/Vol] 157 mg/dL <199 [facility] Comment on above: The drugs N-Acetylcy steine and Metamizole may falsely depress this assay.Serum Triglycerides Reference Interval Normal <150 mg/dL Borderline high 150 - 199 mg/dL High 200 - 499 mg/dL Very High > or = 500 mg/dL Laboratory - Chemistry and C hemistry - challengeOrdered By: Dr. Crabtree on 10-29-2022 CO2 [Moles/Vol] 31.0 mmol/L 21.0-32.0 Urea nitrogen/Creatinine [Mass ratio] 22.9 mg/mg 10-20 No Panel InformationOrdered By: Dr. Crabtree on 10-29-2022 Estimated GFR (MDRD) Amer 84 mL/min >60 Comment on above: GFR Calc Estimated GFR (MDRD) Non-Af Amer 69 mL/min >60 Comment on above: Non- GFR Calc Vitamin D 25-Hydroxy 27.6 ng/mL [facility] Comment on above: Vitamin D 25(OH) Sta tus Range Deficiency <20 ng/mL (50nmol/L) Insufficiency 20 - 30 ng/mL (50 - 75 nmol/L) Sufficiency 30 - 100 ng/mL (75 - 250 nmol/L) Toxicity >100 ng/mL (>250 nmol/L) Serum or plasma calcium janet urement (mass/volume)Ordered By: Dr. Crabtree on 10-29-2022 Calcium [Mass/Vol] 9.2 mg/dL 8.5-10.1 [facility] Serum or plasma cholesterol in HDL measurement (mass/volume)Ordered By: Dr. Crabtree on 10-29-2022 Cholesterol in HDL [Mass/Vol] 47 mg/dL >40 Comment on above: The drugs N-Acetylcy steine and Metamizole may falsely depress this assay. Reference Range HDL <40 mg/dL Low HDL Cholesterol HDL >or= 60 mg/dL High HDL Cholesterol Serum or plasma cholesterol in VLDL measurement (mass/volume)Ordered By: Dr. Crabtree on 10-29-2022 Cholesterol in VLDL [Mass/Vol] 31 mg/dL 5-40 Serum or plasma creatinine m easurement (mass/volume)Ordered By: Dr. Crabtree on 10-29-2022 Creatinine [Mass/Vol] 0.87 mg/dL 0.55-1.02 [facility] Comment on above: The validity of the calculated GFR & GFRAA in patients over 70 years has not been determined. Clinical correlation is essential. Serum or plasma low density lipoprotein (LDL) cholesterol measurement (mass/volume)Ordered By: Dr. Crabtree on 10-29-2022 Cholesterol in LDL [Mass/Vol] 108 mg/dL 0-130 Serum or plasma urea nitroge n measurement (mass/volume)Ordered By: Dr. Crabtree on 10-29-2022 Urea nitrogen [Mass/Vol] 20 mg/dL 7-18 Thin prep Papanicolaou smear with manual screeningOrdered By: Dr. Crabtree on 10-29-2022 Thin prep Papanicolaou smear with manual screening 5 5-15 Vital Signs Date Time Vital Sign Value Performing Clinician Facility 03-30-2023 09:01-0400 Blood Pressure Cuff Size ENNA PERDOMO APRN-DEBUBBLIZER [facility] 03-30-2023 09:01-0400 Blood Pressure Location NENA PERDOMO APRN-DEBUBBLIZER [facility] 03-30-2023 09:01-0400 Blood Pressure Method NENA PERDOMO APRN-DEBUBBLIZER [facility] 03-30-2023 09:01-0400 Diastolic Blood Pressure Non-Invasive 60 1 NENA PERDOMO APRN-DEBUBBLIZER [facility] 03-30-2023 09:01-0400 Heart rate 82 /min NENA PERDOMO APRN-DEBUBBLIZER [facility] 03-30-2023 09:01-0400 Respiratory rate 9 /min NENA PERDOMO APRN-DEBUBBLIZER [facility] 03-30-2023 09:01-0400 Systolic Blood Pressure Non-Invasive 117 1 NENA PERDOMO APRN-DEBUBBLIZER [facility] 03-30-2023 08:53-0400 Blood Pressure Cuff Size NENA PERDOMO APRN-DEBUBBLIZER [facility] 03-30-2023 08:53-0400 Blood Pressure Location NENA PERDOMO APRN-DEBUBBLIZER [facility] 03-30-2023 08:53-0400 Blood Pressure Method NENA PERDOMO APRN-DEBUBBLIZER [facility] 03-30-2023 08:53-0400 Diastolic Blood Pressure Non-Invasive 69 1 NENA PERDOMO APRN-DEBUBBLIZER [facility] 03-30-2023 08:53-0400 Heart rate 81 /min NENA PERDOMO APRN-DEBUBBLIZER [facility] 03-30-2023 08:53-0400 Respiratory rate 10 /min NENA PERDOMO DIVISION HEAD-DEBUBBLIZER [facility] 03-30-2023 08:53-0400 Systolic Blood Pressure Non-Invasive 121 1 NENA PERDOMO APRN-DEBUBBLIZER [facility] 03-30-2023 08:45-0400 Diastolic Blood Pressure Non-Invasive 70 1 NENA PERDOMO APRN-DEBUBBLIZER [facility] 03-30-2023 08:45-0400 Heart rate 85 /min NENA PERDOMO APRN-DEBUBBLIZER [facility] 03-30-2023 08:45-0400 Respiratory rate 11 /min NENA PERDOMO APRN-DEBUBBLIZER [facility] 03-30-2023 08:45-0400 Systolic Blood Pressure Non-Invasive 110 1 NENA PERDOMO APRN-DEBUBBLIZER [facility] 03-30-2023 08:39-0400 Blood Pressure Cuff Size NENA PERDOMO APRN-DEBUBBLIZER [facility] 03-30-2023 08:39-0400 Blood Pressure Location NENA PERODMO APRN-DEBUBBLIZER [facility] 03-30-2023 08:39-0400 Blood Pressure Method NENA PERDOMO DIVISION HEAD-DEBUBBLIZER [facility] 03-30-2023 08:39-0400 Heart rate 88 /min NENA PERDOMO DIVISION HEAD-DEBUBBLIZER [facility] 03-30-2023 08:03-0400 Body height 157 cm NENA PERDOMO APRN-DEBUBBLIZER [facility] 03-30-2023 08:03-0400 Body weight 85 kg NENA PERDOMO APRN-DEBUBBLIZER [facility] 03-30-2023 08:03-0400 Body weight 34.48 kg/m2 NENA PERDOMO APRN-DEBUBBLIZER [facility] 01-22-2023 08:01-0400 Diastolic Blood Pressure Non-Invasive 74 1 NENA PERDOMO DIVISION HEAD-DEBUBBLIZER [facility] 01-22-2023 08:01-0400 Heart rate 81 /min NENA PERDOMO DIVISION HEAD-DEBUBBLIZER [facility] 01-22-2023 08:01-0400 Respiratory rate 12 /min NENA PERDOMO DIVISION HEAD-DEBUBBLIZER [facility] 01-22-2023 08:01-0400 Systolic Blood Pressure Non-Invasive 106 1 NENA PERDOMO APRN-DEBUBBLIZER [facility] 01-22-2023 07:44-0400 Diastolic Blood Pressure Non-Invasive 70 1 NENA PERDOMO APRN-DEBUBBLIZER [facility] 01-22-2023 07:44-0400 Heart rate 74 /min NENA PERDOMO APRN-DEBUBBLIZER [facility] 01-22-2023 07:44-0400 Respiratory rate 11 /min NENA PERDOMO DIVISION HEAD-DEBUBBLIZER [facility] 01-22-2023 07:44-0400 Systolic Blood Pressure Non-Invasive 136 1 NENA PERDOMO APRN-DEBUBBLIZER [facility] 01-22-2023 07:37-0400 Diastolic Blood Pressure Non-Invasive 78 1 NENA PERDOMO DIVISION HEAD-DEBUBBLIZER [facility] 01-22-2023 07:37-0400 Heart rate 76 /min NENA PERDOMO APRN-DEBUBBLIZER [facility] 01-22-2023 07:37-0400 Respiratory rate 12 /min NENA PERDOMO APRN-DEBUBBLIZER [facility] 01-22-2023 07:37-0400 Systolic Blood Pressure Non-Invasive 120 1 NENA PERODMO APRN-DEBUBBLIZER [facility] 01-22-2023 07:11-0400 Body height 157.5 cm NENA PERDOMO APRN-DEBUBBLIZER [facility] 01-22-2023 07:11-0400 Body weight 85.6 kg NENA PERDOMO APRN-DEBUBBLIZER [facility] 01-22-2023 07:11-0400 Body weight 34.51 kg/m2 NENA PERDOMO APRN-DEBUBBLIZER [facility] 01-22-2023 07:11-0400 Heart rate 80 /min NENA PERDOMO APRN-DEBUBBLIZER [facility] 08-27-2022 13:15-0500 Blood Pressure Cuff Size MILA KING DIVISION HEAD-RAIL DOWELING MACHINE OPERATOR [facility] 08-27-2022 13:15-0500 Blood Pressure Location MILA KING DIVISION HEAD-RAIL DOWELING MACHINE OPERATOR [facility] 08-27-2022 13:15-0500 Blood Pressure Method MILA MCCLURETT DIVISION HEAD-RAIL DOWELING MACHINE OPERATOR [facility] 08-27-2022 13:15-0500 Diastolic Blood Pressure Non-Invasive 72 1 MILA RIVEARWITT DIVISION HEAD-RAIL DOWELING MACHINE OPERATOR [facility] 08-27-2022 13:15-0500 Heart rate 80 /min MILA KING DIVISION HEAD-RAIL DOWELING MACHINE OPERATOR [facility] 08-27-2022 13:15-0500 Respiratory rate 13 /min MILA KING DIVISION HEAD-RAIL DOWELING MACHINE OPERATOR [facility] 08-27-2022 13:15-0500 Systolic Blood Pressure Non-Invasive 143 1 MILA KING DIVISION HEAD-RAIL DOWELING MACHINE OPERATOR [facility] 08-27-2022 13:02-0500 Blood Pressure Cuff Size MILA KING APRN-RAIL DOWELING MACHINE OPERATOR [facility] 08-27-2022 13:02-0500 Blood Pressure Location MILA KING DIVISION HEAD-RAIL DOWELING MACHINE OPERATOR [facility] 08-27-2022 13:02-0500 Blood Pressure Method MILA KING DIVISION HEAD-RAIL DOWELING MACHINE OPERATOR [facility] 08-27-2022 13:02-0500 Diastolic Blood Pressure Non-Invasive 53 1 MILA KING DIVISION HEAD-RAIL DOWELING MACHINE OPERATOR [facility] 08-27-2022 13:02-0500 Heart rate 71 /min MILA KING DIVISION HEAD-RAIL DOWELING MACHINE OPERATOR [facility] 08-27-2022 13:02-0500 Reason For Taking VItal Signs MILA KING DIVISION HEAD-RAIL DOWELING MACHINE OPERATOR [facility] 08-27-2022 13:02-0500 Respiratory rate 13 /min MILA KING DIVISION HEAD-RAIL DOWELING MACHINE OPERATOR [facility] 08-27-2022 13:02-0500 Systolic Blood Pressure Non-Invasive 146 1 MILA KING DIVISION HEAD-RAIL DOWELING MACHINE OPERATOR [facility] 08-27-2022 12:51-0500 Diastolic Blood Pressure Non-Invasive 74 1 MILA MCCLURETT DIVISION HEAD-RAIL DOWELING MACHINE OPERATOR [facility] 08-27-2022 12:51-0500 Heart rate 78 /min MILA KING DIVISION HEAD-RAIL DOWELING MACHINE OPERATOR [facility] 08-27-2022 12:51-0500 Respiratory rate 12 /min MILA KING DIVISION HEAD-RAIL DOWELING MACHINE OPERATOR [facility] 08-27-2022 12:51-0500 Systolic Blood Pressure Non-Invasive 134 1 MILA MCCLURETT DIVISION HEAD-RAIL DOWELING MACHINE OPERATOR [facility] 08-27-2022 12:46-0500 Heart rate 78 /min MILA KING DIVISION HEAD-RAIL DOWELING MACHINE OPERATOR [facility] 08-27-2022 12:09-0500 Blood Pressure Location MILA MCCLURETT DIVISION HEAD-RAIL DOWELING MACHINE OPERATOR [facility] 08-27-2022 12:09-0500 Blood Pressure Method MILA MCCLURETT DIVISION HEAD-RAIL DOWELING MACHINE OPERATOR [facility] 08-27-2022 12:09-0500 Body height 157.5 cm MILA KING DIVISION HEAD-RAIL DOWELING MACHINE OPERATOR [facility] 08-27-2022 12:09-0500 Body weight 83.4 kg MILA FERNANDO DIVISION HEAD-RAIL DOWELING MACHINE OPERATOR [facility] 08-27-2022 12:09-0500 Body weight 33.62 kg/m2 MILA KING DIVISION HEAD-RAIL DOWELING MACHINE OPERATOR [facility] 08-27-2022 12:09-0500 Heart rate 88 /min MILA KING DIVISION HEAD-RAIL DOWELING MACHINE OPERATOR [facility] 06-04-2022 14:31-0400 Body height 157.[address] Roberth Crabtree Work Phone: Work Phone: 06-04-2022 14:29-0400 Body mass index (BMI) [Ratio] 33.5 kg/m2 Dr. Roberth Crabtree Work Phone: Work Phone: 06-04-2022 14:29-0400 Body weight 83.[address] Roberth Crabtree Work Phone: Work Phone: 06-04-2022 14:29-0400 Diastolic blood pressure 87 mm[Hg] Dr. Roberth Crabtree Work Phone: Work Phone: 06-04-2022 14:29-0400 Systolic blood pressure 132 mm[Hg] Dr. Roberth Crabtree Work Phone: Work Phone: 04-09-2022 09:39-0400 Diastolic blood pressure 75 mm[Hg] MILA KING DIVISION HEAD-RAIL DOWELING MACHINE OPERATOR [facility] 04-09-2022 09:39-0400 Heart rate 76 /min MILA KING DIVISION HEAD-RAIL DOWELING MACHINE OPERATOR [facility] 04-09-2022 09:39-0400 Respiratory rate 10 /min MILA KING DIVISION HEAD-RAIL DOWELING MACHINE OPERATOR [facility] 04-09-2022 09:39-0400 Systolic blood pressure 122 mm[Hg] MILA KING DIVISION HEAD-RAIL DOWELING MACHINE OPERATOR [facility] 04-09-2022 09:19-0400 Diastolic blood pressure 77 mm[Hg] MILA KING DIVISION HEAD-RAIL DOWELING MACHINE OPERATOR [facility] 04-09-2022 09:19-0400 Heart rate 73 /min MILA KING DIVISION HEAD-RAIL DOWELING MACHINE OPERATOR [facility] 04-09-2022 09:19-0400 Mean blood pressure 92 mm[Hg] MILA KING DIVISION HEAD-RAIL DOWELING MACHINE OPERATOR [facility] 04-09-2022 09:19-0400 Respiratory rate 12 /min MILA KING DIVISION HEAD-RAIL DOWELING MACHINE OPERATOR [facility] 04-09-2022 09:19-0400 Systolic blood pressure 121 mm[Hg] MILA MCCLURETT DIVISION HEAD-RAIL DOWELING MACHINE OPERATOR [facility] 04-09-2022 09:11-0400 Diastolic Blood Pressure NBP 72 1 MILA KING DIVISION HEAD-RAIL DOWELING MACHINE OPERATOR [facility] 04-09-2022 09:11-0400 Heart rate 77 /min MILA KING DIVISION HEAD-RAIL DOWELING MACHINE OPERATOR [facility] 04-09-2022 09:11-0400 Respiratory rate 10 /min MILA MCCLURETT DIVISION HEAD-RAIL DOWELING MACHINE OPERATOR [facility] 04-09-2022 09:11-0400 Systolic Blood Pressure NBP 118 1 MILA KING DIVISION HEAD-RAIL DOWELING MACHINE OPERATOR [facility] 04-09-2022 09:06-0400 Diastolic Blood Pressure NBP 67 1 MILA MCCLURETT DIVISION HEAD-RAIL DOWELING MACHINE OPERATOR [facility] 04-09-2022 09:06-0400 Heart rate 79 /min MILA MCCLURETT DIVISION HEAD-RAIL DOWELING MACHINE OPERATOR [facility] 04-09-2022 09:06-0400 Systolic Blood Pressure NBP 123 1 MILA KING DIVISION HEAD-RAIL DOWELING MACHINE OPERATOR [facility] 04-09-2022 08:45-0400 Body height 157 cm MILA KING DIVISION HEAD-RAIL DOWELING MACHINE OPERATOR [facility] 04-09-2022 08:45-0400 Body weight 82.5 kg MILA KING DIVISION HEAD-RAIL DOWELING MACHINE OPERATOR [facility] 04-09-2022 08:45-0400 Body weight 33.47 kg/m2 MILA KING DIVISION HEAD-RAIL DOWELING MACHINE OPERATOR [facility] 04-09-2022 08:45-0400 diastolic 72 mm[Hg] MILA KING DIVISION HEAD-RAIL DOWELING MACHINE OPERATOR [facility] 04-09-2022 08:45-0400 Heart rate 75 /min MILA KING DIVISION HEAD-RAIL DOWELING MACHINE OPERATOR [facility] 04-09-2022 08:45-0400 systolic 151 mm[Hg] MILA KING DIVISION HEAD-RAIL DOWELING MACHINE OPERATOR [facility] 08-30-2021 08:36-0500 Diastolic Blood Pressure NBP [address] JANI HALLMAN DO [facility] 08-30-2021 08:36-0500 Heart rate 91 /min DR JANI HALLMAN DO [facility] 08-30-2021 08:36-0500 Respiratory rate 16 /min DR JANI HALLMAN DO [facility] 08-30-2021 08:36-0500 Systolic Blood Pressure NBP [address] JANI HALLMAN DO [facility] 08-30-2021 08:21-0500 Diastolic Blood Pressure NBP [address] JANI HALLMAN DO [facility] 08-30-2021 08:21-0500 Heart rate 96 /min DR JANI HALLMAN DO [facility] 08-30-2021 08:21-0500 Respiratory rate 11 /min DR JANI HALLMAN DO [facility] 08-30-2021 08:21-0500 Systolic Blood Pressure NBP [address] JANI HALLMAN DO [facility] 08-30-2021 08:01-0500 Body height 157.[address] JANI HALLMAN DO [facility] 08-30-2021 08:01-0500 Body weight 83.[address] JANI HALLMAN DO [facility] 08-30-2021 08:01-0500 Body weight 33.5 kg/m2 DR JANI HALLMAN DO [facility] 08-30-2021 08:01-0500 diastolic 95 mm[Hg] DR JANI HALLMAN DO [facility] 08-30-2021 08:01-0500 Heart rate 99 /min DR JANI HALLMAN DO [facility] 08-30-2021 08:01-0500 Respiratory rate 16 /min DR JANI HALLMAN DO [facility] 08-30-2021 08:01-0500 systolic 133 mm[Hg] DR JANI HALLMAN DO [facility] Encounters Encounter Date Encounter Type Care Provider Facility Start: 01-02-2025 Encounter for gynecological examination (general) (routine) without abnormal findings Sonya Hernandeztim Burroughs Start: 01-02-2025 End: 01-02-2025 ambulatory Sonya Hernandeztim Burroughs Facility:[facility] Start: 12-14-2024 End: 12-14-[address] Roberth Crabtree MD Work Phone: Work Phone: Start: 12-14-2024 End: 12-14-[address] Sonya Barker DO -Outpatient Breast Imaging Work Phone: Start: 12-14-2024 End: 12-[facility] Start: 11-01-2024 End: 11-01-[address] Roberth Crabtree MD -Radiology, [facility] Work Phone: Start: 11-01-2024 End: 11-01-2024 ambulatory Roberth Crabtree Facility: Start: 12-14-2023 End: 12-14-2023 ambulatory Work Phone: Start: 12-14-2023 End: 12-14-2023 Patient encounter procedure -Outpatient Breast Imaging Work Phone: Start: 11-11-2023 End: 11-11-2023 ambulatory Work Phone: Start: 11-11-2023 End: 11-11-2023 Patient encounter procedure -MRI - [facility] Work Phone: Start: 06-09-2023 End: 06-09-2023 ambulatory Work Phone: Start: 06-09-2023 End: 06-09-2023 Patient encounter procedure -Radiology, [place] Work Phone: Start: 03-30-2023 End: 03-30-[address] JANI HALLMAN DO Facility:A Start: 03-30-2023 End: 03-30-2023 Minor Procedure NENA Mally CONOR DIVISION HEAD-DEBUBBLIZER [facility] Start: 03-20-2023 End: 03-21-[address] ROBERTH CRABTREE MD Facility:A Start: 01-22-2023 End: 01-22-[address] ROBERTH CRABTREE MD Facility:A Start: 01-22-2023 End: 01-22-2023 Minor Procedure NENA Mally CONOR DIVISION HEAD-DEBUBBLIZER [facility] Start: 01-05-2023 End: 01-06-[address] ROBERTH CRABTREE MD Facility:A Start: 11-05-2022 End: 11-06-[address] ROBERTH CRABTREE MD Facility:A Start: 11-05-2022 End: 11-05-2022 Patient encounter procedure NENA PERDOMO DIVISION HEAD-DEBUBBLIZER [facility] Start: 10-29-2022 End: 10-29-2022 ambulatory Work Phone: Start: 10-29-2022 End: 10-29-2022 Patient encounter procedure [facility] Start: 08-27-2022 End: 08-27-[address] JANI HALLMAN DO Facility:A Start: 08-27-2022 End: 08-27-2022 Minor Procedure MILA FERNANDO DIVISION HEAD-RAIL DOWELING MACHINE OPERATOR [facility] Start: 08-19-2022 End: 08-20-2022 ambulatory MILA KING DIVISION HEAD-RAIL DOWELING MACHINE OPERATOR Facility:A Start: 08-19-2022 End: 08-19-2022 Patient encounter procedure MILA KING DIVISION HEAD-RAIL DOWELING MACHINE OPERATOR [facility] Start: 06-23-2022 End: 06-24-[address] JANI HALLMAN DO Facility:A Start: 06-16-2022 End: 06-16-[address] Roberth Crabtree Work Phone: Work Phone: Start: 06-16-2022 End: 06-16-[address] Roberth Crabtree Work Phone: -Outpatient Breast Imaging Start: 06-04-2022 End: 06-04-[address] Roberth Crabtree Work Phone: [facility] Start: 04-09-2022 End: 04-09-2022 ambulatory MILA KING DIVISION HEAD-RAIL DOWELING MACHINE OPERATOR Facility:A Start: 04-09-2022 End: 04-09-2022 Minor Procedure MILA KING APRN-RAIL DOWELING MACHINE OPERATOR [facility] Start: 03-25-2022 End: 03-25-2022 Patient encounter procedure MILA KING DIVISION HEAD-RAIL DOWELING MACHINE OPERATOR [facility] Start: 01-07-2022 End: 01-07-[address] JANI HALLMAN DO [facility] Start: 10-29-2021 End: 10-29-[address] JANI HALLMAN DO [facility] Start: 08-30-2021 End: 08-30-[address] JANI HALLMAN DO [facility] Start: 08-06-2021 End: 08-06-[address] JANI HALLMAN DO [facility] Procedures Date Procedure Procedure Detail Performing Clinician Start: 12-14-2024 Screening mammography Lincoln Crabtree MD Work Phone: Start: 11-01-[address] Roberth reich MD Work Phone: Start: 12-14-2023 Screening mammography Start: 11-11-2023 MRI of cervical spine Start: 06-09-2023 X-ray of cervical spine Start: 06-09-2023 X-ray of lumbosacral spine Start: 03-30-2023 PM Inj Spine C/T [facility] SN 1 NENA PERDOMO DIVISION HEAD-DEBUBBLIZER Comment on above: auto-populated from documented surgical case Start: 01-22-2023 PM Inj Spine C/T [facility] Imaging SN 1 NENA PERDOMO DIVISION HEAD-DEBUBBLIZER Comment on above: auto-populated from documented surgical case Start: 01-22-2023 PM Inj Spine C/T [facility] Imaging SN 2 NENA PERDOMO DIVISION HEAD-DEBUBBLIZER Comment on above: auto-populated from documented surgical case Start: 08-27-2022 PM Inj Spine C/T [facility] Imaging SN 1 MILA KING DIVISION HEAD-RAIL DOWELING MACHINE OPERATOR Comment on above: auto-populated from documented surgical case Start: 08-27-2022 PM Inj Spine C/T [facility] Imaging SN 2 NENA PERDOMO DIVISION HEAD-DEBUBBLIZER Comment on above: auto-populated from documented surgical case Start: 08-27-2022 PM Inj Spine C/T [facility] Imaging SN 3 NENA PERDOMO DIVISION HEAD-DEBUBBLIZER Comment on above: auto-populated from documented surgical case Start: 06-16-[address] Roberth reich Work Phone: Start: 06-16-[address] Roberth Crabtree Work Phone: Start: 04-09-2022 PM Inj Spine C/T [facility] Imaging SN 1 MILA KING DIVISION HEAD-RAIL DOWELING MACHINE OPERATOR Comment on above: auto-populated from documented surgical case Start: 04-09-2022 PM Inj Spine C/T [facility] Imaging SN 2 MILA KING DIVISION HEAD-RAIL DOWELING MACHINE OPERATOR Comment on above: auto-populated from documented surgical case Start: 04-09-2022 PM Inj Spine C/T [facility] Imaging SN 3 NENA PERDOMO DIVISION HEAD-DEBUBBLIZER Comment on above: auto-populated from documented surgical case Start: 04-09-2022 PM Inj Spine C/T [facility] Imaging SN 4 NENASandee PERDOMO DIVISION HEAD-DEBUBBLIZER Comment on above: auto-populated from documented surgical case Start: 01-21-[address] eroid injection MILA KING DIVISION HEAD-RAIL DOWELING MACHINE OPERATOR Comment on above: gave 60% relief for [...] Care Activity Detail Author [facility] Work Phone: Payers Date Payer Category Payer Self-pay [id number] 2015 Medicare [id number] 1955 Unknown [id number] 2.16.8 [id number] 1957 Unknown [id number] 2.16.8 [id number] 1957 Unknown [id number] 2.16.8 [id number] 1957 Unknown [id number] 2.16.8 [id number] 1957 Unknown [id number] 2.16.8 [id number] 1957 Unknown [id number] 2.16.8 [id number] 1957 Unknown [id number] 2.16.8 [id number] 1957 Unknown [id number] 2.16.8 [id number] 1957 Unknown [id number] 2.16.8 [id number] Private Health Insurance [place] [id number] Unknown [id number] 2.16.8 [id number] Unknown [id number] 2.16.8 [id number] Unknown [id number] 2.16.8 [id number] Social History Date Type Detail Facility Start: 07-07-2019 End: 12-31-2023 Never smoked tobacco (finding) [facility] Start: 1955 Sex Assigned At Female A [facility] Start: 06-04-2022 End: 12-25-2022 Tobacco smoking status NHIS Unknown if ever smoked Start: 02-17-2019 None [facility] Start: 02-17-2019 Spouse/ Signif icant Other Start: 02-18-2019 Secondhand [facility] Start: 12-21-2024 Sex Female (finding) [facility] Functional Status Date Assessment Result Facility 03-30-2023 Functional Status Maintained, Less than 8 hours [facility] 01-22-2023 Functional Status Maintained [facility] 08-27-2022 Functional Status ID band on, Bed in low position, Wheels locked, Upper/Half-Length side-rails up, Safety level maintained [facility] 04-09-2022 Functional Status Maintained, More than 8 hours [facility] Mental Status Date Assessment Result Facility 03-30-2023 Mental Status Orientation Oriented x 4 [facility] 01-22-2023 Mental Status Oriented x 4 [facility] 08-27-2022 Mental Status Oriented x 4 [facility] 04-09-2022 Mental Status Oriented x 4 [facility] Clinical Notes 08-30-2021 to 03-30-2023 Note Date & Type Note Facility 03-30-2023 Hospital Discharge instructions Patient Education 03/30/2023 08:21:26 PM Discharge Instructions no lines- post-procedure (70515) [facility] Discharge Instructions POST PROCEDURE INSTRUCTIONS [...] preferred pharmacy Follow-up with Dr. Crawford at [facility] for pain management for continuity of care after Dr Hallman's long-term April 01, 2023 [facility] 03-30-2023 Summary of episode note [...] 30 Days Fill date 2022 Pickup at [facility] Unchanged alendronate (alendronate 70 mg oral [...] by mouth Daily at bedtime Pharmacy Information [facility]: [address] [place], [place] [phone] Please take this list to your next doctor s visit. Bring all medications you take, including over the counter medications, herbals and other supplements with you to your doctor s visit. Patients and families are reminded to discard old lists and to update any records with all medication providers or retail pharmacies. Education Materials [facility] Discharge Instructions POST PROCEDURE INSTRUCTIONS [...] preferred pharmacy Follow-up with Dr. Crawford at [facility] for pain management for continuity of care after Dr Hallman's long-term April 01, 2023 Additional Information VACCINATE! IT SAVES LIVES! Members of the community who have not yet received the COVID-19 vaccine and would like to receive it can visit one of [facility] vaccine clinics. There are many vaccine clinic locations within the [facility]. For locations and available times, please visit [email or web address].o [place]io.gov/. It is important to note that some COVID mobile vaccine clinics are held outdoors and may be canceled in rainy or stormy conditions. To learn more about pediatric vaccinations (ages 5-11), we invite you to visit the [facility] webpage. https://www.ak[employer] HOLDINGSs.org/p ages/8075-Dblnq-Pdymnwfleuu-Freq mzncjj-Hwqcx-Euwrptdpt.html To learn more about the COVID-19 vaccine, we invite you to visit the CDC website for a list of frequently asked questions.https://www.cdc.gov/co ronavirus/2019-ncov/vaccines/faq .html [facility] Patient Portal Access Instructions: Stay connected with your healthcare team and access your personal medical information anytime with the [facility] Patient Portal. Please follow the directions below to create your [facility] account: 1.Access the email account you provided upon registration to the hospital/physician office.2.Look for an invitation email from [facility].3.Open the email and access the invitation link: Accept Invitation to [facility].4.Fill in the required erickson to create your account. To access your account, visit [email or web address]. Click the blue button labeled Access Patient [...] you will allow to register on the [facility] Patient Portal for access to your information. You can also access the [facility] Patient Portal on the [employer] rosa. Simply click on Patient Portal and then log into your account. If you would like to receive a full copy of your medical records, please contact the [facility] Medical Records Department by calling [phone], Thursday through Thursday between 8 a.m. and [...] Call your local pharmacy or go to [email or web address] to find one close to you.3.Make use of household items: Use cat litter or old coffee grounds to dispose medications if other options are not available. Mix your drugs with these household products, seal them in an airtight container and throw it into the garbage. Call [facility]: [phone] to be sure your drugs can be [...] Materials PM Discharge Instructions no lines- post-procedure (40044) Medication Leaflets My discharge plan and instructions have been reviewed and explained to me and I,RONALDO SOLORIO understand my current condition and have read and understand these discharge instructions. I have received a written copy of the plan/instructions. If I have questions, I am aware that I should contact my doctor. Patient/Tray Line Supervisor Signature: Date/Time: Relationship to Patient: Witness Name/Signature: Date/Time: [facility] 03-30-2023 History and physical note Date of Service March 30, 2023 8:25 AM History and Physical Update I have examined the patient; reviewed the History and Physical and there are no changes to the History and Physical unless noted below. Deep tendon reflexes in the upper extremities are 1/4. Contract Designer strength is equal bilaterally. There is decreased [...] Hallman who is being followed up by [facility] for chronic pain issues related [...] does have some constipation occasionally and uses gjvx-[id number] stool softener. History of injections, January 22, [...] no assistive device. I have reviewed the [place] automated Rx reporting system reported for this [...] Domestic Concerns: Denies. Living situation: Home/Independent. Primary Podiatric Medicine Professor: DR MCGREGOR. Lives In: Single level home. [...] JANI HALLMAN DO on 03/30/2023 08:22 AM [facility] 01-22-2023 Hospital Discharge instructions Patient Education 01/22/2023 07:29:33 PM Discharge Instructions no lines- post-procedure (11246) [facility] Discharge Instructions POST PROCEDURE INSTRUCTIONS [...] shoulder 5-6 times a day every day [facility] 01-22-2023 Summary of episode note [...] medication providers or retail pharmacies. Education Materials [facility] Discharge Instructions POST PROCEDURE INSTRUCTIONS [...] to receive it can visit one of [facility] vaccine clinics. There are many vaccine clinic locations within the [facility]. For locations and available times, please visit [email or web address].gov/. It is important to note that some COVID mobile vaccine clinics are held outdoors and may be canceled in rainy or stormy conditions. To learn more about pediatric vaccinations (ages 5-11), we invite you to visit the [facility] webpage. https://www.[facility].org/p ages/3401-Qkwpu-Sbseqfgvfkb-Freq omryjg-Pxelq-Izlegkskz.html To learn more about the COVID-19 vaccine, we invite you to visit the CDC website for a list of frequently asked questions. https://www.cdc.gov/coronavirus/ 2019-ncov/vaccines/faq.html [facility] Patient Portal Access Instructions: Stay connected with your healthcare team and access your personal medical information anytime with the [facility] Patient Portal.If you would like a full copy of your medical records, please contact the [facility] Medical Records Department, Thursday through Thursday between 8a.m. and 4:30p.m. Please follow the directions below to access the portal: 1.Access the email account you provided upon registration to the [facility].2.Look for an invitation email from [facility].3.Open the email and access the invitation link: Accept Invitation to [facility].Fill in the required erickson to create your account. Sign into [email or web address] with your username and password that you [...] you will allow to register on the [facility] Patient Portal for access to your information. You can also access the [facility] Patient Portal on the [employer] rosa. Simply click on Health Records under [...] Call your local pharmacy or go to [email or web address] to find one close to you.3.Make use of household items: Use cat litter or old coffee grounds to dispose medications if other options are not available. Mix your drugs with these household products, seal them in an airtight container and throw it into the garbage. Call [facility]: [phone] to be sure your drugs can be [...] Materials PM Discharge Instructions no lines- post-procedure (64161) Medication Leaflets My discharge plan and instructions have been reviewed and explained to me and IOSMIN PATRICIA J understand my current condition and have read and understand these discharge instructions. I have received a written copy of the plan/instructions. If I have questions, I am aware that I should contact my doctor. Patient/Tray Line Supervisor Signature: Date/Time: Relationship to Patient: Witness Name/Signature: Date/Time: [facility] 01-22-2023 History and physical [...] Hallman who is being followed up by [facility] for chronic pain issues related [...] no assistive device. I have reviewed the [place] automated Rx reporting system reported for this [...] Domestic Concerns: Denies. Living situation: Home/Independent. Primary Podiatric Medicine Professor: DR MCGREGOR. Lives In: Single level home. [...] Ordered: PM Inj Spine C/T With Imaging 61110 Urine Drug Screen (Lab Send Out - Office) 2. Degenerative disc disease, cervical We will schedule her for a cervical epidural steroid injection with Dr. Hallman. Reviewed preprocedure instructions and requirements, patient states understanding. Ordered: oxyCODONE, Dose : 18 mg = 1 cap(s), Oral, q12h, fill 01/20/2023., # 60 cap(s), 0 Refill(s), Pharmacy: [facility], Degeneration of intervertebral disc of cervical region Radiculopathy, 01/20/23, 157.5, cm, 01/05/23 12:05:00 EDT, Height, 86.5, kg,... PM Inj Spine C/T With Imaging 68803 Urine Drug Screen (Lab Send Out - Office) 3. Myofascial pain syndrome, cervical We will continue with gabapentin, patient does not need a prescription refill today. Ordered: PM Inj Spine C/T With Imaging 38726 Urine Drug Screen (Lab Send Out - [...] Duration: 30 Days fill 2022. Pickup at [facility] Unchanged alendronate (alendronate 70 mg oral [...] prescriber if questions or concerns Pharmacy Information [facility]: [address] [place], [place] [phone] [1] Ambulatory Comprehensive Intake - Pain Management; Art Patel LPN 01/05/2023 12:05 EDT [2] Ambulatory Comprehensive Intake - Pain Management; Art Patel LPN 01/05/2023 12:05 EDT Signature Line Digitally Signed by NENA PERDOMO on 01/05/2023 12:32 PM [1] [1] Specialty Office Visit Note; NENA PERDOMO 01/05/2023 12:31 EDT Digitally Signed by JANI HALLMAN DO on 01/22/2023 07:30 AM [facility] 08-27-2022 Hospital Discharge instructions Patient Education 08/27/2022 12:28:25 PM Discharge Instructions no lines- post-procedure (63803) [facility] Discharge Instructions POST PROCEDURE INSTRUCTIONS [...] day, every day Enjoy your holiday season! [facility] 08-27-2022 Summary of episode note [...] medication providers or retail pharmacies. Education Materials [facility] Discharge Instructions POST PROCEDURE [...] Materials PM Discharge Instructions no lines- post-procedure (47614) Medication Leaflets My discharge plan and instructions have been reviewed and explained to me and I,RONALDO SOLORIO understand my current condition and have read and understand these discharge instructions. I have received a written copy of the plan/instructions. If I have questions, I am aware that I should contact my doctor. Patient/Tray Line Supervisor Signature: Date/Time: Relationship to Patient: Witness Name/Signature: Date/Time: [facility] 08-27-2022 History and physical note Date of Service August 27, 2022 12:35 PM History and Physical Update I have examined the patient; reviewed the History and Physical and there are no changes to the History and Physical unless noted below. Deep tendon reflexes in the upper extremities are 1/4. Contract Designer strength is equal bilaterally. There is paraspinous muscle tightness through the cervical region and extreme tightness in the bilateral suprascapular muscles.. There is crepitance to range of motion of the cervical complex. Pain level today is 7 out of 10 which she describes as continuous, aching, [id number], stabbing, shooting, and gnawing, numbness, burning, miserable, [...] : No Vomiting : No Anais Walker [place] - 08/19/2022 12:41 EST Hematology Review of Systems Grid Bleeds Easily : No Blood Clots : No Low Blood Count : No Anais Walker [place] - 08/19/2022 12:41 EST Sleep Review of Systems Grid Daytime Sleepiness : No Anais Walker [place] - 08/19/2022 12:44 EST Fatigue : No Insomnia : Yes Snoring : No [2] I have reviewed and assessed the [place] Automated Rx Reporting System (OARRS) report for [...] plantarflexion are intact. MUSCULOSKELETAL: Gait normal . Contract Designer strength equal Strengths 5/5 in upper and [...] Domestic Concerns: Denies. Living situation: Home/Independent. Primary Podiatric Medicine Professor: DR MCGREGOR. Lives In: Single level home. [...] 08/23/2022, # 270 tab(s), 0 Refill(s), Pharmacy: [facility], Radiculopathy Degenerative disc disease, cervical, 157.5, cm, 08/19/22 12:44:00 EST, Height, 84.8, kg, 08/19/22 12:44:00 EST,... oxyCODONE, Dose : 18 mg = 1 cap(s), Oral, q12h, fill date 08/23/2022, # 60 cap(s), 0 Refill(s), Pharmacy: [facility], Degeneration of intervertebral disc of cervical region Radiculopathy, 157.5, cm, 08/19/22 12:44:00 EST, Height, 84.8, kg, 07/30... PM Inj Spine C/T With Imaging 14873 2. Radiculopathy affecting upper extremity Bilateral upper extremities Ordered: PM Inj Spine C/T With Imaging 19300 3. Myofascial pain syndrome, cervical Ordered: PM Inj Spine C/T With Imaging 45955 Problem List/Past Medical History Ongoing Degenerative disc [...] 90 Days fill date 2021 Pickup at [facility] Changed oxyCODONE (Xtampza ER 18 mg oral capsule, extended release) 1 cap by mouth Every 12 hours Degeneration of intervertebral disc of cervical region Radiculopathy Duration: 30 Days fill date 2021 Pickup at [facility] Unchanged atorvastatin (atorvastatin 20 mg oral [...] prescriber if questions or concerns Pharmacy Information [facility]: [address] [place] [id number] [phone] [1] Ambulatory Comprehensive Intake - Pain Management; Anais Walker MA 08/19/2022 12:41 EST [2] Ambulatory Comprehensive Intake - Pain Management; Anais Walker MA 08/19/2022 12:41 EST Signature Line Digitally Signed by MILA KING on 08/19/2022 01:07 PM [1] [1] Specialty Office Visit Note; MILA KING 08/19/2022 13:07 EST Digitally Signed by JANI HALLMAN DO on 08/27/2022 12:35 PM [facility] 04-09-2022 Hospital Discharge instructions Patient Education 04/09/2022 09:06:05 PM Discharge Instructions no lines- post-procedure (85678) [facility] Discharge Instructions POST PROCEDURE INSTRUCTIONS [...] pharmacy with a fill date of 04/25/2022 [facility] 04-09-2022 Summary of episode note [...] Duration: 30 Days fill date Pickup at [facility] Changed pregabalin (Lyrica 150 mg oral capsule) 1 cap by mouth Three (3) times a day Radiculopathy affecting upper extremity Degenerative disc disease, cervical Duration: 30 Days Note dosage increase Fill date 2021 Pickup at [facility] Unchanged atorvastatin (atorvastatin 20 mg oral [...] by mouth Daily at bedtime Pharmacy Information [facility]: [address] [place], [place] [phone] Please take this list to your next doctor s visit. Bring all medications you take, including over the counter medications, herbals and other supplements with you to your doctor s visit. Patients and families are reminded to discard old lists and to update any records with all medication providers or retail pharmacies. Education Materials [facility] Discharge Instructions POST [...] to receive it can visit one of [facility] vaccine clinics. There are many vaccine clinic locations within the [facility]. For locations and available times, please visit [email or web address] It is important to note that some COVID mobile vaccine clinics are held outdoors and may be canceled in rainy or stormy conditions. To learn more about pediatric vaccinations (ages 5-11), we invite you to visit the [facility] webpage. [email or web address] To learn more about the COVID-19 vaccine, we invite you to visit the [facility] website for a list of frequently asked questions. [email or web address] [facility] Patient Portal Access Instructions: Stay connected with your healthcare team and access your personal medical information anytime with the [facility] Patient Portal.If you would like a full copy of your medical records, please contact the [facility] Medical Records Department, Thursday through Thursday between 8a.m. and 4:30p.m. Please follow the directions below to access the portal: 1.Access the email account you provided upon registration to the [facility].2.Look for an invitation email from [facility].3.Open the email and access the invitation link: Accept Invitation to [facility].Fill in the required erickson to create your [...] you will allow to register on the [facility] Patient Portal for access to your information. You can also access the [facility] Patient Portal on the [employer]. Simply click on Health Records under Health Data and then click on the [employer] logo. HOW TO SAFELY DISPOSE OF PRESCRIPTION [...] Call your local pharmacy or go to [email or web address] to find one close to you.3.Make use of household items: Use cat litter or old coffee grounds to dispose medications if other options are not available. Mix your drugs with these household products, seal them in an airtight container and throw it into the garbage. Call [facility]: [phone] to be sure your drugs can be [...] Materials PM Discharge Instructions no lines- post-procedure (81656) Medication Leaflets My discharge plan and instructions have been reviewed and explained to me and IOSMIN PATRICIA J understand my current condition and have read and understand these discharge instructions. I have received a written copy of the plan/instructions. If I have questions, I am aware that I should contact my doctor. Patient/Tray Line Supervisor Signature: Date/Time: Relationship to Patient: Witness Name/Signature: Date/Time: [facility] 04-09-2022 History and physical note Date of Service April 09, 2022 9:05 AM History and Physical Update I have examined the patient; reviewed the History and Physical and there are no changes to the History and Physical unless noted below. Deep tendon reflexes upper extremities are 1/4. Contract Designer strength is equal bilaterally but diminished will [...] Upper Extremity (R) : No Anais Walker [facility] 03/25/2022 13:16 EDT Stomach/Bowel Review of Systems Grid Constipation : Yes Diarrhea : No Nausea : No Vomiting : No Anais Walker [facility] 03/25/2022 13:16 EDT Stomach/Bowel ROS Comments : takes Anais Spain [facility] 03/25/2022 13:16 EDT Hematology Review of Systems Grid Bleeds Easily : No Blood Clots : No Low Blood Count : No Anais Walker [facility] 03/25/2022 13:16 EDT Sleep Review of Systems Grid Daytime Sleepiness : No Fatigue : Yes Insomnia : Yes Snoring : No [2] I have reviewed and assessed the [place] Automated Rx Reporting System (OARRS) report for [...] plantarflexion are intact. MUSCULOSKELETAL: Gait normal . Contract Designer strength equal Strengths 5/5 in upper and [...] Domestic Concerns: Denies. Living situation: Home/Independent. Primary Podiatric Medicine Professor: DR MCGREGOR. Lives In: Single level home. [...] gabapentin., # 90 cap(s), 0 Refill(s), Pharmacy: [facility], Degenerative disc disease, cervical, 157.5, cm, 03/25/22 13:16:00 EDT, Height, 82.4 PM Inj Spine C/T With Imaging 50017 2. Radiculopathy affecting upper extremity Bilateral upper extremities. Ordered: PM Inj Spine C/T With Imaging 35809 3. Myofascial pain syndrome, cervical Continue baclofen prescribed elsewhere. Ordered: PM Inj Spine C/T With Imaging 63912 Problem List/Past Medical History Ongoing Degenerative disc [...] date 2021 D/ C gabapentin. Pickup at [facility] Unchanged atorvastatin (atorvastatin 20 mg oral [...] prescriber if questions or concerns Pharmacy Information [facility]: [address] [place], [place] [phone] What How Much When Why Comments Stop [...] JANI HALLMAN DO on 04/09/2022 09:07 AM [facility] 08-30-2021 Hospital Discharge instructions Patient Education 08/30/2021 08:10:33 PM Discharge Instructions no lines- post-procedure (53488) [facility] Discharge Instructions POST PROCEDURE INSTRUCTIONS [...] times daily Jackie Jimenez. Happy new year! [facility] Evaluation + Plan note Future Appointments Appointment Date:08/30/2021 07:45:00 AM Scheduled Provider: Location:[facility] Management- [place] Appointment Type:PM TPI 1- 2 Muscles [facility] Evaluation + Plan note Future Appointments Appointment Date:03/25/2022 01:00:00 PM Scheduled Provider:MILA KING Location:PM Office Appointment Type:PM OV FERNANDO BARKLEY [facility] Evaluation + Plan note Future Appointments Appointment Date:04/09/2022 08:45:00 AM Scheduled Provider: Location:[facility]- [place] Appointment Type:PM Inj Spine C/T With Imaging [facility] Evaluation + Plan note Future Appointments Appointment Date:06/17/2022 12:30:00 PM Scheduled Provider:JANI HALLMAN DO Location:PM Office Appointment Type:PM OV [facility] Evaluation + Plan note Future Appointments Appointment Date:09/11/2022 12:30:00 PM Scheduled Provider: Location:[facility]- [place] Appointment Type:PM Inj Spine C/T With Imaging [facility] Evaluation + Plan note Future Appointments Appointment Date:01/05/2023 12:00:00 PM Scheduled Provider:NENA PERDOMO Location:PM Office Appointment Type:PM OV [facility] Evaluation + Plan note Future Appointments Appointment Date:03/20/2023 01:00:00 PM Scheduled Provider:NENA PERDOMO Location:PM Office Appointment Type:PM OV [facility] Evaluation note Diagnosis Onset Date Breast lump acute Work Phone: Evaluation noteNo assessment information available Work Phone: Hospital course Narrative No data available for this section [facility] Hospital Discharge instructions No data available for this section [facility] progress note No data available for this section [facility] reason for referral (narrative)No reason for referral information available Work Phone: Chief Complaint and Reason for [...] February 17, 2019 3 :59pm Power of Mobile Marketing Specialist Yes February 17, 2019 3:59pm Advance Directive Response Recorded Date/ Time Living Will Yes February 17, 2019 2 :59pm Power of Mobile Marketing Specialist Yes February 17, 2019 2:59pm Summary Purpose [...] Role: Primary Care Physician Address: Address: [address] Care Team Related Persons Name: VINAY SOLORIO Name: ROBERT SOLORIO Care Team Personnel Name: ROBERTH CRABTREE MD Member Role: Primary Care Physician Address: Address: [address] [place] [address] [address] Care Team Related Persons Name: VINAY SOLORIO Name: ROBERT SOLORIO Care Team Personnel Name: ROBERTH CRABTREE MD Member Role: Primary Care Physician Address: Address: [address] [place] [address] [address] Care Team Related Persons Name: VINAY SOLORIO Name: ROBERT SOLORIO Care Team Personnel Name: ROBERTH CRABTREE MD Member Role: Primary Care Physician Address: Address: [address] [place] [address] [address] Care Team Related Persons Name: VINAY SOLORIO Name: ROBERT SOLORIO Care Team Personnel Name: ROBERTH CRABTREE MD Member Role: Primary Care Physician Address: Address: [address] [place] [address] [address] Care Team Related Persons Name: VINAY SOLORIO Name: ROBERT SOLORIO Goals (unrecognized section and content) Goals may be documented in a n alternate section INFORMATION SOURCE (unrecogn ized section and content) DATE CREATED AUTHOR 04/01/2023 [facility] ([place]) DATE CREATED AUTHOR AUTHOR'S ORGANIZ ATION 01/03/2025 [facility] FOR RECORDS PERTAINING TO PATIENTS WHO ARE [...] BE BASED ON THE PRIMARY CLINICAL RECORDS. [employer] [facility]. provides no warranty or guarantee of the accuracy or completeness of information in this document.
== END | disposition home or self-care (01) ==
LOC: MTLAB 08:34
PROVIDERS: PCP Family Medicine; Referring Provider Family Medicine; Visit Provider Family Medicine
DX: E78.00 Pure hypercholesterolemia, unspecified (principal)
CPT/HCPCS: 36415; 80053; 80061

== ENCOUNTER → 2025-08-18 | Outpatient (CLI) | payer MEDICARE, SELFPAY ==
[2025-08-18 18:15] LABS: CRP < 3.00 mg/L (0.0-3.0)
[2025-08-21 12:08] LABS: ANTINUCLEAR ANTIBODIES DIRECT Negative (Negative)
== END | disposition home or self-care (01) ==
LOC: MFPLAB 15:59
PROVIDERS: PCP Family Medicine; Visit Provider Family Medicine
DX: M20.009 Unspecified deformity of unspecified finger(s) (principal)
CPT/HCPCS: 36415; 85652; 86038; 86140; 86431